=== PATIENT | male | born 1935 | race Caucasian/White ===

== ENCOUNTER 2016-08-11 18:11 | Emergency (ER) | payer MEDICARE, BC ==
--- NOTE | 2016-08-11 18:22 | EDM.PDOC ---
ED HPI LOWER BACK PAIN/INJURY - General Chief Complaint: Back Pain or Injury Stated Complaint: FALL/BACK PAIN Time Seen by Provider: 08/11/16 18:22 Source of Information: Reports: Patient History Limitations: Reports: No limitations - History of Present Illness INITIAL COMMENTS - FREE TEXT/NARRATIVE: HISTORY AND PHYSICAL: [81-year-old male brought in by his and daughter having back pain. Patient was opening the tailgate of his pickup he reached over to pick something on the edge of the pickup and the tailgate knocked him over. He did strike the back of his head on the cement driveway. He is complaining more of his midthoracic back pain] History of Present Illness: [Today patient fell] Review of Systems: As per history of present illness and below otherwise all systems reviewed and negative. Past medical history: As per history of present illness and as reviewed below otherwise noncontributory. Surgical history: As per history of present illness and as reviewed below otherwise noncontributory. Social history: No reported history of drug or alcohol abuse. Family history: As per history of present illness and as reviewed below otherwise noncontributory. Physical exam: Alert oriented gentleman neurologically looks intact he is not on any blood thinners. PERRLA, no obvious deformity to the back, or to the back of his head. HEENT: Atraumatic, normocehpalic, pupils reactive, negative for conjunctival pallor or scleral icterus, mucous membranes moist, throat clear, neck supple, nontender, trachea midline. Lungs: Clear to auscultation, breath sounds equal bilaterally, chest non tender. Heart: S1S2, regular, negative for clicks, rubs, or JVD. Abdomen: Soft, nondistended, nontender. Negative for masses or hepatossplenmegaly. Negative for costovertebral tenderness. Extremities: Atraumatic, negative for cords or calf pain. Neurovascular unremarkable. Neuro: Awake, alert, oriented. Cranial nerves II through XII unremarkable. Cerebellum unremarkable. Motor and sensory unremarkable throughout. Exam nonfocal. Diagnostics: [CT head/ thoracic spine x-rays] Therapeutics: [Toradol 60 mg IM] Impression: [Contusion] Plan: [Home Tylenol or ibuprofen for your discomfort] Definitive disposition and diagnosis as appropriate pending reevaluation and review of above. - Related Data Allergies/ADRs: Allergies Allergy/AdvReac Type Severity Reaction Status Date / Time Iodinated Contrast Media - Allergy Hives Verified 08/11/16 18:26 Oral and [Iodinated Contrast Media - IV Dye] Home Meds: Home Meds Aspirin [Halfprin] 81 mg PO BRK 03/16/15 [History] Levothyroxine Sodium [Levoxyl] 50 mcg PO ACBREAKFAST 03/16/15 [History] atorvaSTATin [Lipitor] 20 mg PO BEDTIME 08/11/16 [History] Past Medical History Other Cardiovascular History: reddness swelling around saphanous graft site L) leg. Other Musculoskeletal History: [place] bones playing [place] , no known treated Other Endocrine/Metabolic History: Hypothyroidism - Past Surgical History Other Cardiovascular Surgeries/Procedures: CA Bypass Other GI Surgeries/Procedures: Colon resection for cancer Other Male Surgeries/Procedures: Radical Prostatectomy Social & Family History - Tobacco Use Smoking Status *Q: Never Smoker Years of Tobacco use: 30 Packs/Tins Daily: 1 Second Hand Smoke Exposure: No - Recreational Drug Use Recreational Drug Use: No Drug Use in Last 12 Months: No ED ROS GENERAL - Review of Systems Review Of Systems: ROS reveals no pertinent complaints other than HPI. ED EXAM,LOWER BACK PAIN/INJURY - Physical Exam Exam: See Below (see dictation) Course - Vital Signs Last Recorded V/S: Last Vital Signs Temp 36.5 C 08/11/16 19:12 Pulse 60 08/11/16 19:12 Resp 17 08/11/16 19:12 BP 139/65 08/11/16 19:12 Pulse Ox 96 08/11/16 18:28 - Orders/Labs/Meds Orders: Active Orders 24 hr Category Date Time Status Head wo Cont [CT] Stat Exams 08/11/16 18:29 Taken Thoracic Spine 3V [CR] Stat Exams 08/11/16 18:31 Taken Meds: Medications Discontinued Medications Generic Name Dose Route Start Last Admin Trade Name Zeb PRN Reason Stop Dose Admin Ketorolac Tromethamine 60 mg 08/11/16 19:41 Toradol IM 08/11/16 19:42 ONETIME ONE Departure - Departure Time of Disposition: 20:01 Disposition: Home, Self-Care 01 Condition: good Clinical Impression: Contusion Qualifiers: Encounter type: initial encounter Contusion area: head Forms: ED Department Discharge Additional Instructions: The following information is given to patients seen in the emergency department who are being discharged to home. This information is to outline your options for follow-up care. We provide all patients seen in our emergency department with a follow-up referral. The need for follow-up, as well as the timing and circumstances, are variable depending upon the specifics of your emergency department visit. If you don't have a primary care physician on staff, we will provide you with a referral. We always advise you to contact your personal physician following an emergency department visit to inform them of the circumstance of the visit and for follow-up with them and/or the need for any referrals to a consulting specialist. The emergency department will also refer you to a specialist when appropriate. This referral assures that you have the opportunity for followup care with a specialist. All of these measure are taken in an effort to provide you with optimal care, which includes your followup. Under all circumstances we always encourage you to contact your private physician who remains a resource for coordinating your care. When calling for followup care, please make the office aware that this follow-up is from your recent emergency room visit. If for any reason you are refused follow-up, please contact the [facility] emergency department at and asked to speak to the emergency department charge nurse. Lower primary care provider Tylenol for discomfort - My Orders Last 24 Hours: My Active Orders 08/11/16 18:29 Head wo Cont [CT] Stat 08/11/16 18:31 Thoracic Spine 3V [CR] Stat - Assessment/Plan Last 24 Hours: My Active Orders 08/11/16 18:29 Head wo Cont [CT] Stat 08/11/16 18:31 Thoracic Spine 3V [CR] Stat
[2016-08-11] MEDS ORDERED: Ketorolac 60 MG/2 ML SDV IM ONE (19:41)
[2016-08-11 20:21] VITALS: BP 150/70
--- NOTE | 2016-08-14 12:59 | CT ---
EXAM DATE: 08/11/16 PATIENT'S AGE: 81 Patient: OCTAVIO KING Facility: [place], [place] Site . Site : 1935 Study: CT Head WO CONT [id number]/[id number] 7:20:15 PM Ordering Physician: Doctor Hernandez Final Report: INDICATION: Pain following fall TECHNIQUE: CT head without contrast. COMPARISON: None FINDINGS: CSF spaces: Within normal limits for age. Brain parenchyma: The wyatt-white differentiation is normal. No sign of mass, hemorrhage, or midline shift. Skull base and calvarium: Mucosal thickening involving the right frontal, ethmoid and maxillary and left frontal sinuses. Obstruction of the right ostiomeatal complex and frontal recess. The visualized orbits are grossly unremarkable. No skull fractures. IMPRESSION: No acute intracranial abnormalities. Right frontal, ethmoid and maxillary and left frontal sinus disease with obstruction of the right ostiomeatal complex and frontal recess. Dictated by Tyler Elliott MD @ 08/11/2016 7:38:21 PM Dictated by: Tyler Elliott MD @ 08/11/2016 19:38:31 (Electronic Signature) Report Signed by Proxy and Original Signed Document filed in the Medical Record. [email or web address]
--- NOTE | 2016-08-14 13:00 | CR ---
EXAM DATE: 08/11/16 PATIENT'S AGE: 81 Patient: OCTAVIO KING Facility: [place], [place] Site . Site : 1935 Study: XRay Spine Thoracic [id number]/17/2017 7:30:16 PM Ordering Physician: Doctor Hernandez Final Report: INDICATION: Fall TECHNIQUE: Thoracic spine 3 view. COMPARISON: None FINDINGS: Bones: Alignment is normal. No fractures or significant bone lesions. Joints: Kyphotic and degenerative changes thoracic spine. Soft tissues: Unremarkable. IMPRESSION: No evidence of acute thoracic spine trauma. Dictated by Tyler Elliott MD @ 08/11/2016 7:40:59 PM Dictated by: Tyler Elliott MD @ 08/11/2016 19:41:06 (Electronic Signature) Report Signed by Proxy and Original Signed Document filed in the Medical Record. MTDD
== END 2016-08-11 20:21 | disposition home or self-care (01) ==
LOC: MW.ED 18:11
DX: S00.93XA Contusion of unspecified part of head, initial encounter (principal); Z91.041 Radiographic dye allergy status; Z95.1 Presence of aortocoronary bypass graft; Z90.89 Acquired absence of other organs; W22.8XXA Striking against or struck by other objects, initial encounter
CPT/HCPCS: 70450; 72072; 96372; 99284; J1885; 99283

== ENCOUNTER → 2016-10-12 | Outpatient (CLI) | payer MEDICARE, BC | LOC: MW.CHUR 14:56 | PROVIDERS: ATTEND Urology | DX: C61 Malignant neoplasm of prostate (principal); R97.21 Rising PSA following treatment for malignant neoplasm of prostate; R32 Unspecified urinary incontinence | CPT/HCPCS: 36415; 84153; G0463 ==

== ENCOUNTER 2017-08-23 12:41 | Observation (INO) | payer MEDICARE, BC ==
[2017-08-23] MEDS ORDERED: Aspirin 81 MG Tab.Chew PO ONE (12:43)
--- NOTE | 2017-08-23 12:52 | EDM.PDOC ---
ED HPI GENERAL MEDICAL PROBLEM - General Stated Complaint: CHEST PAIN Time Seen by Provider: 08/23/17 12:42 Source of Information: Reports: Patient History Limitations: Reports: No Limitations - History of Present Illness INITIAL COMMENTS - FREE TEXT/NARRATIVE: HISTORY AND PHYSICAL: History of present illness: Patient is an 82-year-old male who presents to the emergency room with complaints of chest pain that radiates to his left shoulder and arm. He states he has had neck pain as well and feels as if he is unable to lift his chin up. The symptoms started Sunday and have not resolved. Today he told his daughter who is a nurse about his symptoms and she encouraged him to come to the emergency room for evaluation. He denies any shortness of breath, nausea, vomiting or diaphoresis. Denies any fever, chills, abdominal pain, diarrhea or constipation. Past medical history of bypass in 1995, elevated cholesterol, or with resection , hypothyroidism. Patient does have a primary care provider which she sees routinely as needed. Has not seen a production assembly operator in the years. No past smoking history. Review of systems: As per history of present illness and below otherwise all systems reviewed and negative. Past medical history: As per history of present illness and as reviewed below otherwise noncontributory. Surgical history: As per history of present illness and as reviewed below otherwise noncontributory. Social history: No reported history of drug or alcohol abuse. Family history: As per history of present illness and as reviewed below otherwise noncontributory. Physical exam: General: Well-developed and well-nourished 82-year-old male. Alert and oriented. Nontoxic appearing and in no acute distress. HEENT: Atraumatic, normocephalic, pupils equal and reactive bilaterally, negative for conjunctival pallor or scleral icterus, mucous membranes moist, throat clear, neck supple, nontender, trachea midline. No drooling or trismus noted. No meningeal signs Lungs: Clear to auscultation, breath sounds equal bilaterally, chest nontender. Heart: S1S2, regular rate and rhythm without overt murmur Abdomen: Soft, nondistended, nontender. Large abdominal hernia noted, normal patient variance. Negative for masses or hepatosplenomegaly. Negative for costovertebral tenderness. Pelvis: Stable nontender. Genitourinary: Deferred. Rectal: Deferred. Skin: Intact, warm, dry. No lesions or rashes noted. Extremities: Atraumatic, negative for cords or calf pain. Neurovascular unremarkable. Neuro: Awake, alert, oriented. Cranial nerves II through XII unremarkable. Cerebellum unremarkable. Motor and sensory unremarkable throughout. Exam nonfocal. Notes: Patient had 1 tab of nitro SL which dropped his BP. He was given a 500 ml bolus which brought it back up. Pain is moreso in his neck when he extends it upward. Will give him Toradol. Patient is aware that admission will be offered (due to symptoms/PMH), he is agreeable to staying overnight for observation. Chest x-ray shows no pneumonia or infiltrate. Lab work is within normal limits. I did contact Dr. Griffin who is agreeable to keeping this patient as observation with telemetry. Patient and family members are aware and agreeable for admission. Stable. Dr. Head (Resident) here to evaluate patient for admission. Diagnostics: CBC, CMP, troponin, EKG, chest x-ray Therapeutics: Aspirin, NS Impression: Chest pain rule out OK Neck pain Plan: Observation admission with telemetry Definitive disposition and diagnosis as appropriate pending reevaluation and review of above. Onset Date: 08/20/17 Duration: Day(s): Location: Reports: Neck, Chest, Upper Extremity, Left Associated Symptoms: Reports: Chest Pain. Denies: Confusion, Cough, cough w sputum, Diaphoresis, Fever/Chills, Headaches, Loss of Appetite, Malaise, Nausea/ Vomiting, Rash, Seizure, Shortness of Breath, Syncope, Weakness Treatments FUNCTIONAL CONSULTANT: Reports: Other (see below) (Aleve) Left Shoulder Pain Score (Numeric/FACES): 8 - Related Data Allergies Allergy/AdvReac Type Severity Reaction Status Date / Time Iodinated Contrast- Oral and Allergy Hives Verified 08/11/16 18:26 IV Dye [Iodinated Contrast Media - IV Dye] Home Meds: Home Meds Aspirin [Halfprin] 81 mg PO BRK 03/16/15 [History] Levothyroxine Sodium [Levoxyl] 50 mcg PO ACBREAKFAST 03/16/15 [History] atorvaSTATin [Lipitor] 20 mg PO BEDTIME 08/11/16 [History] Tolterodine [Detrol] 2 mg PO DAILY 08/23/17 [History] Past Medical History Cardiovascular History: Reports: Bypass Other Cardiovascular History: reddness swelling around saphanous graft site L) leg. Other Musculoskeletal History: [place] likely [place] some bones playing football , no known treated Endocrine/Metabolic History: Reports: Hypothyroidism Other Endocrine/Metabolic History: Hypothyroidism Hematologic History: Reports: Other (See Below) Other Hematologic History: blood clots - Past Surgical History Cardiovascular Surgical History: Reports: Coronary Artery Bypass Social & Family History - Tobacco Use Smoking Status *Q: Never Smoker Years of Tobacco use: 30 Packs/Tins Daily: 1 Second Hand Smoke Exposure: No - Recreational Drug Use Recreational Drug Use: No Drug Use in Last 12 Months: No ED ROS GENERAL - Review of Systems Review Of Systems: ROS reveals no pertinent complaints other than HPI. ED EXAM, GENERAL - Physical Exam Exam: See Below (See dictation) EKG INTERPRETATION EKG Date: 08/23/17 Time: 12:42 Rhythm: NSR Rate (Beats/Min): 69 Course - Vital Signs Last Recorded V/S: Last Vital Signs Temp 99.5 F 08/23/17 12:46 Pulse 63 08/23/17 14:09 Resp 16 08/23/17 14:09 BP 112/55 L 08/23/17 14:09 Pulse Ox 97 08/23/17 14:09 - Orders/Labs/Meds Orders: Active Orders 24 hr Category Date Time Status Admission Status [Patient Status] [ADT] Stat ADT 08/23/17 14:25 Active Cardiac Monitoring [RC] . DIRECTED Care 08/23/17 14:25 Active EKG Documentation Completion [RC] STAT Care 08/23/17 12:43 Active Morphine Med 08/23/17 13:31 Active 2 mg IVPUSH ONETIME PRN Nitroglycerin [Nitrostat] Med 08/23/17 12:58 Active 0.4 mg SL Q5M PRN Medication Orders Morphine Sulfate (Morphine) 2 mg IVPUSH ONETIME PRN PRN Reason: Pain (moderate 4-6) Last Admin: 08/23/17 14:04 Dose: 2 mg Nitroglycerin (Nitrostat) 0.4 mg SL Q5M PRN PRN Reason: Chest Pain Last Admin: 08/23/17 13:06 Dose: 0.4 mg Labs: Laboratory Tests 08/23/17 08/23/17 Range/Units 12:55 12:55 WBC 9.37 (4.0-11.0) K/uL RBC 4.42 L (4.50-5.90) M/uL Hgb 14.1 (13.0-17.0) g/dL Hct 40.7 (38.0-50.0) % MCV 92.1 (80.0-98.0) fL MCH 31.9 (27.0-32.0) pg MCHC 34.6 (31.0-37.0) g/dL RDW Std Deviation 42.4 (28.0-62.0) fl RDW Coeff of Dalia 13 (11.0-15.0) % Plt Count 200 (150-400) K/uL MPV 9.90 (7.40-12.00) fL Neut % (Auto) 75.0 (48.0-80.0) % Lymph % (Auto) 10.8 L (16.0-40.0) % [place] % (Auto) 13.7 (0.0-15.0) % Eos % (Auto) 0.4 (0.0-7.0) % Baso % (Auto) 0.1 (0.0-1.5) % Neut # (Auto) 7.0 H (1.4-5.7) K/uL Lymph # (Auto) 1.0 (0.6-2.4) K/uL [place] # (Auto) 1.3 H (0.0-0.8) K/uL Eos # (Auto) 0.0 (0.0-0.7) K/uL Baso # (Auto) 0.0 (0.0-0.1) K/uL Nucleated RBC % 0.0 /100WBC Nucleated RBCs # 0 K/uL Sodium 139 (136-148) mmol/L Potassium 3.9 (3.5-5.1) mmol/L Chloride 103 (98-107) mmol/L Carbon Dioxide 27.7 (21.0-32.0) mmol/L BUN 21 H (7.0-18.0) mg/dL Creatinine 1.2 (0.8-1.3) mg/dL Est Cr Clr Drug Dosing 45.13 mL/min Estimated GFR (MDRD) 57.8 ml/min Glucose 76 (74-106) mg/dL Calcium 9.1 (8.5-10.1) mg/dL Total Bilirubin 1.3 H (0.2-1.0) mg/dL AST 18 (15-37) IU/L ALT 17 (14-63) IU/L Alkaline Phosphatase 94 (46-116) U/L Troponin I < 0.050 (0.000-0.056) ng/mL Total Protein 7.2 (6.4-8.2) g/dL Albumin 3.5 (3.4-5.0) g/dL Globulin 3.7 H (2.0-3.5) g/dL Albumin/Globulin Ratio 1.0 L (1.3-2.8) Meds: Medications Generic Name Dose Route Start Last Admin Trade Name Freq PRN Reason Stop Dose Admin Morphine Sulfate 2 mg 08/23/17 13:31 08/23/17 14:04 Morphine IVPUSH 2 mg ONETIME PRN Administration Pain (moderate 4-6) Nitroglycerin 0.4 mg 08/23/17 12:58 08/23/17 13:06 Nitrostat SL 0.4 mg Q5M PRN Administration Chest Pain Discontinued Medications Generic Name Dose Route Start Last Admin Trade Name Freq PRN Reason Stop Dose Admin Aspirin 324 mg 08/23/17 12:43 08/23/17 12:50 Aspirin PO 08/23/17 12:44 324 mg ONETIME ONE Administration Sodium Chloride 1,000 mls @ 999 mls/hr 08/23/17 13:15 08/23/17 13:20 Normal Saline IV 08/23/17 14:15 999 mls/hr .BOLUS ONE Administration Departure - Departure Time of Disposition: 14:38 Disposition: Refer to Observation Clinical Impression: Chest pain, rule out acute myocardial infarction, Neck pain Referrals: PCP,None [Primary Care Provider] - - My Orders Last 24 Hours: My Active Orders 08/23/17 12:43 EKG Documentation Completion [RC] STAT 08/23/17 12:58 Nitroglycerin [Nitrostat] 0.4 mg SL Q5M PRN 08/23/17 13:31 Morphine 2 mg IVPUSH ONETIME PRN 08/23/17 14:25 Admission Status [Patient Status] [ADT] Stat Cardiac Monitoring [RC] . DIRECTED - Assessment/Plan Last 24 Hours: My Active Orders 08/23/17 12:43 EKG Documentation Completion [RC] STAT 08/23/17 12:58 Nitroglycerin [Nitrostat] 0.4 mg SL Q5M PRN 08/23/17 13:31 Morphine 2 mg IVPUSH ONETIME PRN 08/23/17 14:25 Admission Status [Patient Status] [ADT] Stat Cardiac Monitoring [RC] . DIRECTED
[2017-08-23] MEDS ORDERED: Nitroglycerin 0.4 MG Tab.SL SL PRN (12:58)
[2017-08-23] MEDS ORDERED: Sodium Chloride 0.9% 1,000 ML IV ONE (13:15)
[2017-08-23] MEDS ORDERED: Morphine 4 MG/ML Syringe IVPUSH PRN ×2 (13:31→15:29)
--- NOTE | 2017-08-23 13:54 | CR ---
EXAMINATION: Portable chest radiograph. HISTORY: Chest pain. FINDINGS: The trachea is midline. The cardiomediastinal silhouette is within normal limits. Median sternotomy w ires are noted. The cardiothymic silhouette is stable mild interstitial prominence. No focal consolid ation, pleural effusion, or pneumothorax. Angulation of the anterior sixth and seventh left ribs, possibly representing underlying fractures. IMPRESSION: No acute cardiopulmonary process.
[2017-08-23 14:16] LABS: CHLORIDE,CL 103 mmol/L (98-107); SODIUM,NA 139 mmol/L (136-148)
--- NOTE | 2017-08-23 15:28 | PCM.HP ---
H&P History of Present Illness - General Date of Service: 08/23/17 Admit Problem/Dx: Admission Diagnosis/Problem Admission Diagnosis/Problem Chest pain, rule out acute myocardial infarction Source of Information: Patient - History of Present Illness Initial Comments - Free Text/Narative: This is a 82-year-old male who is presenting with his secondary to what he complains of as neck pain that's radiating down his arm. He states that he has not had any chest pain. However due to his previous cardiovascular history he may be presenting with atypical chest pain that requires a acute coronary syndrome rule out. He does have severe kyphosis and this pain may be related secondary to his severe osteoarthritis. He does state that he told his daughter on Sunday that he was having some chest pain but that his symptoms seem to have resolved on Sunday. His does state that they did recently come [place] from [place] in [place] and perhaps that long trip caused some musculoskeletal pain. Patient denies any shortness of breath, nausea, vomiting, diaphoresis, or any other signs of ischemic/cardiovascular related issues. There is no signs of infections including fevers, chills, abdominal pain, diarrhea or constipation. Left Shoulder Pain Score (Numeric/FACES): 8 - Related Data Allergies/Adverse Reactions: Allergies Allergy/AdvReac Type Severity Reaction Status Date / Time Iodinated Contrast- Oral and Allergy Hives Verified 08/11/16 18:26 IV Dye [Iodinated Contrast Media - IV Dye] Home Medications: Home Meds Aspirin [Halfprin] 81 mg PO BRK 03/16/15 [History] Levothyroxine Sodium [Levoxyl] 50 mcg PO ACBREAKFAST 03/16/15 [History] atorvaSTATin [Lipitor] 20 mg PO DAILY 08/11/16 [History] L.acidoph,Paracasei, B.lactis [Probiotic] 1 each PO DAILY 08/23/17 [History] Tolterodine [Detrol] 2 mg PO DAILY 08/23/17 [History] Past Medical History Cardiovascular History: Reports: Bypass Other Cardiovascular History: reddness swelling around saphanous graft site L) leg. Musculoskeletal History: Reports: Arthritis Other Musculoskeletal History: [place] likely [place] bones playing football , no known treated Endocrine/Metabolic History: Reports: Hypothyroidism Other Endocrine/Metabolic History: Hypothyroidism Hematologic History: Reports: Other (See Below) Other Hematologic History: blood clots Oncologic (Cancer) History: Reports: Colon - Past Surgical History Cardiovascular Surgical History: Reports: Coronary Artery Bypass Social & Family History - Family History Family Medical History: Noncontributory - Tobacco Use Smoking Status *Q: Never Smoker Years of Tobacco use: 30 Packs/Tins Daily: 1 Second Hand Smoke Exposure: No - Caffeine Use Caffeine Use: Reports: Coffee - Recreational Drug Use Recreational Drug Use: No Drug Use in Last 12 Months: No H&P Review of Systems - Review of Systems: Review Of Systems: ROS reveals no pertinent complaints other than HPI. Exam - Exam Exam: See Below - Vital Signs Vital Signs: Last Vital Signs Temp 37.5 C 08/23/17 12:46 Pulse 58 L 08/23/17 15:13 Resp 16 08/23/17 15:13 BP 135/66 08/23/17 15:13 Pulse Ox 96 08/23/17 15:13 Weight: 75.5 kg - Exam Quality Assessment: Supplemental Oxygen General: Alert, Oriented, Cooperative Neck: Supple Lungs: Clear to Auscultation, Normal Respiratory Effort Cardiovascular: Regular Rate, Regular Rhythm GI/Abdominal Exam: Normal Bowel Sounds, Soft, Non-Tender Back Exam: Decreased Range of Motion, Other (Kyphosis in particular of the cervical spine) Extremities: Other (Pain on palpation of the left humerus area of the upper extremity.) Neurological: Cranial Nerves Intact Neuro Extensive - Mental Status: Alert, Oriented x3, Normal Mood/Affect, Normal Cognition - Patient Data Lab Results Last 24 hrs: Laboratory Results - last 24 hr 08/23/17 08/23/17 Range/Units 12:55 12:55 WBC 9.37 (4.0-11.0) K/uL RBC 4.42 L (4.50-5.90) M/uL Hgb 14.1 (13.0-17.0) g/dL Hct 40.7 (38.0-50.0) % MCV 92.1 (80.0-98.0) fL MCH 31.9 (27.0-32.0) pg MCHC 34.6 (31.0-37.0) g/dL RDW Std Deviation 42.4 (28.0-62.0) fl RDW Coeff of Dalia 13 (11.0-15.0) % Plt Count 200 (150-400) K/uL MPV 9.90 (7.40-12.00) fL Neut % (Auto) 75.0 (48.0-80.0) % Lymph % (Auto) 10.8 L (16.0-40.0) % [place] % (Auto) 13.7 (0.0-15.0) % Eos % (Auto) 0.4 (0.0-7.0) % Baso % (Auto) 0.1 (0.0-1.5) % Neut # (Auto) 7.0 H (1.4-5.7) K/uL Lymph # (Auto) 1.0 (0.6-2.4) K/uL [place] # (Auto) 1.3 H (0.0-0.8) K/uL Eos # (Auto) 0.0 (0.0-0.7) K/uL Baso # (Auto) 0.0 (0.0-0.1) K/uL Nucleated RBC % 0.0 /100WBC Nucleated RBCs # 0 K/uL Sodium 139 (136-148) mmol/L Potassium 3.9 (3.5-5.1) mmol/L Chloride 103 (98-107) mmol/L Carbon Dioxide 27.7 (21.0-32.0) mmol/L BUN 21 H (7.0-18.0) mg/dL Creatinine 1.2 (0.8-1.3) mg/dL Est Cr Clr Drug Dosing 45.13 mL/min Estimated GFR (MDRD) 57.8 ml/min Glucose 76 (74-106) mg/dL Calcium 9.1 (8.5-10.1) mg/dL Total Bilirubin 1.3 H (0.2-1.0) mg/dL AST 18 (15-37) IU/L ALT 17 (14-63) IU/L Alkaline Phosphatase 94 (46-116) U/L Troponin I < 0.050 (0.000-0.056) ng/mL Total Protein 7.2 (6.4-8.2) g/dL Albumin 3.5 (3.4-5.0) g/dL Globulin 3.7 H (2.0-3.5) g/dL Albumin/Globulin Ratio 1.0 L (1.3-2.8) Result Diagrams: 08/23/17 12:55 08/23/17 12:55 Problem List Initiated/Reviewed/Updated: Yes Orders Last 24hrs: Active Orders 24 hr Category Date Time Status Admission Status [Patient Status] [ADT] Stat ADT 08/23/17 14:25 Active Cardiac Monitoring [RC] Q8H Care 08/23/17 14:25 Active EKG Documentation Completion [RC] STAT Care 08/23/17 12:43 Active Morphine Med 08/23/17 13:31 Active 2 mg IVPUSH ONETIME PRN Nitroglycerin [Nitrostat] Med 08/23/17 12:58 Active 0.4 mg SL Q5M PRN Medication Orders Morphine Sulfate (Morphine) 2 mg IVPUSH ONETIME PRN PRN Reason: Pain (moderate 4-6) Last Admin: 08/23/17 14:04 Dose: 2 mg Nitroglycerin (Nitrostat) 0.4 mg SL Q5M PRN PRN Reason: Chest Pain Last Admin: 08/23/17 13:06 Dose: 0.4 mg Assessment/Plan Comment:: This is an 82-year-old male presenting with a acute three-day history of possible chest pain, neck pain radiating down to the left arm most likely etiology is osteoarthritis related pain secondary to severe kyphosis however acute coronary syndrome does need to be ruled out. -Troponins 3, CBC, CMP in the a.m. -Patient shall be put on telemetry -NSAID for pain relief of osteoarthritis type symptoms. -If troponins negative 3 patient's chest pain no longer present patient shall be discharged in the a.m. Patient is admitted under observation anticipated length of stay is less than 2 midnights
[2017-08-23] MEDS ORDERED: Sodium Chloride 0.9% 10 ML Syringe FLUSH PRN (15:29)
[2017-08-23] MEDS ORDERED: Ondansetron 4 MG/2 ML SDV IVPUSH PRN (15:29)
[2017-08-23] MEDS ORDERED: Sodium Chloride 0.9% 2.5 ML Syringe FLUSH PRN (15:29)
[2017-08-23] MEDS ORDERED: Enoxaparin 40 MG/0.4 ML Syringe SUBCUT SCH (15:30)
[2017-08-23] MEDS: Ibuprofen 400 MG Tab PO PRN ×2 (18:30→23:54)
[2017-08-23] MEDS ORDERED: atorvaSTATin 20 MG Tab PO SCH (21:00)
[2017-08-24] MEDS: Ibuprofen 400 MG Tab PO PRN (06:49)
[2017-08-24] MEDS ORDERED: Levothyroxine 50 MCG Tab PO SCH (07:30)
[2017-08-24] MEDS ORDERED: Tolterodine 2 MG Cap.ER PO SCH (09:00)
[2017-08-24] MEDS ORDERED: atorvaSTATin 20 MG Tab PO SCH (09:00)
[2017-08-24 09:06] VITALS: BP 121/80
== END 2017-08-24 10:45 | disposition home or self-care (01) ==
LOC: MW.ED 12:41 → MW.MS 14:25
PROVIDERS: ADMIT Family Medicine; ATTEND Family Medicine
DX: R07.9 Chest pain, unspecified (principal); M54.2 Cervicalgia; M40.10 Other secondary kyphosis, site unspecified; E78.00 Pure hypercholesterolemia, unspecified; M19.90 Unspecified osteoarthritis, unspecified site; E03.9 Hypothyroidism, unspecified; Z91.041 Radiographic dye allergy status; Z79.82 Long term (current) use of aspirin; Z79.899 Other long term (current) drug therapy
CPT/HCPCS: 36415; 71045; 80053; 83735; 84484; 85025; 93005; 96374; 99285; A9270; J1650; J2270; J7040; 96372; 96376; G0378

== ENCOUNTER 2017-11-04 05:00 | Observation (INO) | payer MEDICARE, BC ==
[2017-11-04] MEDS ORDERED: Sodium Chloride 0.9% 1,000 ML IV ONE (05:08)
[2017-11-04] MEDS ORDERED: Morphine 2 MG/ML Syringe IVPUSH ONE ×2 (05:46→07:16)
--- NOTE | 2017-11-04 06:03 | EDM.PDOC ---
<Eulalio Roper J - Last Filed: 11/04/17 06:01> ED HPI GENERAL MEDICAL PROBLEM - General Chief Complaint: Flank Pain Stated Complaint: PAIN ON RIGHT SIDE Time Seen by Provider: 11/04/17 06:00 - History of Present Illness INITIAL COMMENTS - FREE TEXT/NARRATIVE: HISTORY AND PHYSICAL: History of present illness: Patient is an 82-year-old male who presents with a concern of recent fall which injured his lower back presents today with low back pain/abdominal pain is recently seen by general surgery for a chronic hernia which was determined to be at this time nonoperable per daughter there's been no fever chills nausea vomiting. No numbness weakness incontinence or retention of bowel or bladder Review of systems: As per history of present illness and below otherwise all systems reviewed and negative. Past medical history: As per history of present illness and as reviewed below otherwise noncontributory. Surgical history: As per history of present illness and as reviewed below otherwise noncontributory. Social history: No reported history of drug or alcohol abuse. Family history: As per history of present illness and as reviewed below otherwise noncontributory. Physical exam: HEENT: Atraumatic, normocephalic, pupils reactive, negative for conjunctival pallor or scleral icterus, mucous membranes moist, throat clear, neck supple, nontender, trachea midline. Lungs: Clear to auscultation, breath sounds equal bilaterally, chest nontender. Heart: S1S2, regular, negative for clicks, rubs, or JVD. Abdomen: Soft, nondistended, nontender. Negative for masses or hepatosplenomegaly. Negative for costovertebral tenderness. Pelvis: Stable nontender. Genitourinary: Deferred. Rectal: Deferred. Extremities: Atraumatic, negative for cords or calf pain. Neurovascular unremarkable. Neuro: Awake, alert, oriented. Cranial nerves II through XII unremarkable. Cerebellum unremarkable. Motor and sensory unremarkable throughout. Exam nonfocal. Back: Patient has tenderness across his lower back no vertebral body or point tenderness Diagnostics: CBC CMP UA CT abdomen and pelvis with lumbar reconstruction Therapeutics: Saline lock morphine sulfate 2 mg IV Zofran 4 mg IV Impression: # 1 history of recent fall #2 abdominal/back pain Definitive disposition and diagnosis as appropriate pending reevaluation and review of above. R Flank Pain Score (Numeric/FACES): 10 - Related Data Allergies Allergy/AdvReac Type Severity Reaction Status Date / Time Iodinated Contrast- Oral and Allergy Hives Verified 11/04/17 05:23 IV Dye [Iodinated Contrast Media - IV Dye] Home Meds: Home Meds Aspirin [Halfprin] 81 mg PO BRK 03/16/15 [History] Levothyroxine Sodium [Levoxyl] 50 mcg PO ACBREAKFAST 03/16/15 [History] atorvaSTATin [Lipitor] 20 mg PO DAILY 08/11/16 [History] L.acidoph,Paracasei, B.lactis [Probiotic] 1 each PO DAILY 08/23/17 [History] Tolterodine [Detrol] 2 mg PO DAILY 08/23/17 [History] Past Medical History HEENT History: Reports: Hard of Hearing, Impaired Vision Cardiovascular History: Reports: Bypass Other Cardiovascular History: reddness swelling around saphanous graft site L) leg. Genitourinary History: Reports: Prostate Disorder Musculoskeletal History: Reports: Arthritis Other Musculoskeletal History: [place] bones playing [place] , no known treated Endocrine/Metabolic History: Reports: Hypothyroidism Other Endocrine/Metabolic History: Hypothyroidism Hematologic History: Reports: Other (See Below) Other Hematologic History: blood clots Oncologic (Cancer) History: Reports: Colon - Infectious Disease History Infectious Disease History: Reports: Chicken Pox - Past Surgical History HEENT Surgical History: Reports: Tonsillectomy Cardiovascular Surgical History: Reports: Coronary Artery Bypass GI Surgical History: Reports: Appendectomy, Hernia, Abdominal, Hernia Repair/ Other Other GI Surgeries/Procedures: Colon resection for cancer Male Surgical History: Reports: Prostatectomy Other Male Surgeries/Procedures: Radical Prostatectomy 1995 Social & Family History - Family History Family Medical History: Noncontributory - Tobacco Use Smoking Status *Q: Former Smoker Used Tobacco, but Quit: Yes Month/Year Tobacco Last Used: 1995 - Caffeine Use Caffeine Use: Reports: Coffee - Recreational Drug Use Recreational Drug Use: No ED ROS GENERAL - Review of Systems Review Of Systems: ROS reveals no pertinent complaints other than HPI. ED EXAM, GENERAL - Physical Exam Exam: See Below (dictation) Course - Vital Signs Last Recorded V/S: Last Vital Signs Temp 98.3 F 11/04/17 05:17 Pulse 63 11/04/17 07:35 Resp 20 11/04/17 07:35 BP 146/71 H 11/04/17 07:35 Pulse Ox 96 11/04/17 07:35 - Orders/Labs/Meds Orders: Active Orders 24 hr Category Date Time Status Abdomen Pelvis w wo Cont [CT] Stat Exams 11/04/17 05:08 Stop Req Abdomen Pelvis wo Cont [CT] Stat Exams 11/04/17 05:40 Taken Lumbar Spine Comp wo Cont [MR] Stat Exams 11/04/17 05:53 Stop Req Lumbar Spine wo Cont [CT] Stat Exams 11/04/17 06:01 Taken CULTURE URINE [RM] Stat Lab 11/04/17 07:54 Ordered UA W/MICROSCOPIC [URIN] Stat Lab 11/04/17 05:18 Ordered Labs: Laboratory Tests 11/04/17 11/04/17 11/04/17 Range/Units 05:18 05:30 05:30 WBC 8.92 (4.0-11.0) K/uL RBC 4.66 (4.50-5.90) M/uL Hgb 14.6 (13.0-17.0) g/dL Hct 42.5 (38.0-50.0) % MCV 91.2 (80.0-98.0) fL MCH 31.3 (27.0-32.0) pg MCHC 34.4 (31.0-37.0) g/dL RDW Std Deviation 43.3 (28.0-62.0) fl RDW Coeff of Dalia 13 (11.0-15.0) % Plt Count 199 (150-400) K/uL MPV 10.20 (7.40-12.00) fL Neut % (Auto) 71.7 (48.0-80.0) % Lymph % (Auto) 14.0 L (16.0-40.0) % Sac % (Auto) 11.0 (0.0-15.0) % Eos % (Auto) 3.1 (0.0-7.0) % Baso % (Auto) 0.2 (0.0-1.5) % Neut # (Auto) 6.4 H (1.4-5.7) K/uL Lymph # (Auto) 1.3 (0.6-2.4) K/uL Sac # (Auto) 1.0 H (0.0-0.8) K/uL Eos # (Auto) 0.3 (0.0-0.7) K/uL Baso # (Auto) 0.0 (0.0-0.1) K/uL Nucleated RBC % 0.0 /100WBC Nucleated RBCs # 0 K/uL Sodium 143 (136-148) mmol/L Potassium 4.3 (3.5-5.1) mmol/L Chloride 106 (98-107) mmol/L Carbon Dioxide 28.4 (21.0-32.0) mmol/L BUN 25 H (7.0-18.0) mg/dL Creatinine 1.9 H (0.8-1.3) mg/dL Est Cr Clr Drug Dosing 28.50 mL/min Estimated GFR (MDRD) 34.0 ml/min Glucose 111 H (74-106) mg/dL Calcium 9.4 (8.5-10.1) mg/dL Total Bilirubin 0.9 (0.2-1.0) mg/dL AST 18 (15-37) IU/L ALT 18 (14-63) IU/L Alkaline Phosphatase 105 (46-116) U/L Total Protein 7.6 (6.4-8.2) g/dL Albumin 3.9 (3.4-5.0) g/dL Globulin 3.7 H (2.0-3.5) g/dL Albumin/Globulin Ratio 1.1 L (1.3-2.8) Urine Color YELLOW Urine Appearance HAZY Urine pH 5.5 (5.0-8.0) Ur Specific [place] 1.025 (1.001-1.035) Urine Protein NEGATIVE (NEGATIVE) mg/dL Urine Glucose (UA) NEGATIVE (NEGATIVE) mg/dL Urine Ketones NEGATIVE (NEGATIVE) mg/dL Urine Occult Blood LARGE H (NEGATIVE) Urine Nitrite NEGATIVE (NEGATIVE) Urine Bilirubin NEGATIVE (NEGATIVE) Urine Urobilinogen 0.2 (<2.0) EU/dL Ur Leukocyte Esterase NEGATIVE (NEGATIVE) Urine RBC 20-30 (0-2/HPF) Urine WBC 1-5 (0-5/HPF) Ur Epithelial Cells RARE (NONE-FEW) Ur Renal Epithelial Cell RARE Urine Bacteria FEW (NEGATIVE) Meds: Medications Discontinued Medications Generic Name Dose Route Start Last Admin Trade Name Freq PRN Reason Stop Dose Admin Sodium Chloride 1,000 mls @ 999 mls/hr 11/04/17 05:08 11/04/17 05:38 Normal Saline IV 11/04/17 06:08 999 mls/hr .Bolus ONE Administration Methylprednisolone Sodium Succinate 125 mg 11/04/17 07:41 Solu-Medrol IVPUSH 11/04/17 07:42 ONETIME ONE Morphine Sulfate 2 mg 11/04/17 05:46 11/04/17 05:50 Morphine IVPUSH 11/04/17 05:47 2 mg ONETIME ONE Administration Morphine Sulfate 2 mg 11/04/17 07:16 11/04/17 07:28 Morphine IVPUSH 11/04/17 07:17 2 mg ONETIME ONE Administration Ondansetron HCl 8 mg 11/04/17 07:18 11/04/17 07:28 Zofran IVPUSH 11/04/17 07:19 8 mg ONETIME ONE Administration Tamsulosin HCl 0.8 mg 11/04/17 07:40 Flomax PO 11/04/17 07:41 NOW STA Departure - Departure Disposition: Refer to Observation Clinical Impression: Ureteral stone - Discharge Information Referrals: Ramu Miles MD [Primary Care Provider] - Forms: ED Department Discharge - My Orders Last 24 Hours: My Active Orders 11/04/17 07:54 CULTURE URINE [RM] Stat - Assessment/Plan Last 24 Hours: My Active Orders 11/04/17 07:54 CULTURE URINE [RM] Stat <Nguyễn Cerda - Last Filed: 11/04/17 07:56> ED HPI GENERAL MEDICAL PROBLEM - History of Present Illness INITIAL COMMENTS - FREE TEXT/NARRATIVE: Seen and examined patient admitted for pain control 4 mm stone right UVJ Dr. Buchanan ED ROS GENERAL - Review of Systems Review Of Systems: See Below ED EXAM, GENERAL - Physical Exam Exam: See Below Departure - Departure Time of Disposition: 07:55 Condition: Fair
[2017-11-04] MEDS ORDERED: Ondansetron 4 MG/2 ML SDV IVPUSH ONE (07:18)
[2017-11-04] MEDS ORDERED: Tamsulosin 0.4 MG Cap.ER PO STA ×2 (07:40→09:43)
[2017-11-04] MEDS ORDERED: methylPREDNISolone Sodium Succinate 125 MG/2 ML SDV IVPUSH ONE (07:41)
[2017-11-04] MEDS ORDERED: Sodium Chloride 0.9% 1,000 ML IV SCH (08:00)
[2017-11-04] MEDS ORDERED: Ondansetron 4 MG/2 ML SDV IVPUSH PRN (12:45)
[2017-11-04] MEDS ORDERED: Bisacodyl 10 MG Supp RECTAL ONE (12:52)
[2017-11-04] MEDS: Lactated Ringers 1,000 ML IV SCH (13:30)
--- NOTE | 2017-11-04 14:09 | HP ---
DATE OF : 1935 PRIMARY CARE PHYSICIAN: Ramu Miles M.D. HISTORY OF PRESENT ILLNESS: Horace Noble is an 82-year-old, he presented to the emergency room earlier today with sudden onset of right flank pain. Having had urinary stones in the past, he suspected that is what was going on. His UA was negative except for microscopic hematuria. His white blood count is normal. He had a CT scan of abdomen and pelvis without contrast that I reviewed and that shows a 4 mm stone right at the right UVJ. He has 1 mm stone in the left kidney and 2 mm stones in the right kidney. Fairly significant atherosclerotic vascular disease. PAST MEDICAL HISTORY: Significant for having had coronary artery bypass in the past. PAST SURGICAL HISTORY: He had colon resection. He now has a large incisional hernia that was repaired once, and I did a radical retropubic prostatectomy done on many years ago for CA of the prostate. PHYSICAL EXAMINATION: GENERAL: He is alert and oriented. HEENT: He has hoarseness in his voice that has been evaluated before. 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 LUNGS: Clear. HEART: Shows occasional premature contraction. ABDOMEN: Large incisional hernia. IMPRESSION: Right lower ureteral stone, 4 mm at the UVJ with mild ureteral obstruction. PLAN: I will keep him comfortable and see if he passes a stone and will go from there. ANNE-MARIE / CARMEN /[id number]
[2017-11-04] MEDS: Morphine 2 MG/ML Syringe IVPUSH PRN ×3 (14:39→22:30)
[2017-11-04] MEDS: Docusate Sodium 100 MG Cap PO SCH (20:12)
[2017-11-05] MEDS: Lactated Ringers 1,000 ML IV SCH (03:00)
[2017-11-05] MEDS ORDERED: Levothyroxine 50 MCG Tab PO SCH (07:30)
[2017-11-05] MEDS ORDERED: Aspirin 81 MG Tab.EC PO SCH (08:00)
[2017-11-05 08:46] VITALS: BP 92/56
[2017-11-05] MEDS: Docusate Sodium 100 MG Cap PO SCH (08:47)
[2017-11-05] MEDS ORDERED: atorvaSTATin 20 MG Tab PO SCH (09:00)
[2017-11-05] MEDS ORDERED: Acidophilus with Citrus Pectin Tab PO SCH (09:00)
--- NOTE | 2017-11-05 12:10 | DISCH ---
DATE OF DISCHARGE: 11/05/2017 PRIMARY CARE PHYSICIAN: Ramu Miles M.D. This 82-year-old was admitted to the hospital yesterday with pain due to a right lower ureteral stone, which was about 4 mm at the UVJ. His UA was negative. His white blood count is normal. He remained stable. He was kept overnight and by the next morning, he was relatively pain free and he is sent home to pass the stone on his own. He is to come back as needed. ANNE-MARIE MORALES /[id number]
--- NOTE | 2017-11-05 15:16 | CT ---
EXAM DATE: 11/04/17 PATIENT'S AGE: 82 Patient: OCTAVIO KING Facility: [place], [place] Site . Site : 1935 Study: CT Abdomen/Pelvis [id number]/[id number] 6:43:31 AM Ordering Physician: Doctor Hernandez Final Report: INDICATION: flank pain HISTORY: Flank pain. COMPARISON: None. TECHNIQUE: CT of the abdomen and pelvis. No intravenous contrast. Coronal/sagittal reconstruction images. FINDINGS: Lung bases: Dense coronary artery calcifications. No pleural or pericardial effusion. No adenopathy in the lower mediastinum. Calcified granuloma at the left lung base. No acute airspace disease. Linear atelectasis at the right lung base. No basilar pneumothorax. Abdomen/pelvis: No solid hepatic mass. Gallstones. No dilation of intrahepatic biliary radicals. No inflammatory changes about the pancreas. No pancreatic duct dilation or glandular atrophy. Spleen size is normal. There is mild right hydronephrosis and hydroureter. Numerous calculi present in the right intrarenal collecting system. There is a stone present at the right ureterovesical junction. This is seen on series 301, image 132. The stone measures 4 mm in dimension. There is a 2 mm stone in the left kidney on image 62 , series 301. There is no left-sided urolith. Multiple surgical clips in the pelvis. Presumably, the patient has undergone a prior prostatectomy with pelvic lymph node dissection. Extensive colonic diverticulosis. There is no evidence for diverticulitis. There is no small bowel or colonic obstruction. Prior ventral wall abdominal hernia repair, with loops of small bowel and colon anterior to the anterior abdominal wall. This may indicate the presence of adhesive disease. No abdominal aortic aneurysm. No adenopathy by size criteria in the pelvis, retroperitoneum, gastrohepatic ligament. The bone windows demonstrate degenerative changes at the right femoroacetabular joint. Multilevel degenerative disc disease. On sagittal reconstruction images, minimal anterolisthesis of L4 on L5. IMPRESSION: 1. 4 mm stone at the right UVJ, with mild right hydronephrosis and hydroureter. 2. Additional calculi in both intrarenal collecting systems. 3. Gallstones. No right upper quadrant inflammatory changes. No dilation of intrahepatic biliary radicals. Dictated by Ramu Jiménez MD @ 11/04/2017 7:20:56 AM Please note that all CT scans at this facility use dose modulation, iterative reconstruction, and/or weight-based dosing when appropriate to reduce radiation dose to as low as reasonably achievable. Dictated by: Ramu Jiménez MD @ 11/04/2017 07:21:18 (Electronic Signature) Report Signed by Proxy. MTDD
--- NOTE | 2017-11-05 15:17 | CT ---
EXAM DATE: 11/04/17 PATIENT'S AGE: 82 Patient: OCTAVIO KING Facility: [place], [place] Site . Site : 1935 Study: CT Spine Lumbar [id number]/10/2018 6:44:00 AM Ordering Physician: Jacquelin Tsai Final Report: INDICATION: flank pain HISTORY: Flank pain. COMPARISON: None. TECHNIQUE: CT of the lumbar spine. No intravenous contrast. Coronal/sagittal reconstruction images. FINDINGS: Multilevel degenerative disc disease. On the land acquisition manager tomogram, there is rotoscoliosis. There is no acute fracture identified. Vertebral body heights are maintained on sagittal reconstruction images. 5 mm of anterolisthesis of L5 on S1. 2 mm of anterolisthesis of L3 on L4. Alignment is otherwise maintained. There is spurring of the apophyseal joints, with neural foraminal narrowing to varying degrees. For example, there is mild left neural foraminal narrowing at L2-L3, image 130, series 305. There is no high-grade spinal canal or neural foraminal stenosis by CT. No paravertebral hematoma or stranding. Retroperitoneal structures demonstrate right hydronephrosis and hydroureter, with a stone present at the right UVJ. This is noted on the comparison CT of the abdomen and pelvis of the same date, and is seen on series 306, image 111 on the current exam. There is no evidence for a sacral insufficiency fracture. Surgical clips in the pelvis, presumably related to a prostatectomy/pelvic lymph node dissection. IMPRESSION: 1. Moderate, multilevel degenerative disc and apophyseal joint disease. 2. Anterolisthesis at the lumbosacral junction. 3. No acute bone abnormality. 4. No high-grade spinal canal or neural foraminal narrowing by CT. 5. 4 mm stone at the right UVJ, with mild right hydronephrosis and hydroureter. Additional calculi in both intrarenal collecting systems. Dictated by Ramu Jiménez MD @ 11/04/2017 7:26:47 AM Please note that all CT scans at this facility use dose modulation, iterative reconstruction, and/or weight-based dosing when appropriate to reduce radiation dose to as low as reasonably achievable. Dictated by: Ramu Jiménez MD @ 11/04/2017 07:27:05 (Electronic Signature) Report Signed by Proxy. CLARISAD
== END 2017-11-05 10:25 | disposition home or self-care (01) ==
LOC: MW.ED 05:00 → MW.MS 07:56 → MW.ED 09:14 → MW.MS 11-05 04:30
PROVIDERS: ADMIT Urology; ATTEND Urology
DX: N13.2 Hydronephrosis with renal and ureteral calculous obstruction (principal); K80.80 Other cholelithiasis without obstruction; E03.9 Hypothyroidism, unspecified; Z95.1 Presence of aortocoronary bypass graft; Z87.891 Personal history of nicotine dependence; Z79.82 Long term (current) use of aspirin; Z79.899 Other long term (current) drug therapy; Z90.49 Acquired absence of other specified parts of digestive tract; Z91.041 Radiographic dye allergy status
CPT/HCPCS: 72131; 74176; 80053; 81001; 85025; 87086; 93005; 96361; 96374; 96375; 96376; 99285; A9270; G0378; J2270; J2405; J2930; J7040; J7120; 99283

== ENCOUNTER 2018-01-11 12:01 | Inpatient (IN) | payer MEDICARE, BC ==
[2018-01-11] MEDS ORDERED: Ondansetron 4 MG/2 ML SDV IVPUSH PRN (12:46)
[2018-01-11] MEDS ORDERED: Lactated Ringers 1,000 ML IV SCH (13:00)
--- NOTE | 2018-01-11 14:33 | PCM.HP ---
H&P History of Present Illness - General Date of Service: 01/11/18 Admit Problem/Dx: Admission Diagnosis/Problem Admission Diagnosis/Problem Nausea and lower abdominal pain Source of Information: Patient, Family History Limitations: Reports: No Limitations - History of Present Illness Initial Comments - Free Text/Narative: Patient 82 y old presented to hospital with abdominal pain localized in the lower abdomen that started 2 weeks ago and was gradually getting worse , especially for the past 2 day , rated 6/10 intensity , pain is there all the time , patient is more somnolent , does not eat and lost about 10 lbs for the past 4 weeks. Patient had a ventral hernia repair with mesh about 7 y ( had 7 ventral hernias at that time) ago , few months after he had a partial colon resection for Colon cancer ( ). Patient has history of Prostate cancer in 1995 and he is s/p CABG in 1995. He feels like his abdomen is pushing up on his diaphragm and gets sob , especially last night.Patient is physically active and goes to [facility] to have PT. 10 days ago he had a fall and clavicular fracture( right) . His primary care doctor , Dr. Miles called to admit patient for the abdominal pain and diarrhea and to have a Ct scan of the abdomen to evaluate his ventral hernia complications . Dr. Miles discussed with patient surgeon , Dr. Peguero and he stated that if patient will need ventral hernia repair again cause his mesh moved , than he will need to be transferred to a higher level of care. Onset of Symptoms: Reports: Gradual Duration of Symptoms: Reports: Week(s): Quality: Reports: Pressure - Related Data Allergies/Adverse Reactions: Allergies Allergy/AdvReac Type Severity Reaction Status Date / Time Iodinated Contrast- Oral and Allergy Hives Verified 11/04/17 05:23 IV Dye [Iodinated Contrast Media - IV Dye] Home Medications: Home Meds Aspirin [Halfprin] 81 mg PO BRK 03/16/15 [History] Levothyroxine Sodium [Levoxyl] 50 mcg PO ACBREAKFAST 03/16/15 [History] atorvaSTATin [Lipitor] 20 mg PO DAILY 08/11/16 [History] L.acidoph,Paracasei, B.lactis [Probiotic] 1 each PO DAILY 08/23/17 [History] Tolterodine [Detrol] 2 mg PO DAILY 08/23/17 [History] traMADol HCl [Tramadol HCl] 50 mg PO TID PRN 01/11/18 [History] Past Medical History HEENT History: Reports: Hard of Hearing, Impaired Vision Cardiovascular History: Reports: Bypass Other Cardiovascular History: reddness swelling around saphanous graft site L) leg. Genitourinary History: Reports: Prostate Disorder Musculoskeletal History: Reports: Arthritis Other Musculoskeletal History: [place] likely broke some bones playing football , no known treated Endocrine/Metabolic History: Reports: Hypothyroidism Other Endocrine/Metabolic History: Hypothyroidism Hematologic History: Reports: Other (See Below) Other Hematologic History: blood clots Oncologic (Cancer) History: Reports: Colon - Infectious Disease History Infectious Disease History: Reports: Chicken Pox, Measles, Mumps - Past Surgical History HEENT Surgical History: Reports: Tonsillectomy Cardiovascular Surgical History: Reports: Coronary Artery Bypass GI Surgical History: Reports: Appendectomy, Hernia, Abdominal, Hernia Repair/ Other Other GI Surgeries/Procedures: Colon resection for cancer Male Surgical History: Reports: Prostatectomy Other Male Surgeries/Procedures: Radical Prostatectomy 1995 Social & Family History - Family History Family Medical History: Noncontributory - Tobacco Use Smoking Status *Q: Never Smoker - Caffeine Use Caffeine Use: Reports: Coffee - Recreational Drug Use Recreational Drug Use: No H&P Review of Systems - Review of Systems: Review Of Systems: See Below General: Reports: Weakness, Fatigue, Decreased Appetite, Weight Loss (10 lbs in 1 mo) Pulmonary: Reports: No Symptoms Cardiovascular: Reports: No Symptoms Gastrointestinal: Reports: Abdominal Pain, Anorexia, Constipation, Diarrhea, Nausea. Denies: Vomiting Genitourinary: Reports: No Symptoms Musculoskeletal: Reports: No Symptoms Skin: Reports: No Symptoms Psychiatric: Reports: No Symptoms Neurological: Reports: No Symptoms Hematologic/Lymphatic: Reports: No Symptoms Immunologic: Reports: No Symptoms Exam - Exam Exam: See Below - Vital Signs Vital Signs: Last Vital Signs Temp 98.8 F 01/11/18 12:44 Pulse 69 01/11/18 12:44 Resp 16 01/11/18 12:44 BP 148/74 H 01/11/18 12:44 Pulse Ox 93 L 01/11/18 12:44 Weight: 154 lb 12.8 oz - Exam General: Alert, Oriented HEENT: Conjunctiva Clear, EACs Clear Neck: Supple, Trachea Midline Lungs: Clear to Auscultation, Normal Respiratory Effort Cardiovascular: Regular Rate, Regular Rhythm, Normal S1, Normal S2 GI/Abdominal Exam: Tender, Abnormal Bowel Sounds (pitched Bs), Hernia, Other ( large protruding ventral hernia). No: Guarding, Rigid, Rebound Back Exam: Normal Inspection Extremities: Normal Inspection Skin: Warm, Dry Neurological: Cranial Nerves Intact Neuro Extensive - Mental Status: Alert, Oriented x3 - Patient Data Result Diagrams: 01/11/18 22:06 01/11/18 22:06 - Problem List (1) Abdominal pain SNOMED Code(s): 12495888 ICD Code: R10.9 - UNSPECIFIED ABDOMINAL PAIN Status: Acute Current Visit : Yes (2) Diarrhea SNOMED Code(s): 82916067 ICD Code: R19.7 - DIARRHEA, UNSPECIFIED Status: Acute Current Visit: Yes (3) Nausea alone SNOMED Code(s): 680500619 ICD Code: R11.0 - NAUSEA Status: Acute Current Visit: Yes (4) Ventral hernia SNOMED Code(s): 669030218 ICD Code: K43.9 - VENTRAL HERNIA WITHOUT OBSTRUCTION OR GANGRENE Status: Acute Current Visit: Yes Problem List Initiated/Reviewed/Updated: Yes Orders Last 24hrs: Active Orders 24 hr Category Date Time Status Patient Status [ADT] Routine ADT 01/11/18 12:44 Active Oxygen Therapy [RC] PRN Care 01/11/18 12:44 Active Vital Signs [RC] Q4H Care 01/11/18 12:44 Active Full Liquid Diet [DIET] Diet 01/11/18 Lunch Active Abdomen 2V AP Upright Decub [CR] Routine Exams 01/11/18 12:48 Ordered Lactated Ringers [Ringers, Lactated] 1,000 ml Med 01/11/18 13:00 Active IV ASDIRECTED Ondansetron [Zofran] Med 01/11/18 12:46 Active 4 mg IVPUSH Q4H PRN Code Status [Resuscitation Status] Routine Resus Stat 01/11/18 12:45 Ordered Medication Orders Lactated Ringer's (Ringers, Lactated) 1,000 mls @ 150 mls/hr IV ASDIRECTED FREDDY Ondansetron HCl (Zofran) 4 mg IVPUSH Q4H PRN PRN Reason: Nausea Assessment/Plan Comment:: a/p abdominal pain and nausea - will admit patient direct admit to medical floor and will give patient Iv fluids . Patient was initially recommended NPO but he wanted to eat and tolerated diet and he was given full liquid diet. will order abdomen X ray upright and decubitus Ct of the abdomen without po and without iv contrast , stat for nausea patient was given zofran 4 mg iv q 6 h dvt prophylaxis - heparin sq. for diarrhea will do stool culture and stool for c diff and stool for WBC and will start patient on Ciprofloxacin 400 mg iv q 12h and metronidazole 500 mg iv q 8 h Will consult surgery once we get the CT abdomen and pelvis and abdomen x ray report
[2018-01-11] MEDS: Ciprofloxacin in D5W 400 MG in Premix Bag 1 BAG IV SCH ×2 (16:16)
[2018-01-11] MEDS: metroNIDAZOLE/Normal Saline 500 MG in Premix Bag 1 BAG IV SCH (18:07)
[2018-01-11] MEDS ORDERED: Loperamide 2 MG Cap PO ONE (21:00)
--- NOTE | 2018-01-11 22:31 | PCM.CONS ---
H&P History of Present Illness - General Date of Service: 01/11/18 Admit Problem/Dx: Admission Diagnosis/Problem Admission Diagnosis/Problem Nausea and vomiting Source of Information: Patient, Family History Limitations: Reports: No Limitations - History of Present Illness Initial Comments - Free Text/Narative: Patient is an 82 year old male with a history of prostate cancer, colon cancer s /p colon resection, incisional/ventral hernia s/p repair with mesh and subsequent recurrence with large fascia defect, as well as CAD who presented to his PCP office today with abdominal pain, nausea and lack of appetite over the last two days. His denies fevers, chills, or vomiting. He started having watery diarrhea today and she was concerned he had C. Diff given he had this in the past. Labs in clinic were unremarkable but due to his abdominal distension, pain and failure to thrive the patient was admitted to the medicine team. An abdominal XRay was taken around 3 (results read at 342 pm) this afternoon that showed massively dilated colon concerning for cecal volvulus. A CT abdomen/ pelvis without IV contrast was performed and results were read at 16:28. This showed marked dilation (16-18 cm) of the cecum and dilation of the remaining colon, but no evidence of volvulus. The report was read as gaseous distension of the colon and not reported to the hospitalist. The patient had more diarrhea while on the floor. He was given immodium. He was hungry so he was given a clear liquid diet. His vitals have been stable. Stool cultures are so far negative for campylobacter and C. Diff. His stool had WBC. His abdominal pain is slightly improved. It is not made worse with movement. He has had no vomiting. - Related Data Allergies/Adverse Reactions: Allergies Allergy/AdvReac Type Severity Reaction Status Date / Time Iodinated Contrast- Oral and Allergy Hives Verified 11/04/17 05:23 IV Dye [Iodinated Contrast Media - IV Dye] Home Medications: Home Meds Aspirin [Halfprin] 81 mg PO BRK 03/16/15 [History] Levothyroxine Sodium [Levoxyl] 50 mcg PO ACBREAKFAST 03/16/15 [History] atorvaSTATin [Lipitor] 20 mg PO DAILY 08/11/16 [History] L.acidoph,Paracasei, B.lactis [Probiotic] 1 each PO DAILY 08/23/17 [History] Tolterodine [Detrol] 2 mg PO DAILY 08/23/17 [History] traMADol HCl [Tramadol HCl] 50 mg PO TID PRN 01/11/18 [History] Past Medical History HEENT History: Reports: Hard of Hearing, Impaired Vision Cardiovascular History: Reports: Bypass Other Cardiovascular History: reddness swelling around saphanous graft site L) leg. Genitourinary History: Reports: Prostate Disorder Musculoskeletal History: Reports: Arthritis Other Musculoskeletal History: [place] likely broke some bones playing football , no known treated Endocrine/Metabolic History: Reports: Hypothyroidism Other Endocrine/Metabolic History: Hypothyroidism Hematologic History: Reports: Other (See Below) Other Hematologic History: blood clots Oncologic (Cancer) History: Reports: Colon - Infectious Disease History Infectious Disease History: Reports: Chicken Pox, Measles, Mumps - Past Surgical History HEENT Surgical History: Reports: Tonsillectomy Cardiovascular Surgical History: Reports: Coronary Artery Bypass GI Surgical History: Reports: Appendectomy, Hernia, Abdominal, Hernia Repair/ Other Other GI Surgeries/Procedures: Colon resection for cancer Male Surgical History: Reports: Prostatectomy Other Male Surgeries/Procedures: Radical Prostatectomy 1995 Social & Family History - Family History Family Medical History: Noncontributory - Tobacco Use Smoking Status *Q: Never Smoker - Caffeine Use Caffeine Use: Reports: Coffee - Recreational Drug Use Recreational Drug Use: No H&P Review of Systems - Review of Systems: Review Of Systems: ROS reveals no pertinent complaints other than HPI. Exam - Exam Exam: See Below - Vital Signs Vital Signs: Last Vital Signs Temp 36.5 C 01/11/18 20:00 Pulse 56 L 01/11/18 20:00 Resp 16 01/11/18 20:00 BP 136/67 01/11/18 20:00 Pulse Ox 94 L 01/11/18 16:44 Weight: 70.216 kg - Exam General: Alert, Oriented, Cooperative Lungs: Normal Respiratory Effort Cardiovascular: Regular Rate GI/Abdominal Exam: Soft, Distended, Tender (mild-moderately tender with palpation), Other (Large ventral hernia sac containing visibly dilated bowel. Hernia sac is soft and there are no peritoneal signs there or in the remainder of the abdomen. ). No: Guarding, Rigid, Rebound Rectal (Males) Exam: Other (Stool grossly negative for blood ) - Patient Data Lab Results Last 24 hrs: Laboratory Results - last 24 hr 08/17/18 08/17/18 Range/Units 22:06 22:06 WBC 7.21 (4.0-11.0) K/uL RBC 4.35 L (4.50-5.90) M/uL Hgb 13.5 (13.0-17.0) g/dL Hct 40.0 (38.0-50.0) % MCV 92.0 (80.0-98.0) fL MCH 31.0 (27.0-32.0) pg MCHC 33.8 (31.0-37.0) g/dL RDW Std Deviation 43.8 (28.0-62.0) fl RDW Coeff of Dalia 13 (11.0-15.0) % Plt Count 249 (150-400) K/uL MPV 10.00 (7.40-12.00) fL Nucleated RBC % 0.0 /100WBC Nucleated RBCs # 0 K/uL Lactate 1.1 (0.20-2.00) mmol/L Result Diagrams: 01/11/18 22:06 Vick Results Last 24 hrs: Microbiology 01/11/18 17:10 Campylobacter Antigen Assay - Final Stool / Feces NEGATIVE CAMPYLOBACTER AG 01/11/18 17:10 Clostridium difficile Toxin A & B - Final Stool / Feces Negative for C.Diff Toxin/AG 01/11/18 17:10 Stool for WBCs - Final Stool / Feces NEGATIVE FOR WBC'S Consult PN Assessment/Plan Procedures: Procedures AGENT NOS ASSAY W/OPTIC (04/02/15) ASSAY OF FERRITIN (05/02/17) ASSAY OF MAGNESIUM (08/23/17) ASSAY OF PSA TOTAL (10/12/16) ASSAY OF TROPONIN QUANT (08/23/17) ASSAY THYROID STIM HORMONE (05/02/17) BLOOD CULTURE FOR BACTERIA (04/02/15) CHEST X-RAY 1 VIEW FRONTAL (04/16/15) CLOSTRIDIUM AG IA (07/08/15) COMPLETE CBC AUTOMATED (05/02/17) COMPLETE CBC W/AUTO DIFF WBC (11/04/17) COMPREHEN METABOLIC PANEL (11/04/17) CONTRST X-RAY UPPR GI TRACT (05/14/17) CT ABD & PELVIS W/O CONTRAST (11/04/17) CT HEAD/BRAIN W/O DYE (09/26/17) CT LUMBAR SPINE W/O DYE (11/04/17) CT SOFT TISSUE NECK W/O DYE (09/26/17) ELECTROCARDIOGRAM TRACING (11/04/17) EMERGENCY DEPT VISIT (11/04/17) EMERGENCY DEPT VISIT (08/11/16) EMERGENCY DEPT VISIT (04/16/15) EMERGENCY DEPT VISIT (04/08/15) EMERGENCY DEPT VISIT (04/02/15) EXTREMITY STUDY (04/08/15) HYDRATE IV INFUSION ADD-ON (11/04/17) LACTOFERRIN FECAL (QUAL) (07/08/15) LIPID PANEL (05/02/17) METABOLIC PANEL TOTAL CA (04/26/15) OCCULT BLD FECES 1-3 TESTS (04/02/15) OFFICE/OUTPATIENT VISIT EST (11/12/17) OFFICE/OUTPATIENT VISIT EST (05/02/17) OFFICE/OUTPATIENT VISIT EST (04/19/15) OFFICE/OUTPATIENT VISIT EST (03/03/15) OFFICE/OUTPATIENT VISIT EST (10/16/13) OFFICE/OUTPATIENT VISIT NEW (06/17/14) PHLEBOTOMY (09/18/14) PPSV23 VACC 2 YRS+ SUBQ/IM (05/10/15) ROUTINE VENIPUNCTURE (09/26/17) STOOL CULTR AEROBIC BACT EA (04/29/15) THER/PROPH/DIAG INJ IV PUSH (11/04/17) THER/PROPH/DIAG INJ SC/IM (08/11/16) TX/PRO/DX INJ NEW DRUG ADDON (11/04/17) TX/PRO/DX INJ SAME DRUG SALES DEVELOPMENT DIRECTOR (11/04/17) URINALYSIS AUTO W/SCOPE (11/04/17) URINE CULTURE/COLONY COUNT (11/04/17) VITAMIN B-12 (10/16/13) X-RAY EXAM CHEST 1 VIEW (08/23/17) X-RAY EXAM L-S SPINE 2/3 VWS (04/24/16) X-RAY EXAM NECK SPINE 2-3 VW (11/12/17) X-RAY EXAM OF ABDOMEN (04/02/15) X-RAY EXAM OF SHOULDER (11/12/17) X-RAY EXAM THORAC SPINE 3VWS (08/11/16) (1) Colon distention SNOMED Code(s): 187859855 Code(s): K63.89 - OTHER SPECIFIED DISEASES OF INTESTINE Current Visit: Yes Problem List Initiated/Reviewed/Updated: Yes My Orders Last 24 Hours: My Active Orders 01/11/18 21:36 CMP [COMPREHENSIVE METABOLIC PN,CMP] [CHEM] Stat 01/11/18 22:14 MAGNESIUM [CHEM] Stat 01/11/18 22:16 PHOSPHORUS [CHEM] Stat 01/11/18 22:19 Abdomen 1V Upright [CR] Routine 01/12/18 05:00 LACTIC ACID,WHOLE BLOOD [BG] Timed 01/12/18 05:11 CBC WITH AUTO DIFF [HEME] AM CMP [COMPREHENSIVE METABOLIC PN,CMP] [CHEM] AM MAGNESIUM [CHEM] AM PHOSPHORUS [CHEM] AM 01/12/18 07:00 Abdomen 1V Upright [CR] Routine 01/12/18 Breakfast NPO [Nothing Per Oral Diet] [DIET] Plan: The patient 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 He is having abdominal pain/discomfort, but has no peritoneal signs. His vitals are stable. I will recheck his CBC, get a CMP, and a lactate. If these are within normal limits he can be observed here overnight, but has to be strictly NPO with IVF, IV antibiotics and no further doses of imodium. Labs will then be repeated in the morning with a follow up abdominal XRay. Should his labs or clinic exam worsen he needs to be transferred to a larger facility with greater resources given his multiple medical co-morbidities.
--- NOTE | 2018-01-12 00:15 | PCM.SN ---
- Free Text/Narrative Note: Patient abdomen X ray and ct abdomen were ordered stat and were done at 3 pm and 4: 20 pm but the radiology reports were not in the [facility] or in [facility] at 5 pm .In [facility] there was no imaging at all ( read or unread ) of the patient. I checked it before and after but no reading was there . I called the Nurse Kirstin and discuss with nurse Giraldo that I am not able to get any reading of this imaging. At 8:30 , I have asked nurse Emerald if the report is available and she gave me the report of abdomen and pelvis Ct which showed cecal distention. I discussed with her again that I also need the report of the abdomen X ray and than I was told the abdomen x ray shows fecal volvulus. I called doctor Nhung and I have informed her about the clinical presentation of the patient and the findings of the studies and she was warehouse distribution manager at night and came to see the patient. She consulted on the patient and discussed with the radiologist the findings . Patient has a cecal distention of 18 cm and she recommended medical management at this time , she repeated the labs , NPO , no transfer. She discussed the findings with the family
[2018-01-12] MEDS: metroNIDAZOLE/Normal Saline 500 MG in Premix Bag 1 BAG IV SCH ×3 (00:42→15:53)
[2018-01-12] MEDS: Ciprofloxacin in D5W 400 MG in Premix Bag 1 BAG IV SCH ×4 (04:15→14:17)
--- NOTE | 2018-01-12 08:32 | PCM.CONSN ---
- General Info Date of Service: 01/12/18 Subjective Update: Patient didnt sleep well last night due to interruptions. His abdominal pain is still present but not worse. He feels like it is more located on the left side. He denies fevers chills or vomiting. Still having watery diarrhea. Has a new rash along his groin. - Review of Systems General: Reports: No Symptoms HEENT: Reports: No Symptoms Pulmonary: Reports: No Symptoms Cardiovascular: Reports: No Symptoms Gastrointestinal: Reports: Abdominal Pain, Diarrhea - Patient Data Vitals - Most Recent: Last Vital Signs Temp 36.4 C 01/12/18 04:00 Pulse 60 01/12/18 04:00 Resp 16 01/12/18 04:00 BP 146/77 H 01/12/18 04:00 Pulse Ox 94 L 01/12/18 04:00 Weight - Most Recent: 70.216 kg I&O - Last 24 Hours: Intake & Output 01/11/18 01/12/18 01/12/18 22:59 06:59 14:59 Intake Total 800 50 Balance 800 50 Lab Results Last 24 Hours: Laboratory Results - last 24 hr 01/11/18 01/11/18 01/11/18 Range/Units 22:06 22:06 22:06 WBC 7.21 (4.0-11.0) K/uL RBC 4.35 L (4.50-5.90) M/uL Hgb 13.5 (13.0-17.0) g/dL Hct 40.0 (38.0-50.0) % MCV 92.0 (80.0-98.0) fL MCH 31.0 (27.0-32.0) pg MCHC 33.8 (31.0-37.0) g/dL RDW Std Deviation 43.8 (28.0-62.0) fl RDW Coeff of Dalia 13 (11.0-15.0) % Plt Count 249 (150-400) K/uL MPV 10.00 (7.40-12.00) fL Neut % (Auto) (48.0-80.0) % Lymph % (Auto) (16.0-40.0) % [place] % (Auto) (0.0-15.0) % Eos % (Auto) (0.0-7.0) % Baso % (Auto) (0.0-1.5) % Neut # (Auto) (1.4-5.7) K/uL Lymph # (Auto) (0.6-2.4) K/uL [place] # (Auto) (0.0-0.8) K/uL Eos # (Auto) (0.0-0.7) K/uL Baso # (Auto) (0.0-0.1) K/uL Nucleated RBC % 0.0 /100WBC Nucleated RBCs # 0 K/uL Lactate 1.1 (0.20-2.00) mmol/L Sodium 140 (136-148) mmol/L Potassium 4.3 (3.5-5.1) mmol/L Chloride 104 (98-107) mmol/L Carbon Dioxide 33.0 H (21.0-32.0) mmol/L BUN 21 H (7.0-18.0) mg/dL Creatinine 1.3 (0.8-1.3) mg/dL Est Cr Clr Drug Dosing 41.65 mL/min Estimated GFR (MDRD) 52.7 ml/min Glucose 106 (74-106) mg/dL Calcium 9.0 (8.5-10.1) mg/dL Phosphorus (2.6-4.7) mg/dL Magnesium (1.8-2.4) mg/dL Total Bilirubin 0.9 (0.2-1.0) mg/dL AST 14 L (15-37) IU/L ALT 15 (14-63) IU/L Alkaline Phosphatase 101 (46-116) U/L Total Protein 7.0 (6.4-8.2) g/dL Albumin 3.3 L (3.4-5.0) g/dL Globulin 3.7 H (2.0-3.5) g/dL Albumin/Globulin Ratio 0.9 L (1.3-2.8) 01/11/18 01/12/18 01/12/18 Range/Units 22:06 04:45 04:45 WBC 6.95 (4.0-11.0) K/uL RBC 3.89 L (4.50-5.90) M/uL Hgb 12.5 L (13.0-17.0) g/dL Hct 35.7 L (38.0-50.0) % MCV 91.8 (80.0-98.0) fL MCH 32.1 H (27.0-32.0) pg MCHC 35.0 (31.0-37.0) g/dL RDW Std Deviation 43.9 (28.0-62.0) fl RDW Coeff of Dalia 13 (11.0-15.0) % Plt Count 208 (150-400) K/uL MPV 9.80 (7.40-12.00) fL Neut % (Auto) 65.7 (48.0-80.0) % Lymph % (Auto) 21.3 (16.0-40.0) % [place] % (Auto) 9.9 (0.0-15.0) % Eos % (Auto) 3.0 (0.0-7.0) % Baso % (Auto) 0.1 (0.0-1.5) % Neut # (Auto) 4.6 (1.4-5.7) K/uL Lymph # (Auto) 1.5 (0.6-2.4) K/uL [place] # (Auto) 0.7 (0.0-0.8) K/uL Eos # (Auto) 0.2 (0.0-0.7) K/uL Baso # (Auto) 0.0 (0.0-0.1) K/uL Nucleated RBC % 0.0 /100WBC Nucleated RBCs # 0 K/uL Lactate (0.20-2.00) mmol/L Sodium 141 (136-148) mmol/L Potassium 3.5 (3.5-5.1) mmol/L Chloride 104 (98-107) mmol/L Carbon Dioxide 30.9 (21.0-32.0) mmol/L BUN 21 H (7.0-18.0) mg/dL Creatinine 1.2 (0.8-1.3) mg/dL Est Cr Clr Drug Dosing 45.13 mL/min Estimated GFR (MDRD) 57.8 ml/min Glucose 102 (74-106) mg/dL Calcium 8.9 (8.5-10.1) mg/dL Phosphorus 2.8 2.9 (2.6-4.7) mg/dL Magnesium 1.8 1.8 (1.8-2.4) mg/dL Total Bilirubin 0.8 (0.2-1.0) mg/dL AST 13 L (15-37) IU/L ALT 14 (14-63) IU/L Alkaline Phosphatase 80 (46-116) U/L Total Protein 5.9 L (6.4-8.2) g/dL Albumin 2.8 L (3.4-5.0) g/dL Globulin 3.1 (2.0-3.5) g/dL Albumin/Globulin Ratio 0.9 L (1.3-2.8) 01/12/18 Range/Units 04:45 WBC (4.0-11.0) K/uL RBC (4.50-5.90) M/uL Hgb (13.0-17.0) g/dL Hct (38.0-50.0) % MCV (80.0-98.0) fL MCH (27.0-32.0) pg MCHC (31.0-37.0) g/dL RDW Std Deviation (28.0-62.0) fl RDW Coeff of Dalia (11.0-15.0) % Plt Count (150-400) K/uL MPV (7.40-12.00) fL Neut % (Auto) (48.0-80.0) % Lymph % (Auto) (16.0-40.0) % [place] % (Auto) (0.0-15.0) % Eos % (Auto) (0.0-7.0) % Baso % (Auto) (0.0-1.5) % Neut # (Auto) (1.4-5.7) K/uL Lymph # (Auto) (0.6-2.4) K/uL [place] # (Auto) (0.0-0.8) K/uL Eos # (Auto) (0.0-0.7) K/uL Baso # (Auto) (0.0-0.1) K/uL Nucleated RBC % /100WBC Nucleated RBCs # K/uL Lactate 0.7 (0.20-2.00) mmol/L Sodium (136-148) mmol/L Potassium (3.5-5.1) mmol/L Chloride (98-107) mmol/L Carbon Dioxide (21.0-32.0) mmol/L BUN (7.0-18.0) mg/dL Creatinine (0.8-1.3) mg/dL Est Cr Clr Drug Dosing mL/min Estimated GFR (MDRD) ml/min Glucose (74-106) mg/dL Calcium (8.5-10.1) mg/dL Phosphorus (2.6-4.7) mg/dL Magnesium (1.8-2.4) mg/dL Total Bilirubin (0.2-1.0) mg/dL AST (15-37) IU/L ALT (14-63) IU/L Alkaline Phosphatase (46-116) U/L Total Protein (6.4-8.2) g/dL Albumin (3.4-5.0) g/dL Globulin (2.0-3.5) g/dL Albumin/Globulin Ratio (1.3-2.8) Vick Results Last 24 Hours: Microbiology 01/11/18 17:10 Campylobacter Antigen Assay - Final Stool / Feces NEGATIVE CAMPYLOBACTER AG 01/11/18 17:10 Clostridium difficile Toxin A & B - Final Stool / Feces Negative for C.Diff Toxin/AG 01/11/18 17:10 Stool for WBCs - Final Stool / Feces NEGATIVE FOR WBC'S Med Orders - Current: Current Medications Lactated Ringer's (Ringers, Lactated) 1,000 mls @ 75 mls/hr IV ASDIRECTED [facility] Last Admin: 01/11/18 22:17 Dose: 75 mls/hr Metronidazole 500 mg/ Premix 100 mls @ 100 mls/hr IV Q8H [facility] Last Admin: 01/12/18 00:42 Dose: 100 mls/hr Ciprofloxacin/Dextrose 400 mg/ (Premix) 200 mls @ 200 mls/hr IV Q12H [facility] Last Admin: 01/12/18 04:15 Dose: 200 mls/hr Ondansetron HCl (Zofran) 4 mg IVPUSH Q4H PRN PRN Reason: Nausea Last Admin: 01/11/18 17:33 Dose: 4 mg Discontinued Medications Loperamide HCl (Imodium) 4 mg PO ONETIME ONE Stop: 01/11/18 21:01 Last Admin: 01/11/18 20:15 Dose: 4 mg - Exam General: Alert, Oriented HEENT: Pupils Equal Neck: Supple Lungs: Clear to Auscultation, Normal Respiratory Effort Cardiovascular: Regular Rate, Regular Rhythm GI/Abdominal Exam: Soft, Other (Patients abdomen feels less distended and is less tender to palpation this morning. Rash along left groin/skin fold) Consult PN Assessment/Plan Procedures: Procedures AGENT NOS ASSAY W/OPTIC (04/02/15) ASSAY OF FERRITIN (05/02/17) ASSAY OF MAGNESIUM (08/23/17) ASSAY OF PSA TOTAL (10/12/16) ASSAY OF TROPONIN QUANT (08/23/17) ASSAY THYROID STIM HORMONE (05/02/17) BLOOD CULTURE FOR BACTERIA (04/02/15) CHEST X-RAY 1 VIEW FRONTAL (04/16/15) CLOSTRIDIUM AG IA (07/08/15) COMPLETE CBC AUTOMATED (05/02/17) COMPLETE CBC W/AUTO DIFF WBC (11/04/17) COMPREHEN METABOLIC PANEL (11/04/17) CONTRST X-RAY UPPR GI TRACT (05/14/17) CT ABD & PELVIS W/O CONTRAST (11/04/17) CT HEAD/BRAIN W/O DYE (09/26/17) CT LUMBAR SPINE W/O DYE (11/04/17) CT SOFT TISSUE NECK W/O DYE (09/26/17) ELECTROCARDIOGRAM TRACING (11/04/17) EMERGENCY DEPT VISIT (11/04/17) EMERGENCY DEPT VISIT (08/11/16) EMERGENCY DEPT VISIT (04/16/15) EMERGENCY DEPT VISIT (04/08/15) EMERGENCY DEPT VISIT (04/02/15) EXTREMITY STUDY (04/08/15) HYDRATE IV INFUSION ADD-ON (11/04/17) LACTOFERRIN FECAL (QUAL) (07/08/15) LIPID PANEL (05/02/17) METABOLIC PANEL TOTAL CA (04/26/15) OCCULT BLD FECES 1-3 TESTS (04/02/15) OFFICE/OUTPATIENT VISIT EST (11/12/17) OFFICE/OUTPATIENT VISIT EST (05/02/17) OFFICE/OUTPATIENT VISIT EST (04/19/15) OFFICE/OUTPATIENT VISIT EST (03/03/15) OFFICE/OUTPATIENT VISIT EST (10/16/13) OFFICE/OUTPATIENT VISIT NEW (06/17/14) PHLEBOTOMY (09/18/14) PPSV23 VACC 2 YRS+ SUBQ/IM (05/10/15) ROUTINE VENIPUNCTURE (09/26/17) STOOL CULTR AEROBIC BACT EA (04/29/15) THER/PROPH/DIAG INJ IV PUSH (11/04/17) THER/PROPH/DIAG INJ SC/IM (08/11/16) TX/PRO/DX INJ NEW DRUG ADDON (11/04/17) TX/PRO/DX INJ SAME DRUG SURGERY MANAGER (11/04/17) URINALYSIS AUTO W/SCOPE (11/04/17) URINE CULTURE/COLONY COUNT (11/04/17) VITAMIN B-12 (10/16/13) X-RAY EXAM CHEST 1 VIEW (08/23/17) X-RAY EXAM L-S SPINE 2/3 VWS (04/24/16) X-RAY EXAM NECK SPINE 2-3 VW (11/12/17) X-RAY EXAM OF ABDOMEN (04/02/15) X-RAY EXAM OF SHOULDER (11/12/17) X-RAY EXAM THORAC SPINE 3VWS (08/11/16) (1) Colon distention SNOMED Code(s): 195663134 Code(s): K63.89 - OTHER SPECIFIED DISEASES OF INTESTINE Current Visit: Yes Problem List Initiated/Reviewed/Updated: Yes My Orders Last 24 Hours: My Active Orders 01/12/18 07:00 Abdomen 1V Upright [CR] Routine 01/12/18 Breakfast NPO [Nothing Per Oral Diet] [DIET] Plan: Patients labs are stable today. His lactate is normal. His KUB appears greatly improved from yesterday. His colon is still distended but less so and his physical exam has improved. Would keep NPO today and recheck CBC, BMP, Mag, Phos and abdominal XR in the morning.
[2018-01-12] MEDS ORDERED: HYDROmorphone 1 MG/ML Syringe IVPUSH PRN (09:02)
[2018-01-12] MEDS ORDERED: traMADol 50 MG Tab PO PRN (09:29)
[2018-01-12] MEDS: Aspirin 81 MG Tab.EC PO SCH (09:42)
[2018-01-12] MEDS: Levothyroxine 50 MCG Tab PO SCH (09:42)
[2018-01-12] MEDS: atorvaSTATin 20 MG Tab PO SCH (09:42)
[2018-01-12] MEDS: Acidophilus with Citrus Pectin Tab PO SCH (09:53)
--- NOTE | 2018-01-12 10:46 | PCM.PN ---
- Patient Data Vitals - Most Recent: Last Vital Signs Temp 98.0 F 01/12/18 08:00 Pulse 63 01/12/18 08:00 Resp 17 01/12/18 08:00 BP 151/67 H 01/12/18 08:00 Pulse Ox 94 L 01/12/18 08:00 Weight - Most Recent: 154 lb 12.8 oz I&O - Last 24 Hours: Intake & Output 01/11/18 01/12/18 01/12/18 22:59 06:59 14:59 Intake Total 800 50 Balance 800 50 Lab Results Last 24 Hours: Laboratory Results - last 24 hr 01/11/18 01/11/18 01/11/18 Range/Units 22:06 22:06 22:06 WBC 7.21 (4.0-11.0) K/uL RBC 4.35 L (4.50-5.90) M/uL Hgb 13.5 (13.0-17.0) g/dL Hct 40.0 (38.0-50.0) % MCV 92.0 (80.0-98.0) fL MCH 31.0 (27.0-32.0) pg MCHC 33.8 (31.0-37.0) g/dL RDW Std Deviation 43.8 (28.0-62.0) fl RDW Coeff of Dalia 13 (11.0-15.0) % Plt Count 249 (150-400) K/uL MPV 10.00 (7.40-12.00) fL Neut % (Auto) (48.0-80.0) % Lymph % (Auto) (16.0-40.0) % [place] % (Auto) (0.0-15.0) % Eos % (Auto) (0.0-7.0) % Baso % (Auto) (0.0-1.5) % Neut # (Auto) (1.4-5.7) K/uL Lymph # (Auto) (0.6-2.4) K/uL [place] # (Auto) (0.0-0.8) K/uL Eos # (Auto) (0.0-0.7) K/uL Baso # (Auto) (0.0-0.1) K/uL Nucleated RBC % 0.0 /100WBC Nucleated RBCs # 0 K/uL Lactate 1.1 (0.20-2.00) mmol/L Sodium 140 (136-148) mmol/L Potassium 4.3 (3.5-5.1) mmol/L Chloride 104 (98-107) mmol/L Carbon Dioxide 33.0 H (21.0-32.0) mmol/L BUN 21 H (7.0-18.0) mg/dL Creatinine 1.3 (0.8-1.3) mg/dL Est Cr Clr Drug Dosing 41.65 mL/min Estimated GFR (MDRD) 52.7 ml/min Glucose 106 (74-106) mg/dL Calcium 9.0 (8.5-10.1) mg/dL Phosphorus (2.6-4.7) mg/dL Magnesium (1.8-2.4) mg/dL Total Bilirubin 0.9 (0.2-1.0) mg/dL AST 14 L (15-37) IU/L ALT 15 (14-63) IU/L Alkaline Phosphatase 101 (46-116) U/L Total Protein 7.0 (6.4-8.2) g/dL Albumin 3.3 L (3.4-5.0) g/dL Globulin 3.7 H (2.0-3.5) g/dL Albumin/Globulin Ratio 0.9 L (1.3-2.8) 01/11/18 01/12/18 01/12/18 Range/Units 22:06 04:45 04:45 WBC 6.95 (4.0-11.0) K/uL RBC 3.89 L (4.50-5.90) M/uL Hgb 12.5 L (13.0-17.0) g/dL Hct 35.7 L (38.0-50.0) % MCV 91.8 (80.0-98.0) fL MCH 32.1 H (27.0-32.0) pg MCHC 35.0 (31.0-37.0) g/dL RDW Std Deviation 43.9 (28.0-62.0) fl RDW Coeff of Dalia 13 (11.0-15.0) % Plt Count 208 (150-400) K/uL MPV 9.80 (7.40-12.00) fL Neut % (Auto) 65.7 (48.0-80.0) % Lymph % (Auto) 21.3 (16.0-40.0) % [place] % (Auto) 9.9 (0.0-15.0) % Eos % (Auto) 3.0 (0.0-7.0) % Baso % (Auto) 0.1 (0.0-1.5) % Neut # (Auto) 4.6 (1.4-5.7) K/uL Lymph # (Auto) 1.5 (0.6-2.4) K/uL [place] # (Auto) 0.7 (0.0-0.8) K/uL Eos # (Auto) 0.2 (0.0-0.7) K/uL Baso # (Auto) 0.0 (0.0-0.1) K/uL Nucleated RBC % 0.0 /100WBC Nucleated RBCs # 0 K/uL Lactate (0.20-2.00) mmol/L Sodium 141 (136-148) mmol/L Potassium 3.5 (3.5-5.1) mmol/L Chloride 104 (98-107) mmol/L Carbon Dioxide 30.9 (21.0-32.0) mmol/L BUN 21 H (7.0-18.0) mg/dL Creatinine 1.2 (0.8-1.3) mg/dL Est Cr Clr Drug Dosing 45.13 mL/min Estimated GFR (MDRD) 57.8 ml/min Glucose 102 (74-106) mg/dL Calcium 8.9 (8.5-10.1) mg/dL Phosphorus 2.8 2.9 (2.6-4.7) mg/dL Magnesium 1.8 1.8 (1.8-2.4) mg/dL Total Bilirubin 0.8 (0.2-1.0) mg/dL AST 13 L (15-37) IU/L ALT 14 (14-63) IU/L Alkaline Phosphatase 80 (46-116) U/L Total Protein 5.9 L (6.4-8.2) g/dL Albumin 2.8 L (3.4-5.0) g/dL Globulin 3.1 (2.0-3.5) g/dL Albumin/Globulin Ratio 0.9 L (1.3-2.8) 01/12/18 Range/Units 04:45 WBC (4.0-11.0) K/uL RBC (4.50-5.90) M/uL Hgb (13.0-17.0) g/dL Hct (38.0-50.0) % MCV (80.0-98.0) fL MCH (27.0-32.0) pg MCHC (31.0-37.0) g/dL RDW Std Deviation (28.0-62.0) fl RDW Coeff of Dalia (11.0-15.0) % Plt Count (150-400) K/uL MPV (7.40-12.00) fL Neut % (Auto) (48.0-80.0) % Lymph % (Auto) (16.0-40.0) % [place] % (Auto) (0.0-15.0) % Eos % (Auto) (0.0-7.0) % Baso % (Auto) (0.0-1.5) % Neut # (Auto) (1.4-5.7) K/uL Lymph # (Auto) (0.6-2.4) K/uL [place] # (Auto) (0.0-0.8) K/uL Eos # (Auto) (0.0-0.7) K/uL Baso # (Auto) (0.0-0.1) K/uL Nucleated RBC % /100WBC Nucleated RBCs # K/uL Lactate 0.7 (0.20-2.00) mmol/L Sodium (136-148) mmol/L Potassium (3.5-5.1) mmol/L Chloride (98-107) mmol/L Carbon Dioxide (21.0-32.0) mmol/L BUN (7.0-18.0) mg/dL Creatinine (0.8-1.3) mg/dL Est Cr Clr Drug Dosing mL/min Estimated GFR (MDRD) ml/min Glucose (74-106) mg/dL Calcium (8.5-10.1) mg/dL Phosphorus (2.6-4.7) mg/dL Magnesium (1.8-2.4) mg/dL Total Bilirubin (0.2-1.0) mg/dL AST (15-37) IU/L ALT (14-63) IU/L Alkaline Phosphatase (46-116) U/L Total Protein (6.4-8.2) g/dL Albumin (3.4-5.0) g/dL Globulin (2.0-3.5) g/dL Albumin/Globulin Ratio (1.3-2.8) Vick Results Last 24 Hours: Microbiology 01/11/18 17:10 Campylobacter Antigen Assay - Final Stool / Feces NEGATIVE CAMPYLOBACTER AG - Final NEGATIVE FOR SHIGA TOXIN 1 - Final NEGATIVE FOR SHIGA TOXIN 2 01/11/18 17:10 Clostridium difficile Toxin A & B - Final Stool / Feces Negative for C.Diff Toxin/AG 01/11/18 17:10 Stool for WBCs - Final Stool / Feces NEGATIVE FOR WBC'S Med Orders - Current: Current Medications Acidophilus/Pectin (Acidophilus/Pectin, [place]) 1 tab PO DAILY [facility] Last Admin: 01/12/18 09:53 Dose: 1 tab Aspirin (Halfprin) 81 mg PO BRK [facility] Last Admin: 01/12/18 09:42 Dose: 81 mg Atorvastatin Calcium (Lipitor) 20 mg PO DAILY [facility] Last Admin: 01/12/18 09:42 Dose: 20 mg Hydromorphone HCl (Dilaudid) 0.2 mg IVPUSH Q1H PRN PRN Reason: Pain Metronidazole 500 mg/ Premix 100 mls @ 100 mls/hr IV Q8H [facility] Last Admin: 01/12/18 08:53 Dose: 100 mls/hr Ciprofloxacin/Dextrose 400 mg/ (Premix) 200 mls @ 200 mls/hr IV Q12H [facility] Last Admin: 01/12/18 04:15 Dose: 200 mls/hr Dextrose/Sodium Chloride (Dextrose 5%-Normal Saline) 1,000 mls @ 125 mls/hr IV ASDIRECTED [facility] Levothyroxine Sodium (Synthroid) 50 mcg PO ACBREAKFAST [facility] Last Admin: 01/12/18 09:42 Dose: 50 mcg Ondansetron HCl (Zofran) 4 mg IVPUSH Q4H PRN PRN Reason: Nausea Last Admin: 01/11/18 17:33 Dose: 4 mg Tolterodine Tartrate (Detrol) 2 mg PO DAILY [facility] Last Admin: 01/12/18 09:53 Dose: 2 mg Tramadol HCl (Ultram) 50 mg PO TID PRN PRN Reason: Pain Last Admin: 01/12/18 09:42 Dose: 50 mg Discontinued Medications Lactated Ringer's (Ringers, Lactated) 1,000 mls @ 75 mls/hr IV ASDIRECTED [facility] Last Admin: 01/11/18 22:17 Dose: 75 mls/hr Loperamide HCl (Imodium) 4 mg PO ONETIME ONE Stop: 01/11/18 21:01 Last Admin: 01/11/18 20:15 Dose: 4 mg - Problem List & Annotations (1) Abdominal pain SNOMED Code(s): 74626370 Code(s): R10.9 - UNSPECIFIED ABDOMINAL PAIN Status: Acute Current Visit: Yes (2) Diarrhea SNOMED Code(s): 48153111 Code(s): R19.7 - DIARRHEA, UNSPECIFIED Status: Acute Current Visit: Yes (3) Nausea alone SNOMED Code(s): 170431736 Code(s): R11.0 - NAUSEA Status: Acute Current Visit: Yes (4) Ventral hernia SNOMED Code(s): 532945952 Code(s): K43.9 - VENTRAL HERNIA WITHOUT OBSTRUCTION OR GANGRENE Status: Acute Current Visit: Yes - My Orders Last 24 Hours: My Active Orders 01/11/18 12:44 Patient Status [ADT] Routine Oxygen Therapy [RC] PRN Vital Signs [RC] Q4H 01/11/18 12:45 Code Status [Resuscitation Status] Routine 01/11/18 12:46 Ondansetron [Zofran] 4 mg IVPUSH Q4H PRN 01/11/18 12:48 Abdomen 2V AP Upright Decub [CR] Routine 01/11/18 15:10 Abdomen Pelvis wo Cont [CT] Stat 01/11/18 15:15 Ciprofloxacin in D5W [Cipro in D5W 400 MG/200 ML] 400 mg Premix Bag 1 bag IV Q12H 01/11/18 15:17 Consult to Physical Therapy [PT Evaluation and Treatment] [CONS] Routine 01/11/18 16:30 metroNIDAZOLE/Normal Saline [Flagyl 500 MG in NS 100 ML] 500 mg Premix Bag 1 bag IV Q8H 01/11/18 17:10 CULTURE STOOL + CAMPY+SHIGATOX [RM] Routine 01/12/18 09:00 Aspirin [Halfprin] 81 mg PO BRK atorvaSTATin [Lipitor] 20 mg PO DAILY 01/12/18 09:29 traMADol [Ultram] 50 mg PO TID PRN 01/12/18 09:30 Acidophilus/Pectin, [place] 1 tab PO DAILY Levothyroxine [Synthroid] 50 mcg PO ACBREAKFAST Tolterodine [Detrol] 2 mg PO DAILY 01/12/18 10:45 Dextrose 5%-0.9% NaCl [Dextrose 5%-Normal Saline] 1,000 ml IV ASDIRECTED - Plan Plan:: a/p abdominal pain and nausea - will admit patient direct admit to medical floor and will give patient Iv fluids . Patient was initially recommended NPO but he wanted to eat and tolerated diet and he was given full liquid diet. will order abdomen X ray upright and decubitus Ct of the abdomen without po and without iv contrast , stat for nausea patient was given zofran 4 mg iv q 6 h dvt prophylaxis - heparin sq. for diarrhea will do stool culture and stool for c diff and stool for WBC and will start patient on Ciprofloxacin 400 mg iv q 12h and metronidazole 500 mg iv q 8 h Will consult surgery once we get the CT abdomen and pelvis and abdomen x ray report
[2018-01-12] MEDS: Dextrose 5%-0.9% NaCl 1,000 ML IV SCH ×2 (11:06→20:39)
[2018-01-12] MEDS ORDERED: Acetaminophen 325 MG/10.15 ML ML PO ONE (13:02)
[2018-01-12] MEDS: Betamethasone Dipropionate/Clotrimazole 0.05-1% Crm 15 GM Tube TOP SCH ×2 (14:26→20:40)
--- NOTE | 2018-01-12 16:44 | PCM.PN ---
- General Info Date of Service: 01/12/18 Subjective Update: Seen by surgery in the morning ,improved distention on Barium studies , recommended to continue treatment with antibiotics and NPO , continue IV fluid . Pain is 7-8 /10 as per patient when I rounded . - Review of Systems General: Reports: No Symptoms Pulmonary: Reports: No Symptoms Cardiovascular: Reports: No Symptoms Gastrointestinal: Reports: Abdominal Pain (7-8) Genitourinary: Reports: No Symptoms Musculoskeletal: Reports: No Symptoms Skin: Reports: No Symptoms Neurological: Reports: No Symptoms Psychiatric: Reports: No Symptoms - Patient Data Vitals - Most Recent: Last Vital Signs Temp 99.1 F 01/12/18 12:00 Pulse 58 L 01/12/18 12:00 Resp 16 01/12/18 12:00 BP 157/73 H 01/12/18 12:00 Pulse Ox 95 01/12/18 12:00 Weight - Most Recent: 154 lb 12.8 oz I&O - Last 24 Hours: Intake & Output 01/12/18 01/12/18 01/12/18 06:59 14:59 22:59 Intake Total 50 Balance 50 Lab Results Last 24 Hours: Laboratory Results - last 24 hr 01/11/18 01/11/18 01/11/18 Range/Units 22:06 22:06 22:06 WBC 7.21 (4.0-11.0) K/uL RBC 4.35 L (4.50-5.90) M/uL Hgb 13.5 (13.0-17.0) g/dL Hct 40.0 (38.0-50.0) % MCV 92.0 (80.0-98.0) fL MCH 31.0 (27.0-32.0) pg MCHC 33.8 (31.0-37.0) g/dL RDW Std Deviation 43.8 (28.0-62.0) fl RDW Coeff of Dalia 13 (11.0-15.0) % Plt Count 249 (150-400) K/uL MPV 10.00 (7.40-12.00) fL Neut % (Auto) (48.0-80.0) % Lymph % (Auto) (16.0-40.0) % [place] % (Auto) (0.0-15.0) % Eos % (Auto) (0.0-7.0) % Baso % (Auto) (0.0-1.5) % Neut # (Auto) (1.4-5.7) K/uL Lymph # (Auto) (0.6-2.4) K/uL [place] # (Auto) (0.0-0.8) K/uL Eos # (Auto) (0.0-0.7) K/uL Baso # (Auto) (0.0-0.1) K/uL Nucleated RBC % 0.0 /100WBC Nucleated RBCs # 0 K/uL Lactate 1.1 (0.20-2.00) mmol/L Sodium 140 (136-148) mmol/L Potassium 4.3 (3.5-5.1) mmol/L Chloride 104 (98-107) mmol/L Carbon Dioxide 33.0 H (21.0-32.0) mmol/L BUN 21 H (7.0-18.0) mg/dL Creatinine 1.3 (0.8-1.3) mg/dL Est Cr Clr Drug Dosing 41.65 mL/min Estimated GFR (MDRD) 52.7 ml/min Glucose 106 (74-106) mg/dL Calcium 9.0 (8.5-10.1) mg/dL Phosphorus (2.6-4.7) mg/dL Magnesium (1.8-2.4) mg/dL Total Bilirubin 0.9 (0.2-1.0) mg/dL AST 14 L (15-37) IU/L ALT 15 (14-63) IU/L Alkaline Phosphatase 101 (46-116) U/L Total Protein 7.0 (6.4-8.2) g/dL Albumin 3.3 L (3.4-5.0) g/dL Globulin 3.7 H (2.0-3.5) g/dL Albumin/Globulin Ratio 0.9 L (1.3-2.8) 01/11/18 01/12/18 01/12/18 Range/Units 22:06 04:45 04:45 WBC 6.95 (4.0-11.0) K/uL RBC 3.89 L (4.50-5.90) M/uL Hgb 12.5 L (13.0-17.0) g/dL Hct 35.7 L (38.0-50.0) % MCV 91.8 (80.0-98.0) fL MCH 32.1 H (27.0-32.0) pg MCHC 35.0 (31.0-37.0) g/dL RDW Std Deviation 43.9 (28.0-62.0) fl RDW Coeff of Dalia 13 (11.0-15.0) % Plt Count 208 (150-400) K/uL MPV 9.80 (7.40-12.00) fL Neut % (Auto) 65.7 (48.0-80.0) % Lymph % (Auto) 21.3 (16.0-40.0) % [place] % (Auto) 9.9 (0.0-15.0) % Eos % (Auto) 3.0 (0.0-7.0) % Baso % (Auto) 0.1 (0.0-1.5) % Neut # (Auto) 4.6 (1.4-5.7) K/uL Lymph # (Auto) 1.5 (0.6-2.4) K/uL [place] # (Auto) 0.7 (0.0-0.8) K/uL Eos # (Auto) 0.2 (0.0-0.7) K/uL Baso # (Auto) 0.0 (0.0-0.1) K/uL Nucleated RBC % 0.0 /100WBC Nucleated RBCs # 0 K/uL Lactate (0.20-2.00) mmol/L Sodium 141 (136-148) mmol/L Potassium 3.5 (3.5-5.1) mmol/L Chloride 104 (98-107) mmol/L Carbon Dioxide 30.9 (21.0-32.0) mmol/L BUN 21 H (7.0-18.0) mg/dL Creatinine 1.2 (0.8-1.3) mg/dL Est Cr Clr Drug Dosing 45.13 mL/min Estimated GFR (MDRD) 57.8 ml/min Glucose 102 (74-106) mg/dL Calcium 8.9 (8.5-10.1) mg/dL Phosphorus 2.8 2.9 (2.6-4.7) mg/dL Magnesium 1.8 1.8 (1.8-2.4) mg/dL Total Bilirubin 0.8 (0.2-1.0) mg/dL AST 13 L (15-37) IU/L ALT 14 (14-63) IU/L Alkaline Phosphatase 80 (46-116) U/L Total Protein 5.9 L (6.4-8.2) g/dL Albumin 2.8 L (3.4-5.0) g/dL Globulin 3.1 (2.0-3.5) g/dL Albumin/Globulin Ratio 0.9 L (1.3-2.8) 01/12/18 Range/Units 04:45 WBC (4.0-11.0) K/uL RBC (4.50-5.90) M/uL Hgb (13.0-17.0) g/dL Hct (38.0-50.0) % MCV (80.0-98.0) fL MCH (27.0-32.0) pg MCHC (31.0-37.0) g/dL RDW Std Deviation (28.0-62.0) fl RDW Coeff of Dalia (11.0-15.0) % Plt Count (150-400) K/uL MPV (7.40-12.00) fL Neut % (Auto) (48.0-80.0) % Lymph % (Auto) (16.0-40.0) % [place] % (Auto) (0.0-15.0) % Eos % (Auto) (0.0-7.0) % Baso % (Auto) (0.0-1.5) % Neut # (Auto) (1.4-5.7) K/uL Lymph # (Auto) (0.6-2.4) K/uL [place] # (Auto) (0.0-0.8) K/uL Eos # (Auto) (0.0-0.7) K/uL Baso # (Auto) (0.0-0.1) K/uL Nucleated RBC % /100WBC Nucleated RBCs # K/uL Lactate 0.7 (0.20-2.00) mmol/L Sodium (136-148) mmol/L Potassium (3.5-5.1) mmol/L Chloride (98-107) mmol/L Carbon Dioxide (21.0-32.0) mmol/L BUN (7.0-18.0) mg/dL Creatinine (0.8-1.3) mg/dL Est Cr Clr Drug Dosing mL/min Estimated GFR (MDRD) ml/min Glucose (74-106) mg/dL Calcium (8.5-10.1) mg/dL Phosphorus (2.6-4.7) mg/dL Magnesium (1.8-2.4) mg/dL Total Bilirubin (0.2-1.0) mg/dL AST (15-37) IU/L ALT (14-63) IU/L Alkaline Phosphatase (46-116) U/L Total Protein (6.4-8.2) g/dL Albumin (3.4-5.0) g/dL Globulin (2.0-3.5) g/dL Albumin/Globulin Ratio (1.3-2.8) Vick Results Last 24 Hours: Microbiology 01/11/18 17:10 Campylobacter Antigen Assay - Final Stool / Feces NEGATIVE CAMPYLOBACTER AG - Final NEGATIVE FOR SHIGA TOXIN 1 - Final NEGATIVE FOR SHIGA TOXIN 2 01/11/18 17:10 Clostridium difficile Toxin A & B - Final Stool / Feces Negative for C.Diff Toxin/AG 01/11/18 17:10 Stool for WBCs - Final Stool / Feces NEGATIVE FOR WBC'S Med Orders - Current: Current Medications Acidophilus/Pectin (Acidophilus/Pectin, [place]) 1 tab PO DAILY [facility] Last Admin: 01/12/18 09:53 Dose: 1 tab Aspirin (Halfprin) 81 mg PO BRK [facility] Last Admin: 01/12/18 09:42 Dose: 81 mg Atorvastatin Calcium (Lipitor) 20 mg PO DAILY [facility] Last Admin: 01/12/18 09:42 Dose: 20 mg Betamethasone/Clotrimazole (Lotrisone) 1 gm TOP BID [facility] Last Admin: 01/12/18 14:26 Dose: 1 g Hydromorphone HCl (Dilaudid) 0.2 mg IVPUSH Q1H PRN PRN Reason: Pain Metronidazole 500 mg/ Premix 100 mls @ 100 mls/hr IV Q8H [facility] Last Admin: 01/12/18 15:53 Dose: 100 mls/hr Ciprofloxacin/Dextrose 400 mg/ (Premix) 200 mls @ 200 mls/hr IV Q12H [facility] Last Admin: 01/12/18 14:17 Dose: 200 mls/hr Dextrose/Sodium Chloride (Dextrose 5%-Normal Saline) 1,000 mls @ 125 mls/hr IV ASDIRECTED [facility] Last Admin: 01/12/18 11:06 Dose: 125 mls/hr Levothyroxine Sodium (Synthroid) 50 mcg PO ACBREAKFAST [facility] Last Admin: 01/12/18 09:42 Dose: 50 mcg Ondansetron HCl (Zofran) 4 mg IVPUSH Q4H PRN PRN Reason: Nausea Last Admin: 01/11/18 17:33 Dose: 4 mg Tolterodine Tartrate (Detrol) 2 mg PO DAILY [facility] Last Admin: 01/12/18 09:53 Dose: 2 mg Tramadol HCl (Ultram) 50 mg PO TID PRN PRN Reason: Pain Last Admin: 01/12/18 09:42 Dose: 50 mg Discontinued Medications Acetaminophen (Tylenol) 800 mg PO NOW ONE Stop: 01/12/18 13:03 Last Admin: 01/12/18 13:48 Dose: 800 mg Lactated Ringer's (Ringers, Lactated) 1,000 mls @ 75 mls/hr IV ASDIRECTED [facility] Last Admin: 01/11/18 22:17 Dose: 75 mls/hr Loperamide HCl (Imodium) 4 mg PO ONETIME ONE Stop: 01/11/18 21:01 Last Admin: 01/11/18 20:15 Dose: 4 mg - Exam General: Alert, Oriented HEENT: Pupils Equal, Pupils Reactive Neck: Supple, Trachea Midline, No JVD Lungs: Clear to Auscultation, Normal Respiratory Effort Cardiovascular: Regular Rate, Regular Rhythm, No Murmurs GI/Abdominal Exam: Tender, Abnormal Bowel Sounds (pitched ), Hernia Extremities: Normal Inspection Skin: Warm Neurological: No New Focal Deficit Psy/Mental Status: Alert - Problem List & Annotations (1) Abdominal pain SNOMED Code(s): 26456573 Code(s): R10.9 - UNSPECIFIED ABDOMINAL PAIN Status: Acute Current Visit: Yes (2) Diarrhea SNOMED Code(s): 80810431 Code(s): R19.7 - DIARRHEA, UNSPECIFIED Status: Acute Current Visit: Yes (3) Nausea alone SNOMED Code(s): 509731904 Code(s): R11.0 - NAUSEA Status: Acute Current Visit: Yes (4) Ventral hernia SNOMED Code(s): 852378520 Code(s): K43.9 - VENTRAL HERNIA WITHOUT OBSTRUCTION OR GANGRENE Status: Acute Current Visit: Yes - Problem List Review Problem List Initiated/Reviewed/Updated: Yes - My Orders Last 24 Hours: My Active Orders 01/11/18 16:30 metroNIDAZOLE/Normal Saline [Flagyl 500 MG in NS 100 ML] 500 mg Premix Bag 1 bag IV Q8H 01/11/18 17:10 CULTURE STOOL + CAMPY+SHIGATOX [RM] Routine 01/12/18 09:00 Aspirin [Halfprin] 81 mg PO BRK atorvaSTATin [Lipitor] 20 mg PO DAILY 01/12/18 09:29 traMADol [Ultram] 50 mg PO TID PRN 01/12/18 09:30 Acidophilus/Pectin, [place] 1 tab PO DAILY Levothyroxine [Synthroid] 50 mcg PO ACBREAKFAST Tolterodine [Detrol] 2 mg PO DAILY 01/12/18 10:45 Dextrose 5%-0.9% NaCl [Dextrose 5%-Normal Saline] 1,000 ml IV ASDIRECTED 01/12/18 13:00 Betamethasone/Clotrimazole [Lotrisone] 1 gm TOP BID - Plan Plan:: a/p cecal distention improving on Barium studies done in am , reports increased pain , I have informed surgeon and she recommended patient to have Tylenol or tramadol po - Continue NPO , f/up Surgery recommendation for nausea patient was given zofran 4 mg iv q 6 h dvt prophylaxis - heparin sq. for diarrhea will f/up stool culture and stool for c diff negative and stool for WBC positive and will start patient on Ciprofloxacin 400 mg iv q 12h and metronidazole 500 mg iv q 8 h
[2018-01-12] MEDS ORDERED: Acetaminophen 325 MG/10.15 ML ML PO PRN (19:10)
[2018-01-12] MEDS: traMADol 50 MG Tab PO PRN (22:06)
[2018-01-13] MEDS: metroNIDAZOLE/Normal Saline 500 MG in Premix Bag 1 BAG IV SCH ×3 (00:18→16:53)
[2018-01-13] MEDS: Ciprofloxacin in D5W 400 MG in Premix Bag 1 BAG IV SCH ×4 (03:54→15:21)
[2018-01-13] MEDS: Dextrose 5%-0.9% NaCl 1,000 ML IV SCH ×2 (06:40→19:45)
[2018-01-13] MEDS: Levothyroxine 50 MCG Tab PO SCH (06:43)
[2018-01-13] MEDS: atorvaSTATin 20 MG Tab PO SCH (08:45)
[2018-01-13] MEDS: Acidophilus with Citrus Pectin Tab PO SCH (08:45)
[2018-01-13] MEDS: Aspirin 81 MG Tab.EC PO SCH (08:45)
[2018-01-13] MEDS ORDERED: Magnesium Sulfate/Water 2 GM in Premix Bag 1 BAG IV ONE (08:47)
[2018-01-13] MEDS: Betamethasone Dipropionate/Clotrimazole 0.05-1% Crm 15 GM Tube TOP SCH ×2 (08:52→21:45)
--- NOTE | 2018-01-13 08:57 | PCM.CONSN ---
- General Info Date of Service: 01/13/18 Subjective Update: Patient is still sore. Has not taken anything for discomfort. No fevers, chills , nausea or vomiting. Still having diarrhea. - Review of Systems General: Reports: No Symptoms HEENT: Reports: No Symptoms Pulmonary: Reports: No Symptoms Cardiovascular: Reports: No Symptoms Gastrointestinal: Reports: Abdominal Pain Musculoskeletal: Reports: No Symptoms - Patient Data Vitals - Most Recent: Last Vital Signs Temp 36.5 C 01/13/18 04:00 Pulse 58 L 01/13/18 04:00 Resp 17 01/13/18 04:00 BP 124/62 01/13/18 04:00 Pulse Ox 95 01/13/18 04:00 Weight - Most Recent: 70.216 kg I&O - Last 24 Hours: Intake & Output 01/12/18 01/13/18 01/13/18 22:59 06:59 14:59 Intake Total 2300 1300 Balance 2300 1300 Lab Results Last 24 Hours: Laboratory Results - last 24 hr 01/13/18 01/13/18 Range/Units 05:53 05:53 WBC 6.26 (4.0-11.0) K/uL RBC 4.25 L (4.50-5.90) M/uL Hgb 13.2 (13.0-17.0) g/dL Hct 38.6 (38.0-50.0) % MCV 90.8 (80.0-98.0) fL MCH 31.1 (27.0-32.0) pg MCHC 34.2 (31.0-37.0) g/dL RDW Std Deviation 42.8 (28.0-62.0) fl RDW Coeff of Dalia 13 (11.0-15.0) % Plt Count 220 (150-400) K/uL MPV 10.30 (7.40-12.00) fL Nucleated RBC % 0.0 /100WBC Nucleated RBCs # 0 K/uL Sodium 139 (136-148) mmol/L Potassium 3.2 L (3.5-5.1) mmol/L Chloride 107 (98-107) mmol/L Carbon Dioxide 29.9 (21.0-32.0) mmol/L BUN 15 (7.0-18.0) mg/dL Creatinine 1.2 (0.8-1.3) mg/dL Est Cr Clr Drug Dosing 45.13 mL/min Estimated GFR (MDRD) 57.8 ml/min Glucose 106 (74-106) mg/dL Calcium 8.5 (8.5-10.1) mg/dL Phosphorus 2.6 (2.6-4.7) mg/dL Magnesium 1.6 L (1.8-2.4) mg/dL Vick Results Last 24 Hours: Microbiology 01/11/18 17:10 Stool Culture - Final Stool / Feces NO SALMONELLA, SHIGELLA,OR E.COLI O157 ISOLATED Campylobacter Antigen Assay - Final NEGATIVE CAMPYLOBACTER AG - Final NEGATIVE FOR SHIGA TOXIN 1 - Final NEGATIVE FOR SHIGA TOXIN 2 Med Orders - Current: Current Medications Acetaminophen (Tylenol) 400 mg PO Q4H PRN PRN Reason: Pain Acidophilus/Pectin (Acidophilus/Pectin, [place]) 1 tab PO DAILY [facility] Last Admin: 01/13/18 08:45 Dose: 1 tab Aspirin (Halfprin) 81 mg PO BRK [facility] Last Admin: 01/13/18 08:45 Dose: 81 mg Atorvastatin Calcium (Lipitor) 20 mg PO DAILY [facility] Last Admin: 01/13/18 08:45 Dose: 20 mg Betamethasone/Clotrimazole (Lotrisone) 1 gm TOP BID [facility] Last Admin: 01/12/18 20:40 Dose: 1 g Hydromorphone HCl (Dilaudid) 0.2 mg IVPUSH Q1H PRN PRN Reason: Pain Metronidazole 500 mg/ Premix 100 mls @ 100 mls/hr IV Q8H [facility] Last Admin: 01/13/18 08:44 Dose: 100 mls/hr Ciprofloxacin/Dextrose 400 mg/ (Premix) 200 mls @ 200 mls/hr IV Q12H [facility] Last Infusion: 01/13/18 04:55 Dose: Infused Dextrose/Sodium Chloride (Dextrose 5%-Normal Saline) 1,000 mls @ 125 mls/hr IV ASDIRECTED [facility] Last Admin: 01/13/18 06:40 Dose: 125 mls/hr Magnesium Sulfate 2 gm/ Premix 50 mls @ 50 mls/hr IV ONETIME ONE Stop: 01/13/18 09:46 Levothyroxine Sodium (Synthroid) 50 mcg PO ACBREAKFAST [facility] Last Admin: 01/13/18 06:43 Dose: 50 mcg Ondansetron HCl (Zofran) 4 mg IVPUSH Q4H PRN PRN Reason: Nausea Last Admin: 01/11/18 17:33 Dose: 4 mg Tolterodine Tartrate (Detrol) 2 mg PO DAILY [facility] Last Admin: 01/13/18 08:45 Dose: 2 mg Tramadol HCl (Ultram) 50 mg PO Q6H PRN PRN Reason: Pain Last Admin: 01/12/18 22:06 Dose: 50 mg Discontinued Medications Acetaminophen (Tylenol) 800 mg PO NOW ONE Stop: 01/12/18 13:03 Last Admin: 01/12/18 13:48 Dose: 800 mg Lactated Ringer's (Ringers, Lactated) 1,000 mls @ 75 mls/hr IV ASDIRECTED [facility] Last Admin: 01/11/18 22:17 Dose: 75 mls/hr Loperamide HCl (Imodium) 4 mg PO ONETIME ONE Stop: 01/11/18 21:01 Last Admin: 01/11/18 20:15 Dose: 4 mg Tramadol HCl (Ultram) 50 mg PO TID PRN PRN Reason: Pain Last Admin: 01/12/18 09:42 Dose: 50 mg - Exam General: Alert, Oriented Lungs: Normal Respiratory Effort Cardiovascular: Regular Rate GI/Abdominal Exam: Soft, Non-Tender, Distended (improved from yesterday ) Consult PN Assessment/Plan Procedures: Procedures AGENT NOS ASSAY W/OPTIC (04/02/15) ASSAY OF FERRITIN (05/02/17) ASSAY OF MAGNESIUM (08/23/17) ASSAY OF PSA TOTAL (10/12/16) ASSAY OF TROPONIN QUANT (08/23/17) ASSAY THYROID STIM HORMONE (05/02/17) BLOOD CULTURE FOR BACTERIA (04/02/15) CHEST X-RAY 1 VIEW FRONTAL (04/16/15) CLOSTRIDIUM AG IA (07/08/15) COMPLETE CBC AUTOMATED (05/02/17) COMPLETE CBC W/AUTO DIFF WBC (11/04/17) COMPREHEN METABOLIC PANEL (11/04/17) CONTRST X-RAY UPPR GI TRACT (05/14/17) CT ABD & PELVIS W/O CONTRAST (11/04/17) CT HEAD/BRAIN W/O DYE (09/26/17) CT LUMBAR SPINE W/O DYE (11/04/17) CT SOFT TISSUE NECK W/O DYE (09/26/17) ELECTROCARDIOGRAM TRACING (11/04/17) EMERGENCY DEPT VISIT (11/04/17) EMERGENCY DEPT VISIT (08/11/16) EMERGENCY DEPT VISIT (04/16/15) EMERGENCY DEPT VISIT (04/08/15) EMERGENCY DEPT VISIT (04/02/15) EXTREMITY STUDY (04/08/15) HYDRATE IV INFUSION ADD-ON (11/04/17) LACTOFERRIN FECAL (QUAL) (07/08/15) LIPID PANEL (05/02/17) METABOLIC PANEL TOTAL CA (04/26/15) OCCULT BLD FECES 1-3 TESTS (04/02/15) OFFICE/OUTPATIENT VISIT EST (11/12/17) OFFICE/OUTPATIENT VISIT EST (05/02/17) OFFICE/OUTPATIENT VISIT EST (04/19/15) OFFICE/OUTPATIENT VISIT EST (03/03/15) OFFICE/OUTPATIENT VISIT EST (10/16/13) OFFICE/OUTPATIENT VISIT NEW (06/17/14) PHLEBOTOMY (09/18/14) PPSV23 VACC 2 YRS+ SUBQ/IM (05/10/15) ROUTINE VENIPUNCTURE (09/26/17) STOOL CULTR AEROBIC BACT EA (04/29/15) THER/PROPH/DIAG INJ IV PUSH (11/04/17) THER/PROPH/DIAG INJ SC/IM (08/11/16) TX/PRO/DX INJ NEW DRUG ADDON (11/04/17) TX/PRO/DX INJ SAME DRUG CAR BLOCKER (11/04/17) URINALYSIS AUTO W/SCOPE (11/04/17) URINE CULTURE/COLONY COUNT (11/04/17) VITAMIN B-12 (10/16/13) X-RAY EXAM CHEST 1 VIEW (08/23/17) X-RAY EXAM L-S SPINE 2/3 VWS (04/24/16) X-RAY EXAM NECK SPINE 2-3 VW (11/12/17) X-RAY EXAM OF ABDOMEN (04/02/15) X-RAY EXAM OF SHOULDER (11/12/17) X-RAY EXAM THORAC SPINE 3VWS (08/11/16) (1) Colon distention SNOMED Code(s): 824612916 Code(s): K63.89 - OTHER SPECIFIED DISEASES OF INTESTINE Current Visit: Yes Problem List Initiated/Reviewed/Updated: Yes My Orders Last 24 Hours: My Active Orders 01/12/18 09:02 HYDROmorphone [Dilaudid] 0.2 mg IVPUSH Q1H PRN 01/13/18 07:00 Abdomen 1V Upright [CR] Routine 01/13/18 08:47 Magnesium Sulfate/Water [Magnesium Sulfate 2 GM in Water 50 ML] 2 gm Premix Bag 1 bag IV ONETIME 01/14/18 05:11 BASIC METABOLIC PANEL,BMP [CHEM] AM CBC W/O DIFF,HEMOGRAM [HEME] AM MAGNESIUM [CHEM] AM PHOSPHORUS [CHEM] AM Plan: Patient's labs are stable. Magnesium replaced this morning. Abdominal xray appears improved from yesterday on review. Clinical exam is improved. Tramadol is working very well for pain control. Would attempt clear liquid diet today. If he develops worsening abdominal pain, nausea or vomiting, would make NPO again.
[2018-01-13] MEDS ORDERED: Potassium Chloride 20 MEQ Tab.ER PO ONE (09:24)
[2018-01-13] MEDS: traMADol 50 MG Tab PO PRN ×2 (11:35→19:45)
--- NOTE | 2018-01-13 21:50 | PCM.PN ---
- General Info Date of Service: 01/13/18 Subjective Update: diarrhea stooped last night , had some loose BM again in the afternoon. Improving distension on X ray Pain Score: 4 - Review of Systems General: Reports: No Symptoms HEENT: Reports: No Symptoms Pulmonary: Reports: No Symptoms Cardiovascular: Reports: No Symptoms Gastrointestinal: Reports: Abdominal Pain Genitourinary: Reports: No Symptoms Musculoskeletal: Reports: No Symptoms Skin: Reports: No Symptoms Neurological: Reports: No Symptoms Psychiatric: Reports: No Symptoms - Patient Data Vitals - Most Recent: Last Vital Signs Temp 97.8 F 01/13/18 20:00 Pulse 50 L 01/13/18 20:00 Resp 16 01/13/18 20:00 BP 143/72 H 01/13/18 20:00 Pulse Ox 97 01/13/18 20:00 Weight - Most Recent: 154 lb 12.8 oz I&O - Last 24 Hours: Intake & Output 01/13/18 01/13/18 01/13/18 06:59 14:59 22:59 Intake Total 1300 1980 Balance 1300 1979 Lab Results Last 24 Hours: Laboratory Results - last 24 hr 01/13/18 01/13/18 Range/Units 05:53 05:53 WBC 6.26 (4.0-11.0) K/uL RBC 4.25 L (4.50-5.90) M/uL Hgb 13.2 (13.0-17.0) g/dL Hct 38.6 (38.0-50.0) % MCV 90.8 (80.0-98.0) fL MCH 31.1 (27.0-32.0) pg MCHC 34.2 (31.0-37.0) g/dL RDW Std Deviation 42.8 (28.0-62.0) fl RDW Coeff of Dalia 13 (11.0-15.0) % Plt Count 220 (150-400) K/uL MPV 10.30 (7.40-12.00) fL Nucleated RBC % 0.0 /100WBC Nucleated RBCs # 0 K/uL Sodium 139 (136-148) mmol/L Potassium 3.2 L (3.5-5.1) mmol/L Chloride 107 (98-107) mmol/L Carbon Dioxide 29.9 (21.0-32.0) mmol/L BUN 15 (7.0-18.0) mg/dL Creatinine 1.2 (0.8-1.3) mg/dL Est Cr Clr Drug Dosing 45.13 mL/min Estimated GFR (MDRD) 57.8 ml/min Glucose 106 (74-106) mg/dL Calcium 8.5 (8.5-10.1) mg/dL Phosphorus 2.6 (2.6-4.7) mg/dL Magnesium 1.6 L (1.8-2.4) mg/dL Vick Results Last 24 Hours: Microbiology 01/11/18 17:10 Stool Culture - Final Stool / Feces NO SALMONELLA, SHIGELLA,OR E.COLI O157 ISOLATED Campylobacter Antigen Assay - Final NEGATIVE CAMPYLOBACTER AG - Final NEGATIVE FOR SHIGA TOXIN 1 - Final NEGATIVE FOR SHIGA TOXIN 2 Med Orders - Current: Current Medications Acetaminophen (Tylenol) 400 mg PO Q4H PRN PRN Reason: Pain Acidophilus/Pectin (Acidophilus/Pectin, [place]) 1 tab PO DAILY [facility] Last Admin: 01/13/18 08:45 Dose: 1 tab Aspirin (Halfprin) 81 mg PO BRK [facility] Last Admin: 01/13/18 08:45 Dose: 81 mg Atorvastatin Calcium (Lipitor) 20 mg PO DAILY [facility] Last Admin: 01/13/18 08:45 Dose: 20 mg Betamethasone/Clotrimazole (Lotrisone) 1 gm TOP BID [facility] Last Admin: 01/13/18 21:45 Dose: 1 g Hydromorphone HCl (Dilaudid) 0.2 mg IVPUSH Q1H PRN PRN Reason: Pain Metronidazole 500 mg/ Premix 100 mls @ 100 mls/hr IV Q8H [facility] Last Admin: 01/13/18 16:53 Dose: 100 mls/hr Ciprofloxacin/Dextrose 400 mg/ (Premix) 200 mls @ 200 mls/hr IV Q12H [facility] Last Admin: 01/13/18 15:21 Dose: 200 mls/hr Dextrose/Sodium Chloride (Dextrose 5%-Normal Saline) 1,000 mls @ 125 mls/hr IV ASDIRECTED [facility] Last Admin: 01/13/18 19:45 Dose: 125 mls/hr Levothyroxine Sodium (Synthroid) 50 mcg PO ACBREAKFAST [facility] Last Admin: 01/13/18 06:43 Dose: 50 mcg Ondansetron HCl (Zofran) 4 mg IVPUSH Q4H PRN PRN Reason: Nausea Last Admin: 01/11/18 17:33 Dose: 4 mg Tolterodine Tartrate (Detrol) 2 mg PO DAILY [facility] Last Admin: 01/13/18 08:45 Dose: 2 mg Tramadol HCl (Ultram) 50 mg PO Q6H PRN PRN Reason: Pain Last Admin: 01/13/18 19:45 Dose: 50 mg Discontinued Medications Acetaminophen (Tylenol) 800 mg PO NOW ONE Stop: 01/12/18 13:03 Last Admin: 01/12/18 13:48 Dose: 800 mg Lactated Ringer's (Ringers, Lactated) 1,000 mls @ 75 mls/hr IV ASDIRECTED [facility] Last Admin: 01/11/18 22:17 Dose: 75 mls/hr Magnesium Sulfate 2 gm/ Premix 50 mls @ 50 mls/hr IV ONETIME ONE Stop: 01/13/18 09:46 Last Admin: 01/13/18 09:08 Dose: 50 mls/hr Loperamide HCl (Imodium) 4 mg PO ONETIME ONE Stop: 01/11/18 21:01 Last Admin: 01/11/18 20:15 Dose: 4 mg Potassium Chloride (Klor-Con M20) 40 meq PO ONETIME ONE Stop: 01/13/18 09:25 Last Admin: 01/13/18 09:58 Dose: 40 meq Tramadol HCl (Ultram) 50 mg PO TID PRN PRN Reason: Pain Last Admin: 01/12/18 09:42 Dose: 50 mg - Exam General: Alert HEENT: Pupils Equal Neck: Supple, Trachea Midline Lungs: Clear to Auscultation Cardiovascular: Regular Rate, Regular Rhythm, No Murmurs GI/Abdominal Exam: Normal Bowel Sounds, Soft, No Organomegaly, Tender, Hernia Back Exam: Normal Inspection Extremities: Normal Inspection - Problem List & Annotations (1) Abdominal pain SNOMED Code(s): 65967688 Code(s): R10.9 - UNSPECIFIED ABDOMINAL PAIN Status: Acute Current Visit: Yes (2) Diarrhea SNOMED Code(s): 74769328 Code(s): R19.7 - DIARRHEA, UNSPECIFIED Status: Acute Current Visit: Yes (3) Nausea alone SNOMED Code(s): 862461970 Code(s): R11.0 - NAUSEA Status: Acute Current Visit: Yes (4) Ventral hernia SNOMED Code(s): 027626394 Code(s): K43.9 - VENTRAL HERNIA WITHOUT OBSTRUCTION OR GANGRENE Status: Acute Current Visit: Yes - Problem List Review Problem List Initiated/Reviewed/Updated: Yes - My Orders Last 24 Hours: My Active Orders 01/13/18 Lunch Clear Liquid Diet [DIET] - Plan Plan:: a/p cecal distention improving on Barium studies done in am , improved pain with pain medications ,- started on clear liquid diet today , tolerated diet well. , f/up Surgery recommendation for nausea patient was given zofran 4 mg iv q 6 h dvt prophylaxis - heparin sq. for diarrhea will f/up stool culture and stool for c diff negative and stool for WBC positive and will start patient on Ciprofloxacin 400 mg iv q 12h and metronidazole 500 mg iv q 8 h
[2018-01-14] MEDS: metroNIDAZOLE/Normal Saline 500 MG in Premix Bag 1 BAG IV SCH (00:19)
[2018-01-14] MEDS: Ciprofloxacin in D5W 400 MG in Premix Bag 1 BAG IV SCH ×2 (02:29)
[2018-01-14] MEDS: Dextrose 5%-0.9% NaCl 1,000 ML IV SCH (05:46)
[2018-01-14] MEDS: traMADol 50 MG Tab PO PRN (05:51)
[2018-01-14] MEDS: Levothyroxine 50 MCG Tab PO SCH (06:47)
[2018-01-14] MEDS ORDERED: Magnesium Sulfate/Water 2 GM in Premix Bag 1 BAG IV ONE (08:58)
[2018-01-14] MEDS ORDERED: Potassium Chloride 20 MEQ Tab.ER PO SCH (09:00)
[2018-01-14] MEDS ORDERED: Ciprofloxacin 500 MG Tab PO SCH (09:00)
--- NOTE | 2018-01-14 09:01 | CR ---
EXAM DATE: 01/11/18 PATIENT'S AGE: 82 Patient: OCTAVIO KING Facility: [place], [place] Site . Site : [id number] Study: XRay Abdomen [id number]/17/2018 3:42:12 PM Ordering Physician: Jacinta Read Final Report: INDICATION: Obstruction COMPARISON: Abdominal CT 11/04/2017. FINDINGS: Abnormal dilated colonic bowel loops are seen throughout the abdomen and pelvis and the cecum is markedly enlarged/dilated spanning 18 cm. This is concerning for cecal volvulus. There is no obvious free intraperitoneal air. Metallic surgical clips are noted in the pelvis and there are changes of a median sternotomy. IMPRESSION: Abnormal dilated colonic bowel loops with findings suggesting cecal volvulus. Dictated by Sumi Pinedo MD @ Jan 11 2018 3:46PM (Electronic Signature) Report Signed by Proxy. OLEG
[2018-01-14] MEDS: Aspirin 81 MG Tab.EC PO SCH (09:02)
[2018-01-14] MEDS: atorvaSTATin 20 MG Tab PO SCH (09:02)
--- NOTE | 2018-01-14 09:02 | CT ---
EXAM DATE: 01/11/18 PATIENT'S AGE: 82 Patient: OCTAVIO KING Facility: [place], [place] Site . Site : 1935 Study: CT Abdomen/Pelvis w/o cont. [id number]/17/2018 3:48:37 PM Ordering Physician: Jacinta Read Final Report: INDICATION: Abdominal pain. COMPARISON: CT abdomen and pelvis dated 11/04/2017. TECHNIQUE: A CT volumetric acquisition was performed of the abdomen and pelvis without IV contrast. FINDINGS: CT images demonstrate a calcified granuloma at the left lung base. 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 There is no evidence of pleural or pericardial fluid. The unenhanced liver and spleen appear normal. There is no evidence of inflammation or mass within the pancreas. The gallbladder is small and contains calcified stones. There is no evidence of bile duct dilatation. The adrenal glands appear normal. There are nonobstructing calculi within the upper pole right kidney and mid pole left kidney. Atherosclerotic changes are evident within the aorta but there is no evidence of aneurysm or vascular dissection. The small bowel loops appear normal. There is gaseous distention within the colon but no evidence of acute inflammation about the colonic wall. The patient is status post prior ventral herniorrhaphy within the anterior pelvis. The prostate gland and pelvic lymph nodes have been resected. There are no suspicious soft tissue masses. The urinary bladder appears normal. IMPRESSION: 1. Gaseous distention of the colon particularly within the cecal region but no evidence of an obstructing mass lesion. 2. Cholelithiasis and nephrolithiasis. Please note that all CT scans at this facility use dose modulation, iterative reconstruction, and/or weight-based dosing when appropriate to reduce radiation dose to as low as reasonably achievable. Dictated by Eulalio Nick MD @ Jan 11 2018 4:19PM (Electronic Signature) Report Signed by Proxy. [facility]
[2018-01-14] MEDS: metroNIDAZOLE 250 MG Tab PO SCH ×2 (09:11→16:33)
--- NOTE | 2018-01-14 09:11 | PCM.CONSN ---
- General Info Date of Service: 01/14/18 Functional Status: Reports: Pain Controlled, Tolerating Diet, Ambulating, Urinating - Review of Systems General: Reports: No Symptoms Pulmonary: Reports: No Symptoms Cardiovascular: Reports: No Symptoms Gastrointestinal: Reports: No Symptoms Musculoskeletal: Reports: Shoulder Pain - Patient Data Vitals - Most Recent: Last Vital Signs Temp 37.1 C 01/14/18 07:51 Pulse 57 L 01/14/18 07:51 Resp 15 01/14/18 07:51 BP 139/66 01/14/18 07:51 Pulse Ox 96 01/14/18 07:51 Weight - Most Recent: 70.216 kg I&O - Last 24 Hours: Intake & Output 01/13/18 01/14/18 01/14/18 22:59 06:59 14:59 Intake Total 1979 1999 Balance 1979 1999 Lab Results Last 24 Hours: Laboratory Results - last 24 hr 01/14/18 01/14/18 Range/Units 05:44 05:44 WBC 5.87 (4.0-11.0) K/uL RBC 3.80 L (4.50-5.90) M/uL Hgb 11.8 L (13.0-17.0) g/dL Hct 34.5 L (38.0-50.0) % MCV 90.8 (80.0-98.0) fL MCH 31.1 (27.0-32.0) pg MCHC 34.2 (31.0-37.0) g/dL RDW Std Deviation 42.9 (28.0-62.0) fl RDW Coeff of Dalia 13 (11.0-15.0) % Plt Count 192 (150-400) K/uL MPV 10.00 (7.40-12.00) fL Nucleated RBC % 0.0 /100WBC Nucleated RBCs # 0 K/uL Sodium 140 (136-148) mmol/L Potassium 2.9 L (3.5-5.1) mmol/L Chloride 109 H (98-107) mmol/L Carbon Dioxide 30.2 (21.0-32.0) mmol/L BUN 9 (7.0-18.0) mg/dL Creatinine 1.2 (0.8-1.3) mg/dL Est Cr Clr Drug Dosing 45.13 mL/min Estimated GFR (MDRD) 57.8 ml/min Glucose 133 H (74-106) mg/dL Calcium 7.7 L (8.5-10.1) mg/dL Phosphorus 2.8 (2.6-4.7) mg/dL Magnesium 1.7 L (1.8-2.4) mg/dL Vick Results Last 24 Hours: Microbiology 01/11/18 17:10 Stool Culture - Final Stool / Feces NO SALMONELLA, SHIGELLA,OR E.COLI O157 ISOLATED Campylobacter Antigen Assay - Final NEGATIVE CAMPYLOBACTER AG - Final NEGATIVE FOR SHIGA TOXIN 1 - Final NEGATIVE FOR SHIGA TOXIN 2 Med Orders - Current: Current Medications Acetaminophen (Tylenol) 400 mg PO Q4H PRN PRN Reason: Pain Acidophilus/Pectin (Acidophilus/Pectin, [place]) 1 tab PO DAILY [facility] Last Admin: 01/13/18 08:45 Dose: 1 tab Aspirin (Halfprin) 81 mg PO BRK [facility] Last Admin: 01/14/18 09:02 Dose: 81 mg Atorvastatin Calcium (Lipitor) 20 mg PO DAILY [facility] Last Admin: 01/14/18 09:02 Dose: 20 mg Betamethasone/Clotrimazole (Lotrisone) 1 gm TOP BID [facility] Last Admin: 01/13/18 21:45 Dose: 1 g Ciprofloxacin (Ciprofloxacin Hcl) 500 mg PO BID [facility] Hydromorphone HCl (Dilaudid) 0.2 mg IVPUSH Q1H PRN PRN Reason: Pain Magnesium Sulfate 2 gm/ Premix 50 mls @ 50 mls/hr IV ONETIME ONE Stop: 01/14/18 09:57 Levothyroxine Sodium (Synthroid) 50 mcg PO ACBREAKFAST [facility] Last Admin: 01/14/18 06:47 Dose: 50 mcg Metronidazole (Metronidazole) 250 mg PO Q6H [facility] Ondansetron HCl (Zofran) 4 mg IVPUSH Q4H PRN PRN Reason: Nausea Last Admin: 01/11/18 17:33 Dose: 4 mg Potassium Chloride (Klor-Con M20) 40 meq PO BID [facility] Stop: 01/15/18 21:01 Tolterodine Tartrate (Detrol) 2 mg PO DAILY [facility] Last Admin: 01/14/18 09:03 Dose: 2 mg Tramadol HCl (Ultram) 50 mg PO Q6H PRN PRN Reason: Pain Last Admin: 01/14/18 05:51 Dose: 50 mg Discontinued Medications Acetaminophen (Tylenol) 800 mg PO NOW ONE Stop: 01/12/18 13:03 Last Admin: 01/12/18 13:48 Dose: 800 mg Lactated Ringer's (Ringers, Lactated) 1,000 mls @ 75 mls/hr IV ASDIRECTED [facility] Last Admin: 01/11/18 22:17 Dose: 75 mls/hr Metronidazole 500 mg/ Premix 100 mls @ 100 mls/hr IV Q8H [facility] Last Infusion: 01/14/18 01:20 Dose: Infused Ciprofloxacin/Dextrose 400 mg/ (Premix) 200 mls @ 200 mls/hr IV Q12H [facility] Last Infusion: 01/14/18 03:30 Dose: Infused Dextrose/Sodium Chloride (Dextrose 5%-Normal Saline) 1,000 mls @ 125 mls/hr IV ASDIRECTED [facility] Last Admin: 01/14/18 05:46 Dose: 125 mls/hr Magnesium Sulfate 2 gm/ Premix 50 mls @ 50 mls/hr IV ONETIME ONE Stop: 01/13/18 09:46 Last Admin: 01/13/18 09:08 Dose: 50 mls/hr Loperamide HCl (Imodium) 4 mg PO ONETIME ONE Stop: 01/11/18 21:01 Last Admin: 01/11/18 20:15 Dose: 4 mg Potassium Chloride (Klor-Con M20) 40 meq PO ONETIME ONE Stop: 01/13/18 09:25 Last Admin: 01/13/18 09:58 Dose: 40 meq Tramadol HCl (Ultram) 50 mg PO TID PRN PRN Reason: Pain Last Admin: 01/12/18 09:42 Dose: 50 mg - Exam General: Alert, Oriented, Cooperative Lungs: Normal Respiratory Effort Cardiovascular: Regular Rate GI/Abdominal Exam: Soft, Non-Tender, Distended (stable to slightly improved ) Consult PN Assessment/Plan Procedures: Procedures AGENT NOS ASSAY W/OPTIC (04/02/15) ASSAY OF FERRITIN (05/02/17) ASSAY OF MAGNESIUM (08/23/17) ASSAY OF PSA TOTAL (10/12/16) ASSAY OF TROPONIN QUANT (08/23/17) ASSAY THYROID STIM HORMONE (05/02/17) BLOOD CULTURE FOR BACTERIA (04/02/15) CHEST X-RAY 1 VIEW FRONTAL (04/16/15) CLOSTRIDIUM AG IA (07/08/15) COMPLETE CBC AUTOMATED (05/02/17) COMPLETE CBC W/AUTO DIFF WBC (11/04/17) COMPREHEN METABOLIC PANEL (11/04/17) CONTRST X-RAY UPPR GI TRACT (05/14/17) CT ABD & PELVIS W/O CONTRAST (11/04/17) CT HEAD/BRAIN W/O DYE (09/26/17) CT LUMBAR SPINE W/O DYE (11/04/17) CT SOFT TISSUE NECK W/O DYE (09/26/17) ELECTROCARDIOGRAM TRACING (11/04/17) EMERGENCY DEPT VISIT (11/04/17) EMERGENCY DEPT VISIT (08/11/16) EMERGENCY DEPT VISIT (04/16/15) EMERGENCY DEPT VISIT (04/08/15) EMERGENCY DEPT VISIT (04/02/15) EXTREMITY STUDY (04/08/15) HYDRATE IV INFUSION ADD-ON (11/04/17) LACTOFERRIN FECAL (QUAL) (07/08/15) LIPID PANEL (05/02/17) METABOLIC PANEL TOTAL CA (04/26/15) OCCULT BLD FECES 1-3 TESTS (04/02/15) OFFICE/OUTPATIENT VISIT EST (11/12/17) OFFICE/OUTPATIENT VISIT EST (05/02/17) OFFICE/OUTPATIENT VISIT EST (04/19/15) OFFICE/OUTPATIENT VISIT EST (03/03/15) OFFICE/OUTPATIENT VISIT EST (10/16/13) OFFICE/OUTPATIENT VISIT NEW (06/17/14) PHLEBOTOMY (09/18/14) PPSV23 VACC 2 YRS+ SUBQ/IM (05/10/15) ROUTINE VENIPUNCTURE (09/26/17) STOOL CULTR AEROBIC BACT EA (04/29/15) THER/PROPH/DIAG INJ IV PUSH (11/04/17) THER/PROPH/DIAG INJ SC/IM (08/11/16) TX/PRO/DX INJ NEW DRUG ADDON (11/04/17) TX/PRO/DX INJ SAME DRUG RAISED PRINTER (11/04/17) URINALYSIS AUTO W/SCOPE (11/04/17) URINE CULTURE/COLONY COUNT (11/04/17) VITAMIN B-12 (10/16/13) X-RAY EXAM CHEST 1 VIEW (08/23/17) X-RAY EXAM L-S SPINE 2/3 VWS (04/24/16) X-RAY EXAM NECK SPINE 2-3 VW (11/12/17) X-RAY EXAM OF ABDOMEN (04/02/15) X-RAY EXAM OF SHOULDER (11/12/17) X-RAY EXAM THORAC SPINE 3VWS (08/11/16) (1) Colon distention SNOMED Code(s): 760397187 Code(s): K63.89 - OTHER SPECIFIED DISEASES OF INTESTINE Current Visit: Yes Problem List Initiated/Reviewed/Updated: Yes My Orders Last 24 Hours: My Active Orders 01/14/18 09:00 Ciprofloxacin [Ciprofloxacin HCl] 500 mg PO BID metroNIDAZOLE 250 mg PO Q6H 01/14/18 Lunch Regular Diet [DIET] Plan: -Patient is feeling well today. He tolerated a clear liquid diet without increased abdominal distension, nausea or vomiting. Continues to have diarrhea. Advance diet to regular. Switched to oral antibiotics. Will see how patient does. If he is not worsening and able to keep down po, may be able to discharge to home this evening.
[2018-01-14] MEDS: Acidophilus with Citrus Pectin Tab PO SCH (09:29)
[2018-01-14] MEDS: Betamethasone Dipropionate/Clotrimazole 0.05-1% Crm 15 GM Tube TOP SCH (09:31)
--- NOTE | 2018-01-14 10:58 | CR ---
EXAM DATE: 01/11/18 PATIENT'S AGE: 82 Patient: OCTAVIO KING Facility: [place], [place] Site . Site : 1935 Study: XRay Abdomen [id number]/18/2018 8:18:10 AM Ordering Physician: Jacinta Read Final Report: INDICATION: cecal distension HISTORY: Cecal distention. COMPARISON: CT of the abdomen and pelvis 01/11/2018. Technique: Abdomen, single view. FINDINGS: The colon remains dilated. The transverse colon measures up to 6.6 cm in dimension, and the cecum measures up to 9.5 cm in dimension. Colonic distention appears similar today when compared with the new vehicle sales consultant tomogram from 01/11/2018. Median sternotomy changes. No soft tissue mass by plain film. No extraluminal gas identified. IMPRESSION: Colonic distention, similar to 01/11/2018. Dictated by Ramu Jiménez MD @ 01/12/2018 8:36:08 AM Dictated by: Ramu Jiménez MD @ 01/12/2018 08:36:17 (Electronic Signature) Report Signed by Proxy. [facility] SYSTEM[facility]
[2018-01-14] MEDS ORDERED: Bismuth Subsalicylate 262 MG/15 ML Susp 236 ML Bottle PO PRN (11:18)
--- NOTE | 2018-01-14 14:02 | CR ---
EXAM DATE: 01/11/18 PATIENT'S AGE: 82 Patient: OCTAVIO KING Facility: [place], [place] Site . Site : 1935 Study: XRay Abdomen [id number]/19/2018 8:35:20 AM Ordering Physician: Jacinta Read Final Report: CLINICAL INDICATION: Colonic distention. COMPARISON: 01/12/2018. FINDINGS: There is persistent gaseous distention of both the colon and small bowel with a few air-fluid levels. There has been no significant change. There is a atherosclerotic calcification within the abdominal aorta. There is a lumbar scoliosis convex right. There are sternotomy wires. IMPRESSION: Persistent gaseous distention of both large and small bowel loops without significant change. Dictated by Isaias Tellez MD @ Jan 13 2018 8:58AM (Electronic Signature) Report Signed by Proxy. [facility]
[2018-01-14] MEDS ORDERED: Potassium Chloride 20 MEQ Tab.ER PO ONE (14:08)
[2018-01-14 15:44] VITALS: BP 131/66
--- NOTE | 2018-01-14 16:39 | PCM.DCSUM1 ---
Discharge Summary - Hospital Course Diagnosis: Stroke: No - Discharge Data Discharge Disposition: Home, Self-Care 01 Condition: Good - Discharge Diagnosis/Problem(s) (1) Abdominal pain SNOMED Code(s): 06296604 ICD Code: R10.9 - UNSPECIFIED ABDOMINAL PAIN Status: Acute Current Visit : Yes (2) Diarrhea SNOMED Code(s): 22742762 ICD Code: R19.7 - DIARRHEA, UNSPECIFIED Status: Acute Current Visit: Yes (3) Nausea alone SNOMED Code(s): 165046464 ICD Code: R11.0 - NAUSEA Status: Acute Current Visit: Yes (4) Ventral hernia SNOMED Code(s): 815060505 ICD Code: K43.9 - VENTRAL HERNIA WITHOUT OBSTRUCTION OR GANGRENE Status: Acute Current Visit: Yes (5) Colon distention SNOMED Code(s): 308774516 ICD Code: K63.89 - OTHER SPECIFIED DISEASES OF INTESTINE Status: Acute Current Visit: Yes - Patient Summary/Data Consults: Consultations 01/11/18 15:17 Consult to Physical Therapy [PT Evaluation and Treatment] [CONS] Routine - Patient Instructions Diet: Usual Diet as Tolerated Diet, Other: avoid diary products until diarrhea resolves Activity: As Tolerated Showering/Bathing: May Shower - Discharge Plan Prescriptions/Med Rec: Betamethasone/Clotrimazole [Lotrisone] 1 gm TOP BID #1 tube Levofloxacin 750 mg PO DAILY #12 tablet metroNIDAZOLE 500 mg PO TID #36 tablet Potassium Chloride 40 meq PO DAILY #3 cup Home Medications: Home Meds Aspirin [Halfprin] 81 mg PO BRK 03/16/15 [History] Levothyroxine Sodium [Levoxyl] 50 mcg PO ACBREAKFAST 03/16/15 [History] atorvaSTATin [Lipitor] 20 mg PO DAILY 08/11/16 [History] L.acidoph,Paracasei, B.lactis [Probiotic] 1 each PO DAILY 08/23/17 [History] Tolterodine [Detrol] 2 mg PO DAILY 08/23/17 [History] traMADol HCl [Tramadol HCl] 50 mg PO TID PRN 01/11/18 [History] Betamethasone/Clotrimazole [Lotrisone] 1 gm TOP BID #1 tube 01/14/18 [Rx] Levofloxacin 750 mg PO DAILY #12 tablet 01/14/18 [Rx] Potassium Chloride 40 meq PO DAILY #3 cup 01/14/18 [Rx] metroNIDAZOLE 500 mg PO TID #36 tablet 01/14/18 [Rx] Patient Handouts: Potassium Salts tablets, extended-release tablets or capsules , Betamethasone; Clotrimazole Lotion, Levofloxacin tablets, Metronidazole tablets or capsules Referrals: Ramu Miles MD [Primary Care Provider] - 01/25/18 2:30 pm - Patient Data Vitals - Most Recent: Last Vital Signs Temp 97.5 F 01/14/18 15:43 Pulse 59 L 01/14/18 15:43 Resp 16 01/14/18 15:43 BP 131/66 01/14/18 15:43 Pulse Ox 97 01/14/18 15:43 Weight - Most Recent: 154 lb 12.8 oz I&O - Last 24 hours: Intake & Output 01/14/18 01/14/18 01/14/18 06:59 14:59 22:59 Intake Total 1999 Balance 1999 Lab Results - Last 24 hrs: Laboratory Results - last 24 hr 01/14/18 01/14/18 Range/Units 05:44 05:44 WBC 5.87 (4.0-11.0) K/uL RBC 3.80 L (4.50-5.90) M/uL Hgb 11.8 L (13.0-17.0) g/dL Hct 34.5 L (38.0-50.0) % MCV 90.8 (80.0-98.0) fL MCH 31.1 (27.0-32.0) pg MCHC 34.2 (31.0-37.0) g/dL RDW Std Deviation 42.9 (28.0-62.0) fl RDW Coeff of Dalia 13 (11.0-15.0) % Plt Count 192 (150-400) K/uL MPV 10.00 (7.40-12.00) fL Nucleated RBC % 0.0 /100WBC Nucleated RBCs # 0 K/uL Sodium 140 (136-148) mmol/L Potassium 2.9 L (3.5-5.1) mmol/L Chloride 109 H (98-107) mmol/L Carbon Dioxide 30.2 (21.0-32.0) mmol/L BUN 9 (7.0-18.0) mg/dL Creatinine 1.2 (0.8-1.3) mg/dL Est Cr Clr Drug Dosing 45.13 mL/min Estimated GFR (MDRD) 57.8 ml/min Glucose 133 H (74-106) mg/dL Calcium 7.7 L (8.5-10.1) mg/dL Phosphorus 2.8 (2.6-4.7) mg/dL Magnesium 1.7 L (1.8-2.4) mg/dL Med Orders - Current: Current Medications Acetaminophen (Tylenol) 400 mg PO Q4H PRN PRN Reason: Pain Acidophilus/Pectin (Acidophilus/Pectin, [place]) 1 tab PO DAILY [facility] Last Admin: 01/14/18 09:29 Dose: 1 tab Aspirin (Halfprin) 81 mg PO BRK [facility] Last Admin: 01/14/18 09:02 Dose: 81 mg Atorvastatin Calcium (Lipitor) 20 mg PO DAILY [facility] Last Admin: 01/14/18 09:02 Dose: 20 mg Betamethasone/Clotrimazole (Lotrisone) 1 gm TOP BID [facility] Last Admin: 01/14/18 09:31 Dose: 1 gm Bismuth Subsalicylate (Pepto Bismol) 30 ml PO Q6H PRN PRN Reason: Diarrhea Ciprofloxacin (Ciprofloxacin Hcl) 500 mg PO BID [facility] Last Admin: 01/14/18 09:12 Dose: 500 mg Hydromorphone HCl (Dilaudid) 0.2 mg IVPUSH Q1H PRN PRN Reason: Pain Levothyroxine Sodium (Synthroid) 50 mcg PO ACBREAKFAST [facility] Last Admin: 01/14/18 06:47 Dose: 50 mcg Metronidazole (Metronidazole) 250 mg PO Q6H [facility] Last Admin: 01/14/18 16:33 Dose: 250 mg Ondansetron HCl (Zofran) 4 mg IVPUSH Q4H PRN PRN Reason: Nausea Last Admin: 01/11/18 17:33 Dose: 4 mg Potassium Chloride (Klor-Con M20) 40 meq PO BID [facility] Stop: 01/15/18 21:01 Last Admin: 01/14/18 09:11 Dose: 40 meq Tolterodine Tartrate (Detrol) 2 mg PO DAILY [facility] Last Admin: 01/14/18 09:03 Dose: 2 mg Tramadol HCl (Ultram) 50 mg PO Q6H PRN PRN Reason: Pain Last Admin: 01/14/18 05:51 Dose: 50 mg Discontinued Medications Acetaminophen (Tylenol) 800 mg PO NOW ONE Stop: 01/12/18 13:03 Last Admin: 01/12/18 13:48 Dose: 800 mg Lactated Ringer's (Ringers, Lactated) 1,000 mls @ 75 mls/hr IV ASDIRECTED [facility] Last Admin: 01/11/18 22:17 Dose: 75 mls/hr Metronidazole 500 mg/ Premix 100 mls @ 100 mls/hr IV Q8H [facility] Last Infusion: 01/14/18 01:20 Dose: Infused Ciprofloxacin/Dextrose 400 mg/ (Premix) 200 mls @ 200 mls/hr IV Q12H [facility] Last Infusion: 01/14/18 03:30 Dose: Infused Dextrose/Sodium Chloride (Dextrose 5%-Normal Saline) 1,000 mls @ 125 mls/hr IV ASDIRECTED [facility] Last Admin: 01/14/18 05:46 Dose: 125 mls/hr Magnesium Sulfate 2 gm/ Premix 50 mls @ 50 mls/hr IV ONETIME ONE Stop: 01/13/18 09:46 Last Admin: 01/13/18 09:08 Dose: 50 mls/hr Magnesium Sulfate 2 gm/ Premix 50 mls @ 50 mls/hr IV ONETIME ONE Stop: 01/14/18 09:57 Last Admin: 01/14/18 09:20 Dose: 50 mls/hr Loperamide HCl (Imodium) 4 mg PO ONETIME ONE Stop: 01/11/18 21:01 Last Admin: 01/11/18 20:15 Dose: 4 mg Potassium Chloride (Klor-Con M20) 40 meq PO ONETIME ONE Stop: 01/13/18 09:25 Last Admin: 01/13/18 09:58 Dose: 40 meq Potassium Chloride (Klor-Con M20) 40 meq PO ONETIME ONE Stop: 01/14/18 14:09 Last Admin: 01/14/18 14:30 Dose: 40 meq Tramadol HCl (Ultram) 50 mg PO TID PRN PRN Reason: Pain Last Admin: 01/12/18 09:42 Dose: 50 mg
== END 2018-01-14 17:58 | disposition home or self-care (01) | DRG 392 ==
LOC: MW.MS 12:01
PROVIDERS: ADMIT Internal Medicine; ATTEND Internal Medicine
DX: R10.30 Lower abdominal pain, unspecified (principal); R19.7 Diarrhea, unspecified; R11.0 Nausea; K43.9 Ventral hernia without obstruction or gangrene; K63.89 Other specified diseases of intestine; I25.10 Atherosclerotic heart disease of native coronary artery without angina pectoris; E03.9 Hypothyroidism, unspecified; Z95.1 Presence of aortocoronary bypass graft; Z85.038 Personal history of other malignant neoplasm of large intestine; Z91.041 Radiographic dye allergy status; Z79.899 Other long term (current) drug therapy; Z79.82 Long term (current) use of aspirin; Z85.46 Personal history of malignant neoplasm of prostate
CPT/HCPCS: 36415; 74018; 74018-26; 74021; 74021-26; 74176; 74176-26; 80048; 80053; 83605; 83630; 83735; 84100; 85025; 85027; 87046; 87324; 87899; 97110-GP; 97161-GP; 97530-GP; A9270-GY; J0744; J2405; J3475; J3490; J7042; J7120

== ENCOUNTER 2018-01-15 14:07 | Observation (INO) | payer MEDICARE, BC ==
[2018-01-15] MEDS ORDERED: Sodium Chloride 0.9% 10 ML Syringe FLUSH PRN (14:44)
[2018-01-15] MEDS ORDERED: Sodium Chloride 0.9% 2.5 ML Syringe FLUSH PRN (14:44)
[2018-01-15] MEDS ORDERED: Sodium Chloride 0.9% 1,000 ML IV SCH (14:45)
[2018-01-15] MEDS ORDERED: Ondansetron 4 MG/2 ML SDV IVPUSH ONE (14:46)
--- NOTE | 2018-01-15 14:54 | EDM.PDOC ---
ED HPI GENERAL MEDICAL PROBLEM - General Chief Complaint: General Stated Complaint: dehydration Time Seen by Provider: 01/15/18 14:33 - History of Present Illness INITIAL COMMENTS - FREE TEXT/NARRATIVE: HISTORY AND PHYSICAL: History of present illness: The patient is an 82-year-old male who was just discharged from our hospital yesterday after a stay for intractable diarrhea. Dr. Hooker who assisted in his care with the hospitalist has informed me in detail of this patient's course and hospital stay which included labs x-rays and a CT scan showing a dilated cecum up to 16 cm. The patient was placed on nothing by mouth status, IV fluids and the cecal dilatation resolved spontaneously. The patient was feeling better and had reduction in his diarrhea and was placed on clear liquids on Sunday and was given a soft diet yesterday and did well. The patient was discharged and after going home says that he did not have much of an appetite and did not drink much fluids and had some nausea. He went to sleep and when he awoke this morning he had soiled his Depends with watery brown stool and then proceeded to get up and clean up and went back to sleep for 2 more hours and then awoke and sat on the toilet for an hour due to persistent passing of watery brown stool. The stool was not black or bloody. The patient has not had any stool since this morning at 11 AM. He has a dry mouth and says he is not hungry. He says that he does have some thirst but everything that he takes in is a force. He complains of some mid and right lower quadrant pain. Patient is not dizzy lightheaded and has no focal weakness and did not pass out or blackout with the events of this morning. The patient has a history of multiple ventral hernia repairs the last one with mesh and has had a recurrence of that ventral hernia which he says is uncomfortable. He has also had a cardiac history and currently has a fractured right clavicle which is not going to be addressed by orthopedics and is going to be allowed to heal spontaneously. He complains of pain at his right clavicle. The patient takes tramadol for pain and discomfort and did not take a dose prior to coming here. The patient has not had very much to eat or drink in the last 24 hours. On discharge she was given Cipro and Flagyl antibiotics and his cultures of his stool were reviewed by me all of which were negative including fecal leukocytes C Diff and culture. The patient denies chest pain and shortness of breath to me but does says that he has discomfort when he takes a deep breath and is clavicle area. He has no extremity complaints no neck or back pain no recent fevers chills cough or runny nose. He has not had any vomiting despite the nausea of this morning and currently. Dr. Hooker has briefly seen this patient and has recommended repeat labs CT scan. Review of systems: As per history of present illness and below otherwise all systems reviewed and negative. Past medical history: As per history of present illness and as reviewed below otherwise noncontributory. Surgical history: As per history of present illness and as reviewed below otherwise noncontributory. Social history: No reported history of drug or alcohol abuse. Family history: As per history of present illness and as reviewed below otherwise noncontributory. Physical exam: General: Well-developed well-nourished elderly man who is nontoxic and speaks softly. His tongue is very dry on my evaluation. He moves all extremities and ambulated into the ED. HEENT: Atraumatic, normocephalic, pupils reactive, negative for conjunctival pallor or scleral icterus, mucous membranes dry, throat clear, neck supple, nontender, trachea midline. Lungs: Clear to auscultation diminished breath sounds at the bases and a poor effort , breath sounds equal bilaterally, chest nontender. Heart: S1S2, regular rate and rhythm no overt murmurs appreciated but heart sounds are very distant. Abdomen: Soft, nondistended, and hypoactive bowel sounds. There is diffuse tympany on percussion especially at the mid abdomen. There is a large visible ventral wall hernial defect appreciated at the right rectus margin area and there is diffuse tenderness in this region as well as the lian-umbilical region and right lower quadrants. There is no rebound or guarding. Negative for masses or hepatosplenomegaly. Pelvis: Stable nontender. Genitourinary: Deferred. Rectal: Deferred. Extremities: Atraumatic, negative for cords or calf pain. Neurovascular unremarkable. no pedal edema no leg asymmetry and full range of motion Neuro: Awake, alert, oriented. Cranial nerves II through XII unremarkable. Cerebellum unremarkable. Motor and sensory unremarkable throughout. Exam nonfocal. Diagnostics: EKG CBC CMP lactic acid magnesium UA chest x-ray CT scan of the abdomen and pelvis Stool for fecal leukocytes, culture, C. difficile Therapeutics: Gentle IV fluids Zofran After multiple tries the patient was able to produce a small stool sample and the new larger one here in the ED. Prior to this he had only had his last stool at 11 AM. His labs only reveal a magnesium of 1.6 and the remainder of his labs are within normal limits. I have discussed the findings with the daughter and also with Dr. Hooker, at 1650, and she will come in to see the patient and discussed with the family the best care plan going forward. 1702: Dr. Hooker has discussed the case via telephone with the patient's daughter and will be admitting the patient here as an observation. She is aware that we did send urine and stool samples and she will follow those results. The patient and family are comfortable with observation here and if the patient does not improve significantly in the next 24 hours he will be transferred for further evaluation and care to [facility]. Impression: reCurrent episodic diarrhea/failure to thrive Definitive disposition and diagnosis as appropriate pending reevaluation and review of above. RLQ Pain Pain Score (Numeric/FACES): 2 - Related Data Allergies Allergy/AdvReac Type Severity Reaction Status Date / Time Iodinated Contrast- Oral and Allergy Hives Verified 01/15/18 14:21 IV Dye [Iodinated Contrast Media - IV Dye] Home Meds: Home Meds Aspirin [Halfprin] 81 mg PO BRK 03/16/15 [History] Levothyroxine Sodium [Levoxyl] 50 mcg PO ACBREAKFAST 03/16/15 [History] atorvaSTATin [Lipitor] 20 mg PO DAILY 08/11/16 [History] L.acidoph,Paracasei, B.lactis [Probiotic] 1 each PO DAILY 08/23/17 [History] Tolterodine [Detrol] 2 mg PO DAILY 08/23/17 [History] traMADol HCl [Tramadol HCl] 50 mg PO TID PRN 01/11/18 [History] Betamethasone/Clotrimazole [Lotrisone] 1 gm TOP BID #1 tube 01/14/18 [Rx] Levofloxacin 750 mg PO DAILY #12 tablet 01/14/18 [Rx] Potassium Chloride 40 meq PO DAILY #3 cup 01/14/18 [Rx] metroNIDAZOLE 500 mg PO TID #36 tablet 01/14/18 [Rx] Past Medical History HEENT History: Reports: Hard of Hearing, Impaired Vision Cardiovascular History: Reports: Bypass Other Cardiovascular History: reddness swelling around saphanous graft site L) leg. Genitourinary History: Reports: Prostate Disorder Musculoskeletal History: Reports: Arthritis Other Musculoskeletal History: [place] likely broke some bones playing football , no known treated Endocrine/Metabolic History: Reports: Hypothyroidism Other Endocrine/Metabolic History: Hypothyroidism Hematologic History: Reports: Other (See Below) Other Hematologic History: blood clots Oncologic (Cancer) History: Reports: Colon - Infectious Disease History Infectious Disease History: Reports: Chicken Pox, Measles, Mumps - Past Surgical History HEENT Surgical History: Reports: Tonsillectomy Cardiovascular Surgical History: Reports: Coronary Artery Bypass GI Surgical History: Reports: Appendectomy, Hernia, Abdominal, Hernia Repair/ Other Other GI Surgeries/Procedures: Colon resection for cancer Male Surgical History: Reports: Prostatectomy Other Male Surgeries/Procedures: Radical Prostatectomy 1995 Social & Family History - Family History Family Medical History: Noncontributory - Caffeine Use Caffeine Use: Reports: Coffee ED ROS GENERAL - Review of Systems Review Of Systems: ROS reveals no pertinent complaints other than HPI. ED EXAM, GENERAL - Physical Exam Exam: See Below (See dictation) Course - Vital Signs Last Recorded V/S: Last Vital Signs Temp 37.1 C 01/15/18 14:21 Pulse 61 01/15/18 14:21 Resp 16 01/15/18 14:21 BP 124/61 01/15/18 14:21 Pulse Ox 97 01/15/18 14:43 - Orders/Labs/Meds Orders: Active Orders 24 hr Category Date Time Status Patient Status [ADT] Stat ADT 01/15/18 17:02 Ordered Cardiac Monitoring [RC] . DIRECTED Care 01/15/18 14:43 Active EKG Documentation Completion [RC] STAT Care 01/15/18 14:43 Active Oxygen Therapy, ED [RC] ASDIRECTED Care 01/15/18 14:43 Active Pulse Oximetry [RC] ASDIRECTED Care 01/15/18 14:43 Active Abdomen Pelvis wo Cont [CT] Stat Exams 01/15/18 14:55 Taken Chest 1V Frontal [CR] Stat Exams 01/15/18 14:43 Taken CDIFF TOX A+B [OP] Stat Lab 01/15/18 16:40 Received CULTURE STOOL + CAMPY+SHIGATOX [RM] Stat Lab 01/15/18 16:40 Ordered UA W/MICROSCOPIC [URIN] Stat Lab 01/15/18 14:43 Ordered WBC, STOOL [OP] Stat Lab 01/15/18 16:40 Received Sodium Chloride 0.9% [Normal Saline] 1,000 ml Med 01/15/18 14:45 Active IV ASDIRECTED Sodium Chloride 0.9% [Saline Flush] Med 01/15/18 14:44 Active 10 ml FLUSH ASDIRECTED PRN Sodium Chloride 0.9% [Saline Flush] Med 01/15/18 14:44 Active 2.5 ml FLUSH ASDIRECTED PRN Saline Lock Insert [OM.PC] Stat Oth 01/15/18 14:43 Ordered Medication Orders Sodium Chloride (Normal Saline) 1,000 mls @ 125 mls/hr IV ASDIRECTED FREDDY Last Admin: 01/15/18 15:08 Dose: 125 mls/hr Sodium Chloride (Saline Flush) 10 ml FLUSH ASDIRECTED PRN PRN Reason: Keep Vein Open Sodium Chloride (Saline Flush) 2.5 ml FLUSH ASDIRECTED PRN PRN Reason: Keep Vein Open Labs: Laboratory Tests 01/15/18 01/15/18 01/15/18 Range/Units 15:27 15:27 15:27 WBC 8.16 (4.0-11.0) K/uL RBC 4.35 L (4.50-5.90) M/uL Hgb 13.7 (13.0-17.0) g/dL Hct 39.0 (38.0-50.0) % MCV 89.7 (80.0-98.0) fL MCH 31.5 (27.0-32.0) pg MCHC 35.1 (31.0-37.0) g/dL RDW Std Deviation 43.1 (28.0-62.0) fl RDW Coeff of Dalia 13 (11.0-15.0) % Plt Count 227 (150-400) K/uL MPV 10.10 (7.40-12.00) fL Neut % (Auto) 78.6 (48.0-80.0) % Lymph % (Auto) 10.9 L (16.0-40.0) % [place] % (Auto) 8.8 (0.0-15.0) % Eos % (Auto) 1.6 (0.0-7.0) % Baso % (Auto) 0.1 (0.0-1.5) % Neut # (Auto) 6.4 H (1.4-5.7) K/uL Lymph # (Auto) 0.9 (0.6-2.4) K/uL [place] # (Auto) 0.7 (0.0-0.8) K/uL Eos # (Auto) 0.1 (0.0-0.7) K/uL Baso # (Auto) 0.0 (0.0-0.1) K/uL Nucleated RBC % 0.0 /100WBC Nucleated RBCs # 0 K/uL Lactate 1.1 (0.20-2.00) mmol/L Sodium 141 (136-148) mmol/L Potassium 3.5 (3.5-5.1) mmol/L Chloride 106 (98-107) mmol/L Carbon Dioxide 25.5 (21.0-32.0) mmol/L BUN 9 (7.0-18.0) mg/dL Creatinine 1.2 (0.8-1.3) mg/dL Est Cr Clr Drug Dosing TNP Estimated GFR (MDRD) 57.8 ml/min Glucose 85 (74-106) mg/dL Calcium 8.8 (8.5-10.1) mg/dL Magnesium 1.6 L (1.8-2.4) mg/dL Total Bilirubin 1.1 H (0.2-1.0) mg/dL AST 31 (15-37) IU/L ALT 18 (14-63) IU/L Alkaline Phosphatase 94 (46-116) U/L Total Protein 6.6 (6.4-8.2) g/dL Albumin 3.3 L (3.4-5.0) g/dL Globulin 3.3 (2.0-3.5) g/dL Albumin/Globulin Ratio 1.0 L (1.3-2.8) Meds: Medications Generic Name Dose Route Start Last Admin Trade Name Freq PRN Reason Stop Dose Admin Sodium Chloride 1,000 mls @ 125 mls/hr 01/15/18 14:45 01/15/18 15:08 Normal Saline IV 125 mls/hr ASDIRECTED FREDDY Administration Sodium Chloride 10 ml 01/15/18 14:44 Saline Flush FLUSH ASDIRECTED PRN Keep Vein Open Sodium Chloride 2.5 ml 01/15/18 14:44 Saline Flush FLUSH ASDIRECTED PRN Keep Vein Open Discontinued Medications Generic Name Dose Route Start Last Admin Trade Name Freq PRN Reason Stop Dose Admin Ondansetron HCl 4 mg 01/15/18 14:46 01/15/18 15:08 Zofran IVPUSH 01/15/18 14:47 4 mg ONETIME ONE Administration Departure - Departure Time of Disposition: 17:04 Disposition: Refer to Observation Condition: Good Clinical Impression: Diarrhea Qualifiers: Diarrhea type: unspecified type Qualified Code(s): R19.7 - Diarrhea, unspecified - Discharge Information Referrals: PCP,None [Primary Care Provider] - Forms: ED Department Discharge - My Orders Last 24 Hours: My Active Orders 01/15/18 14:43 Cardiac Monitoring [RC] . DIRECTED EKG Documentation Completion [RC] STAT Oxygen Therapy, ED [RC] ASDIRECTED Pulse Oximetry [RC] ASDIRECTED Chest 1V Frontal [CR] Stat UA W/MICROSCOPIC [URIN] Stat Saline Lock Insert [OM.PC] Stat 01/15/18 14:44 Sodium Chloride 0.9% [Saline Flush] 10 ml FLUSH ASDIRECTED PRN Sodium Chloride 0.9% [Saline Flush] 2.5 ml FLUSH ASDIRECTED PRN 01/15/18 14:45 Sodium Chloride 0.9% [Normal Saline] 1,000 ml IV ASDIRECTED 01/15/18 14:55 Abdomen Pelvis wo Cont [CT] Stat 01/15/18 16:40 CDIFF TOX A+B [OP] Stat CULTURE STOOL + CAMPY+SHIGATOX [RM] Stat WBC, STOOL [OP] Stat 01/15/18 17:02 Patient Status [ADT] Stat - Assessment/Plan Last 24 Hours: My Active Orders 01/15/18 14:43 Cardiac Monitoring [RC] . DIRECTED EKG Documentation Completion [RC] STAT Oxygen Therapy, ED [RC] ASDIRECTED Pulse Oximetry [RC] ASDIRECTED Chest 1V Frontal [CR] Stat UA W/MICROSCOPIC [URIN] Stat Saline Lock Insert [OM.PC] Stat 01/15/18 14:44 Sodium Chloride 0.9% [Saline Flush] 10 ml FLUSH ASDIRECTED PRN Sodium Chloride 0.9% [Saline Flush] 2.5 ml FLUSH ASDIRECTED PRN 01/15/18 14:45 Sodium Chloride 0.9% [Normal Saline] 1,000 ml IV ASDIRECTED 01/15/18 14:55 Abdomen Pelvis wo Cont [CT] Stat 01/15/18 16:40 CDIFF TOX A+B [OP] Stat CULTURE STOOL + CAMPY+SHIGATOX [RM] Stat WBC, STOOL [OP] Stat 01/15/18 17:02 Patient Status [ADT] Stat
[2018-01-15 16:04] LABS: CHLORIDE,CL 106 mmol/L (98-107); SODIUM,NA 141 mmol/L (136-148)
[2018-01-15] MEDS ORDERED: Acetaminophen 325 MG Tab PO PRN (17:10)
[2018-01-15] MEDS ORDERED: Loperamide 2 MG Cap PO PRN (17:13)
[2018-01-15] MEDS ORDERED: traMADol 50 MG Tab PO PRN (17:14)
[2018-01-15] MEDS ORDERED: Magnesium Sulfate/Water 2 GM in Premix Bag 1 BAG IV ONE (17:16)
--- NOTE | 2018-01-15 17:23 | PCM.HP ---
H&P History of Present Illness - General Date of Service: 01/15/18 Admit Problem/Dx: Admission Diagnosis/Problem Admission Diagnosis/Problem Diarrhea Source of Information: Patient History Limitations: Reports: No Limitations - History of Present Illness Initial Comments - Free Text/Narative: Patient was admitted with abdominal pain, distension and diarrhea over the weekend. He was found to have grossly distended bowel. He was treated with bowel rest and antibiotics with improvement in his symptoms. He ate a regular diet yesterday and felt well. He was discharged home. All last evening and half of the day today the patient was having watery diarrhea. He c/o generalized discomfort in the LUQ. No fevers, chills. He presented to the ED. His mucous membranes were dry. His vitals were stable. CBC and CMP were normal other than hypomagnesemia. A repeat CT of the abdomens howed improvement in his bowel distension otherwise unchanged. He c/o lack of appetite and hasnt eaten since yesterday. RLQ Pain Pain Score (Numeric/FACES): 2 - Related Data Allergies/Adverse Reactions: Allergies Allergy/AdvReac Type Severity Reaction Status Date / Time Iodinated Contrast- Oral and Allergy Hives Verified 01/15/18 14:21 IV Dye [Iodinated Contrast Media - IV Dye] Home Medications: Home Meds Aspirin [Halfprin] 81 mg PO BRK 03/16/15 [History] Levothyroxine Sodium [Levoxyl] 50 mcg PO ACBREAKFAST 03/16/15 [History] atorvaSTATin [Lipitor] 20 mg PO DAILY 08/11/16 [History] L.acidoph,Paracasei, B.lactis [Probiotic] 1 each PO DAILY 08/23/17 [History] Tolterodine [Detrol] 2 mg PO DAILY 08/23/17 [History] traMADol HCl [Tramadol HCl] 50 mg PO TID PRN 01/11/18 [History] Betamethasone/Clotrimazole [Lotrisone] 1 gm TOP BID #1 tube 01/14/18 [Rx] Levofloxacin 750 mg PO DAILY #12 tablet 01/14/18 [Rx] Potassium Chloride 40 meq PO DAILY #3 cup 01/14/18 [Rx] metroNIDAZOLE 500 mg PO TID #36 tablet 01/14/18 [Rx] Past Medical History HEENT History: Reports: Hard of Hearing, Impaired Vision Cardiovascular History: Reports: Bypass Other Cardiovascular History: reddness swelling around saphanous graft site L) leg. Genitourinary History: Reports: Prostate Disorder Musculoskeletal History: Reports: Arthritis Other Musculoskeletal History: In [place] likely broke some bones playing football , no known treated Endocrine/Metabolic History: Reports: Hypothyroidism Other Endocrine/Metabolic History: Hypothyroidism Hematologic History: Reports: Other (See Below) Other Hematologic History: blood clots Oncologic (Cancer) History: Reports: Colon - Infectious Disease History Infectious Disease History: Reports: Chicken Pox, Measles, Mumps - Past Surgical History HEENT Surgical History: Reports: Tonsillectomy Cardiovascular Surgical History: Reports: Coronary Artery Bypass GI Surgical History: Reports: Appendectomy, Hernia, Abdominal, Hernia Repair/ Other Other GI Surgeries/Procedures: Colon resection for cancer Male Surgical History: Reports: Prostatectomy Other Male Surgeries/Procedures: Radical Prostatectomy 1995 Social & Family History - Family History Family Medical History: Noncontributory - Tobacco Use Smoking Status *Q: Former Smoker Used Tobacco, but Quit: Yes Month/Year Tobacco Last Used: 1995 - Caffeine Use Caffeine Use: Reports: Coffee - Recreational Drug Use Recreational Drug Use: No H&P Review of Systems - Review of Systems: Review Of Systems: ROS reveals no pertinent complaints other than HPI. Exam - Exam Exam: See Below - Vital Signs Vital Signs: Last Vital Signs Temp 37.1 C 01/15/18 14:21 Pulse 61 01/15/18 14:21 Resp 16 01/15/18 14:21 BP 124/61 01/15/18 14:21 Pulse Ox 97 01/15/18 14:43 - Exam General: Alert, Oriented, Cooperative HEENT: Conjunctiva Clear, Mucosa Moist & [place], Other (dry mucous membranes ) Neck: Trachea Midline Lungs: Normal Respiratory Effort Cardiovascular: Regular Rate GI/Abdominal Exam: Soft, Non-Tender, No Mass, Distended (mild) Rectal (Males) Exam: Other (redness along buttocks ) Back Exam: Normal Inspection Extremities: Normal Inspection - Patient Data Lab Results Last 24 hrs: Laboratory Results - last 24 hr 01/15/18 01/15/18 01/15/18 Range/Units 15:27 15:27 15:27 WBC 8.16 (4.0-11.0) K/uL RBC 4.35 L (4.50-5.90) M/uL Hgb 13.7 (13.0-17.0) g/dL Hct 39.0 (38.0-50.0) % MCV 89.7 (80.0-98.0) fL MCH 31.5 (27.0-32.0) pg MCHC 35.1 (31.0-37.0) g/dL RDW Std Deviation 43.1 (28.0-62.0) fl RDW Coeff of Dalia 13 (11.0-15.0) % Plt Count 227 (150-400) K/uL MPV 10.10 (7.40-12.00) fL Neut % (Auto) 78.6 (48.0-80.0) % Lymph % (Auto) 10.9 L (16.0-40.0) % [place] % (Auto) 8.8 (0.0-15.0) % Eos % (Auto) 1.6 (0.0-7.0) % Baso % (Auto) 0.1 (0.0-1.5) % Neut # (Auto) 6.4 H (1.4-5.7) K/uL Lymph # (Auto) 0.9 (0.6-2.4) K/uL [place] # (Auto) 0.7 (0.0-0.8) K/uL Eos # (Auto) 0.1 (0.0-0.7) K/uL Baso # (Auto) 0.0 (0.0-0.1) K/uL Nucleated RBC % 0.0 /100WBC Nucleated RBCs # 0 K/uL Lactate 1.1 (0.20-2.00) mmol/L Sodium 141 (136-148) mmol/L Potassium 3.5 (3.5-5.1) mmol/L Chloride 106 (98-107) mmol/L Carbon Dioxide 25.5 (21.0-32.0) mmol/L BUN 9 (7.0-18.0) mg/dL Creatinine 1.2 (0.8-1.3) mg/dL Est Cr Clr Drug Dosing TNP Estimated GFR (MDRD) 57.8 ml/min Glucose 85 (74-106) mg/dL Calcium 8.8 (8.5-10.1) mg/dL Magnesium 1.6 L (1.8-2.4) mg/dL Total Bilirubin 1.1 H (0.2-1.0) mg/dL AST 31 (15-37) IU/L ALT 18 (14-63) IU/L Alkaline Phosphatase 94 (46-116) U/L Total Protein 6.6 (6.4-8.2) g/dL Albumin 3.3 L (3.4-5.0) g/dL Globulin 3.3 (2.0-3.5) g/dL Albumin/Globulin Ratio 1.0 L (1.3-2.8) Result Diagrams: 01/15/18 15:27 01/15/18 15:27 - Problem List (1) Dehydration SNOMED Code(s): 62210137 ICD Code: E86.0 - DEHYDRATION Status: Acute Current Visit: Yes (2) Diarrhea SNOMED Code(s): 53776490 ICD Code: R19.7 - DIARRHEA, UNSPECIFIED Status: Acute Current Visit: Yes Problem List Initiated/Reviewed/Updated: Yes Orders Last 24hrs: Active Orders 24 hr Category Date Time Status Patient Status [ADT] Routine ADT 01/15/18 17:09 Ordered Cardiac Monitoring [RC] . DIRECTED Care 01/15/18 14:43 Active Communication Order [RC] DAILY Care 01/15/18 17:13 Ordered EKG Documentation Completion [RC] STAT Care 01/15/18 14:43 Active Intake and Output [RC] QSHIFT Care 01/15/18 17:10 Ordered Oxygen Therapy [RC] PRN Care 01/15/18 17:09 Ordered Oxygen Therapy [RC] PRN Care 01/15/18 17:10 Ordered Oxygen Therapy, ED [RC] ASDIRECTED Care 01/15/18 14:43 Active Pulse Oximetry [RC] ASDIRECTED Care 01/15/18 14:43 Active Up ad Nayla [RC] ASDIRECTED Care 01/15/18 17:09 Ordered Vital Signs [RC] PER UNIT ROUTINE Care 01/15/18 17:09 Ordered Vital Signs [RC] PER UNIT ROUTINE Care 01/15/18 17:10 Ordered Wound Care [RC] DAILY Care 01/15/18 17:09 Ordered Regular Diet [DIET] Diet 01/15/18 Dinner Ordered Abdomen Pelvis wo Cont [CT] Stat Exams 01/15/18 14:55 Taken Chest 1V Frontal [CR] Stat Exams 01/15/18 14:43 Taken BASIC METABOLIC PANEL,BMP [CHEM] AM Lab 01/16/18 05:11 Ordered CBC W/O DIFF,HEMOGRAM [HEME] AM Lab 01/16/18 05:11 Ordered CDIFF TOX A+B [OP] Stat Lab 01/15/18 16:40 Received CULTURE STOOL + CAMPY+SHIGATOX [RM] Stat Lab 01/15/18 16:40 Ordered MAGNESIUM [CHEM] AM Lab 01/16/18 05:11 Ordered PHOSPHORUS [CHEM] AM Lab 01/16/18 05:11 Ordered UA W/MICROSCOPIC [URIN] Stat Lab 01/15/18 14:43 Ordered WBC, STOOL [OP] Stat Lab 01/15/18 16:40 Received Acetaminophen [Tylenol] Med 01/15/18 17:10 Ordered 650 mg PO Q6H PRN Calcium Polycarbophil [Fibercon] Med 01/15/18 18:00 Ordered 1,250 mg PO QID Lactated Ringers @ 125 MLS/HR(1000ml) Med 01/15/18 17:15 Ordered Lactated Ringers [Ringers, Lactated] 1,000 ml IV ASDIRECTED Levothyroxine [Synthroid] Med 01/16/18 07:30 Ordered 50 mcg PO ACBREAKFAST Loperamide [Imodium] Med 01/15/18 17:13 Ordered 2 mg PO Q4H PRN Magnesium Sulfate/Water [Magnesium Sulfate 2 GM in Med 01/15/18 17:16 Ordered Water 50 ML] 2 gm Premix Bag 1 bag IV ONETIME Sodium Chloride 0.9% [Normal Saline] 1,000 ml Med 01/15/18 14:45 Active IV ASDIRECTED Sodium Chloride 0.9% [Saline Flush] Med 01/15/18 14:44 Active 10 ml FLUSH ASDIRECTED PRN Sodium Chloride 0.9% [Saline Flush] Med 01/15/18 14:44 Active 2.5 ml FLUSH ASDIRECTED PRN traMADol [Ultram] Med 01/15/18 17:14 Ordered 50 mg PO Q8H PRN Saline Lock Insert [OM.PC] Stat Oth 01/15/18 14:43 Ordered Resuscitation Status Routine Resus Stat 01/15/18 17:09 Ordered Medication Orders Acetaminophen (Tylenol) 650 mg PO Q6H PRN PRN Reason: Pain (mild 1-3) Calcium Polycarbophil (Fibercon) 1,250 mg PO QID FREDDY Sodium Chloride (Normal Saline) 1,000 mls @ 125 mls/hr IV ASDIRECTED FREDDY Last Admin: 01/15/18 15:08 Dose: 125 mls/hr Lactated Ringer's (Ringers, Lactated) 1,000 mls @ 125 mls/hr IV ASDIRECTED FREDDY Magnesium Sulfate 2 gm/ Premix 50 mls @ 50 mls/hr IV ONETIME ONE Stop: 01/15/18 18:15 Levothyroxine Sodium (Synthroid) 50 mcg PO ACBREAKFAST FREDDY Loperamide HCl (Imodium) 2 mg PO Q4H PRN PRN Reason: Diarrhea Sodium Chloride (Saline Flush) 10 ml FLUSH ASDIRECTED PRN PRN Reason: Keep Vein Open Sodium Chloride (Saline Flush) 2.5 ml FLUSH ASDIRECTED PRN PRN Reason: Keep Vein Open Tramadol HCl (Ultram) 50 mg PO Q8H PRN PRN Reason: Pain Assessment/Plan Comment:: The patient is failing outpatient management. He is dehydrated and continues to have diarrhea. Will admit overnight for IVF and imodium. Monitor closely for increasing abdominal pain and distension. Ok to have a regular diet. If he can have dinner tonight and breakfast tomorrow and his diarrhea is controlled on immodium can discharge home tomorrow. If he continues to have diarrhea, may consider possible transfer for further GI workup.
[2018-01-15] MEDS: metroNIDAZOLE 250 MG Tab PO SCH (18:15)
[2018-01-15] MEDS: Levofloxacin 500 MG Tab PO SCH (18:15)
[2018-01-15] MEDS: Calcium Polycarbophil 625 MG Tab PO SCH ×2 (18:15→23:50)
[2018-01-16] MEDS: metroNIDAZOLE 250 MG Tab PO SCH ×5 (00:21→22:58)
[2018-01-16] MEDS: Calcium Polycarbophil 625 MG Tab PO SCH ×4 (07:00→22:58)
[2018-01-16] MEDS: Lactated Ringers 1,000 ML IV SCH (08:03)
[2018-01-16] MEDS: Loperamide 2 MG Cap PO SCH ×5 (08:45→22:58)
[2018-01-16] MEDS: Levothyroxine 50 MCG Tab PO SCH (08:53)
[2018-01-16] MEDS ORDERED: Potassium Chloride 10% 20 MEQ/15 ML Soln 30 ML UD Cup PO ONE (09:07)
[2018-01-16] MEDS: Iron Polysaccharides Complex 150 MG Cap PO SCH (10:10)
[2018-01-16] MEDS: Multivitamin Tab PO SCH (10:10)
--- NOTE | 2018-01-16 10:35 | CR ---
EXAM DATE: 01/15/18 PATIENT'S AGE: 82 Patient: OCTAVIO KING Facility: [place], [place] Site . Site : [id number] Study: XRay Chest [id number] 3:19:31 PM Ordering Physician: Alaina Reyes Final Report: INDICATION: Chest pain. Shortness breath. COMPARISON: AP erect chest dated 08/23/2017 TECHNIQUE: Portable chest performed at 3:04 p.m. FINDINGS: There is chronic elevation left hemidiaphragm. There is no evidence pneumothorax. Patient is status post prior midline sternotomy. Heart and pulmonary vessels are normal size. No new infiltrates or masses are identified. IMPRESSION: No acute cardiopulmonary disease process identified. Dictated by Eulalio Nick MD @ Jan 15 2018 3:49PM (Electronic Signature) Report Signed by Proxy. OLEG
--- NOTE | 2018-01-16 10:42 | CT ---
EXAM DATE: 01/15/18 PATIENT'S AGE: 82 Patient: OCTAVIO KING Facility: [facility], [place] Site . Site : 1935 Study: CT Abdomen/Pelvis WO CONT [id number]/21/2018 3:54:34 PM Ordering Physician: Alaina Reyes Final Report: INDICATION: History of dilated cecum and diarrhea, history of ventral wall hernia with repair TECHNIQUE: CT Abdomen and pelvis without i.v. contrast. Coronal and sagittal reformats were obtained. CONTRAST: None COMPARISON: 01/11/2018 FINDINGS: Moderate degradation of image quality is present due to the patient`s inability to maintain a breath hold. Lower chest: Small bilateral pleural effusions are present with segmental consolidation of the left lower lobe basilar segments without interval change. There is a 7 mm calcified granuloma present in the posterior left lower lobe. Severe atherosclerotic calcifications are noted in the coronary arteries. Elevation of the left hemidiaphragm is noted without interval change. Liver: Unremarkable. Spleen: Unremarkable. Pancreas: Unremarkable. Gallbladder: Several calcified gallstones are noted. Kidney: There is a 4 mm stone present in the upper pole of the right kidney and mild calcific debris seen in the right mid and lower poles. A 2 mm stone is present in the lower pole of the left kidney. Adrenal: Unremarkable. Bowel: Moderate fluid and gaseous distention of the colon noted and slightly decreased compared to prior examination. Fluid filled small bowel loops are mildly distended measuring 2.8 cm. The appendix cannot be identified. Vascular: Moderate diffuse atherosclerotic calcifications of the aorta and its tributaries are present. Lymph: Unremarkable. Peritoneum: Unremarkable. No pneumoperitoneum is seen. A small amount of pelvic ascites is noted. Pelvis: Unremarkable. Soft tissue: Eventration of the midline abdominal wall is present with diastases of the rectus abdominus muscles and prior PTFE mesh repair of the anterior abdominal wall. Bone: Moderate dextroscoliosis is noted with associated facet arthritis and degenerative disc disease. IMPRESSIONS: 1. Moderate fluid and gaseous distention of the colon noted and slightly decreased compared to prior examination. Fluid filled small bowel loops are mildly distended measuring 2.8 cm. Findings may be due to adynamic ileus. 2. A small amount of pelvic ascites is noted. 3. Small bilateral pleural effusions are present with segmental consolidation of the left lower lobe basilar segments without interval change. Dictated by Danis Vital MD @ 01/15/2018 4:13:50 PM Please note that all CT scans at this facility use dose modulation, iterative reconstruction, and/or weight-based dosing when appropriate to reduce radiation dose to as low as reasonably achievable. Dictated by: Danis Vital MD @ 01/15/2018 16:13:55 (Electronic Signature) Report Signed by Proxy. MTDD
--- NOTE | 2018-01-16 12:56 | PCM.PN ---
- General Info Date of Service: 01/16/18 Subjective Update: Patient had 4 loose bowel movements overnight. Complains of some lower abdominal pain to family however when I visited with him today he was not having any discomfort. Abdomen does not feel more distended. Appetite is improved today. Tolerated breakfast. Had 2 loose bowel movements since then. - Review of Systems General: Reports: No Symptoms Pulmonary: Reports: No Symptoms Cardiovascular: Reports: No Symptoms Gastrointestinal: Reports: Diarrhea. Denies: Decreased Appetite, Nausea, Vomiting - Patient Data Vitals - Most Recent: Last Vital Signs Temp 36.3 C 01/16/18 11:19 Pulse 63 01/16/18 11:19 Resp 20 01/16/18 11:19 BP 145/63 H 01/16/18 11:19 Pulse Ox 95 01/16/18 11:19 Weight - Most Recent: 69.853 kg I&O - Last 24 Hours: Intake & Output 01/15/18 01/16/18 01/16/18 22:59 06:59 14:59 Intake Total 120 Output Total 700 Balance -580 Lab Results Last 24 Hours: Laboratory Results - last 24 hr 01/15/18 01/15/18 01/15/18 Range/Units 15:27 15:27 15:27 WBC 8.16 (4.0-11.0) K/uL RBC 4.35 L (4.50-5.90) M/uL Hgb 13.7 (13.0-17.0) g/dL Hct 39.0 (38.0-50.0) % MCV 89.7 (80.0-98.0) fL MCH 31.5 (27.0-32.0) pg MCHC 35.1 (31.0-37.0) g/dL RDW Std Deviation 43.1 (28.0-62.0) fl RDW Coeff of Dalia 13 (11.0-15.0) % Plt Count 227 (150-400) K/uL MPV 10.10 (7.40-12.00) fL Neut % (Auto) 78.6 (48.0-80.0) % Lymph % (Auto) 10.9 L (16.0-40.0) % [place] % (Auto) 8.8 (0.0-15.0) % Eos % (Auto) 1.6 (0.0-7.0) % Baso % (Auto) 0.1 (0.0-1.5) % Neut # (Auto) 6.4 H (1.4-5.7) K/uL Lymph # (Auto) 0.9 (0.6-2.4) K/uL [place] # (Auto) 0.7 (0.0-0.8) K/uL Eos # (Auto) 0.1 (0.0-0.7) K/uL Baso # (Auto) 0.0 (0.0-0.1) K/uL Nucleated RBC % 0.0 /100WBC Nucleated RBCs # 0 K/uL Lactate 1.1 (0.20-2.00) mmol/L Sodium 141 (136-148) mmol/L Potassium 3.5 (3.5-5.1) mmol/L Chloride 106 (98-107) mmol/L Carbon Dioxide 25.5 (21.0-32.0) mmol/L BUN 9 (7.0-18.0) mg/dL Creatinine 1.2 (0.8-1.3) mg/dL Est Cr Clr Drug Dosing TNP Estimated GFR (MDRD) 57.8 ml/min Glucose 85 (74-106) mg/dL Calcium 8.8 (8.5-10.1) mg/dL Phosphorus (2.6-4.7) mg/dL Magnesium 1.6 L (1.8-2.4) mg/dL Total Bilirubin 1.1 H (0.2-1.0) mg/dL AST 31 (15-37) IU/L ALT 18 (14-63) IU/L Alkaline Phosphatase 94 (46-116) U/L Total Protein 6.6 (6.4-8.2) g/dL Albumin 3.3 L (3.4-5.0) g/dL Globulin 3.3 (2.0-3.5) g/dL Albumin/Globulin Ratio 1.0 L (1.3-2.8) Urine Color Urine Appearance Urine pH (5.0-8.0) Ur Specific [place] (1.001-1.035) Urine Protein (NEGATIVE) mg/dL Urine Glucose (UA) (NEGATIVE) mg/dL Urine Ketones (NEGATIVE) mg/dL Urine Occult Blood (NEGATIVE) Urine Nitrite (NEGATIVE) Urine Bilirubin (NEGATIVE) Urine Urobilinogen (<2.0) EU/dL Ur Leukocyte Esterase (NEGATIVE) Urine RBC (0-2/HPF) Urine WBC (0-5/HPF) Ur Epithelial Cells (NONE-FEW) Urine Bacteria (NEGATIVE) Urinalysis Comment 01/15/18 01/16/18 01/16/18 Range/Units 18:27 05:10 05:10 WBC 6.56 (4.0-11.0) K/uL RBC 4.01 L (4.50-5.90) M/uL Hgb 12.5 L (13.0-17.0) g/dL Hct 35.9 L (38.0-50.0) % MCV 89.5 (80.0-98.0) fL MCH 31.2 (27.0-32.0) pg MCHC 34.8 (31.0-37.0) g/dL RDW Std Deviation 43.4 (28.0-62.0) fl RDW Coeff of Dalia 13 (11.0-15.0) % Plt Count 209 (150-400) K/uL MPV 10.20 (7.40-12.00) fL Neut % (Auto) (48.0-80.0) % Lymph % (Auto) (16.0-40.0) % [place] % (Auto) (0.0-15.0) % Eos % (Auto) (0.0-7.0) % Baso % (Auto) (0.0-1.5) % Neut # (Auto) (1.4-5.7) K/uL Lymph # (Auto) (0.6-2.4) K/uL [place] # (Auto) (0.0-0.8) K/uL Eos # (Auto) (0.0-0.7) K/uL Baso # (Auto) (0.0-0.1) K/uL Nucleated RBC % 0.0 /100WBC Nucleated RBCs # 0 K/uL Lactate (0.20-2.00) mmol/L Sodium 141 (136-148) mmol/L Potassium 3.0 L (3.5-5.1) mmol/L Chloride 107 (98-107) mmol/L Carbon Dioxide 26.3 (21.0-32.0) mmol/L BUN 10 (7.0-18.0) mg/dL Creatinine 1.2 (0.8-1.3) mg/dL Est Cr Clr Drug Dosing 45.13 Estimated GFR (MDRD) 57.8 ml/min Glucose 85 (74-106) mg/dL Calcium 8.2 L (8.5-10.1) mg/dL Phosphorus 2.7 (2.6-4.7) mg/dL Magnesium 1.9 (1.8-2.4) mg/dL Total Bilirubin (0.2-1.0) mg/dL AST (15-37) IU/L ALT (14-63) IU/L Alkaline Phosphatase (46-116) U/L Total Protein (6.4-8.2) g/dL Albumin (3.4-5.0) g/dL Globulin (2.0-3.5) g/dL Albumin/Globulin Ratio (1.3-2.8) Urine Color YELLOW Urine Appearance CLEAR Urine pH 6.0 (5.0-8.0) Ur Specific [place] >= 1.030 (1.001-1.035) Urine Protein NEGATIVE (NEGATIVE) mg/dL Urine Glucose (UA) NEGATIVE (NEGATIVE) mg/dL Urine Ketones 40 H (NEGATIVE) mg/dL Urine Occult Blood NEGATIVE (NEGATIVE) Urine Nitrite NEGATIVE (NEGATIVE) Urine Bilirubin NEGATIVE (NEGATIVE) Urine Urobilinogen 0.2 (<2.0) EU/dL Ur Leukocyte Esterase NEGATIVE (NEGATIVE) Urine RBC 0-1 (0-2/HPF) Urine WBC 0-1 (0-5/HPF) Ur Epithelial Cells RARE (NONE-FEW) Urine Bacteria RARE (NEGATIVE) Urinalysis Comment Vick Results Last 24 Hours: Microbiology 01/15/18 16:40 Campylobacter Antigen Assay - Final Stool / Feces NEGATIVE CAMPYLOBACTER AG - Final NEGATIVE FOR SHIGA TOXIN 1 - Final NEGATIVE FOR SHIGA TOXIN 2 01/15/18 16:40 Clostridium difficile Toxin A & B - Final Stool / Feces Negative for C.Diff Toxin/AG Stool for WBCs - Final NEGATIVE FOR WBC'S Med Orders - Current: Current Medications Acetaminophen (Tylenol) 650 mg PO Q6H PRN PRN Reason: Pain (mild 1-3) Calcium Polycarbophil (Fibercon) 1,250 mg PO QID [facility] Last Admin: 01/16/18 12:02 Dose: 1,250 mg Lactated Ringer's (Ringers, Lactated) 1,000 mls @ 50 mls/hr IV ASDIRECTED [facility] Last Admin: 01/16/18 08:03 Dose: 50 mls/hr Levofloxacin (Levaquin) 750 mg PO Q24H [facility] Last Admin: 01/15/18 18:15 Dose: 750 mg Levothyroxine Sodium (Synthroid) 50 mcg PO ACBREAKFAST [facility] Last Admin: 01/16/18 08:53 Dose: 50 mcg Loperamide HCl (Imodium) 4 mg PO Q4H [facility] Last Admin: 01/16/18 12:03 Dose: 4 mg Metronidazole (Metronidazole) 250 mg PO Q6H [facility] Last Admin: 01/16/18 10:44 Dose: Not Given Multivitamins/Minerals/Vitamin C (Tab-A-Laz) 1 tab PO DAILY [facility] Last Admin: 01/16/18 10:10 Dose: 1 tab Polysaccharide Iron Complex (Ferrex 150) 150 mg PO DAILY [facility] Last Admin: 01/16/18 10:10 Dose: 150 mg Sodium Chloride (Saline Flush) 10 ml FLUSH ASDIRECTED PRN PRN Reason: Keep Vein Open Sodium Chloride (Saline Flush) 2.5 ml FLUSH ASDIRECTED PRN PRN Reason: Keep Vein Open Tramadol HCl (Ultram) 50 mg PO Q8H PRN PRN Reason: Pain Discontinued Medications Sodium Chloride (Normal Saline) 1,000 mls @ 125 mls/hr IV ASDIRECTED [facility] Last Admin: 01/15/18 15:08 Dose: 125 mls/hr Magnesium Sulfate 2 gm/ Premix 50 mls @ 50 mls/hr IV ONETIME ONE Stop: 01/15/18 18:15 Last Admin: 01/15/18 18:12 Dose: 50 mls/hr Loperamide HCl (Imodium) 2 mg PO Q4H PRN PRN Reason: Diarrhea Last Admin: 01/15/18 21:11 Dose: 2 mg Ondansetron HCl (Zofran) 4 mg IVPUSH ONETIME ONE Stop: 01/15/18 14:47 Last Admin: 01/15/18 15:08 Dose: 4 mg Potassium Chloride (Potassium Chloride) 40 meq PO ONETIME ONE Stop: 01/16/18 09:08 Last Admin: 01/16/18 10:10 Dose: 40 meq - Exam General: Alert, Oriented HEENT: Pupils Equal Lungs: Normal Respiratory Effort Cardiovascular: Regular Rate GI/Abdominal Exam: Soft, Non-Tender, No Distention, No Mass - Problem List & Annotations (1) Dehydration SNOMED Code(s): 28872798 Code(s): E86.0 - DEHYDRATION Status: Acute Current Visit: Yes (2) Diarrhea SNOMED Code(s): 07414230 Code(s): R19.7 - DIARRHEA, UNSPECIFIED Status: Acute Current Visit: Yes - Problem List Review Problem List Initiated/Reviewed/Updated: No - My Orders Last 24 Hours: My Active Orders 01/15/18 17:09 Patient Status [ADT] Routine Up ad Nayla [RC] ASDIRECTED Resuscitation Status Routine 01/15/18 17:10 Intake and Output [RC] Q12H Oxygen Therapy [RC] PRN Acetaminophen [Tylenol] 650 mg PO Q6H PRN 01/15/18 17:13 Communication Order [RC] DAILY 01/15/18 17:14 traMADol [Ultram] 50 mg PO Q8H PRN 01/15/18 17:15 Lactated Ringers [Ringers, Lactated] 1,000 ml IV ASDIRECTED 01/15/18 17:30 levoFLOXacin [Levaquin] 750 mg PO Q24H metroNIDAZOLE 250 mg PO Q6H 01/15/18 18:00 Calcium Polycarbophil [Fibercon] 1,250 mg PO QID 01/15/18 Dinner Regular Diet [DIET] 01/16/18 07:30 Levothyroxine [Synthroid] 50 mcg PO ACBREAKFAST 01/16/18 07:45 Loperamide [Imodium] 4 mg PO Q4H 01/16/18 09:15 Iron Polysaccharides Complex [Ferrex 150] 150 mg PO DAILY Multivitamins [Tab-A-Laz] 1 tab PO DAILY - Plan Plan:: I will schedule Imodium 4 mg every 4 hours to see if this improves the diarrhea. Given his poor nutritional status will start him on a multivitamin as well as some iron. Decrease IV fluids to 50 mils per hour. Replaced potassium. If I can control his diarrhea so that he can take in adequate by mouth to keep himself hydrated will discharge with GI follow-up. However if his diarrhea persists will discuss further workup and management elsewhere.
[2018-01-16] MEDS: Levofloxacin 500 MG Tab PO SCH (16:59)
[2018-01-17] MEDS: Lactated Ringers 1,000 ML IV SCH (00:10)
[2018-01-17] MEDS: Loperamide 2 MG Cap PO SCH ×2 (03:50→07:46)
[2018-01-17] MEDS: metroNIDAZOLE 250 MG Tab PO SCH (05:36)
[2018-01-17] MEDS: Calcium Polycarbophil 625 MG Tab PO SCH (05:36)
[2018-01-17] MEDS: Levothyroxine 50 MCG Tab PO SCH (07:45)
[2018-01-17 07:53] VITALS: BP 150/72
[2018-01-17] MEDS: Iron Polysaccharides Complex 150 MG Cap PO SCH (08:23)
[2018-01-17] MEDS: Multivitamin Tab PO SCH (08:23)
--- NOTE | 2018-01-17 09:06 | PCM.DCSUM1 ---
Discharge Summary - Hospital Course Free Text/Narrative:: Patient is an 82 year old male who had been admitted over the weekend with diarrhea and abdominal distension. he was diagnosed with colonic ileus. This resolved and he was discharged home Sunday. The patient had diarrhea the first night back home that lasted overnight and into the next afternoon. He represented to the ED with dehydration. Repeat labs and cultures were normal. His CT abdomen pelvis showed improvement in his colonic distension. He was admitted for resuscitation and control of his diarrhea. He was given one dose of prn Imodium overnight. He subsequently had 4 liquid stools. The next day he was started on scheduled imodium with improvement in his diarrhea. His abdomen stayed flat, soft, and nontender. He was given a multivitamin and iron supplements. His appetite improved and that evening he had one solid BM. His vital signs and clinical exam stayed normal. He was discharged home. - Discharge Data Discharge Date: 01/17/18 Discharge Disposition: Home, Self-Care 01 Condition: Fair - Discharge Diagnosis/Problem(s) (1) Dehydration SNOMED Code(s): 23522031 ICD Code: E86.0 - DEHYDRATION Status: Acute (2) Diarrhea SNOMED Code(s): 28074290 ICD Code: R19.7 - DIARRHEA, UNSPECIFIED Status: Acute - Patient Instructions Diet: Regular Diet as Tolerated Activity: Rest and Relax Today Driving: Do Not Drive Showering/Bathing: May Shower Notify Provider of: Fever, Increased Pain, Nausea and/or Vomiting Other/Special Instructions: Stop taking imodium if having nausea and vomiting or increasing abdominal pain and abdominal distension - Discharge Plan *PRESCRIPTION DRUG MONITORING PROGRAM REVIEWED*: Not Applicable *COPY OF PRESCRIPTION DRUG MONITORING REPORT IN PATIENT ADDI: Not Applicable Prescriptions/Med Rec: Calcium Polycarbophil [Fibercon] 1,250 mg PO QID #120 tablet Iron Polysaccharides Complex [Ferrex 150] 150 mg PO DAILY #30 cap Loperamide [Imodium] 4 mg PO Q4H #42 cap Multivitamins [Tab-A-Laz] 1 tab PO DAILY #30 tablet Home Medications: Home Meds Aspirin [Halfprin] 81 mg PO BRK 03/16/15 [History] Levothyroxine Sodium [Levoxyl] 50 mcg PO ACBREAKFAST 03/16/15 [History] atorvaSTATin [Lipitor] 20 mg PO DAILY 08/11/16 [History] Tolterodine [Detrol] 2 mg PO DAILY 08/23/17 [History] traMADol HCl [Tramadol HCl] 50 mg PO TID PRN 01/11/18 [History] Betamethasone/Clotrimazole [Lotrisone] 1 gm TOP BID #1 tube 01/14/18 [Rx] Potassium Chloride 40 meq PO DAILY #3 cup 01/14/18 [Rx] Calcium Polycarbophil [Fibercon] 1,250 mg PO QID #120 tablet 01/17/18 [Rx] Iron Polysaccharides Complex [Ferrex 150] 150 mg PO DAILY #30 cap 01/17/18 [Rx] Loperamide [Imodium] 4 mg PO Q4H #42 cap 01/17/18 [Rx] Multivitamins [Tab-A-Laz] 1 tab PO DAILY #30 tablet 01/17/18 [Rx] Patient Handouts: Loperamide tablets or capsules, Polysaccharide-Iron Complex tablets or capsules, Multivitamin with Minerals and Iron formulations (oral solid dosage forms), Polycarbophil Oral Tablet, Diarrhea, Adult, [id number] Referrals: Ramu Miles MD [Physician] - 01/25/18 2:30 pm - General Info Functional Status: Reports: Pain Controlled, Tolerating Diet, Ambulating, Urinating - Review of Systems General: Reports: No Symptoms Pulmonary: Reports: No Symptoms Cardiovascular: Reports: No Symptoms Gastrointestinal: Reports: No Symptoms - Patient Data Vitals - Most Recent: Last Vital Signs Temp 37.2 C 01/17/18 07:41 Pulse 65 01/17/18 07:41 Resp 14 01/17/18 07:41 BP 150/72 H 01/17/18 07:52 Pulse Ox 94 L 01/17/18 07:41 Weight - Most Recent: 69.853 kg I&O - Last 24 hours: Intake & Output 01/16/18 01/17/18 01/17/18 22:59 06:59 14:59 Intake Total 1200 240 Output Total 500 300 Balance 700 -60 JACE Results - Last 24 hrs: Microbiology 01/15/18 16:40 Campylobacter Antigen Assay - Final Stool / Feces NEGATIVE CAMPYLOBACTER AG - Final NEGATIVE FOR SHIGA TOXIN 1 - Final NEGATIVE FOR SHIGA TOXIN 2 Med Orders - Current: Current Medications Acetaminophen (Tylenol) 650 mg PO Q6H PRN PRN Reason: Pain (mild 1-3) Calcium Polycarbophil (Fibercon) 1,250 mg PO QID [facility] Last Admin: 01/17/18 05:36 Dose: 1,250 mg Lactated Ringer's (Ringers, Lactated) 1,000 mls @ 50 mls/hr IV ASDIRECTED [facility] Last Admin: 01/17/18 00:10 Dose: 50 mls/hr Levofloxacin (Levaquin) 750 mg PO Q24H [facility] Last Admin: 01/16/18 16:59 Dose: 750 mg Levothyroxine Sodium (Synthroid) 50 mcg PO ACBREAKFAST [facility] Last Admin: 01/17/18 07:45 Dose: 50 mcg Loperamide HCl (Imodium) 4 mg PO Q4H [facility] Last Admin: 01/17/18 07:46 Dose: 4 mg Metronidazole (Metronidazole) 250 mg PO Q6H [facility] Last Admin: 01/17/18 05:36 Dose: 250 mg Multivitamins/Minerals/Vitamin C (Tab-A-Laz) 1 tab PO DAILY [facility] Last Admin: 01/17/18 08:23 Dose: 1 tab Polysaccharide Iron Complex (Ferrex 150) 150 mg PO DAILY [facility] Last Admin: 01/17/18 08:23 Dose: 150 mg Sodium Chloride (Saline Flush) 10 ml FLUSH ASDIRECTED PRN PRN Reason: Keep Vein Open Sodium Chloride (Saline Flush) 2.5 ml FLUSH ASDIRECTED PRN PRN Reason: Keep Vein Open Tramadol HCl (Ultram) 50 mg PO Q8H PRN PRN Reason: Pain Discontinued Medications Sodium Chloride (Normal Saline) 1,000 mls @ 125 mls/hr IV ASDIRECTED [facility] Last Admin: 01/15/18 15:08 Dose: 125 mls/hr Magnesium Sulfate 2 gm/ Premix 50 mls @ 50 mls/hr IV ONETIME ONE Stop: 01/15/18 18:15 Last Admin: 01/15/18 18:12 Dose: 50 mls/hr Loperamide HCl (Imodium) 2 mg PO Q4H PRN PRN Reason: Diarrhea Last Admin: 01/15/18 21:11 Dose: 2 mg Ondansetron HCl (Zofran) 4 mg IVPUSH ONETIME ONE Stop: 01/15/18 14:47 Last Admin: 08/21/18 15:08 Dose: 4 mg Potassium Chloride (Potassium Chloride) 40 meq PO ONETIME ONE Stop: 01/16/18 09:08 Last Admin: 01/16/18 10:10 Dose: 40 meq - Exam General: Reports: Alert, Oriented, Cooperative HEENT: Reports: Pupils Equal Lungs: Reports: Normal Respiratory Effort Cardiovascular: Reports: Regular Rate GI/Abdominal Exam: Soft, Non-Tender, No Distention, No Mass
== END 2018-01-17 09:50 | disposition home or self-care (01) ==
LOC: MW.ED 14:07 → MW.MS 15:32
PROVIDERS: ADMIT Surgery; ATTEND Surgery
DX: R19.7 Diarrhea, unspecified (principal); E86.0 Dehydration; R10.31 Right lower quadrant pain; E03.9 Hypothyroidism, unspecified; Z87.891 Personal history of nicotine dependence; Z79.899 Other long term (current) drug therapy; Z91.041 Radiographic dye allergy status
CPT/HCPCS: 36415; 71045; 71045-26; 74176; 74176-26; 80048; 80053; 81001; 83605; 83630; 83735; 84100; 85025; 85027; 87046; 87324; 87899; 93005; 96374; 99284; 99285-25; A9270-GY; J2405; J3475; J7040; J7120

== ENCOUNTER 2018-01-20 12:34 | Emergency (ER) | payer MEDICARE, BC ==
[2018-01-20 12:59] VITALS: BP 122/60
[2018-01-20] MEDS ORDERED: traMADol 50 MG Tab PO ONE (13:23)
--- NOTE | 2018-01-20 13:28 | EDM.PDOC ---
ED HPI GENERAL MEDICAL PROBLEM - General Chief Complaint: Upper Extremity Injury/Pain Stated Complaint: HANDS SWOLLEN Time Seen by Provider: 01/20/18 12:43 - History of Present Illness INITIAL COMMENTS - FREE TEXT/NARRATIVE: HISTORY AND PHYSICAL: History of present illness: The patient is 82-year-old male who is well known to me as he had to ER visits and hospitalizations here on January 11 through January 14 and then again January 15 January 17 for abdominal distention diarrhea and failure to thrive. Patient since discharge has been doing very well per family and states that he has been eating and having better bowel movements has no abdominal pain or distention no fevers no chills no chest pain or shortness of breath. During the last hospitalization the patient had an IV in his left antecubital fossa, because the right arm was off limits due to a clavicle fracture, and there was some discomfort there during his hospitalization at discharge but there was no gross swelling and the pain worsened. They noticed some swelling on the inner aspect of the upper left arm and swelling in the distal hand today with the increased pain as well as some redness to the dorsal aspect of the hand and there were concerned about infection. There are no neurosensory changes in the extremity. The upper shoulder and upper biceps area has no evidence of any swelling. The patient does have a history of dependent edema and is supposed to wear CAROL hose and daughter noticed that he had swelling of his legs today and place them on. They are not concerned about the lower extremity edema as this is old and improves with elevation and CAROL hose. The patient states that he is having pain in the left hand which is severe and he has tramadol at home for pain which he did not take. She only states minimal discomfort at the antecubital fossa and upper arm. Review of systems: As per history of present illness and below otherwise all systems reviewed and negative. Past medical history: As per history of present illness and as reviewed below otherwise noncontributory. Surgical history: As per history of present illness and as reviewed below otherwise noncontributory. Social history: No reported history of drug or alcohol abuse. Family history: As per history of present illness and as reviewed below otherwise noncontributory. Physical exam: General: Well-developed well-nourished man who is nontoxic and vital signs are noted by me HEENT: Atraumatic, normocephalic, negative for conjunctival pallor or scleral icterus, mucous membranes moist, throat clear, neck supple, nontender, trachea midline. Lungs: Clear to auscultation, breath sounds equal bilaterally, chest nontender. Heart: S1S2, regular rate and rhythm no overt murmurs are appreciated Abdomen: Soft, nondistended, nontender. Negative for masses or hepatosplenomegaly. Hyperactive bowel sounds Pelvis: Stable nontender. Genitourinary: Deferred. Rectal: Deferred. Extremities: Atraumatic, negative for cords or calf pain. Neurovascular unremarkable. There is full range of motion without defects or deficits with the exception of the right upper extremity at the shoulder where there is a clavicle fracture and no range of motion was performed. At the left upper extremity the patient has full range of motion at the shoulder and the elbow but there is soft tissue swelling at the inner aspect of the distal humeral soft tissue area that is soft and only minimally tender minimally warm with no erythema and there is diffuse erythema warmth and tenderness along with swelling of the dorsal aspect of the left hand. All joints have arthritic changes and there is tenderness with palpation of the entire hand. Neurovascular is intact. There is CAROL hose in place bilaterally and there is tender pedal edema bilaterally +2 Neuro: Awake, alert, oriented. Cranial nerves II through XII unremarkable. Cerebellum unremarkable. Motor and sensory unremarkable throughout. Exam nonfocal. Diagnostics: CBC CMP INR left upper extremity ultrasound left hand x-ray uric acid Therapeutics: Tramadol sling Testing results were discussed with the patient and family at bedside. I also discussed the case with Dr. Hooker was been managing this patient very closely. As this is a superficial thrombophlebitis despite the redness we are not treat this symptomatically with ice and elevation and I will advise the patient to take his tramadol more regularly for pain and discomfort. Dr. Hooker and I both agreed that antibiotics are not indicated I will offer a sling for the patient to use when he is up and about I will also encourage the patient and family to keep his CAROL hose on for his lower extremity edema. Dr. Hooker asked me to inform the family and patient that if this worsens or continues that they should call her office. The family and patient are also aware of the severe arthritis of the hand and the need to start moving the hand and arm around to facilitate edema resolution. Impression: Superficial thrombophlebitis of left upper extremity secondary to IV site stable Definitive disposition and diagnosis as appropriate pending reevaluation and review of above. Left hand Pain Score (Numeric/FACES): 10 - Related Data Allergies Allergy/AdvReac Type Severity Reaction Status Date / Time Iodinated Contrast- Oral and Allergy Hives Verified 01/20/18 13:05 IV Dye [Iodinated Contrast Media - IV Dye] Home Meds: Home Meds Aspirin [Halfprin] 81 mg PO BRK 03/16/15 [History] Levothyroxine Sodium [Levoxyl] 50 mcg PO ACBREAKFAST 03/16/15 [History] atorvaSTATin [Lipitor] 20 mg PO DAILY 08/11/16 [History] Tolterodine [Detrol] 2 mg PO DAILY 08/23/17 [History] traMADol HCl [Tramadol HCl] 50 mg PO TID PRN 01/11/18 [History] Betamethasone/Clotrimazole [Lotrisone] 1 gm TOP BID #1 tube 01/14/18 [Rx] Potassium Chloride 40 meq PO DAILY #3 cup 01/14/18 [Rx] Calcium Polycarbophil [Fibercon] 1,250 mg PO QID #120 tablet 01/17/18 [Rx] Iron Polysaccharides Complex [Ferrex 150] 150 mg PO DAILY #30 cap 01/17/18 [Rx] Loperamide [Imodium] 4 mg PO Q4H #42 cap 01/17/18 [Rx] Multivitamins [Tab-A-Laz] 1 tab PO DAILY #30 tablet 01/17/18 [Rx] Past Medical History HEENT History: Reports: Hard of Hearing, Impaired Vision, Other (See Below) Other HEENT History: hearing aids Cardiovascular History: Reports: Bypass Other Cardiovascular History: reddness swelling around saphanous graft site L) leg. Genitourinary History: Reports: Prostate Disorder Musculoskeletal History: Reports: Arthritis, Fracture Other Musculoskeletal History: Fracture to right distal clavicle. [place] likely broke some bones playing [place], no known treated Endocrine/Metabolic History: Reports: Hypothyroidism Other Endocrine/Metabolic History: Hypothyroidism Hematologic History: Reports: Other (See Below) Other Hematologic History: blood clots Oncologic (Cancer) History: Reports: Colon - Infectious Disease History Infectious Disease History: Reports: Chicken Pox, Measles, Mumps - Past Surgical History HEENT Surgical History: Reports: Tonsillectomy Cardiovascular Surgical History: Reports: Coronary Artery Bypass GI Surgical History: Reports: Appendectomy, Hernia, Abdominal, Hernia Repair/ Other Other GI Surgeries/Procedures: Colon resection for cancer Male Surgical History: Reports: Prostatectomy Other Male Surgeries/Procedures: Radical Prostatectomy 1995 Social & Family History - Family History Family Medical History: Noncontributory - Tobacco Use Smoking Status *Q: Former Smoker Used Tobacco, but Quit: Yes Month/Year Tobacco Last Used: 1995 - Caffeine Use Caffeine Use: Reports: Coffee - Recreational Drug Use Recreational Drug Use: No Review of Systems - Review of Systems Review Of Systems: ROS reveals no pertinent complaints other than HPI. ED EXAM, GENERAL - Physical Exam Exam: See Below (see dictation) Course - Vital Signs Last Recorded V/S: Last Vital Signs Temp 37.1 C 01/20/18 12:52 Pulse 85 01/20/18 12:52 Resp 19 01/20/18 12:52 BP 122/60 01/20/18 12:52 Pulse Ox 97 01/20/18 12:52 - Orders/Labs/Meds Orders: Active Orders 24 hr Category Date Time Status Hand 2V Lt [CR] Stat Exams 01/20/18 13:28 Taken Venous Doppler Upr Ext Lt [US] Stat Exams 01/20/18 13:21 Taken Labs: Laboratory Tests 01/20/18 01/20/18 01/20/18 Range/Units 13:35 13:35 13:35 WBC 9.22 (4.0-11.0) K/uL RBC 4.35 L (4.50-5.90) M/uL Hgb 13.5 (13.0-17.0) g/dL Hct 39.5 (38.0-50.0) % MCV 90.8 (80.0-98.0) fL MCH 31.0 (27.0-32.0) pg MCHC 34.2 (31.0-37.0) g/dL RDW Std Deviation 46.0 (28.0-62.0) fl RDW Coeff of Dalia 14 (11.0-15.0) % Plt Count 232 (150-400) K/uL MPV 10.00 (7.40-12.00) fL Neut % (Auto) 78.1 (48.0-80.0) % Lymph % (Auto) 10.3 L (16.0-40.0) % [place] % (Auto) 10.4 (0.0-15.0) % Eos % (Auto) 1.0 (0.0-7.0) % Baso % (Auto) 0.2 (0.0-1.5) % Neut # (Auto) 7.2 H (1.4-5.7) K/uL Lymph # (Auto) 1.0 (0.6-2.4) K/uL [place] # (Auto) 1.0 H (0.0-0.8) K/uL Eos # (Auto) 0.1 (0.0-0.7) K/uL Baso # (Auto) 0.0 (0.0-0.1) K/uL Nucleated RBC % 0.0 /100WBC Nucleated RBCs # 0 K/uL INR 1.16 Sodium 138 (136-148) mmol/L Potassium 4.4 (3.5-5.1) mmol/L Chloride 103 (98-107) mmol/L Carbon Dioxide 32.7 H (21.0-32.0) mmol/L BUN 9 (7.0-18.0) mg/dL Creatinine 1.1 (0.8-1.3) mg/dL Est Cr Clr Drug Dosing 52.54 mL/min Estimated GFR (MDRD) > 60.0 ml/min Glucose 106 (74-106) mg/dL Uric Acid (2.6-7.2) mg/dL Calcium 8.8 (8.5-10.1) mg/dL Total Bilirubin 1.1 H (0.2-1.0) mg/dL AST 18 (15-37) IU/L ALT 18 (14-63) IU/L Alkaline Phosphatase 89 (46-116) U/L Total Protein 6.6 (6.4-8.2) g/dL Albumin 3.1 L (3.4-5.0) g/dL Globulin 3.5 (2.0-3.5) g/dL Albumin/Globulin Ratio 0.9 L (1.3-2.8) 01/20/18 Range/Units 13:35 WBC (4.0-11.0) K/uL RBC (4.50-5.90) M/uL Hgb (13.0-17.0) g/dL Hct (38.0-50.0) % MCV (80.0-98.0) fL MCH (27.0-32.0) pg MCHC (31.0-37.0) g/dL RDW Std Deviation (28.0-62.0) fl RDW Coeff of Dalia (11.0-15.0) % Plt Count (150-400) K/uL MPV (7.40-12.00) fL Neut % (Auto) (48.0-80.0) % Lymph % (Auto) (16.0-40.0) % [place] % (Auto) (0.0-15.0) % Eos % (Auto) (0.0-7.0) % Baso % (Auto) (0.0-1.5) % Neut # (Auto) (1.4-5.7) K/uL Lymph # (Auto) (0.6-2.4) K/uL [place] # (Auto) (0.0-0.8) K/uL Eos # (Auto) (0.0-0.7) K/uL Baso # (Auto) (0.0-0.1) K/uL Nucleated RBC % /100WBC Nucleated RBCs # K/uL INR Sodium (136-148) mmol/L Potassium (3.5-5.1) mmol/L Chloride (98-107) mmol/L Carbon Dioxide (21.0-32.0) mmol/L BUN (7.0-18.0) mg/dL Creatinine (0.8-1.3) mg/dL Est Cr Clr Drug Dosing mL/min Estimated GFR (MDRD) ml/min Glucose (74-106) mg/dL Uric Acid 5.6 (2.6-7.2) mg/dL Calcium (8.5-10.1) mg/dL Total Bilirubin (0.2-1.0) mg/dL AST (15-37) IU/L ALT (14-63) IU/L Alkaline Phosphatase (46-116) U/L Total Protein (6.4-8.2) g/dL Albumin (3.4-5.0) g/dL Globulin (2.0-3.5) g/dL Albumin/Globulin Ratio (1.3-2.8) Meds: Medications Discontinued Medications Generic Name Dose Route Start Last Admin Trade Name Zeb PRN Reason Stop Dose Admin Tramadol HCl 50 mg 01/20/18 13:23 01/20/18 13:27 Ultram PO 01/20/18 13:24 50 mg ONETIME ONE Administration Departure - Departure Time of Disposition: 15:31 Disposition: Home, Self-Care 01 Condition: Good Clinical Impression: Superficial thrombophlebitis of arm Qualifiers: Laterality: left Qualified Code(s): I80.8 - Phlebitis and thrombophlebitis of other sites - Discharge Information Referrals: Ramu Miles MD [Primary Care Provider] - Forms: ED Department Discharge Additional Instructions: The following information is given to patients seen in the emergency department who are being discharged to home. This information is to outline your options for follow-up care. We provide all patients seen in our emergency department with a follow-up referral. The need for follow-up, as well as the timing and circumstances, are variable depending upon the specifics of your emergency department visit. If you don't have a primary care physician on staff, we will provide you with a referral. We always advise you to contact your personal physician following an emergency department visit to inform them of the circumstance of the visit and for follow-up with them and/or the need for any referrals to a consulting specialist. The emergency department will also refer you to a specialist when appropriate. This referral assures that you have the opportunity for followup care with a specialist. All of these measure are taken in an effort to provide you with optimal care, which includes your followup. Under all circumstances we always encourage you to contact your private physician who remains a resource for coordinating your care. When calling for followup care, please make the office aware that this follow-up is from your recent emergency room visit. If for any reason you are refused follow-up, please contact the [facility] emergency department at and ask to speak to the emergency department charge nurse. [facility] Specialty Care-General Surgery Professional Building [address] [place] [id number] [facility] Primary care- Internal Medicine and Family [place] [id number] [place], [place] [id number] Elevate the hand as much as possible and try to move the arm and the hand to facilitate edema resolution. Use sling to keep the arm elevated when you're up and about and also elevate the legs and try to get into bed for sleep times as much as possible. Please continue all medications as before and please take the tramadol more regularly, every 8 hours, for pain management over the next 1-[address] Hooker in her office if you feel that the symptoms are not improving and she will reevaluate and also follow-up with your primary care physician in the clinic. Her as needed and as discussed - My Orders Last 24 Hours: My Active Orders 01/20/18 13:21 Venous Doppler Upr Ext Lt [US] Stat 01/20/18 13:28 Hand 2V Lt [CR] Stat - Assessment/Plan Last 24 Hours: My Active Orders 01/20/18 13:21 Venous Doppler Upr Ext Lt [US] Stat 01/20/18 13:28 Hand 2V Lt [CR] Stat
[2018-01-20 14:08] LABS: CHLORIDE,CL 103 mmol/L (98-107); SODIUM,NA 138 mmol/L (136-148)
--- NOTE | 2018-01-21 14:48 | CR ---
EXAM DATE: 01/20/18 PATIENT'S AGE: 82 Patient: OCTAVIO KING Facility: [place], [place] Site . Site : 1935 Study: XRay Extremity Left hand [id number]/26/2018 1:47:17 PM Ordering Physician: Alaina Reyes Final Report: HISTORY: Hand pain. FINDINGS: Two views of the left hand are provided. Severe arthritic changes are noted of the 1st, 2nd and 3rd MCP joints as well as the IP joint of the thumb and articulation between the trapezium and 1st metacarpal. Moderate degenerative changes are noted throughout the other IP joints. No findings for fracture or dislocation. Dictated by Jarred Soler MD @ Jan 20 2018 2:08PM (Electronic Signature) Report Signed by Proxy. OLEG
--- NOTE | 2018-01-21 14:51 | US ---
EXAM DATE: 01/20/18 PATIENT'S AGE: 82 Patient: OCTAVIO KING Facility: [place], [place] Site . Site : 1935 Study: US Extremity Left [id number]/26/2018 3:12:46 PM Ordering Physician: Alaina Reyes Final Report: INDICATION: Swelling left hand; had intravenous in the antecubital vein recently; rule out deep vein thrombosis. COMPARISON: None. TECHNIQUE: Duplex ultrasound evaluation venous system left upper extremity; color Doppler duplex assessment. FINDINGS: There is evidence of occlusive thrombus involving the left basilic and cephalic veins indicating superficial thrombophlebitis. No evidence of deep venous thrombosis. Left brachial vein is compressible with augmentation of flow post compression . The left subclavian vein is unremarkable. IMPRESSION: 1. Superficial thrombophlebitis involving the left cephalic and basilic veins. 2. No evidence of deep venous thrombosis left upper extremity deep venous system. Dictated by Ciara Montero MD @ Jan 20 2018 3:18PM (Electronic Signature) Report Signed by Proxy. OLEG
== END 2018-01-20 15:52 | disposition home or self-care (01) ==
LOC: MW.ED 12:34
DX: I80.8 Phlebitis and thrombophlebitis of other sites (principal); Z91.041 Radiographic dye allergy status; Z79.899 Other long term (current) drug therapy; Z87.891 Personal history of nicotine dependence
CPT/HCPCS: 36415; 73120; 80053; 84550; 85025; 85610; 93971; 99284; A9270

== ENCOUNTER 2019-03-02 18:05 | Inpatient (IN) | payer MEDICARE, BC ==
[2019-03-02] MEDS ORDERED: Sodium Chloride 0.9% 2.5 ML Syringe FLUSH PRN (18:07)
[2019-03-02] MEDS ORDERED: Sodium Chloride 0.9% 10 ML Syringe FLUSH PRN (18:07)
[2019-03-02] MEDS ORDERED: Sodium Chloride 0.9% 1,000 ML IV ONE (18:14)
--- NOTE | 2019-03-02 18:27 | EDM.PDOC ---
ED HPI GENERAL MEDICAL PROBLEM - General Chief Complaint: Respiratory Problem Stated Complaint: SOB Time Seen by Provider: 03/02/19 18:07 Source of Information: Reports: Patient History Limitations: Reports: No Limitations - History of Present Illness INITIAL COMMENTS - FREE TEXT/NARRATIVE: History of present illness: []Patient was brought in by his daughter for decreasing appetite in the last 2 weeks with increasing upper abdominal pain and shortness of breath. He's had a wet cough, denies any bloody stools, vomiting, diarrhea or chest pain. Patient has difficulty describing his Upper abdominal pain states it is across his upper abdomen. 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 Review of systems: As per history of present illness and below otherwise all systems reviewed and negative. Past medical history: As per history of present illness and as reviewed below otherwise noncontributory. Surgical history: As per history of present illness and as reviewed below otherwise noncontributory. Social history: No reported history of drug or alcohol abuse. Family history: As per history of present illness and as reviewed below otherwise noncontributory. Physical exam: General: Well developed, well nourished in NAD HEENT: Atraumatic, normocephalic, pupils reactive, negative for conjunctival pallor or scleral icterus, mucous membranes dry, throat clear, neck supple, nontender, trachea midline. Lungs: Clear to auscultation, breath sounds equal bilaterally, chest nontender. Heart: S1S2, regular, negative for clicks, rubs, or JVD. Bilateral lower leg edema 2+ Abdomen: NABS, Soft, nondistended, mild upper abdominal tenderness no rebound or guarding. Negative for masses or hepatosplenomegaly. Negative for costovertebral tenderness. Pelvis: Stable nontender. Genitourinary: Deferred. Rectal: Deferred. Extremities: Atraumatic, negative for cords or calf pain. Brisk cap refill, Neurovascular unremarkable. Neuro: Awake, alert. Cranial nerves II through XII unremarkable. Cerebellum unremarkable. Motor and sensory unremarkable throughout. Exam nonfocal. Skin:poor turgor, warm and dry Diagnostics: CBC, chemistry, UA, urine culture x-ray Therapeutics: IV hydration and supplemental oxygen, ED Course: Stable. Discussed admission with Dr. Hancock who agrees to admit for observation for hydration Impression: Dehydration Prescriptions: Plan: Admit for observation for IV hydration Definitive disposition and diagnosis as appropriate pending reevaluation and review of above. Bilateral Ribs Pain Score (Numeric/FACES): 10 - Related Data Allergies Allergy/AdvReac Type Severity Reaction Status Date / Time Iodinated Contrast Media Allergy Hives Verified 03/03/19 01:04 [Iodinated Contrast Media - IV Dye] Home Meds: Home Meds Aspirin [Halfprin] 81 mg PO BRK 03/16/15 [History] Levothyroxine Sodium [Levoxyl] 50 mcg PO ACBREAKFAST 03/16/15 [History] atorvaSTATin [Lipitor] 20 mg PO DAILY 08/11/16 [History] Tolterodine [Detrol] 2 mg PO DAILY 08/23/17 [History] Past Medical History HEENT History: Reports: Hard of Hearing, Impaired Vision, Other (See Below) Other HEENT History: hearing aids Cardiovascular History: Reports: Bypass, High Cholesterol Other Cardiovascular History: reddness swelling around saphanous graft site L) leg. Genitourinary History: Reports: Prostate Disorder Musculoskeletal History: Reports: Arthritis, Fracture Other Musculoskeletal History: Fracture to right distal clavicle. In [place] likely broke some bones playing football, no known treated Endocrine/Metabolic History: Reports: Hypothyroidism Other Endocrine/Metabolic History: Hypothyroidism Hematologic History: Reports: Other (See Below) Other Hematologic History: blood clots Oncologic (Cancer) History: Reports: Colon - Infectious Disease History Infectious Disease History: Reports: Chicken Pox, Measles, Mumps - Past Surgical History HEENT Surgical History: Reports: Tonsillectomy Cardiovascular Surgical History: Reports: Coronary Artery Bypass GI Surgical History: Reports: Appendectomy, Colonoscopy, EGD, Hernia, Abdominal , Hernia Repair/Other Other GI Surgeries/Procedures: Colon resection for cancer Male Surgical History: Reports: Prostate Biopsy, Prostatectomy Other Male Surgeries/Procedures: Radical Prostatectomy 1995 Social & Family History - Family History Family Medical History: Noncontributory - Tobacco Use Smoking Status *Q: Never Smoker - Caffeine Use Caffeine Use: Reports: Coffee - Recreational Drug Use Recreational Drug Use: No ED ROS GENERAL - Review of Systems Review Of Systems: See Below ED EXAM, GENERAL - Physical Exam Exam: See Below Course - Vital Signs Last Recorded V/S: Last Vital Signs Temp 98.1 F 03/02/19 23:54 Pulse 57 L 03/02/19 23:54 Resp 20 03/02/19 23:54 BP 135/62 03/02/19 23:54 Pulse Ox 94 L 03/02/19 23:54 - Orders/Labs/Meds Orders: Active Orders 24 hr Category Date Time Status Cardiac Monitoring [RC] . DIRECTED Care 03/02/19 18:07 Active EKG Documentation Completion [RC] STAT Care 03/02/19 18:07 Active CULTURE URINE [RM] Routine Lab 03/02/19 22:29 Received Sodium Chloride 0.9% [Saline Flush] Med 03/02/19 18:07 Active 10 ml FLUSH ASDIRECTED PRN Sodium Chloride 0.9% [Saline Flush] Med 03/02/19 18:07 Active 2.5 ml FLUSH ASDIRECTED PRN Saline Lock Insert [OM.PC] Stat Oth 03/02/19 18:07 Ordered Medication Orders Acetaminophen (Tylenol) 650 mg PO Q6H PRN PRN Reason: Pain Last Admin: 03/02/19 22:44 Dose: 650 mg Atorvastatin Calcium (Lipitor) 20 mg PO DAILY [facility] Sodium Chloride (Normal Saline) 1,000 mls @ 75 mls/hr IV ASDIRECTED FREDDY Last Admin: 03/02/19 21:05 Dose: 75 mls/hr Levothyroxine Sodium (Synthroid) 50 mcg PO ACBREAKFAST FREDDY Last Admin: 03/03/19 06:57 Dose: 50 mcg Non-Formulary Medication (Tolterodine) 2 mg PO DAILY [facility] Oxycodone HCl (Oxycodone) 5 mg PO Q4H PRN PRN Reason: Pain (severe 7-10) Last Admin: 03/03/19 05:40 Dose: 5 mg Admin: 03/03/19 01:39 Dose: 5 mg Admin: 03/02/19 21:00 Dose: 5 mg Sodium Chloride (Saline Flush) 10 ml FLUSH ASDIRECTED PRN PRN Reason: Keep Vein Open Sodium Chloride (Saline Flush) 2.5 ml FLUSH ASDIRECTED PRN PRN Reason: Keep Vein Open Labs: Laboratory Tests 03/02/19 03/02/19 03/02/19 Range/Units 18:30 18:30 18:30 WBC 6.65 (4.0-11.0) K/uL RBC 4.49 L (4.50-5.90) M/uL Hgb 13.9 (13.0-17.0) g/dL Hct 41.5 (38.0-50.0) % MCV 92.4 (80.0-98.0) fL MCH 31.0 (27.0-32.0) pg MCHC 33.5 (31.0-37.0) g/dL RDW Std Deviation 43.9 (28.0-62.0) fl RDW Coeff of Dalia 13 (11.0-15.0) % Plt Count 284 (150-400) K/uL MPV 9.60 (7.40-12.00) fL Neut % (Auto) 73.1 (48.0-80.0) % Lymph % (Auto) 14.3 L (16.0-40.0) % [place] % (Auto) 9.8 (0.0-15.0) % Eos % (Auto) 2.3 (0.0-7.0) % Baso % (Auto) 0.5 (0.0-1.5) % Neut # (Auto) 4.9 (1.4-5.7) K/uL Lymph # (Auto) 1.0 (0.6-2.4) K/uL [place] # (Auto) 0.7 (0.0-0.8) K/uL Eos # (Auto) 0.2 (0.0-0.7) K/uL Baso # (Auto) 0.0 (0.0-0.1) K/uL Nucleated RBC % 0.0 /100WBC Nucleated RBCs # 0 K/uL Sodium 139 (136-148) mmol/L Potassium 4.3 (3.5-5.1) mmol/L Chloride 102 (98-107) mmol/L Carbon Dioxide 31.3 (21.0-32.0) mmol/L BUN 20 H (7.0-18.0) mg/dL Creatinine 1.3 (0.8-1.3) mg/dL Est Cr Clr Drug Dosing 37.99 mL/min Estimated GFR (MDRD) 52.6 ml/min Glucose 96 (74-106) mg/dL Calcium 8.9 (8.5-10.1) mg/dL Total Bilirubin 1.0 (0.2-1.0) mg/dL AST 16 (15-37) IU/L ALT 17 (14-63) IU/L Alkaline Phosphatase 165 H (46-116) U/L Total Protein 7.2 (6.4-8.2) g/dL Albumin 3.1 L (3.4-5.0) g/dL Globulin 4.1 H (2.6-4.0) g/dL Albumin/Globulin Ratio 0.8 L (0.9-1.6) Lipase 263 (73-393) U/L Meds: Medications Generic Name Dose Route Start Last Admin Trade Name Freq PRN Reason Stop Dose Admin Acetaminophen 650 mg 03/02/19 20:48 03/02/19 22:44 Tylenol PO 650 mg Q6H PRN Administration Pain Atorvastatin Calcium 20 mg 03/03/19 09:00 Lipitor PO DAILY [facility] Sodium Chloride 1,000 mls @ 75 mls/hr 03/02/19 21:00 03/02/19 21:05 Normal Saline IV 75 mls/hr ASDIRECTED FREDDY Administration Levothyroxine Sodium 50 mcg 03/03/19 07:30 03/03/19 06:57 Synthroid PO 50 mcg ACBREAKFAST FREDDY Administration Non-Formulary Medication 2 mg 03/03/19 09:00 Tolterodine PO DAILY [facility] Oxycodone HCl 5 mg 03/02/19 20:47 03/03/19 05:40 Oxycodone PO 5 mg Q4H PRN Administration Pain (severe 7-10) Sodium Chloride 10 ml 03/02/19 18:07 Saline Flush FLUSH ASDIRECTED PRN Keep Vein Open Sodium Chloride 2.5 ml 03/02/19 18:07 Saline Flush FLUSH ASDIRECTED PRN Keep Vein Open Discontinued Medications Generic Name Dose Route Start Last Admin Trade Name Freq PRN Reason Stop Dose Admin Diphenhydramine HCl 25 mg 03/02/19 18:52 03/02/19 18:58 Benadryl IVPUSH 03/02/19 18:53 25 mg ONETIME ONE Administration Sodium Chloride 1,000 mls @ 999 mls/hr 03/02/19 18:14 03/02/19 18:26 Normal Saline IV 03/02/19 19:14 999 mls/hr .Bolus ONE Administration Morphine Sulfate 2 mg 03/02/19 18:35 03/02/19 18:39 Morphine IVPUSH 03/02/19 18:36 2 mg ONETIME ONE Administration Ondansetron HCl 4 mg 03/02/19 18:35 03/02/19 18:39 Zofran IVPUSH 03/02/19 18:36 4 mg ONETIME ONE Administration Departure - Departure Time of Disposition: 20:00 Disposition: Refer to Observation Condition: Good Clinical Impression: Dehydration Abdominal pain Qualifiers: Abdominal location: upper abdomen, unspecified Qualified Code(s): R10.10 - Upper abdominal pain, unspecified - Discharge Information - My Orders Last 24 Hours: My Active Orders 03/02/19 22:29 CULTURE URINE [RM] Routine - Assessment/Plan Last 24 Hours: My Active Orders 03/02/19 22:29 CULTURE URINE [RM] Routine
[2019-03-02] MEDS ORDERED: Morphine 2 MG/ML Syringe IVPUSH ONE (18:35)
[2019-03-02] MEDS ORDERED: Ondansetron 4 MG/2 ML SDV IVPUSH ONE (18:35)
[2019-03-02] MEDS ORDERED: diphenhydrAMINE 50 MG/ML SDV IVPUSH ONE (18:52)
--- NOTE | 2019-03-02 19:03 | CR ---
INDICATION: Shortness of breath TECHNIQUE: Chest 1 views COMPARISON: 01/15/2018 FINDINGS: Cardiovascular and mediastinum: Heart size and vasculature are normal in caliber and appearance. Lungs and pleural spaces: Lungs are clear. No sign of infiltrate or mass. No sign of pleural effusion. No pneumothorax. Bones and soft tissues: No significant findings. IMPRESSION: No acute findings and no significant changes from the prior exam. Dictated by Arnoldo Glass MD @ Mar 02 2019 7:01PM Signed by Dr. Arnoldo Glass @ Mar 02 2019 7:02PM
[2019-03-02 19:10] LABS: CARBON DIOXIDE,CO2 31.3 mmol/L (21.0-32.0); POTASSIUM,K 4.3 mmol/L (3.5-5.1)
[2019-03-02] MEDS: oxyCODONE 5 MG Tab PO PRN (21:00)
[2019-03-02] MEDS ORDERED: Sodium Chloride 0.9% 1,000 ML IV SCH (21:00)
[2019-03-02] MEDS: Acetaminophen 325 MG Tab PO PRN (22:44)
[2019-03-03] MEDS: oxyCODONE 5 MG Tab PO PRN ×2 (01:39→05:40)
--- NOTE | 2019-03-03 06:45 | PCM.HP.2 ---
H&P History of Present Illness - General Date of Service: 03/03/19 Admit Problem/Dx: Admission Diagnosis/Problem Admission Diagnosis/Problem Abdominal pain Source of Information: Patient, Family History Limitations: Reports: Physical Impairment (Hard of hearing) - History of Present Illness Initial Comments - Free Text/Narative: The patient is an 83-year-old gentleman who had presented to the emergency department primarily with a complaint of decreased appetite and increasing upper abdominal pain and shortness of breath. Patient has a history of coronary artery disease with bypass surgery as well as multiple abdominal surgeries. Both patient and the patient's are in examination room with him and they' re concerned that the pain is located in his abdomen on the right side. The patient says that he has had constipation for the past 2 weeks as well. He also has a history of prostate surgery for cancer as well as metastases to the colon. The patient has denied any fever or chills. He's had no radiation of the pain. It's described as sharp and cramping. He's had no specific aggravating or relieving factors. Onset of Symptoms: Reports: Gradual Duration of Symptoms: Reports: Week(s): Location: Reports: Abdomen Quality: Reports: Ache, Throbbing Severity: Moderate Improves with: Reports: None Worsens with: Reports: None Bilateral Ribs Pain Score (Numeric/FACES): 10 - Related Data Allergies/Adverse Reactions: Allergies Allergy/AdvReac Type Severity Reaction Status Date / Time Iodinated Contrast Media Allergy Hives Verified 03/03/19 01:04 [Iodinated Contrast Media - IV Dye] Home Medications: Home Meds Aspirin [Halfprin] 81 mg PO BRK 03/16/15 [History] Levothyroxine Sodium [Levoxyl] 50 mcg PO ACBREAKFAST 03/16/15 [History] atorvaSTATin [Lipitor] 20 mg PO DAILY 08/11/16 [History] Tolterodine [Detrol] 2 mg PO DAILY 08/23/17 [History] Past Medical History HEENT History: Reports: Hard of Hearing, Impaired Vision, Other (See Below) Other HEENT History: hearing aids Cardiovascular History: Reports: Bypass, High Cholesterol Other Cardiovascular History: reddness swelling around saphanous graft site L) leg. Respiratory History: Reports: None Gastrointestinal History: Reports: Bowel Obstruction, Chronic Constipation, Other (See Below) (Surgery for colon metastases) Genitourinary History: Reports: Prostate Disorder, Other (See Below) (Prostate cancer) Musculoskeletal History: Reports: Arthritis, Fracture Other Musculoskeletal History: Fracture to right distal clavicle. In [place] likely broke some bones playing football, no known treated Neurological History: Reports: None Psychiatric History: Reports: None Endocrine/Metabolic History: Reports: Hypothyroidism Other Endocrine/Metabolic History: Hypothyroidism Hematologic History: Reports: Other (See Below) Other Hematologic History: blood clots Immunologic History: Reports: None Oncologic (Cancer) History: Reports: Colon Dermatologic History: Reports: None - Infectious Disease History Infectious Disease History: Reports: Chicken Pox, Measles, Mumps - Past Surgical History HEENT Surgical History: Reports: Tonsillectomy Cardiovascular Surgical History: Reports: Coronary Artery Bypass GI Surgical History: Reports: Appendectomy, Colonoscopy, EGD, Hernia, Abdominal , Hernia Repair/Other Other GI Surgeries/Procedures: Colon resection for cancer Male Surgical History: Reports: Prostate Biopsy, Prostatectomy Other Male Surgeries/Procedures: Radical Prostatectomy 1995 Social & Family History - Family History Family Medical History: Noncontributory - Tobacco Use Smoking Status *Q: Former Smoker Years of Tobacco use: 20 Used Tobacco, but Quit: Yes Month/Year Tobacco Last Used: 1998 - Caffeine Use Caffeine Use: Reports: Coffee - Recreational Drug Use Recreational Drug Use: No - Living Situation & Occupation Living situation: Reports: , with Spouse Occupation: Retired H&P Review of Systems - Review of Systems: Review Of Systems: See Below General: Reports: Malaise, Weakness, Decreased Appetite HEENT: Reports: Hearing Changes Pulmonary: Reports: Shortness of Breath Cardiovascular: Reports: No Symptoms Gastrointestinal: Reports: Abdominal Pain, Constipation. Denies: Flatus Genitourinary: Reports: No Symptoms Musculoskeletal: Reports: Back Pain Skin: Reports: No Symptoms Psychiatric: Reports: No Symptoms Neurological: Reports: No Symptoms Hematologic/Lymphatic: Reports: No Symptoms Immunologic: Reports: No Symptoms Exam - Exam Exam: See Below - Vital Signs Vital Signs: Last Vital Signs Temp 36.7 C 03/02/19 23:54 Pulse 57 L 03/02/19 23:54 Resp 20 03/02/19 23:54 BP 135/62 03/02/19 23:54 Pulse Ox 94 L 03/02/19 23:54 Weight: 62.777 kg - Exam Quality Assessment: Supplemental Oxygen General: Alert, Oriented, Cooperative, Mild Distress HEENT: Conjunctiva Clear, EACs Clear, EOMI, Pupils Equal, PERRLA. No: Hearing Intact (Needs hearing aids), Mucosa Moist & [place] (Dry) Neck: Supple, Trachea Midline Lungs: Clear to Auscultation, Normal Respiratory Effort Cardiovascular: Regular Rate, Regular Rhythm GI/Abdominal Exam: Soft, No Distention, Tender (Generalized), Other (Midline hernia, cutaneous scarring). No: Normal Bowel Sounds (Hypoactive), Guarding, Rigid Back Exam: Normal Inspection (Age appropriate), Full Range of Motion (Age appropriate) Extremities: Normal Inspection, No Pedal Edema Skin: Warm, Dry, Intact Neurological: No: Cranial Nerves Intact (Decreased hearing) Neuro Extensive - Mental Status: Alert, Oriented x3 Psychiatric: Alert, Normal Affect, Normal Mood - Patient Data Lab Results Last 24 hrs: Laboratory Results - last 24 hr 03/02/19 03/02/19 03/02/19 Range/Units 18:30 18:30 18:30 WBC 6.65 (4.0-11.0) K/uL RBC 4.49 L (4.50-5.90) M/uL Hgb 13.9 (13.0-17.0) g/dL Hct 41.5 (38.0-50.0) % MCV 92.4 (80.0-98.0) fL MCH 31.0 (27.0-32.0) pg MCHC 33.5 (31.0-37.0) g/dL RDW Std Deviation 43.9 (28.0-62.0) fl RDW Coeff of Dalia 13 (11.0-15.0) % Plt Count 284 (150-400) K/uL MPV 9.60 (7.40-12.00) fL Neut % (Auto) 73.1 (48.0-80.0) % Lymph % (Auto) 14.3 L (16.0-40.0) % Lucas % (Auto) 9.8 (0.0-15.0) % Eos % (Auto) 2.3 (0.0-7.0) % Baso % (Auto) 0.5 (0.0-1.5) % Neut # (Auto) 4.9 (1.4-5.7) K/uL Lymph # (Auto) 1.0 (0.6-2.4) K/uL Lucas # (Auto) 0.7 (0.0-0.8) K/uL Eos # (Auto) 0.2 (0.0-0.7) K/uL Baso # (Auto) 0.0 (0.0-0.1) K/uL Nucleated RBC % 0.0 /100WBC Nucleated RBCs # 0 K/uL Sodium 139 (136-148) mmol/L Potassium 4.3 (3.5-5.1) mmol/L Chloride 102 (98-107) mmol/L Carbon Dioxide 31.3 (21.0-32.0) mmol/L BUN 20 H (7.0-18.0) mg/dL Creatinine 1.3 (0.8-1.3) mg/dL Est Cr Clr Drug Dosing 37.99 mL/min Estimated GFR (MDRD) 52.6 ml/min Glucose 96 (74-106) mg/dL Calcium 8.9 (8.5-10.1) mg/dL Total Bilirubin 1.0 (0.2-1.0) mg/dL AST 16 (15-37) IU/L ALT 17 (14-63) IU/L Alkaline Phosphatase 165 H (46-116) U/L Total Protein 7.2 (6.4-8.2) g/dL Albumin 3.1 L (3.4-5.0) g/dL Globulin 4.1 H (2.6-4.0) g/dL Albumin/Globulin Ratio 0.8 L (0.9-1.6) Lipase 263 (73-393) U/L Urine Color Urine Appearance Urine pH (5.0-8.0) Ur Specific [place] (1.001-1.035) Urine Protein (NEGATIVE) mg/dL Urine Glucose (UA) (NEGATIVE) mg/dL Urine Ketones (NEGATIVE) mg/dL Urine Occult Blood (NEGATIVE) Urine Nitrite (NEGATIVE) Urine Bilirubin (NEGATIVE) Urine Urobilinogen (<2.0) EU/dL Ur Leukocyte Esterase (NEGATIVE) Urine RBC (0-2/HPF) Urine WBC (0-5/HPF) Ur Epithelial Cells (NONE-FEW) Urine Bacteria (NEGATIVE) 03/02/19 03/03/19 Range/Units 22:29 05:28 WBC 5.90 (4.0-11.0) K/uL RBC 4.22 L (4.50-5.90) M/uL Hgb 13.0 (13.0-17.0) g/dL Hct 40.0 (38.0-50.0) % MCV 94.8 (80.0-98.0) fL MCH 30.8 (27.0-32.0) pg MCHC 32.5 (31.0-37.0) g/dL RDW Std Deviation 45.5 (28.0-62.0) fl RDW Coeff of Dalia 13 (11.0-15.0) % Plt Count 254 (150-400) K/uL MPV 10.20 (7.40-12.00) fL Neut % (Auto) 66.0 (48.0-80.0) % Lymph % (Auto) 16.8 (16.0-40.0) % Lucas % (Auto) 11.9 (0.0-15.0) % Eos % (Auto) 4.6 (0.0-7.0) % Baso % (Auto) 0.7 (0.0-1.5) % Neut # (Auto) 3.9 (1.4-5.7) K/uL Lymph # (Auto) 1.0 (0.6-2.4) K/uL Lucas # (Auto) 0.7 (0.0-0.8) K/uL Eos # (Auto) 0.3 (0.0-0.7) K/uL Baso # (Auto) 0.0 (0.0-0.1) K/uL Nucleated RBC % 0.0 /100WBC Nucleated RBCs # 0 K/uL Sodium (136-148) mmol/L Potassium (3.5-5.1) mmol/L Chloride (98-107) mmol/L Carbon Dioxide (21.0-32.0) mmol/L BUN (7.0-18.0) mg/dL Creatinine (0.8-1.3) mg/dL Est Cr Clr Drug Dosing mL/min Estimated GFR (MDRD) ml/min Glucose (74-106) mg/dL Calcium (8.5-10.1) mg/dL Total Bilirubin (0.2-1.0) mg/dL AST (15-37) IU/L ALT (14-63) IU/L Alkaline Phosphatase (46-116) U/L Total Protein (6.4-8.2) g/dL Albumin (3.4-5.0) g/dL Globulin (2.6-4.0) g/dL Albumin/Globulin Ratio (0.9-1.6) Lipase (73-393) U/L Urine Color YELLOW Urine Appearance CLEAR Urine pH 5.5 (5.0-8.0) Ur Specific [place] 1.025 (1.001-1.035) Urine Protein NEGATIVE (NEGATIVE) mg/dL Urine Glucose (UA) NEGATIVE (NEGATIVE) mg/dL Urine Ketones NEGATIVE (NEGATIVE) mg/dL Urine Occult Blood TRACE-INTACT H (NEGATIVE) Urine Nitrite NEGATIVE (NEGATIVE) Urine Bilirubin NEGATIVE (NEGATIVE) Urine Urobilinogen 0.2 (<2.0) EU/dL Ur Leukocyte Esterase NEGATIVE (NEGATIVE) Urine RBC 1-3 (0-2/HPF) Urine WBC 0-2 (0-5/HPF) Ur Epithelial Cells RARE (NONE-FEW) Urine Bacteria RARE (NEGATIVE) Result Diagrams: 03/03/19 05:28 03/03/19 05:28 - Problem List (1) Small bowel obstruction SNOMED Code(s): 032691813 ICD Code: K56.609 - UNSP INTESTNL OBST, UNSP TO PARTIAL VERSUS COMPLETE OBST Status: Acute Priority: High Current Visit: Yes (2) Abdominal pain SNOMED Code(s): 86902510 ICD Code: R10.9 - UNSPECIFIED ABDOMINAL PAIN Status: Acute Priority: High Current Visit: Yes Qualifiers: Abdominal location: upper abdomen, unspecified Qualified Code(s): R10.10 - Upper abdominal pain, unspecified (3) Dehydration SNOMED Code(s): 47389004 ICD Code: E86.0 - DEHYDRATION Status: Acute Priority: High Current Visit: Yes (4) Colon distention SNOMED Code(s): 282089492 ICD Code: K63.89 - OTHER SPECIFIED DISEASES OF INTESTINE Status: Acute Priority: High Current Visit: Yes Problem List Initiated/Reviewed/Updated: Yes Orders Last 24hrs: Active Orders 24 hr Category Date Time Status Patient Status [ADT] Stat ADT 03/02/19 18:37 Active Cardiac Monitoring [RC] . DIRECTED Care 03/02/19 18:07 Active EKG Documentation Completion [RC] STAT Care 03/02/19 18:07 Active Regular Diet [DIET] Diet 03/03/19 Breakfast Active Abdomen 2V AP Flat Upright [CR] Stat Exams 03/03/19 05:50 Taken COMPREHENSIVE METABOLIC PN,CMP [CHEM] AM Lab 03/03/19 05:28 Received CULTURE URINE [RM] Routine Lab 03/02/19 22:29 Received MAGNESIUM [CHEM] AM Lab 03/03/19 05:28 Received Acetaminophen [Tylenol] Med 03/02/19 20:48 Active 650 mg PO Q6H PRN Sodium Chloride 0.9% [Normal Saline] 1,000 ml Med 03/02/19 21:00 Active IV ASDIRECTED Sodium Chloride 0.9% [Saline Flush] Med 03/02/19 18:07 Active 10 ml FLUSH ASDIRECTED PRN Sodium Chloride 0.9% [Saline Flush] Med 03/02/19 18:07 Active 2.5 ml FLUSH ASDIRECTED PRN oxyCODONE Med 03/02/19 20:47 Active 5 mg PO Q4H PRN Saline Lock Insert [OM.PC] Stat Oth 03/02/19 18:07 Ordered Medication Orders Acetaminophen (Tylenol) 650 mg PO Q6H PRN PRN Reason: Pain Last Admin: 03/02/19 22:44 Dose: 650 mg Sodium Chloride (Normal Saline) 1,000 mls @ 75 mls/hr IV ASDIRECTED FREDDY Last Admin: 03/02/19 21:05 Dose: 75 mls/hr Oxycodone HCl (Oxycodone) 5 mg PO Q4H PRN PRN Reason: Pain (severe 7-10) Last Admin: 03/03/19 05:40 Dose: 5 mg Admin: 03/03/19 01:39 Dose: 5 mg Admin: 03/02/19 21:00 Dose: 5 mg Sodium Chloride (Saline Flush) 10 ml FLUSH ASDIRECTED PRN PRN Reason: Keep Vein Open Sodium Chloride (Saline Flush) 2.5 ml FLUSH ASDIRECTED PRN PRN Reason: Keep Vein Open Assessment/Plan Comment:: The patient is an 83-year-old gentleman who has been admitted primarily out of concern for weakness, fatigue and poor appetite. Abdominal x-ray obtained shows bowel obstruction along with fecal retention. The patient's predominant concern is abdominal pain at this time. He does have a history of multiple surgeries and therefore surgery has been consulted. The patient will have an NG tube inserted in order to compress bowel and will be placed to low intermittent suction. The patient will be kept nothing by mouth. I've ordered IV fluids at 125 mL per hour. His pain will be controlled with the use of IV narcotics. The patient will have DVT prophylaxis with the use of Lovenox at 30 mg subcutaneous daily. Repeat laboratory studies have been ordered. I am concerned that the patient does have a history of colon resection from prostate cancer which metastasized to his colon. There is some evidence of large bowel distention as well. Will follow with surgery. The patient will be treated conservatively for now. - Mortality Measure Prognosis:: Good
[2019-03-03 06:46] LABS: CARBON DIOXIDE,CO2 30.2 mmol/L (21.0-32.0); POTASSIUM,K 4.7 mmol/L (3.5-5.1)
[2019-03-03] MEDS: Levothyroxine 50 MCG Tab PO SCH (06:57)
[2019-03-03] MEDS: Ondansetron 4 MG/2 ML SDV IVPUSH SCH ×5 (08:59→23:16)
[2019-03-03] MEDS: Heparin Sodium 5,000 Units/ML Vial SUBCUT SCH ×3 (08:59→23:15)
[2019-03-03] MEDS: atorvaSTATin 20 MG Tab PO SCH (09:00)
[2019-03-03] MEDS: Sodium Chloride 0.9% 1,000 ML IV SCH ×2 (09:12→18:08)
--- NOTE | 2019-03-03 11:09 | CR ---
INDICATION: Nasogastric tube placement; tube check. COMPARISON: Chest radiograph March 02, 2019; radiographic examination of the abdomen March 03, 2019. TECHNIQUE: KUB including the lower chest. FINDINGS: Tip of the nasogastric tube identified overlying the right diaphragm in the region of the right lower lung; it is possible this could either be in a large hiatus hernia or possibly in the right lower lobe bronchus. I am not able to appreciate any obvious hiatus hernia on the previous abdominal or chest films. Findings were communicated to the charge nurse at 11:05 p.m. They will remove the tube and replace it. IMPRESSION: Tip of the nasogastric tube appears to be in the right lung. Dictated by Ciara Montero MD @ Mar 03 2019 11:00AM Signed by Dr. Ciara Montero @ Mar 03 2019 11:07AM
--- NOTE | 2019-03-03 11:11 | CR ---
INDICATION: Abdominal pain. COMPARISON: Radiographic examination of the abdomen January 11, 2018 and January 13, 2018. Technique: Three-view study abdomen including upright. Findings: distended small and large bowel; ileus versus obstruction. No pneumoperitoneum. No abnormal intra-abdominal calcifications. Copious amounts of retained stool identified in the colon. Surgical clips in the pelvis. IMPRESSION: 1. Distended colon and small bowel; ileus versus bowel obstruction. 2. Copious amounts of retained stool in the colon. 3. No pneumoperitoneum. Dictated by Ciara Montero MD @ Mar 03 2019 11:07AM Signed by Dr. Ciara Montero @ Mar 03 2019 11:09AM
[2019-03-03] MEDS: Morphine 2 MG/ML Syringe IVPUSH PRN ×4 (12:03→23:17)
--- NOTE | 2019-03-03 17:25 | CT ---
INDICATION: SBO. TECHNIQUE: Volumetric helical scanning of the abdomen and pelvis was performed with oral contrast material only. Coronal and sagittal reconstructions were obtained. COMPARISON: Today`s abdominal x-rays. FINDINGS: Oral contrast material is demonstrated most of the way through the small bowel. Neither the terminal ileum North the colon is opacified. Small-bowel distention with some air-contrast levels are is demonstrated with distention most significant proximally. A transition site is not identified. There is a large amount of stool throughout the colon, consistent with constipation. No bowel wall thickening is evident. No free fluid or free air is apparent. The liver is normal in size, shape and attenuation. Stones are noted in the gallbladder. No bile duct dilation is evident. The spleen is within normal limits. The adrenal glands are unremarkable. The pancreas is within normal limits. A nonobstructing 5 x 3 x 3 mm stone is present at the left ureteropelvic junction. Stones are noted in both renal collecting systems, largest on the right measuring up to 7 mm and the largest on the left 3 mm. The kidneys are otherwise unremarkable. No lymphadenopathy is evident. The uterus has been removed. Neither ovaries identified with certainty. Postop changes of ventral hernia repair are demonstrated. Tiny pleural effusions are present bilaterally. Atelectasis and suspected pneumonia is present in the right lower lobe base. Infiltrate in the posterior aspect of the right upper lobe is also demonstrated. Minor atelectasis in the left lower lobe base is noted. The heart is normal in size. Postop changes of coronary bypass are noted. CONCLUSION: 1. Distended small bowel with air-contrast levels but without transition site. Constipation is noted. Small bowel findings suspected secondary to constipation. 2. Presumed right lower lobe base pneumonia and atelectasis and small infiltrate in the posterior right upper lobe. 3. Tiny pleural effusions bilaterally. 4. Nonobstructing 5 x 3 x 3 mm left UPJ stone. Stones in both renal collecting systems. 5. Cholelithiasis. 6. Post hysterectomy, coronary bypass and ventral hernia repair. Please note that all CT scans at this facility use dose modulation, iterative reconstruction, and/or weight-based dosing when appropriate to reduce radiation dose to as low as reasonably achievable. Dictated by Yoni Ortez MD @ Mar 03 2019 5:08PM Signed by Dr. Yoni Ortez @ Mar 03 2019 5:23PM
--- NOTE | 2019-03-03 18:11 | PCM.CONS ---
H&P History of Present Illness - General Date of Service: 03/03/19 Admit Problem/Dx: Admission Diagnosis/Problem Admission Diagnosis/Problem Abdominal pain Source of Information: Patient, Family History Limitations: Reports: No Limitations - History of Present Illness Initial Comments - Free Text/Narative: Patient is an 83-year-old male with a complicated past surgical history who presents with 1 week of no bowel movements. His states that he hasn't been eating well over the past week and he recently developed some abdominal pain. He has a history of multiple hernia repairs with large piece of mesh in the midline. I took care of the patient last year when he suffered from diarrhea and a questionable small bowel obstruction. He resolved with conservative management. He has been doing well until lately. They deny any infectious contacts. Abdominal x-ray showed questionable dilated loops of bowel and possible small bowel obstruction. The nurses attempted to place an NG today with no success. He states that the pain is moving from the right side of his abdomen over to the left. All of his labs are currently normal. Bilateral Ribs Pain Score (Numeric/FACES): 3 - Related Data Allergies/Adverse Reactions: Allergies Allergy/AdvReac Type Severity Reaction Status Date / Time Iodinated Contrast Media Allergy Hives Verified 03/03/19 01:04 [Iodinated Contrast Media - IV Dye] Home Medications: Home Meds Aspirin [Halfprin] 81 mg PO BRK 03/16/15 [History] Levothyroxine Sodium [Levoxyl] 50 mcg PO ACBREAKFAST 03/16/15 [History] atorvaSTATin [Lipitor] 20 mg PO DAILY 08/11/16 [History] Tolterodine [Detrol] 2 mg PO DAILY 08/23/17 [History] Past Medical History HEENT History: Reports: Hard of Hearing, Impaired Vision, Other (See Below) Other HEENT History: hearing aids Cardiovascular History: Reports: Bypass, High Cholesterol Other Cardiovascular History: reddness swelling around saphanous graft site L) leg. Respiratory History: Reports: None Gastrointestinal History: Reports: Bowel Obstruction, Chronic Constipation, Other (See Below) (Surgery for colon metastases) Genitourinary History: Reports: Prostate Disorder, Other (See Below) (Prostate cancer) Musculoskeletal History: Reports: Arthritis, Fracture Other Musculoskeletal History: Fracture to right distal clavicle. [place] broke some bones playing [place], no known treated Neurological History: Reports: None Psychiatric History: Reports: None Endocrine/Metabolic History: Reports: Hypothyroidism Other Endocrine/Metabolic History: Hypothyroidism Hematologic History: Reports: Other (See Below) Other Hematologic History: blood clots Immunologic History: Reports: None Oncologic (Cancer) History: Reports: Colon Dermatologic History: Reports: None - Infectious Disease History Infectious Disease History: Reports: Chicken Pox, Measles, Mumps - Past Surgical History HEENT Surgical History: Reports: Tonsillectomy Cardiovascular Surgical History: Reports: Coronary Artery Bypass GI Surgical History: Reports: Appendectomy, Colonoscopy, EGD, Hernia, Abdominal , Hernia Repair/Other Other GI Surgeries/Procedures: Colon resection for cancer Male Surgical History: Reports: Prostate Biopsy, Prostatectomy Other Male Surgeries/Procedures: Radical Prostatectomy 1995 Social & Family History - Family History Family Medical History: Noncontributory - Tobacco Use Smoking Status *Q: Former Smoker Years of Tobacco use: 20 Used Tobacco, but Quit: Yes Month/Year Tobacco Last Used: 1998 - Caffeine Use Caffeine Use: Reports: Coffee - Recreational Drug Use Recreational Drug Use: No - Living Situation & Occupation Living situation: Reports: , with Spouse Occupation: Retired H&P Review of Systems - Review of Systems: Review Of Systems: ROS reveals no pertinent complaints other than HPI. Exam - Exam Exam: See Below - Vital Signs Vital Signs: Last Vital Signs Temp 36.6 C 03/03/19 16:00 Pulse 72 03/03/19 16:00 Resp 20 03/03/19 16:00 BP 145/62 H 03/03/19 16:00 Pulse Ox 97 03/03/19 16:00 Weight: 62.777 kg - Exam General: Alert, Oriented HEENT: Conjunctiva Clear, Mucosa Moist & [place], Posterior Pharynx Clear Lungs: Normal Respiratory Effort Cardiovascular: Regular Rate GI/Abdominal Exam: Soft, Distended (mild), Tender (mild upper abdominal tenderness). No: Guarding, Rigid, Rebound - Patient Data Lab Results Last 24 hrs: Laboratory Results - last 24 hr 03/02/19 03/02/19 03/02/19 Range/Units 18:30 18:30 18:30 WBC 6.65 (4.0-11.0) K/uL RBC 4.49 L (4.50-5.90) M/uL Hgb 13.9 (13.0-17.0) g/dL Hct 41.5 (38.0-50.0) % MCV 92.4 (80.0-98.0) fL MCH 31.0 (27.0-32.0) pg MCHC 33.5 (31.0-37.0) g/dL RDW Std Deviation 43.9 (28.0-62.0) fl RDW Coeff of Dalia 13 (11.0-15.0) % Plt Count 284 (150-400) K/uL MPV 9.60 (7.40-12.00) fL Neut % (Auto) 73.1 (48.0-80.0) % Lymph % (Auto) 14.3 L (16.0-40.0) % Graham % (Auto) 9.8 (0.0-15.0) % Eos % (Auto) 2.3 (0.0-7.0) % Baso % (Auto) 0.5 (0.0-1.5) % Neut # (Auto) 4.9 (1.4-5.7) K/uL Lymph # (Auto) 1.0 (0.6-2.4) K/uL Graham # (Auto) 0.7 (0.0-0.8) K/uL Eos # (Auto) 0.2 (0.0-0.7) K/uL Baso # (Auto) 0.0 (0.0-0.1) K/uL Nucleated RBC % 0.0 /100WBC Nucleated RBCs # 0 K/uL Lactate (0.20-2.00) mmol/L Sodium 139 (136-148) mmol/L Potassium 4.3 (3.5-5.1) mmol/L Chloride 102 (98-107) mmol/L Carbon Dioxide 31.3 (21.0-32.0) mmol/L BUN 20 H (7.0-18.0) mg/dL Creatinine 1.3 (0.8-1.3) mg/dL Est Cr Clr Drug Dosing 37.99 mL/min Estimated GFR (MDRD) 52.6 ml/min Glucose 96 (74-106) mg/dL Calcium 8.9 (8.5-10.1) mg/dL Magnesium (1.8-2.4) mg/dL Total Bilirubin 1.0 (0.2-1.0) mg/dL AST 16 (15-37) IU/L ALT 17 (14-63) IU/L Alkaline Phosphatase 165 H (46-116) U/L Total Protein 7.2 (6.4-8.2) g/dL Albumin 3.1 L (3.4-5.0) g/dL Globulin 4.1 H (2.6-4.0) g/dL Albumin/Globulin Ratio 0.8 L (0.9-1.6) Lipase 263 (73-393) U/L Urine Color Urine Appearance Urine pH (5.0-8.0) Ur Specific Solo (1.001-1.035) Urine Protein (NEGATIVE) mg/dL Urine Glucose (UA) (NEGATIVE) mg/dL Urine Ketones (NEGATIVE) mg/dL Urine Occult Blood (NEGATIVE) Urine Nitrite (NEGATIVE) Urine Bilirubin (NEGATIVE) Urine Urobilinogen (<2.0) EU/dL Ur Leukocyte Esterase (NEGATIVE) Urine RBC (0-2/HPF) Urine WBC (0-5/HPF) Ur Epithelial Cells (NONE-FEW) Urine Bacteria (NEGATIVE) 03/02/19 03/03/19 03/03/19 Range/Units 22:29 05:28 05:28 WBC 5.90 (4.0-11.0) K/uL RBC 4.22 L (4.50-5.90) M/uL Hgb 13.0 (13.0-17.0) g/dL Hct 40.0 (38.0-50.0) % MCV 94.8 (80.0-98.0) fL MCH 30.8 (27.0-32.0) pg MCHC 32.5 (31.0-37.0) g/dL RDW Std Deviation 45.5 (28.0-62.0) fl RDW Coeff of Dalia 13 (11.0-15.0) % Plt Count 254 (150-400) K/uL MPV 10.20 (7.40-12.00) fL Neut % (Auto) 66.0 (48.0-80.0) % Lymph % (Auto) 16.8 (16.0-40.0) % Graham % (Auto) 11.9 (0.0-15.0) % Eos % (Auto) 4.6 (0.0-7.0) % Baso % (Auto) 0.7 (0.0-1.5) % Neut # (Auto) 3.9 (1.4-5.7) K/uL Lymph # (Auto) 1.0 (0.6-2.4) K/uL Graham # (Auto) 0.7 (0.0-0.8) K/uL Eos # (Auto) 0.3 (0.0-0.7) K/uL Baso # (Auto) 0.0 (0.0-0.1) K/uL Nucleated RBC % 0.0 /100WBC Nucleated RBCs # 0 K/uL Lactate (0.20-2.00) mmol/L Sodium 140 (136-148) mmol/L Potassium 4.7 (3.5-5.1) mmol/L Chloride 105 (98-107) mmol/L Carbon Dioxide 30.2 (21.0-32.0) mmol/L BUN 18 (7.0-18.0) mg/dL Creatinine 1.3 (0.8-1.3) mg/dL Est Cr Clr Drug Dosing 37.56 mL/min Estimated GFR (MDRD) 52.6 ml/min Glucose 72 L (74-106) mg/dL Calcium 8.5 (8.5-10.1) mg/dL Magnesium 1.8 (1.8-2.4) mg/dL Total Bilirubin 0.7 (0.2-1.0) mg/dL AST 16 (15-37) IU/L ALT 16 (14-63) IU/L Alkaline Phosphatase 146 H (46-116) U/L Total Protein 6.2 L (6.4-8.2) g/dL Albumin 2.6 L (3.4-5.0) g/dL Globulin 3.6 (2.6-4.0) g/dL Albumin/Globulin Ratio 0.7 L (0.9-1.6) Lipase (73-393) U/L Urine Color YELLOW Urine Appearance CLEAR Urine pH 5.5 (5.0-8.0) Ur Specific Solo 1.025 (1.001-1.035) Urine Protein NEGATIVE (NEGATIVE) mg/dL Urine Glucose (UA) NEGATIVE (NEGATIVE) mg/dL Urine Ketones NEGATIVE (NEGATIVE) mg/dL Urine Occult Blood TRACE-INTACT H (NEGATIVE) Urine Nitrite NEGATIVE (NEGATIVE) Urine Bilirubin NEGATIVE (NEGATIVE) Urine Urobilinogen 0.2 (<2.0) EU/dL Ur Leukocyte Esterase NEGATIVE (NEGATIVE) Urine RBC 1-3 (0-2/HPF) Urine WBC 0-2 (0-5/HPF) Ur Epithelial Cells RARE (NONE-FEW) Urine Bacteria RARE (NEGATIVE) 03/03/19 Range/Units 12:27 WBC (4.0-11.0) K/uL RBC (4.50-5.90) M/uL Hgb (13.0-17.0) g/dL Hct (38.0-50.0) % MCV (80.0-98.0) fL MCH (27.0-32.0) pg MCHC (31.0-37.0) g/dL RDW Std Deviation (28.0-62.0) fl RDW Coeff of Dalia (11.0-15.0) % Plt Count (150-400) K/uL MPV (7.40-12.00) fL Neut % (Auto) (48.0-80.0) % Lymph % (Auto) (16.0-40.0) % Graham % (Auto) (0.0-15.0) % Eos % (Auto) (0.0-7.0) % Baso % (Auto) (0.0-1.5) % Neut # (Auto) (1.4-5.7) K/uL Lymph # (Auto) (0.6-2.4) K/uL Graham # (Auto) (0.0-0.8) K/uL Eos # (Auto) (0.0-0.7) K/uL Baso # (Auto) (0.0-0.1) K/uL Nucleated RBC % /100WBC Nucleated RBCs # K/uL Lactate 0.8 (0.20-2.00) mmol/L Sodium (136-148) mmol/L Potassium (3.5-5.1) mmol/L Chloride (98-107) mmol/L Carbon Dioxide (21.0-32.0) mmol/L BUN (7.0-18.0) mg/dL Creatinine (0.8-1.3) mg/dL Est Cr Clr Drug Dosing mL/min Estimated GFR (MDRD) ml/min Glucose (74-106) mg/dL Calcium (8.5-10.1) mg/dL Magnesium (1.8-2.4) mg/dL Total Bilirubin (0.2-1.0) mg/dL AST (15-37) IU/L ALT (14-63) IU/L Alkaline Phosphatase (46-116) U/L Total Protein (6.4-8.2) g/dL Albumin (3.4-5.0) g/dL Globulin (2.6-4.0) g/dL Albumin/Globulin Ratio (0.9-1.6) Lipase (73-393) U/L Urine Color Urine Appearance Urine pH (5.0-8.0) Ur Specific Solo (1.001-1.035) Urine Protein (NEGATIVE) mg/dL Urine Glucose (UA) (NEGATIVE) mg/dL Urine Ketones (NEGATIVE) mg/dL Urine Occult Blood (NEGATIVE) Urine Nitrite (NEGATIVE) Urine Bilirubin (NEGATIVE) Urine Urobilinogen (<2.0) EU/dL Ur Leukocyte Esterase (NEGATIVE) Urine RBC (0-2/HPF) Urine WBC (0-5/HPF) Ur Epithelial Cells (NONE-FEW) Urine Bacteria (NEGATIVE) Result Diagrams: 03/03/19 05:28 03/03/19 05:28 Consult PN Assessment/Plan Procedures: Procedures AGENT NOS ASSAY W/OPTIC (01/15/18) ASSAY OF BLOOD/URIC ACID (01/20/18) ASSAY OF FERRITIN (05/02/17) ASSAY OF LACTIC ACID (01/15/18) ASSAY OF MAGNESIUM (01/15/18) ASSAY OF PHOSPHORUS (01/15/18) ASSAY OF PSA TOTAL (10/12/16) ASSAY OF TROPONIN QUANT (08/23/17) ASSAY THYROID STIM HORMONE (05/02/17) BLOOD CULTURE FOR BACTERIA (04/02/15) BONE IMAGING WHOLE BODY (12/31/17) CHEST X-RAY 1 VIEW FRONTAL (04/16/15) CLOSTRIDIUM AG IA (01/15/18) COMPLETE CBC AUTOMATED (01/15/18) COMPLETE CBC W/AUTO DIFF WBC (01/20/18) COMPREHEN METABOLIC PANEL (01/20/18) CONTRST X-RAY UPPR GI TRACT (05/14/17) CT ABD & PELVIS W/O CONTRAST (01/15/18) CT HEAD/BRAIN W/O DYE (09/26/17) CT LUMBAR SPINE W/O DYE (11/04/17) CT SOFT TISSUE NECK W/DYE (10/01/18) CT SOFT TISSUE NECK W/O DYE (09/26/17) CT THORAX W/DYE (10/01/18) ELECTROCARDIOGRAM TRACING (01/15/18) EMERGENCY DEPT VISIT (01/20/18) EMERGENCY DEPT VISIT (11/04/17) EMERGENCY DEPT VISIT (08/11/16) EMERGENCY DEPT VISIT (04/16/15) EMERGENCY DEPT VISIT (04/08/15) EMERGENCY DEPT VISIT (04/02/15) EXTREMITY STUDY (01/23/18) HYDRATE IV INFUSION ADD-ON (11/04/17) LACTOFERRIN FECAL (QUAL) (01/15/18) LIPID PANEL (05/02/17) METABOLIC PANEL TOTAL CA (01/15/18) OCCULT BLD FECES 1-3 TESTS (04/02/15) OFFICE/OUTPATIENT VISIT EST (02/19/18) OFFICE/OUTPATIENT VISIT EST (05/02/17) OFFICE/OUTPATIENT VISIT EST (04/19/15) OFFICE/OUTPATIENT VISIT EST (03/03/15) OFFICE/OUTPATIENT VISIT EST (10/16/13) OFFICE/OUTPATIENT VISIT NEW (06/17/14) PHLEBOTOMY (09/18/14) PPSV23 VACC 2 YRS+ SUBQ/IM (05/10/15) PROTHROMBIN TIME (01/20/18) PT EVAL LOW COMPLEX 20 MIN (01/11/18) ROUTINE VENIPUNCTURE (01/20/18) STOOL CULTR AEROBIC BACT EA (01/15/18) THER/PROPH/DIAG INJ IV PUSH (11/04/17) THER/PROPH/DIAG INJ SC/IM (08/11/16) THERAPEUTIC ACTIVITIES (01/11/18) THERAPEUTIC EXERCISES (01/11/18) TX/PRO/DX INJ NEW DRUG ADDON (11/04/17) TX/PRO/DX INJ SAME DRUG FLEXOGRAPHIC PRESS SET UP OPERATOR (11/04/17) URINALYSIS AUTO W/SCOPE (01/15/18) URINE CULTURE/COLONY COUNT (11/04/17) VITAMIN B-12 (10/16/13) X-RAY EXAM ABDOMEN 1 VIEW (01/11/18) X-RAY EXAM ABDOMEN 3+ VIEWS (01/11/18) X-RAY EXAM CHEST 1 VIEW (01/15/18) X-RAY EXAM L-S SPINE 2/3 VWS (04/24/16) X-RAY EXAM NECK SPINE 2-3 VW (11/12/17) X-RAY EXAM OF ABDOMEN (04/02/15) X-RAY EXAM OF COLLAR BONE (02/19/18) X-RAY EXAM OF HAND (01/20/18) X-RAY EXAM OF SHOULDER (12/31/17) X-RAY EXAM THORAC SPINE 3VWS (08/11/16) (1) Constipation SNOMED Code(s): 50254010 Code(s): K59.00 - CONSTIPATION, UNSPECIFIED Current Visit: Yes (2) Abdominal pain SNOMED Code(s): 31652881 Code(s): R10.9 - UNSPECIFIED ABDOMINAL PAIN Priority: High Current Visit : Yes Qualifiers: Abdominal location: upper abdomen, unspecified Qualified Code(s): R10.10 - Upper abdominal pain, unspecified Problem List Initiated/Reviewed/Updated: Yes Plan: A CT scan of the abdomen was performed that showed contrast going to the level of the terminal ileum. He appears to have a large amount of stool throughout his colon. There was no evidence of a transition point and no signs of a small bowel obstruction. He does have a questionable right lower lobe pneumonia as well as bilateral kidney stones. There is no surgical indication at this time. I would schedule MiraLAX and enemas to try to promote a bowel movement. If this is not working, other medications can be used to try and promote a bowel movement. The remainder of cares will be per his primary team. If there are any questions or concerns please call otherwise will sign off at this time.
[2019-03-03] MEDS: Polyethylene Glycol 3350 Powder 17 GM Packet PO SCH (20:17)
[2019-03-04] MEDS: Sodium Chloride 0.9% 1,000 ML IV SCH ×3 (01:56→18:54)
[2019-03-04] MEDS: Ondansetron 4 MG/2 ML SDV IVPUSH SCH ×6 (03:49→23:34)
[2019-03-04] MEDS: Morphine 2 MG/ML Syringe IVPUSH PRN (03:51)
[2019-03-04 06:33] LABS: CARBON DIOXIDE,CO2 25.1 mmol/L (21.0-32.0)
[2019-03-04] MEDS: Levothyroxine 50 MCG Tab PO SCH (07:37)
--- NOTE | 2019-03-04 08:02 | PCM.PN ---
- General Info Date of Service: 03/04/19 Admission Dx/Problem (Free Text): Admission Diagnosis/Problem Admission Diagnosis/Problem Abdominal pain Subjective Update: The patient is an 83-year-old gentleman who had been admitted yesterday secondary to a complaint of decreased appetite and increasing upper abdominal pain with shortness of breath. The patient's family had reported that he had had difficulty with constipation. The patient also has a history of multiple abdominal surgeries. CT scan obtained yesterday was consistent with constipation. An MRI was ordered and the patient did not have a bowel movement. He is still complaining of pain in the right upper quadrant and he has denied any bowel movement. 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 Functional Status: Reports: Pain Controlled - Review of Systems General: Reports: Weakness, Fatigue HEENT: Reports: No Symptoms Pulmonary: Reports: No Symptoms Cardiovascular: Reports: No Symptoms Gastrointestinal: Reports: Abdominal Pain, Constipation Genitourinary: Reports: No Symptoms Musculoskeletal: Reports: No Symptoms Skin: Reports: No Symptoms Neurological: Reports: No Symptoms Psychiatric: Reports: No Symptoms - Patient Data Vitals - Most Recent: Last Vital Signs Temp 37.3 C 03/04/19 07:53 Pulse 91 03/04/19 07:53 Resp 19 03/04/19 07:53 BP 117/56 L 03/04/19 07:53 Pulse Ox 89 L 03/04/19 07:53 Weight - Most Recent: 62.777 kg I&O - Last 24 Hours: Intake & Output 03/03/19 03/04/19 03/04/19 22:59 06:59 14:59 Intake Total 1963 100 Output Total 275 400 Balance 1688 -300 Lab Results Last 24 Hours: Laboratory Results - last 24 hr 03/03/19 03/04/19 03/04/19 Range/Units 12:27 05:55 05:55 WBC 10.72 (4.0-11.0) K/uL RBC 4.27 L (4.50-5.90) M/uL Hgb 13.3 (13.0-17.0) g/dL Hct 40.5 (38.0-50.0) % MCV 94.8 (80.0-98.0) fL MCH 31.1 (27.0-32.0) pg MCHC 32.8 (31.0-37.0) g/dL RDW Std Deviation 45.4 (28.0-62.0) fl RDW Coeff of Dalia 13 (11.0-15.0) % Plt Count 242 (150-400) K/uL MPV 9.90 (7.40-12.00) fL Neut % (Auto) 84.8 H (48.0-80.0) % Lymph % (Auto) 7.0 L (16.0-40.0) % [place] % (Auto) 7.8 (0.0-15.0) % Eos % (Auto) 0.2 (0.0-7.0) % Baso % (Auto) 0.2 (0.0-1.5) % Neut # (Auto) 9.1 H (1.4-5.7) K/uL Lymph # (Auto) 0.8 (0.6-2.4) K/uL [place] # (Auto) 0.8 (0.0-0.8) K/uL Eos # (Auto) 0.0 (0.0-0.7) K/uL Baso # (Auto) 0.0 (0.0-0.1) K/uL Nucleated RBC % 0.0 /100WBC Nucleated RBCs # 0 K/uL Lactate 0.8 (0.20-2.00) mmol/L Sodium 137 (136-148) mmol/L Potassium 5.0 (3.5-5.1) mmol/L Chloride 102 (98-107) mmol/L Carbon Dioxide 25.1 (21.0-32.0) mmol/L BUN 20 H (7.0-18.0) mg/dL Creatinine 1.2 (0.8-1.3) mg/dL Est Cr Clr Drug Dosing 40.69 mL/min Estimated GFR (MDRD) 57.7 ml/min Glucose 51 L (74-106) mg/dL Calcium 8.0 L (8.5-10.1) mg/dL Total Bilirubin 0.9 (0.2-1.0) mg/dL AST 19 (15-37) IU/L ALT 13 L (14-63) IU/L Alkaline Phosphatase 153 H (46-116) U/L Total Protein 6.1 L (6.4-8.2) g/dL Albumin 2.5 L (3.4-5.0) g/dL Globulin 3.6 (2.6-4.0) g/dL Albumin/Globulin Ratio 0.7 L (0.9-1.6) Med Orders - Current: Current Medications Acetaminophen (Tylenol) 650 mg PO Q6H PRN PRN Reason: Pain Last Admin: 03/02/19 22:44 Dose: 650 mg Atorvastatin Calcium (Lipitor) 20 mg PO DAILY [facility] Last Admin: 03/03/19 09:00 Dose: 20 mg Heparin Sodium (Porcine) (Heparin Sodium) 5,000 units SUBCUT Q8H [facility] Last Admin: 03/03/19 23:15 Dose: 5,000 units Sodium Chloride (Normal Saline) 1,000 mls @ 125 mls/hr IV ASDIRECTED [facility] Last Admin: 03/04/19 01:56 Dose: 125 mls/hr Levothyroxine Sodium (Synthroid) 50 mcg PO ACBREAKFAST [facility] Last Admin: 03/04/19 07:37 Dose: 50 mcg Ondansetron HCl (Zofran) 4 mg IVPUSH Q4H [facility] Last Admin: 03/04/19 03:49 Dose: 4 mg Oxycodone HCl (Oxycodone) 5 mg PO Q4H PRN PRN Reason: Pain (severe 7-10) Last Admin: 03/03/19 05:40 Dose: 5 mg Polyethylene Glycol (Miralax) 17 gm PO BID [facility] Last Admin: 03/03/19 20:17 Dose: 17 gm Sodium Chloride (Saline Flush) 10 ml FLUSH ASDIRECTED PRN PRN Reason: Keep Vein Open Sodium Chloride (Saline Flush) 2.5 ml FLUSH ASDIRECTED PRN PRN Reason: Keep Vein Open Tolterodine Tartrate (Detrol) 2 mg PO DAILY [facility] Last Admin: 03/03/19 09:00 Dose: 2 mg Discontinued Medications Diphenhydramine HCl (Benadryl) 25 mg IVPUSH ONETIME ONE Stop: 03/02/19 18:53 Last Admin: 03/02/19 18:58 Dose: 25 mg Sodium Chloride (Normal Saline) 1,000 mls @ 999 mls/hr IV .Bolus ONE Stop: 03/02/19 19:14 Last Admin: 03/02/19 18:26 Dose: 999 mls/hr Sodium Chloride (Normal Saline) 1,000 mls @ 125 mls/hr IV ASDIRECTED [facility] Last Admin: 03/02/19 21:05 Dose: 75 mls/hr Morphine Sulfate (Morphine) 2 mg IVPUSH ONETIME ONE Stop: 03/02/19 18:36 Last Admin: 03/02/19 18:39 Dose: 2 mg Morphine Sulfate (Morphine) 2 mg IVPUSH Q2H PRN PRN Reason: Pain (severe 7-10) Stop: 03/04/19 08:00 Last Admin: 03/04/19 03:51 Dose: 2 mg Ondansetron HCl (Zofran) 4 mg IVPUSH ONETIME ONE Stop: 03/02/19 18:36 Last Admin: 03/02/19 18:39 Dose: 4 mg - Exam Quality Assessment: Supplemental Oxygen General: Alert, Oriented, Cooperative, No Acute Distress HEENT: Pupils Equal, Pupils Reactive, EOMI. No: Mucous Membr. Moist/[place] (Dry) Neck: Supple, Trachea Midline Lungs: Normal Respiratory Effort, Crackles Cardiovascular: Regular Rate, Regular Rhythm GI/Abdominal Exam: Normal Bowel Sounds, Soft, Distended Back Exam: Normal Inspection (Age appropriate) Extremities: Normal Inspection (Age appropriate), No Pedal Edema Skin: Warm, Dry, Intact Neurological: No New Focal Deficit Psy/Mental Status: Alert, Normal Affect, Normal Mood - Problem List & Annotations (1) Small bowel obstruction SNOMED Code(s): 126802941 Code(s): K56.609 - UNSP INTESTNL OBST, UNSP TO PARTIAL VERSUS COMPLETE OBST Status: Acute Priority: High Current Visit: Yes (2) Abdominal pain SNOMED Code(s): 00688528 Code(s): R10.9 - UNSPECIFIED ABDOMINAL PAIN Status: Acute Priority: High Current Visit: Yes Qualifiers: Abdominal location: upper abdomen, unspecified Qualified Code(s): R10.10 - Upper abdominal pain, unspecified (3) Dehydration SNOMED Code(s): 03005431 Code(s): E86.0 - DEHYDRATION Status: Acute Priority: High Current Visit : Yes (4) Colon distention SNOMED Code(s): 161847745 Code(s): K63.89 - OTHER SPECIFIED DISEASES OF INTESTINE Status: Acute Priority: High Current Visit: Yes - Problem List Review Problem List Initiated/Reviewed/Updated: Yes - My Orders Last 24 Hours: My Active Orders 03/03/19 07:30 Levothyroxine [Synthroid] 50 mcg PO ACBREAKFAST 03/03/19 07:43 Admission Status [Patient Status] [ADT] Routine 03/03/19 07:59 Cardiac Monitoring [RC] Q8H Oxygen Therapy [RC] PRN Up With Assistance [RC] ASDIRECTED VTE/DVT Education [RC] PER UNIT ROUTINE Vital Signs [RC] Q4H OT Evaluation and Treatment [CONS] Routine PT Evaluation and Treatment [CONS] Routine Nasogastric Orogastric Tube Insertion [OM.PC] Routine Resuscitation Status Routine 03/03/19 08:00 Heparin Sodium 5,000 units SUBCUT Q8H Ondansetron [Zofran] 4 mg IVPUSH Q4H 03/03/19 08:25 Consult to Physician [CONS] Routine 03/03/19 08:26 Notify Provider Consults [RC] ASDIRECTED 03/03/19 09:00 Tolterodine [Detrol] 2 mg PO DAILY atorvaSTATin [Lipitor] 20 mg PO DAILY 03/03/19 09:15 Sodium Chloride 0.9% [Normal Saline] 1,000 ml IV ASDIRECTED 03/03/19 09:35 Telemetry Monitoring [Cardiac Monitoring] [RC] . DIRECTED 03/03/19 19:53 Communication Order [RC] STAT 03/03/19 21:00 Polyethylene Glycol 3350 [MiraLAX] 17 gm PO BID 03/03/19 Dinner Clear Liquid Diet [DIET] - Plan Plan:: The patient is an 83-year-old gentleman who was admitted primarily out of concern for weakness fatigue and poor appetite. The patient did have a CT scan as well as a consultation from surgeon, Dr. Hooker, who had felt that the patient's problems were secondary to constipation. NG tube had been unsuccessful for placement. The patient also had 1 fleets enema last night without results. This is been reordered. Patient also had his diet advanced to clear liquids. We'll continue with pain control with the use of IV narcotics for now. He also has DVT prophylaxis with the use of Lovenox. Repeat laboratory studies been ordered. Patient is encouraged to ambulate. Once patient has cleared his constipation and has been tolerating diet he'll be considered appropriate for discharge from acute hospitalization. Continue to treat conservatively.
[2019-03-04] MEDS: atorvaSTATin 20 MG Tab PO SCH (08:24)
[2019-03-04] MEDS: Heparin Sodium 5,000 Units/ML Vial SUBCUT SCH ×3 (08:31→23:34)
[2019-03-04] MEDS: Polyethylene Glycol 3350 Powder 17 GM Packet PO SCH ×2 (08:38→20:15)
[2019-03-04] MEDS: oxyCODONE 5 MG Tab PO PRN (20:15)
[2019-03-05] MEDS: Sodium Chloride 0.9% 1,000 ML IV SCH (02:47)
[2019-03-05] MEDS: Acetaminophen 325 MG Tab PO PRN ×2 (02:48→20:00)
[2019-03-05] MEDS: Ondansetron 4 MG/2 ML SDV IVPUSH SCH ×6 (03:49→23:38)
[2019-03-05 06:30] LABS: BLOOD UREA NITROGEN,BUN 15 mg/dL (7.0-18.0); CARBON DIOXIDE,CO2 24.8 mmol/L (21.0-32.0); CHLORIDE,CL 104 mmol/L (98-107); GLUCOSE RANDOM 86 mg/dL (74-106); POTASSIUM,K 4.4 mmol/L (3.5-5.1); SODIUM,NA 137 mmol/L (136-148)
[2019-03-05] MEDS: Levothyroxine 50 MCG Tab PO SCH (07:04)
[2019-03-05] MEDS: Heparin Sodium 5,000 Units/ML Vial SUBCUT SCH ×3 (08:47→23:38)
[2019-03-05] MEDS: atorvaSTATin 20 MG Tab PO SCH (08:51)
[2019-03-05] MEDS: Polyethylene Glycol 3350 Powder 17 GM Packet PO SCH ×2 (08:51→20:03)
--- NOTE | 2019-03-05 10:37 | PCM.PN ---
- General Info Date of Service: 03/05/19 Admission Dx/Problem (Free Text): Admission Diagnosis/Problem Admission Diagnosis/Problem Abdominal pain Subjective Update: Sitting up in chair today, reports some back pain. Abdominal pain is improved, passing stools, none this morning. No chest pain. reports shortness of breath and cough. No fevers. Overall still not feeling well. Functional Status: Reports: Tolerating Diet, Ambulating, Urinating - Review of Systems General: Reports: Weakness, Malaise HEENT: Reports: No Symptoms. Denies: Headaches, Rhinitis, Visual Changes Pulmonary: Reports: Shortness of Breath, Cough. Denies: Sputum, Wheezing Cardiovascular: Reports: Dyspnea on Exertion. Denies: Chest Pain, Edema Gastrointestinal: Reports: No Symptoms, Flatus. Denies: Abdominal Pain, Constipation Genitourinary: Reports: No Symptoms. Denies: Dysuria, Frequency, Burning Musculoskeletal: Reports: Back Pain Skin: Reports: No Symptoms Neurological: Reports: No Symptoms Psychiatric: Reports: No Symptoms - Patient Data Vitals - Most Recent: Last Vital Signs Temp 98.2 F 03/05/19 07:00 Pulse 73 03/05/19 07:00 Resp 18 03/05/19 07:00 BP 110/60 03/05/19 07:00 Pulse Ox 93 L 03/05/19 07:00 Weight - Most Recent: 62.777 kg I&O - Last 24 Hours: Intake & Output 03/04/19 03/05/19 03/05/19 22:59 06:59 14:59 Intake Total 1700 1718 Output Total 170 300 Balance 1530 1418 Lab Results Last 24 Hours: Laboratory Results - last 24 hr 03/05/19 03/05/19 Range/Units 05:55 05:55 WBC 10.08 (4.0-11.0) K/uL RBC 4.02 L (4.50-5.90) M/uL Hgb 12.3 L (13.0-17.0) g/dL Hct 37.6 L (38.0-50.0) % MCV 93.5 (80.0-98.0) fL MCH 30.6 (27.0-32.0) pg MCHC 32.7 (31.0-37.0) g/dL RDW Std Deviation 45.3 (28.0-62.0) fl RDW Coeff of Dalia 13 (11.0-15.0) % Plt Count 212 (150-400) K/uL MPV 9.80 (7.40-12.00) fL Neut % (Auto) 87.1 H (48.0-80.0) % Lymph % (Auto) 7.1 L (16.0-40.0) % [place] % (Auto) 5.7 (0.0-15.0) % Eos % (Auto) 0.0 (0.0-7.0) % Baso % (Auto) 0.1 (0.0-1.5) % Neut # (Auto) 8.8 H (1.4-5.7) K/uL Lymph # (Auto) 0.7 (0.6-2.4) K/uL [place] # (Auto) 0.6 (0.0-0.8) K/uL Eos # (Auto) 0.0 (0.0-0.7) K/uL Baso # (Auto) 0.0 (0.0-0.1) K/uL Nucleated RBC % 0.0 /100WBC Nucleated RBCs # 0 K/uL Sodium 137 (136-148) mmol/L Potassium 4.4 (3.5-5.1) mmol/L Chloride 104 (98-107) mmol/L Carbon Dioxide 24.8 (21.0-32.0) mmol/L BUN 15 (7.0-18.0) mg/dL Creatinine 1.1 (0.8-1.3) mg/dL Est Cr Clr Drug Dosing 44.39 mL/min Estimated GFR (MDRD) > 60.0 ml/min Glucose 86 (74-106) mg/dL Calcium 8.1 L (8.5-10.1) mg/dL Total Bilirubin 0.8 (0.2-1.0) mg/dL AST 22 (15-37) IU/L ALT 12 L (14-63) IU/L Alkaline Phosphatase 135 H (46-116) U/L Total Protein 5.7 L (6.4-8.2) g/dL Albumin 2.1 L (3.4-5.0) g/dL Globulin 3.6 (2.6-4.0) g/dL Albumin/Globulin Ratio 0.6 L (0.9-1.6) Med Orders - Current: Current Medications Acetaminophen (Tylenol) 650 mg PO Q6H PRN PRN Reason: Pain Last Admin: 03/05/19 02:48 Dose: 650 mg Atorvastatin Calcium (Lipitor) 20 mg PO DAILY [facility] Last Admin: 03/05/19 08:51 Dose: 20 mg Heparin Sodium (Porcine) (Heparin Sodium) 5,000 units SUBCUT Q8H [facility] Last Admin: 03/05/19 08:47 Dose: 5,000 units Levothyroxine Sodium (Synthroid) 50 mcg PO ACBREAKFAST [facility] Last Admin: 03/05/19 07:04 Dose: 50 mcg Ondansetron HCl (Zofran) 4 mg IVPUSH Q4H [facility] Last Admin: 03/05/19 08:50 Dose: 4 mg Oxycodone HCl (Oxycodone) 5 mg PO Q4H PRN PRN Reason: Pain (severe 7-10) Last Admin: 03/04/19 20:15 Dose: 5 mg Polyethylene Glycol (Miralax) 17 gm PO BID [facility] Last Admin: 03/05/19 08:51 Dose: 17 gm Sodium Chloride (Saline Flush) 10 ml FLUSH ASDIRECTED PRN PRN Reason: Keep Vein Open Sodium Chloride (Saline Flush) 2.5 ml FLUSH ASDIRECTED PRN PRN Reason: Keep Vein Open Tolterodine Tartrate (Detrol) 2 mg PO DAILY [facility] Last Admin: 03/05/19 08:51 Dose: 2 mg Discontinued Medications Diphenhydramine HCl (Benadryl) 25 mg IVPUSH ONETIME ONE Stop: 03/02/19 18:53 Last Admin: 03/02/19 18:58 Dose: 25 mg Sodium Chloride (Normal Saline) 1,000 mls @ 999 mls/hr IV .Bolus ONE Stop: 03/02/19 19:14 Last Admin: 03/02/19 18:26 Dose: 999 mls/hr Sodium Chloride (Normal Saline) 1,000 mls @ 125 mls/hr IV ASDIRECTED [facility] Last Admin: 03/02/19 21:05 Dose: 75 mls/hr Sodium Chloride (Normal Saline) 1,000 mls @ 125 mls/hr IV ASDIRECTED [facility] Last Admin: 03/05/19 02:47 Dose: 125 mls/hr Morphine Sulfate (Morphine) 2 mg IVPUSH ONETIME ONE Stop: 03/02/19 18:36 Last Admin: 03/02/19 18:39 Dose: 2 mg Morphine Sulfate (Morphine) 2 mg IVPUSH Q2H PRN PRN Reason: Pain (severe 7-10) Stop: 03/04/19 08:00 Last Admin: 03/04/19 03:51 Dose: 2 mg Ondansetron HCl (Zofran) 4 mg IVPUSH ONETIME ONE Stop: 03/02/19 18:36 Last Admin: 03/02/19 18:39 Dose: 4 mg - Exam General: Alert, Oriented, Cooperative, No Acute Distress Lungs: Decreased Breath Sounds, Crackles. No: Normal Respiratory Effort ( dyspnea with speech noted), Wheezing Cardiovascular: Regular Rate, Regular Rhythm GI/Abdominal Exam: Normal Bowel Sounds, Soft, Non-Tender Extremities: Normal Inspection, Normal Range of Motion, Non-Tender, Pedal Edema (+1 pitting edema BLE) Wound/Incisions: Healing Well Neurological: No New Focal Deficit Psy/Mental Status: Alert, Normal Affect, Normal Mood - Problem List & Annotations (1) Abdominal pain SNOMED Code(s): 25122757 Code(s): R10.9 - UNSPECIFIED ABDOMINAL PAIN Status: Acute Priority: High Current Visit: Yes Qualifiers: Abdominal location: upper abdomen, unspecified Qualified Code(s): R10.10 - Upper abdominal pain, unspecified (2) Constipation SNOMED Code(s): 49445747 Code(s): K59.00 - CONSTIPATION, UNSPECIFIED Status: Acute Current Visit: Yes (3) Hypoxia SNOMED Code(s): 199648282 Code(s): R09.02 - HYPOXEMIA Status: Acute Current Visit: Yes (4) CAD (coronary artery disease) SNOMED Code(s): 06788898 Code(s): I25.10 - ATHSCL HEART DISEASE OF [place] CORONARY ARTERY W/O ANG PCTRS Status: Chronic Current Visit: Yes (5) PVD (peripheral vascular disease) SNOMED Code(s): 390563598 Code(s): I73.9 - PERIPHERAL VASCULAR DISEASE, UNSPECIFIED Status: Chronic Current Visit: Yes (6) Hyperlipidemia SNOMED Code(s): 22423183 Code(s): E78.5 - HYPERLIPIDEMIA, UNSPECIFIED Status: Chronic Current Visit: Yes (7) Hypothyroidism SNOMED Code(s): 24864944 Code(s): E03.9 - HYPOTHYROIDISM, UNSPECIFIED Status: Chronic Current Visit: Yes (8) Hx of deep venous thrombosis SNOMED Code(s): 759764413 Code(s): Z86.718 - PERSONAL HISTORY OF OTHER VENOUS THROMBOSIS AND EMBOLISM Status: Chronic Current Visit: Yes - Problem List Review Problem List Initiated/Reviewed/Updated: Yes - My Orders Last 24 Hours: My Active Orders 03/05/19 08:28 Abdomen 2V AP Flat Upright [CR] Urgent Chest 2V [CR] Urgent - Plan Plan:: This 83 year old male admitted with abdominal pain found to have constipation. 1. Abdominal pain: Constipation noted, started Miralax and Enemas. Having some loose stools now. Repeat xray this morning reveals bowel gas in small bowel, no obstruction. Eating and drinking well. Will stop IVFs. 2. Hypoxia: Requiring oxygen and noted to be slightly dyspneic as well. Mild pitting edema to lower legs. chest xray reveals possible infiltrate. Has been needing oxygen since admission, likely infiltrate was not prominent on admission due to dehydration. Now that he is hydrated infiltrate is noted. Stop IVFs. Start Levaquin 750 mg IV Q48hrs. Monitor. 3. Generalized weakness/back pain: Continue PT, encourage ambulation. Tylenol for pain. 4. CAD/PAD: Stable, no chest pain. Continue Statin. 5. Hypothyroidism: Stable, continue Levothyroxine. VTE prophylaxis: Heparin. Dispo: 2-3 days
--- NOTE | 2019-03-05 10:55 | CR ---
Abdomen: Supine and upright views of the abdomen were obtained. Prominent amount of gas within nondilated small bowel is noted with multiple air -fluid levels. Previous sternotomy is noted. Multiple surgical clips are seen within the pelvis. Scoliosis and degenerative change is noted within the spine. Joint space narrowing is seen within the superior hips. Vascular calcification is noted. No free air is seen. Impression: 1. Gas-filled loops of small bowel with air-fluid levels with no significant bowel dilatation. Findings suggest the possibility of gastroenteritis. 2. Other findings believed to be incidental as noted above. Diagnostic code #2 MTDD
--- NOTE | 2019-03-05 10:55 | CR ---
Chest: Two views of the chest were obtained. Comparison: No previous chest x-ray is available. Heart is slightly enlarged. Mild increased density within the right upper lung is seen as well as within both lower lungs. Blunting of the right lateral costophrenic angle is seen. Bony structures are osteopenic. Previous sternotomy is noted. Impression: 1. Mild areas of increased density within right upper and right lower lung. Difficult to exclude pneumonia if patient has infectious symptoms. 2. Increased density within the left base having the appearance of scarring or atelectasis. 3. Pleural thickening within the right lateral costophrenic angle. 4. Slight cardiomegaly. Diagnostic code #3 MTDD
[2019-03-05] MEDS: Levofloxacin/Dextrose 5%-Water 750 MG in Premix Bag 1 BAG IV SCH (11:24)
[2019-03-06] MEDS: oxyCODONE 5 MG Tab PO PRN (02:16)
[2019-03-06] MEDS: Ondansetron 4 MG/2 ML SDV IVPUSH SCH ×5 (03:49→20:57)
[2019-03-06 05:52] LABS: BLOOD UREA NITROGEN,BUN 12 mg/dL (7.0-18.0); CARBON DIOXIDE,CO2 27.2 mmol/L (21.0-32.0); CHLORIDE,CL 103 mmol/L (98-107); GLUCOSE RANDOM 88 mg/dL (74-106); POTASSIUM,K 4.4 mmol/L (3.5-5.1); SODIUM,NA 137 mmol/L (136-148)
[2019-03-06] MEDS: Levothyroxine 50 MCG Tab PO SCH (07:09)
[2019-03-06] MEDS ORDERED: Magnesium Sulfate/Water 4 GM in Premix Bag 1 BAG IV ONE (07:58)
--- NOTE | 2019-03-06 07:59 | PCM.PN ---
- General Info Date of Service: 03/06/19 Admission Dx/Problem (Free Text): Admission Diagnosis/Problem Admission Diagnosis/Problem Abdominal pain Subjective Update: Pain is improved. Doing well. No chest pain , dyspnea improving. Eager to go home when he can. No concerns today. Functional Status: Reports: Pain Controlled, Tolerating Diet, Ambulating, Urinating - Review of Systems General: Reports: No Symptoms. Denies: Weakness, Malaise Pulmonary: Reports: Shortness of Breath, Cough. Denies: Sputum, Wheezing Cardiovascular: Reports: No Symptoms. Denies: Chest Pain Gastrointestinal: Reports: Diarrhea. Denies: Abdominal Pain, Nausea, Vomiting Skin: Reports: No Symptoms Neurological: Reports: No Symptoms Psychiatric: Reports: No Symptoms - Patient Data Vitals - Most Recent: Last Vital Signs Temp 97.9 F 03/06/19 07:45 Pulse 76 03/06/19 07:45 Resp 20 03/06/19 07:45 BP 137/69 03/06/19 07:45 Pulse Ox 94 L 03/06/19 07:45 Weight - Most Recent: 62.777 kg I&O - Last 24 Hours: Intake & Output 03/05/19 03/06/19 03/06/19 22:59 06:59 14:59 Intake Total 1406 240 Balance 1406 240 Lab Results Last 24 Hours: Laboratory Results - last 24 hr 03/06/19 03/06/19 Range/Units 05:30 05:30 WBC 5.49 (4.0-11.0) K/uL RBC 4.15 L (4.50-5.90) M/uL Hgb 12.8 L (13.0-17.0) g/dL Hct 38.5 (38.0-50.0) % MCV 92.8 (80.0-98.0) fL MCH 30.8 (27.0-32.0) pg MCHC 33.2 (31.0-37.0) g/dL RDW Std Deviation 44.3 (28.0-62.0) fl RDW Coeff of Dalia 13 (11.0-15.0) % Plt Count 222 (150-400) K/uL MPV 9.60 (7.40-12.00) fL Neut % (Auto) 74.8 (48.0-80.0) % Lymph % (Auto) 16.6 (16.0-40.0) % [place] % (Auto) 7.7 (0.0-15.0) % Eos % (Auto) 0.7 (0.0-7.0) % Baso % (Auto) 0.2 (0.0-1.5) % Neut # (Auto) 4.1 (1.4-5.7) K/uL Lymph # (Auto) 0.9 (0.6-2.4) K/uL [place] # (Auto) 0.4 (0.0-0.8) K/uL Eos # (Auto) 0.0 (0.0-0.7) K/uL Baso # (Auto) 0.0 (0.0-0.1) K/uL Nucleated RBC % 0.0 /100WBC Nucleated RBCs # 0 K/uL Sodium 137 (136-148) mmol/L Potassium 4.4 (3.5-5.1) mmol/L Chloride 103 (98-107) mmol/L Carbon Dioxide 27.2 (21.0-32.0) mmol/L BUN 12 (7.0-18.0) mg/dL Creatinine 1.0 (0.8-1.3) mg/dL Est Cr Clr Drug Dosing 48.83 mL/min Estimated GFR (MDRD) > 60.0 ml/min Glucose 88 (74-106) mg/dL Calcium 8.4 L (8.5-10.1) mg/dL Magnesium 1.5 L (1.8-2.4) mg/dL Vick Results Last 24 Hours: Microbiology 03/02/19 22:29 Urine Culture - Final Urine, Pedibag MIXED EAMON >100,000 CFU/ML Med Orders - Current: Current Medications Acetaminophen (Tylenol) 650 mg PO Q6H PRN PRN Reason: Pain Last Admin: 03/05/19 20:00 Dose: 650 mg Atorvastatin Calcium (Lipitor) 20 mg PO DAILY [facility] [place] Last Admin: 03/05/19 08:51 Dose: 20 mg Heparin Sodium (Porcine) (Heparin Sodium) 5,000 units SUBCUT Q8H [facility] Last Admin: 03/05/19 23:38 Dose: 5,000 units Levofloxacin/Dextrose 750 mg/ (Premix) 150 mls @ 100 mls/hr IV Q48H [facility] [place] Last Admin: 03/05/19 11:24 Dose: 100 mls/hr Magnesium Sulfate 4 gm/ Premix 100 mls @ 50 mls/hr IV ONETIME ONE Stop: 03/06/19 09:57 Levothyroxine Sodium (Synthroid) 50 mcg PO ACBREAKFAST [facility] Last Admin: 03/06/19 07:09 Dose: 50 mcg Ondansetron HCl (Zofran) 4 mg IVPUSH Q4H [facility] Last Admin: 03/06/19 03:49 Dose: 4 mg Oxycodone HCl (Oxycodone) 5 mg PO Q4H PRN PRN Reason: Pain (severe 7-10) Last Admin: 03/06/19 02:16 Dose: 5 mg Polyethylene Glycol (Miralax) 17 gm PO BID [facility] [place] Last Admin: 03/05/19 20:03 Dose: 17 gm Sodium Chloride (Saline Flush) 10 ml FLUSH ASDIRECTED PRN PRN Reason: Keep Vein Open Sodium Chloride (Saline Flush) 2.5 ml FLUSH ASDIRECTED PRN PRN Reason: Keep Vein Open Tolterodine Tartrate (Detrol) 2 mg PO DAILY [facility] [place] Last Admin: 03/05/19 08:51 Dose: 2 mg Discontinued Medications Diphenhydramine HCl (Benadryl) 25 mg IVPUSH ONETIME ONE Stop: 03/02/19 18:53 Last Admin: 03/02/19 18:58 Dose: 25 mg Sodium Chloride (Normal Saline) 1,000 mls @ 999 mls/hr IV .Bolus ONE Stop: 03/02/19 19:14 Last Admin: 03/02/19 18:26 Dose: 999 mls/hr Sodium Chloride (Normal Saline) 1,000 mls @ 125 mls/hr IV ASDIRECTED [facility] [place] Last Admin: 03/02/19 21:05 Dose: 75 mls/hr Sodium Chloride (Normal Saline) 1,000 mls @ 125 mls/hr IV ASDIRECTED [facility] [place] Last Admin: 03/05/19 02:47 Dose: 125 mls/hr Morphine Sulfate (Morphine) 2 mg IVPUSH ONETIME ONE Stop: 03/02/19 18:36 Last Admin: 03/02/19 18:39 Dose: 2 mg Morphine Sulfate (Morphine) 2 mg IVPUSH Q2H PRN PRN Reason: Pain (severe 7-10) Stop: 03/04/19 08:00 Last Admin: 03/04/19 03:51 Dose: 2 mg Ondansetron HCl (Zofran) 4 mg IVPUSH ONETIME ONE Stop: 03/02/19 18:36 Last Admin: 03/02/19 18:39 Dose: 4 mg - Exam General: Alert, Oriented, Cooperative, No Acute Distress Lungs: Normal Respiratory Effort, Crackles (mild and improving to R) Cardiovascular: Regular Rate, Regular Rhythm GI/Abdominal Exam: Normal Bowel Sounds, Soft, Non-Tender Extremities: Normal Inspection, Normal Range of Motion, Non-Tender, Pedal Edema (+1 to scant edema to BLE) Neurological: No New Focal Deficit Psy/Mental Status: Alert, Normal Affect, Normal Mood - Problem List & Annotations (1) Abdominal pain SNOMED Code(s): 08394972 Code(s): R10.9 - UNSPECIFIED ABDOMINAL PAIN Status: Acute Priority: High Current Visit: Yes Qualifiers: Abdominal location: upper abdomen, unspecified Qualified Code(s): R10.10 - Upper abdominal pain, unspecified (2) Constipation SNOMED Code(s): 61091061 Code(s): K59.00 - CONSTIPATION, UNSPECIFIED Status: Acute Current Visit: Yes (3) Hypoxia SNOMED Code(s): 796068530 Code(s): R09.02 - HYPOXEMIA Status: Acute Current Visit: Yes (4) CAD (coronary artery disease) SNOMED Code(s): 92284787 Code(s): I25.10 - ATHSCL HEART DISEASE OF [place] CORONARY ARTERY W/O ANG PCTRS Status: Chronic Current Visit: Yes (5) PVD (peripheral vascular disease) SNOMED Code(s): 109496148 Code(s): I73.9 - PERIPHERAL VASCULAR DISEASE, UNSPECIFIED Status: Chronic Current Visit: Yes (6) Hyperlipidemia SNOMED Code(s): 39743408 Code(s): E78.5 - HYPERLIPIDEMIA, UNSPECIFIED Status: Chronic Current Visit: Yes (7) Hypothyroidism SNOMED Code(s): 81254503 Code(s): E03.9 - HYPOTHYROIDISM, UNSPECIFIED Status: Chronic Current Visit: Yes (8) Hx of deep venous thrombosis SNOMED Code(s): 911931889 Code(s): Z86.718 - PERSONAL HISTORY OF OTHER VENOUS THROMBOSIS AND EMBOLISM Status: Chronic Current Visit: Yes - Problem List Review Problem List Initiated/Reviewed/Updated: Yes - My Orders Last 24 Hours: My Active Orders 03/05/19 11:15 Levofloxacin/Dextrose 5%-Water [Levaquin in D5W 750 MG/150 ML] 750 mg Premix Bag 1 bag IV Q48H 03/05/19 14:22 Senior Investment Analyst Discontinue [Cardiac Monitoring Discontinue] [RC] Click to Edit 03/06/19 07:58 Magnesium Sulfate/Water [Magnesium Sulfate in Water Premix] 4 gm Premix Bag 1 bag IV ONETIME 03/07/19 05:11 BASIC METABOLIC PANEL,BMP [CHEM] AM CBC WITH AUTO DIFF [HEME] AM MG [MAGNESIUM] [CHEM] AM - Plan Plan:: This 83 year old male admitted with abdominal pain found to have constipation. 1. Abdominal pain: No further pain. Having some loose stools now. Miralax to PRN , continue COlace BID. Eating and drinking well. 2. CAP: Oxygen requirements decreasing. Continue Levaquin 750 Q48hr. Noted trouble with swallowing today, reports he has had some since vocal cord manipulation [address] consult unavailable now, outpatient followup. 3. Generalized weakness/back pain: Continue PT, encourage ambulation. Tylenol for pain. 4. CAD/PAD: Stable, no chest pain. Continue Statin. 5. Hypothyroidism: Stable, continue Levothyroxine. VTE prophylaxis: Heparin. Dispo: likely DC in am
[2019-03-06] MEDS ORDERED: Polyethylene Glycol 3350 Powder 17 GM Packet PO PRN (08:00)
[2019-03-06] MEDS: Heparin Sodium 5,000 Units/ML Vial SUBCUT SCH ×2 (08:05→15:08)
[2019-03-06] MEDS: atorvaSTATin 20 MG Tab PO SCH (08:07)
[2019-03-06] MEDS: Docusate Sodium 100 MG Cap PO SCH ×2 (08:46→20:57)
[2019-03-06] MEDS: Acetaminophen 325 MG Tab PO PRN (15:07)
[2019-03-07] MEDS: Ondansetron 4 MG/2 ML SDV IVPUSH SCH ×6 (00:13→16:30)
[2019-03-07] MEDS: Heparin Sodium 5,000 Units/ML Vial SUBCUT SCH ×4 (00:13→23:30)
[2019-03-07 06:18] LABS: BLOOD UREA NITROGEN,BUN 8 mg/dL (7.0-18.0); CARBON DIOXIDE,CO2 30.3 mmol/L (21.0-32.0); CHLORIDE,CL 104 mmol/L (98-107); GLUCOSE RANDOM 89 mg/dL (74-106); POTASSIUM,K 3.9 mmol/L (3.5-5.1); SODIUM,NA 139 mmol/L (136-148)
[2019-03-07] MEDS: Levothyroxine 50 MCG Tab PO SCH (06:53)
[2019-03-07] MEDS: Docusate Sodium 100 MG Cap PO SCH ×2 (08:07→20:01)
[2019-03-07] MEDS: atorvaSTATin 20 MG Tab PO SCH (08:07)
--- NOTE | 2019-03-07 11:15 | PCM.PN ---
- General Info Date of Service: 03/07/19 Admission Dx/Problem (Free Text): Admission Diagnosis/Problem Admission Diagnosis/Problem Abdominal pain Subjective Update: Seen and examined , sitting in chair,. No chest pain , dyspnea improving. Eager to go home . No acute overnight events Functional Status: Reports: Pain Controlled - Review of Systems General: Reports: Weakness, Malaise. Denies: Fever, Fatigue HEENT: Denies: No Symptoms, Dysphasia Pulmonary: Reports: Shortness of Breath, Cough. Denies: Pleuritic Chest Pain, Sputum, Hemoptysis Cardiovascular: Denies: Chest Pain, Palpitations Gastrointestinal: Denies: Abdominal Pain, Constipation, Decreased Appetite, Nausea, Vomiting Genitourinary: Denies: Dysuria Musculoskeletal: Reports: Neck Pain. Denies: Shoulder Pain, Arm Pain Neurological: Denies: Confusion, Dizziness, Headache Psychiatric: Denies: Confusion, Depression, Suicidal Ideation, Homicidal Ideation - Patient Data Vitals - Most Recent: Last Vital Signs Temp 36.7 C 03/07/19 08:01 Pulse 68 03/07/19 08:01 Resp 20 03/07/19 08:01 BP 155/69 H 03/07/19 08:01 Pulse Ox 91 L 03/07/19 08:01 Weight - Most Recent: 138 lb 6.4 oz I&O - Last 24 Hours: Intake & Output 03/06/19 03/07/19 03/07/19 22:59 06:59 14:59 Intake Total 740 650 Output Total 150 Balance 740 500 Lab Results Last 24 Hours: Laboratory Results - last 24 hr 03/07/19 03/07/19 Range/Units 05:50 05:50 WBC 3.65 L (4.0-11.0) K/uL RBC 3.99 L (4.50-5.90) M/uL Hgb 12.3 L (13.0-17.0) g/dL Hct 36.7 L (38.0-50.0) % MCV 92.0 (80.0-98.0) fL MCH 30.8 (27.0-32.0) pg MCHC 33.5 (31.0-37.0) g/dL RDW Std Deviation 44.2 (28.0-62.0) fl RDW Coeff of Dalia 13 (11.0-15.0) % Plt Count 213 (150-400) K/uL MPV 9.70 (7.40-12.00) fL Neut % (Auto) 70.4 (48.0-80.0) % Lymph % (Auto) 17.0 (16.0-40.0) % [place] % (Auto) 10.1 (0.0-15.0) % Eos % (Auto) 2.5 (0.0-7.0) % Baso % (Auto) 0.0 (0.0-1.5) % Neut # (Auto) 2.6 (1.4-5.7) K/uL Lymph # (Auto) 0.6 (0.6-2.4) K/uL [place] # (Auto) 0.4 (0.0-0.8) K/uL Eos # (Auto) 0.1 (0.0-0.7) K/uL Baso # (Auto) 0.0 (0.0-0.1) K/uL Nucleated RBC % 0.0 /100WBC Nucleated RBCs # 0 K/uL Sodium 139 (136-148) mmol/L Potassium 3.9 (3.5-5.1) mmol/L Chloride 104 (98-107) mmol/L Carbon Dioxide 30.3 (21.0-32.0) mmol/L BUN 8 (7.0-18.0) mg/dL Creatinine 1.0 (0.8-1.3) mg/dL Est Cr Clr Drug Dosing 48.83 mL/min Estimated GFR (MDRD) > 60.0 ml/min Glucose 89 (74-106) mg/dL Calcium 8.1 L (8.5-10.1) mg/dL Magnesium 1.8 (1.8-2.4) mg/dL Med Orders - Current: Current Medications Acetaminophen (Tylenol) 650 mg PO Q6H PRN PRN Reason: Pain Last Admin: 03/06/19 15:07 Dose: 650 mg Atorvastatin Calcium (Lipitor) 20 mg PO DAILY [facility] Last Admin: 03/07/19 08:07 Dose: 20 mg Docusate Sodium (Colace) 100 mg PO BID [facility] Last Admin: 03/07/19 08:07 Dose: 100 mg Heparin Sodium (Porcine) (Heparin Sodium) 5,000 units SUBCUT Q8H [facility] Last Admin: 03/07/19 08:07 Dose: 5,000 units Levofloxacin/Dextrose 750 mg/ (Premix) 150 mls @ 100 mls/hr IV Q48H [facility] Last Admin: 03/05/19 11:24 Dose: 100 mls/hr Levothyroxine Sodium (Synthroid) 50 mcg PO ACBREAKFAST [facility] Last Admin: 03/07/19 06:53 Dose: 50 mcg Ondansetron HCl (Zofran) 4 mg IVPUSH Q4H [facility] Last Admin: 03/07/19 08:07 Dose: 4 mg Oxycodone HCl (Oxycodone) 5 mg PO Q4H PRN PRN Reason: Pain (severe 7-10) Last Admin: 03/06/19 02:16 Dose: 5 mg Polyethylene Glycol (Miralax) 17 gm PO DAILY PRN PRN Reason: Constipation Sodium Chloride (Saline Flush) 10 ml FLUSH ASDIRECTED PRN PRN Reason: Keep Vein Open Sodium Chloride (Saline Flush) 2.5 ml FLUSH ASDIRECTED PRN PRN Reason: Keep Vein Open Tolterodine Tartrate (Detrol) 2 mg PO DAILY [facility] Last Admin: 03/07/19 08:07 Dose: 2 mg Discontinued Medications Diphenhydramine HCl (Benadryl) 25 mg IVPUSH ONETIME ONE Stop: 03/02/19 18:53 Last Admin: 03/02/19 18:58 Dose: 25 mg Sodium Chloride (Normal Saline) 1,000 mls @ 999 mls/hr IV .Bolus ONE Stop: 03/02/19 19:14 Last Admin: 03/02/19 18:26 Dose: 999 mls/hr Sodium Chloride (Normal Saline) 1,000 mls @ 125 mls/hr IV ASDIRECTED [facility] Last Admin: 03/02/19 21:05 Dose: 75 mls/hr Sodium Chloride (Normal Saline) 1,000 mls @ 125 mls/hr IV ASDIRECTED [facility] Last Admin: 03/05/19 02:47 Dose: 125 mls/hr Magnesium Sulfate 4 gm/ Premix 100 mls @ 33.333 mls/hr IV ONETIME ONE Stop: 03/06/19 10:57 Last Admin: 03/06/19 08:51 Dose: 33.333 mls/hr Morphine Sulfate (Morphine) 2 mg IVPUSH ONETIME ONE Stop: 03/02/19 18:36 Last Admin: 03/02/19 18:39 Dose: 2 mg Morphine Sulfate (Morphine) 2 mg IVPUSH Q2H PRN PRN Reason: Pain (severe 7-10) Stop: 03/04/19 08:00 Last Admin: 03/04/19 03:51 Dose: 2 mg Ondansetron HCl (Zofran) 4 mg IVPUSH ONETIME ONE Stop: 03/02/19 18:36 Last Admin: 03/02/19 18:39 Dose: 4 mg Polyethylene Glycol (Miralax) 17 gm PO BID [facility] Last Admin: 03/05/19 20:03 Dose: 17 gm - Exam General: Alert, Oriented, Cooperative, No Acute Distress, Severe Distress HEENT: Pupils Equal Neck: Supple, Trachea Midline Lungs: Normal Respiratory Effort, Decreased Breath Sounds Cardiovascular: Regular Rate, Regular Rhythm GI/Abdominal Exam: Normal Bowel Sounds, Soft, Non-Tender Extremities: Normal Inspection, Normal Range of Motion Peripheral Pulses: 3+: Dorsalis Pedis (L), Dorsalis Pedis (R) Skin: Warm, Dry Psy/Mental Status: Alert, Normal Affect, Normal Mood - Problem List & Annotations (1) Acute pneumonia SNOMED Code(s): 921339985, 682905631 Code(s): J18.9 - PNEUMONIA, UNSPECIFIED ORGANISM Status: Acute (2) Constipation SNOMED Code(s): 95888638 Code(s): K59.00 - CONSTIPATION, UNSPECIFIED Status: Acute (3) CAD (coronary artery disease) SNOMED Code(s): 61743566 Code(s): I25.10 - ATHSCL HEART DISEASE OF [place] CORONARY ARTERY W/O ANG PCTRS Status: Chronic (4) Hx of deep venous thrombosis SNOMED Code(s): 227405469 Code(s): Z86.718 - PERSONAL HISTORY OF OTHER VENOUS THROMBOSIS AND EMBOLISM Status: Chronic - Problem List Review Problem List Initiated/Reviewed/Updated: Yes - My Orders Last 24 Hours: My Active Orders 03/07/19 10:08 Incentive Breathing [RT Incentive Spirometry] [RC] Q2HWA - Plan Plan:: This 83 year old male admitted with abdominal pain found to have constipation. Abdominal pain resolved, cont bowel regimen cont CAP treatment with Levaquin Q48hr, might increase to daily if kidney function improves, intermittently hypoxic and has cough so will keep for another day Noted trouble with swallowing today, reports he has had some since vocal cord manipulation [address] consult unavailable now, outpatient followup. will check for ambulatory pulse oxy before dc cont PT cont statin for CAD cont Levothyroxine cont DVT ppx possible d/c in am
[2019-03-07] MEDS: Levofloxacin/Dextrose 5%-Water 750 MG in Premix Bag 1 BAG IV SCH (12:39)
[2019-03-08] MEDS: Acetaminophen 325 MG Tab PO PRN (06:18)
[2019-03-08] MEDS: Levothyroxine 50 MCG Tab PO SCH ×2 (06:19→06:34)
[2019-03-08 06:50] LABS: BLOOD UREA NITROGEN,BUN 9 mg/dL (7.0-18.0); CARBON DIOXIDE,CO2 35.7 mmol/L (21.0-32.0); CHLORIDE,CL 102 mmol/L (98-107); GLUCOSE RANDOM 97 mg/dL (74-106); POTASSIUM,K 4.8 mmol/L (3.5-5.1); SODIUM,NA 142 mmol/L (136-148)
[2019-03-08 07:28] VITALS: BP 134/69; PULSE 65
[2019-03-08] MEDS: atorvaSTATin 20 MG Tab PO SCH (08:40)
[2019-03-08] MEDS: Docusate Sodium 100 MG Cap PO SCH (08:40)
[2019-03-08] MEDS: Heparin Sodium 5,000 Units/ML Vial SUBCUT SCH (08:42)
--- NOTE | 2019-03-08 09:39 | PCM.DCSUM1 ---
Discharge Summary - Hospital Course HPI Initial Comments: The patient is an 83-year-old gentleman who had presented to the emergency department primarily with a complaint of decreased appetite and increasing upper abdominal pain and shortness of breath. Patient has a history of coronary artery disease with bypass surgery , multiple abdominal surgeries. - Discharge Data Discharge Date: 03/08/19 Discharge Disposition: Home, W Home Health Agency 06 Condition: Fair - Referral to Home Health Date of Face to Face Encounter: 03/10/19 Reason for Homebound Status: deconditioned and weak due to recent illness. Primary Care Physician: Ramu Miles MD Skilled Need: deconditioned due to recent illness and hospitalization, home PT to gain strength - Discharge Diagnosis/Problem(s) (1) Acute pneumonia SNOMED Code(s): 715344169, 708022063 ICD Code: J18.9 - PNEUMONIA, UNSPECIFIED ORGANISM Status: Acute (2) Constipation SNOMED Code(s): 38947756 ICD Code: K59.00 - CONSTIPATION, UNSPECIFIED Status: Acute (3) CAD (coronary artery disease) SNOMED Code(s): 34632112 ICD Code: I25.10 - ATHSCL HEART DISEASE OF [place] CORONARY ARTERY W/O ANG PCTRS Status: Chronic (4) Hx of deep venous thrombosis SNOMED Code(s): 978134500 ICD Code: Z86.718 - PERSONAL HISTORY OF OTHER VENOUS THROMBOSIS AND EMBOLISM Status: Chronic - Patient Summary/Data Consults: Consultations 03/03/19 07:59 OT Evaluation and Treatment [CONS] Routine PT Evaluation and Treatment [CONS] Routine 03/03/19 08:25 Consult to Physician [CONS] Routine 03/06/19 09:11 Consult to Speech Language Pathology [LINING VAMPER Evaluation and Treatment] [CONS] Routine - Patient Instructions Diet: Heart Healthy Diet Activity: As Tolerated, Rest and Relax Today Driving: Do Not Drive Showering/Bathing: May Shower Notify Provider of: Fever, Nausea and/or Vomiting - Discharge Plan *PRESCRIPTION DRUG MONITORING PROGRAM REVIEWED*: Not Applicable *COPY OF PRESCRIPTION DRUG MONITORING REPORT IN PATIENT ADDI: Not Applicable Prescriptions/Med Rec: Acetaminophen [Tylenol] 650 mg PO DAILY PRN #30 tablet PRN Reason: Pain Docusate Sodium [Colace] 100 mg PO BID #60 cap levoFLOXacin [Levaquin] 500 mg PO Q24H #5 tablet Polyethylene Glycol 3350 [Gavilax] 17 gm PO DAILY #30 powd.pack Home Medications: Home Meds Aspirin [Halfprin] 81 mg PO BRK 03/16/15 [History] Levothyroxine Sodium [Levoxyl] 50 mcg PO ACBREAKFAST 03/16/15 [History] atorvaSTATin [Lipitor] 20 mg PO DAILY 08/11/16 [History] Tolterodine [Detrol] 2 mg PO DAILY 08/23/17 [History] Acetaminophen [Tylenol] 650 mg PO DAILY PRN #30 tablet 03/08/19 [Rx] Docusate Sodium [Colace] 100 mg PO BID #60 cap 03/08/19 [Rx] Polyethylene Glycol 3350 [Gavilax] 17 gm PO DAILY #30 powd.pack 03/08/19 [Rx] levoFLOXacin [Levaquin] 500 mg PO Q24H #5 tablet 03/08/19 [Rx] Patient Handouts: Small Bowel Obstruction, [id number], Abdominal Pain, Adult , [id number], Acetaminophen tablets or caplets, Levofloxacin tablets, Docusate capsules, Polyethylene Glycol powder Referrals: Ramsey Mendes,Molly [Ordering Only Provider] - Ramu Miles MD [Primary Care Provider] - 03/21/19 10:00 am - Discharge Summary/Plan Comment DC Time >30 min.: No Discharge Summary/Plan Comment: The patient is an 83-year-old gentleman who had presented to the emergency department primarily with a complaint of decreased appetite and increasing upper abdominal pain and shortness of breath. Patient has a history of coronary artery disease with bypass surgery as well as multiple abdominal surgeries. Initially there was a concern of SBO, which was eventually ruled out by imaging. Patient was started on bowel regimen for constipation, and his constipation was relieved. Patient was also found to have PNA (CAP) for which he was treated with IV antibiotics (Levofloxacin) and eventually deescalated to PO antibiotics. PT was on board and recommended home PT so home health was arranged. Patient was also assessed for home oxygen and eventfully was medically stable for d/c on PO antibiotics and Home health services. Patient also needs speech therapy f/u on Outpatient basis secondary to his vocal cord dysfunction as no in house speech therapist was available.. Patients has been updated and is in agreement with the plan. - Patient Data Vitals - Most Recent: Last Vital Signs Temp 36.6 C 03/08/19 07:27 Pulse 65 03/08/19 07:27 Resp 18 03/08/19 07:27 BP 134/69 03/08/19 07:27 Pulse Ox 94 L 03/08/19 07:27 Weight - Most Recent: 138 lb 6.4 oz I&O - Last 24 hours: Intake & Output 03/07/19 03/08/19 03/08/19 22:59 06:59 14:59 Intake Total 760 400 Balance 760 400 Lab Results - Last 24 hrs: Laboratory Results - last 24 hr 03/08/19 03/08/19 Range/Units 06:23 06:23 WBC 3.76 L (4.0-11.0) K/uL RBC 4.23 L (4.50-5.90) M/uL Hgb 13.0 (13.0-17.0) g/dL Hct 38.9 (38.0-50.0) % MCV 92.0 (80.0-98.0) fL MCH 30.7 (27.0-32.0) pg MCHC 33.4 (31.0-37.0) g/dL RDW Std Deviation 44.4 (28.0-62.0) fl RDW Coeff of Dalia 13 (11.0-15.0) % Plt Count 222 (150-400) K/uL MPV 9.60 (7.40-12.00) fL Neut % (Auto) 57.1 (48.0-80.0) % Lymph % (Auto) 27.7 (16.0-40.0) % [place] % (Auto) 13.8 (0.0-15.0) % Eos % (Auto) 1.1 (0.0-7.0) % Baso % (Auto) 0.3 (0.0-1.5) % Neut # (Auto) 2.2 (1.4-5.7) K/uL Lymph # (Auto) 1.0 (0.6-2.4) K/uL [place] # (Auto) 0.5 (0.0-0.8) K/uL Eos # (Auto) 0.0 (0.0-0.7) K/uL Baso # (Auto) 0.0 (0.0-0.1) K/uL Nucleated RBC % 0.0 /100WBC Nucleated RBCs # 0 K/uL Sodium 142 (136-148) mmol/L Potassium 4.8 (3.5-5.1) mmol/L Chloride 102 (98-107) mmol/L Carbon Dioxide 35.7 H (21.0-32.0) mmol/L BUN 9 (7.0-18.0) mg/dL Creatinine 1.1 (0.8-1.3) mg/dL Est Cr Clr Drug Dosing 44.39 mL/min Estimated GFR (MDRD) > 60.0 ml/min Glucose 97 (74-106) mg/dL Calcium 8.6 (8.5-10.1) mg/dL Phosphorus 2.2 L (2.6-4.7) mg/dL Magnesium 1.7 L (1.8-2.4) mg/dL Med Orders - Current: Current Medications Acetaminophen (Tylenol) 650 mg PO Q6H PRN PRN Reason: Pain Last Admin: 03/08/19 06:18 Dose: 650 mg Atorvastatin Calcium (Lipitor) 20 mg PO DAILY [facility] Last Admin: 03/08/19 08:40 Dose: 20 mg Docusate Sodium (Colace) 100 mg PO BID [facility] Last Admin: 03/08/19 08:40 Dose: 100 mg Heparin Sodium (Porcine) (Heparin Sodium) 5,000 units SUBCUT Q8H [facility] Last Admin: 03/08/19 08:42 Dose: 5,000 units Levofloxacin/Dextrose 750 mg/ (Premix) 150 mls @ 100 mls/hr IV Q48H [facility] Last Admin: 03/07/19 12:39 Dose: 100 mls/hr Levothyroxine Sodium (Synthroid) 50 mcg PO ACBREAKFAST [facility] Last Admin: 03/08/19 06:34 Dose: Not Given Oxycodone HCl (Oxycodone) 5 mg PO Q4H PRN PRN Reason: Pain (severe 7-10) Last Admin: 03/06/19 02:16 Dose: 5 mg Polyethylene Glycol (Miralax) 17 gm PO DAILY PRN PRN Reason: Constipation Sodium Chloride (Saline Flush) 10 ml FLUSH ASDIRECTED PRN PRN Reason: Keep Vein Open Sodium Chloride (Saline Flush) 2.5 ml FLUSH ASDIRECTED PRN PRN Reason: Keep Vein Open Tolterodine Tartrate (Detrol) 2 mg PO DAILY [facility] Last Admin: 03/08/19 08:40 Dose: 2 mg Discontinued Medications Diphenhydramine HCl (Benadryl) 25 mg IVPUSH ONETIME ONE Stop: 03/02/19 18:53 Last Admin: 03/02/19 18:58 Dose: 25 mg Sodium Chloride (Normal Saline) 1,000 mls @ 999 mls/hr IV .Bolus ONE Stop: 03/02/19 19:14 Last Admin: 03/02/19 18:26 Dose: 999 mls/hr Sodium Chloride (Normal Saline) 1,000 mls @ 125 mls/hr IV ASDIRECTED [facility] Last Admin: 03/02/19 21:05 Dose: 75 mls/hr Sodium Chloride (Normal Saline) 1,000 mls @ 125 mls/hr IV ASDIRECTED [facility] Last Admin: 03/05/19 02:47 Dose: 125 mls/hr Magnesium Sulfate 4 gm/ Premix 100 mls @ 33.333 mls/hr IV ONETIME ONE Stop: 03/06/19 10:57 Last Admin: 03/06/19 08:51 Dose: 33.333 mls/hr Morphine Sulfate (Morphine) 2 mg IVPUSH ONETIME ONE Stop: 03/02/19 18:36 Last Admin: 03/02/19 18:39 Dose: 2 mg Morphine Sulfate (Morphine) 2 mg IVPUSH Q2H PRN PRN Reason: Pain (severe 7-10) Stop: 03/04/19 08:00 Last Admin: 03/04/19 03:51 Dose: 2 mg Ondansetron HCl (Zofran) 4 mg IVPUSH ONETIME ONE Stop: 03/02/19 18:36 Last Admin: 03/02/19 18:39 Dose: 4 mg Ondansetron HCl (Zofran) 4 mg IVPUSH Q4H PENDING SALE TO [facility] Last Admin: 03/07/19 16:30 Dose: Not Given Polyethylene Glycol (Miralax) 17 gm PO BID PENDING SALE TO [facility] Last Admin: 03/05/19 20:03 Dose: 17 gm
[2019-03-08] MEDS ORDERED: Levofloxacin 500 MG Tab PO SCH (10:15)
[2019-03-08] MEDS ORDERED: Phosphorus #1 250 MG Tab PO ONE (10:20)
[2019-03-08] MEDS ORDERED: Magnesium Oxide 400 MG Tab PO ONE (10:20)
== END 2019-03-08 11:35 | disposition home health service (06) | DRG 391 ==
LOC: MW.ED 18:05 → MW.MS 18:37 → OBSVTOIN 03-03 07:43 → MW.MS 03-03 08:55
PROVIDERS: ADMIT Internal Medicine; ATTEND Internal Medicine
DX: K56.609 Unspecified intestinal obstruction, unspecified as to partial versus complete obstruction (principal); R10.10 Upper abdominal pain, unspecified; K59.00 Constipation, unspecified; R53.1 Weakness; R06.02 Shortness of breath; J18.9 Pneumonia, unspecified organism; I25.10 Atherosclerotic heart disease of native coronary artery without angina pectoris; H54.7 Unspecified visual loss; K59.09 Other constipation; E78.00 Pure hypercholesterolemia, unspecified; M19.90 Unspecified osteoarthritis, unspecified site; K63.89 Other specified diseases of intestine; E03.9 Hypothyroidism, unspecified; Z85.038 Personal history of other malignant neoplasm of large intestine; R09.02 Hypoxemia; E86.0 Dehydration; Z95.1 Presence of aortocoronary bypass graft; Z91.041 Radiographic dye allergy status; Z86.718 Personal history of other venous thrombosis and embolism; Z79.82 Long term (current) use of aspirin; Z79.899 Other long term (current) drug therapy; Z90.89 Acquired absence of other organs; Z90.49 Acquired absence of other specified parts of digestive tract; Z87.891 Personal history of nicotine dependence; Z90.79 Acquired absence of other genital organ(s); Z98.890 Other specified postprocedural states; Z85.46 Personal history of malignant neoplasm of prostate
CPT/HCPCS: 36415 ×2; 71045; 74019; 80053 ×2; 81001; 83690; 83735; 85025 ×2; 87086; 93005; 96361; 96374; 96375; 99285; A9270 ×5; J1200; J2270; J2405; J7040 ×2; 71046; 71046-26; 74018; 74018-26; 74176; 74176-26; 80048; 83605; 84100; 97161-GP; 97530-GP; 99283; G0378; J1644; J1956; J3475

== ENCOUNTER 2019-03-15 14:29 | Inpatient (IN) | payer MEDICARE, BC ==
--- NOTE | 2019-03-15 14:36 | EDM.PDOC ---
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 Past medical history: As per history of present illness and as reviewed below otherwise noncontributory. Surgical history: As per history of present illness and as reviewed below otherwise noncontributory. Social history: No reported history of drug or alcohol abuse. Family history: As per history of present illness and as reviewed below otherwise noncontributory. Physical exam: HEENT: Atraumatic, normocephalic, pupils reactive, negative for conjunctival pallor or scleral icterus, mucous membranes moist, throat clear, neck supple, nontender, trachea midline. Lungs: Clear to auscultation, breath sounds equal bilaterally, chest nontender. Heart: S1S2, regular, negative for clicks, rubs, or JVD. Abdomen: Soft, nondistended, nontender. Negative for masses or hepatosplenomegaly. Negative for costovertebral tenderness. Pelvis: Stable nontender. Genitourinary: Deferred. Rectal: Deferred. Extremities: Atraumatic, negative for cords or calf pain. Neurovascular unremarkable. Neuro: Awake, alert, oriented. Cranial nerves II through XII unremarkable. Cerebellum unremarkable. Motor and sensory unremarkable throughout. Exam nonfocal. Diagnostics: [EBC CMP UA lipase troponin EKG Chest [address] abdomen pelvis no contrast ] Therapeutics: [ normal saline Morphine Vancomycin Zosyn ] Impression: [ pneumonia no pain Chronic history of baseline ] Definitive disposition and diagnosis as appropriate pending reevaluation and review of above. Right Abdomen Pain Score (Numeric/FACES): 6 - Related Data Allergies Allergy/AdvReac Type Severity Reaction Status Date / Time Iodinated Contrast Media Allergy Hives Verified 03/15/19 14:35 [Iodinated Contrast Media - IV Dye] Home Meds: Home Meds Aspirin [Halfprin] 81 mg PO BRK 03/16/15 [History] Levothyroxine Sodium [Levoxyl] 50 mcg PO ACBREAKFAST 03/16/15 [History] atorvaSTATin [Lipitor] 20 mg PO DAILY 08/11/16 [History] Tolterodine [Detrol] 2 mg PO DAILY 08/23/17 [History] Acetaminophen [Tylenol] 650 mg PO DAILY PRN #30 tablet 03/08/19 [Rx] Docusate Sodium [Colace] 100 mg PO BID #60 cap 03/08/19 [Rx] Polyethylene Glycol 3350 [Gavilax] 17 gm PO DAILY #30 powd.pack 03/08/19 [Rx] levoFLOXacin [Levaquin] 500 mg PO Q24H #5 tablet 03/08/19 [Rx] Past Medical History HEENT History: Reports: Hard of Hearing, Impaired Vision, Other (See Below) Other HEENT History: hearing aids Cardiovascular History: Reports: Bypass, High Cholesterol Other Cardiovascular History: reddness swelling around saphanous graft site L) leg. Respiratory History: Reports: None Gastrointestinal History: Reports: Bowel Obstruction, Chronic Constipation, Other (See Below) (Surgery for colon metastases) Genitourinary History: Reports: Prostate Disorder, Other (See Below) (Prostate cancer) Musculoskeletal History: Reports: Arthritis, Fracture Other Musculoskeletal History: Fracture to right distal clavicle. In [place] likely broke some bones playing football, no known treated Neurological History: Reports: None Psychiatric History: Reports: None Endocrine/Metabolic History: Reports: Hypothyroidism Other Endocrine/Metabolic History: Hypothyroidism Hematologic History: Reports: Other (See Below) Other Hematologic History: blood clots Immunologic History: Reports: None Oncologic (Cancer) History: Reports: Colon Dermatologic History: Reports: None - Infectious Disease History Infectious Disease History: Reports: Chicken Pox, Measles, Mumps - Past Surgical History HEENT Surgical History: Reports: Tonsillectomy Cardiovascular Surgical History: Reports: Coronary Artery Bypass GI Surgical History: Reports: Appendectomy, Colonoscopy, EGD, Hernia, Abdominal , Hernia Repair/Other Other GI Surgeries/Procedures: Colon resection for cancer Male Surgical History: Reports: Prostate Biopsy, Prostatectomy Other Male Surgeries/Procedures: Radical Prostatectomy 1995 Social & Family History - Family History Family Medical History: Noncontributory - Caffeine Use Caffeine Use: Reports: Coffee - Living Situation & Occupation Living situation: Reports: , with Spouse Occupation: Retired ED ROS GENERAL - Review of Systems Review Of Systems: See Below ED EXAM, GENERAL - Physical Exam Exam: See Below Course - Vital Signs Last Recorded V/S: Last Vital Signs Temp 97.7 F 03/15/19 14:36 Pulse 80 03/15/19 17:20 Resp 22 H 03/15/19 17:20 BP 133/63 03/15/19 17:20 Pulse Ox 95 03/15/19 17:20 - Orders/Labs/Meds Orders: Active Orders 24 hr Category Date Time Status EKG Documentation Completion [RC] STAT Care 03/15/19 14:35 Active CULTURE BLOOD [BC] Stat Lab 03/15/19 14:50 Received CULTURE BLOOD [BC] Stat Lab 03/15/19 15:00 Received CULTURE SPUTUM + SMEAR [RM] Stat Lab 03/15/19 16:10 Received UA RFX JACE AND CULT IF INDIC [URIN] Stat Lab 03/15/19 17:08 Received Sodium Chloride 0.9% [Normal Saline] 1,000 ml Med 03/15/19 14:45 Active IV ASDIRECTED Blood Culture x2 Reflex Set [OM.PC] Stat Oth 03/15/19 14:48 Ordered Medication Orders Sodium Chloride (Normal Saline) 1,000 mls @ 125 mls/hr IV ASDIRECTED FREDDY Last Admin: 03/15/19 15:51 Dose: 125 mls/hr Labs: Laboratory Tests 03/15/19 03/15/19 Range/Units 14:50 14:50 WBC 9.83 (4.0-11.0) K/uL RBC 4.41 L (4.50-5.90) M/uL Hgb 13.8 (13.0-17.0) g/dL Hct 41.0 (38.0-50.0) % MCV 93.0 (80.0-98.0) fL MCH 31.3 (27.0-32.0) pg MCHC 33.7 (31.0-37.0) g/dL RDW Std Deviation 46.1 (28.0-62.0) fl RDW Coeff of Dalia 14 (11.0-15.0) % Plt Count 317 (150-400) K/uL MPV 9.70 (7.40-12.00) fL Neut % (Auto) 84.2 H (48.0-80.0) % Lymph % (Auto) 7.2 L (16.0-40.0) % [place] % (Auto) 8.0 (0.0-15.0) % Eos % (Auto) 0.5 (0.0-7.0) % Baso % (Auto) 0.1 (0.0-1.5) % Neut # (Auto) 8.3 H (1.4-5.7) K/uL Lymph # (Auto) 0.7 (0.6-2.4) K/uL [place] # (Auto) 0.8 (0.0-0.8) K/uL Eos # (Auto) 0.1 (0.0-0.7) K/uL Baso # (Auto) 0.0 (0.0-0.1) K/uL Nucleated RBC % 0.0 /100WBC Nucleated RBCs # 0 K/uL Sodium 137 (136-148) mmol/L Potassium 4.2 (3.5-5.1) mmol/L Chloride 100 (98-107) mmol/L Carbon Dioxide 32.2 H (21.0-32.0) mmol/L BUN 19 H (7.0-18.0) mg/dL Creatinine 1.3 (0.8-1.3) mg/dL Est Cr Clr Drug Dosing 37.99 mL/min Estimated GFR (MDRD) 52.6 ml/min Glucose 103 (74-106) mg/dL Calcium 9.0 (8.5-10.1) mg/dL Total Bilirubin 1.2 H (0.2-1.0) mg/dL AST 19 (15-37) IU/L ALT 19 (14-63) IU/L Alkaline Phosphatase 161 H (46-116) U/L Troponin I < 0.050 (0.000-0.056) ng/mL Total Protein 7.4 (6.4-8.2) g/dL Albumin 2.7 L (3.4-5.0) g/dL Globulin 4.7 H (2.6-4.0) g/dL Albumin/Globulin Ratio 0.6 L (0.9-1.6) Lipase 162 (73-393) U/L Meds: Medications Generic Name Dose Route Start Last Admin Trade Name Freq PRN Reason Stop Dose Admin Sodium Chloride 1,000 mls @ 125 mls/hr 03/15/19 14:45 03/15/19 15:51 Normal Saline IV 125 mls/hr ASDIRECTED FREDDY Administration Discontinued Medications Generic Name Dose Route Start Last Admin Trade Name Zeb PRN Reason Stop Dose Admin Piperacillin Sod/Tazobactam 50 mls @ 100 mls/hr 03/15/19 16:10 03/15/19 16:20 Sod 3.375 gm/ Sodium Chloride IV 03/15/19 16:39 100 mls/hr ONETIME ONE Administration Morphine Sulfate 2 mg 03/15/19 15:24 03/15/19 15:51 Morphine IVPUSH 03/15/19 15:25 2 mg ONETIME ONE Administration Departure - Departure Time of Disposition: 17:33 Disposition: Admitted As Inpatient 65 Condition: Poor Clinical Impression: Pneumonia - Discharge Information Referrals: Ramu Miles MD [Primary Care Provider] - - My Orders Last 24 Hours: My Active Orders 03/15/19 14:35 EKG Documentation Completion [RC] STAT 03/15/19 14:45 Sodium Chloride 0.9% [Normal Saline] 1,000 ml IV ASDIRECTED 03/15/19 14:48 Blood Culture x2 Reflex Set [OM.PC] Stat 03/15/19 14:50 CULTURE BLOOD [BC] Stat 03/15/19 15:00 CULTURE BLOOD [BC] Stat 03/15/19 16:10 CULTURE SPUTUM + SMEAR [RM] Stat 03/15/19 17:08 UA RFX JACE AND CULT IF INDIC [URIN] Stat - Assessment/Plan Last 24 Hours: My Active Orders 03/15/19 14:35 EKG Documentation Completion [RC] STAT 03/15/19 14:45 Sodium Chloride 0.9% [Normal Saline] 1,000 ml IV ASDIRECTED 03/15/19 14:48 Blood Culture x2 Reflex Set [OM.PC] Stat 03/15/19 14:50 CULTURE BLOOD [BC] Stat 03/15/19 15:00 CULTURE BLOOD [BC] Stat 03/15/19 16:10 CULTURE SPUTUM + SMEAR [RM] Stat 03/15/19 17:08 UA RFX JACE AND CULT IF INDIC [URIN] Stat
[2019-03-15] MEDS ORDERED: Sodium Chloride 0.9% 1,000 ML IV SCH (14:45)
[2019-03-15] MEDS ORDERED: Morphine 2 MG/ML Syringe IVPUSH ONE (15:24)
[2019-03-15 15:35] LABS: BLOOD UREA NITROGEN,BUN 19 mg/dL (7.0-18.0); CARBON DIOXIDE,CO2 32.2 mmol/L (21.0-32.0); CHLORIDE,CL 100 mmol/L (98-107); GLUCOSE RANDOM 103 mg/dL (74-106); LIPASE 162 U/L (73-393); POTASSIUM,K 4.2 mmol/L (3.5-5.1); SODIUM,NA 137 mmol/L (136-148)
--- NOTE | 2019-03-15 15:50 | CR ---
INDICATION: Pain. TECHNIQUE: AP portable chest x-ray. COMPARISON: 03/05/2019. FINDINGS: Moderate dense nodular infiltrates and consolidation in the right lung base is more prominent with persistent right pleural effusion. Findings could be related to a pneumonia but are nonspecific. Followup chest x-ray recommended to ensure complete resolution. Sternotomy. Heart size is stable. Relatively shallow inspiration. Moderate gas distention of bowel loops in the mid and upper abdomen. Platelike atelectasis or scarring left lung base. Chest otherwise unremarkable. Dictated by Dean Copeland MD @ Mar 15 2019 3:44PM Signed by Dr. Dean Copeland @ Mar 15 2019 3:49PM
[2019-03-15] MEDS ORDERED: Piperacillin/Tazobactam 3.375 GM in Sodium Chloride 0.9% 50 ML IV ONE (16:10)
--- NOTE | 2019-03-15 16:47 | CT ---
INDICATION: Abdominal pain TECHNIQUE: CT abdomen and pelvis acquired without IV contrast. COMPARISON: CT abdomen/pelvis 03/03/2019 FINDINGS: Lower chest: Coronary artery calcifications and changes of CABG. Small right pleural effusion. Dense airspace consolidation at the base of the right lower lobe and right middle lobe. Small calcified granuloma in the left lower lobe. Liver: Within normal limits. Spleen: Within normal limits. Pancreas: Within normal limits. Gallbladder and bile ducts: Calcified gallstones. No intra or extrahepatic biliary ductal dilatation. No pericholecystic fluid. Kidneys: No hydronephrosis. Bilateral nonobstructing renal calculi, the largest in the right upper pole, measuring 7 mm. Nonobstructing 5 mm calculus at the left ureteropelvic junction. Adrenal glands: Within normal limits. GI tract: Diverticulosis of the sigmoid colon, without evidence of acute diverticulitis. No bowel obstruction. Vascular structures: Extensive atherosclerotic changes. Lymph nodes: Unremarkable. Miscellaneous: Postsurgical changes of ventral hernia repair. No ascites. No free air. Pelvic Organs: Bladder is minimally distended, limiting evaluation. Postsurgical changes of prostatectomy. Bones: Degenerative changes of the spine. Grade 1 anterolisthesis at L5-S1. IMPRESSION: 1. Dense consolidations at the base of the right lower and middle lobes, consistent with pneumonia. Small right pleural effusion. 2. No acute abnormality in the abdomen and pelvis. 3. Bilateral nonobstructing renal calculi and nonobstructing 5 mm calculus at the left ureteropelvic junction. Dictated by Sandy Willis MD @ 03/15/2019 4:46:01 PM Please note that all CT scans at this facility use dose modulation, iterative reconstruction, and/or weight-based dosing when appropriate to reduce radiation dose to as low as reasonably achievable. Dictated by: Sandy Willis MD @ 03/15/2019 16:46:18 (Electronically Signed)
--- NOTE | 2019-03-15 18:08 | PCM.HP.2 ---
H&P History of Present Illness - General Date of Service: 03/15/19 Admit Problem/Dx: Admission Diagnosis/Problem Admission Diagnosis/Problem Pneumonia, right lower lobe, upper abdominal pain with colon cancer metastases Source of Information: Patient, Family History Limitations: Reports: No Limitations - History of Present Illness Initial Comments - Free Text/Narative: The patient is an 83-year-old gentleman who had presented to the emergency department with a complaint of shortness of breath as well as upper abdominal pain. 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 The patient has been in somewhat of a decline over the past several months. The patient's daughter is concerned about his ability to remain at home. The patient also had a chest x-ray which showed a dense right lower lobe. The patient's daughter says that his cough has gotten worse. For now the patient is in a full resuscitative CODE STATUS and this will be honored. Onset of Symptoms: Reports: Gradual Duration of Symptoms: Reports: Week(s): Location: Reports: Chest Quality: Reports: Ache Severity: Moderate Improves with: Reports: None Worsens with: Reports: None Associated Symptoms: Reports: cough w sputum Right Abdomen Pain Score (Numeric/FACES): 6 - Related Data Allergies/Adverse Reactions: Allergies Allergy/AdvReac Type Severity Reaction Status Date / Time Iodinated Contrast Media Allergy Hives Verified 03/15/19 14:35 [Iodinated Contrast Media - IV Dye] Home Medications: Home Meds Aspirin [Halfprin] 81 mg PO BRK 03/16/15 [History] Levothyroxine Sodium [Levoxyl] 50 mcg PO ACBREAKFAST 03/16/15 [History] atorvaSTATin [Lipitor] 20 mg PO DAILY 08/11/16 [History] Tolterodine [Detrol] 2 mg PO DAILY 08/23/17 [History] Acetaminophen [Tylenol] 650 mg PO DAILY PRN #30 tablet 03/08/19 [Rx] Docusate Sodium [Colace] 100 mg PO BID #60 cap 03/08/19 [Rx] Polyethylene Glycol 3350 [Gavilax] 17 gm PO DAILY #30 powd.pack 03/08/19 [Rx] levoFLOXacin [Levaquin] 500 mg PO Q24H #5 tablet 03/08/19 [Rx] Past Medical History HEENT History: Reports: Hard of Hearing, Impaired Vision, Other (See Below) Other HEENT History: hearing aids Cardiovascular History: Reports: Bypass, High Cholesterol Other Cardiovascular History: reddness swelling around saphanous graft site L) leg. Respiratory History: Reports: None Gastrointestinal History: Reports: Bowel Obstruction, Chronic Constipation, Other (See Below) (Surgery for colon metastases) Genitourinary History: Reports: Prostate Disorder, Other (See Below) (Prostate cancer) Musculoskeletal History: Reports: Arthritis, Fracture Other Musculoskeletal History: Fracture to right distal clavicle. In [place] likely broke some bones playing football, no known treated Neurological History: Reports: None Psychiatric History: Reports: None Endocrine/Metabolic History: Reports: Hypothyroidism Other Endocrine/Metabolic History: Hypothyroidism Hematologic History: Reports: Other (See Below) Other Hematologic History: blood clots Immunologic History: Reports: None Oncologic (Cancer) History: Reports: Colon Dermatologic History: Reports: None - Infectious Disease History Infectious Disease History: Reports: Chicken Pox, Measles, Mumps - Past Surgical History HEENT Surgical History: Reports: Tonsillectomy Cardiovascular Surgical History: Reports: Coronary Artery Bypass GI Surgical History: Reports: Appendectomy, Colonoscopy, EGD, Hernia, Abdominal , Hernia Repair/Other Other GI Surgeries/Procedures: Colon resection for cancer Male Surgical History: Reports: Prostate Biopsy, Prostatectomy Other Male Surgeries/Procedures: Radical Prostatectomy 1995 Social & Family History - Family History Family Medical History: Noncontributory - Tobacco Use Smoking Status *Q: Former Smoker Used Tobacco, but Quit: Yes Month/Year Tobacco Last Used: 1995 - Caffeine Use Caffeine Use: Reports: Coffee - Recreational Drug Use Recreational Drug Use: No - Living Situation & Occupation Living situation: Reports: , with Spouse Occupation: Retired H&P Review of Systems - Review of Systems: Review Of Systems: See Below General: Reports: Weakness, Fatigue HEENT: Reports: Hearing Changes Pulmonary: Reports: Shortness of Breath, Cough, Sputum Cardiovascular: Reports: No Symptoms Gastrointestinal: Reports: Abdominal Pain, Constipation Genitourinary: Reports: No Symptoms Musculoskeletal: Reports: No Symptoms Skin: Reports: No Symptoms Psychiatric: Reports: No Symptoms Neurological: Reports: No Symptoms Hematologic/Lymphatic: Reports: No Symptoms Immunologic: Reports: No Symptoms Exam - Exam Exam: See Below - Vital Signs Vital Signs: Last Vital Signs Temp 36.5 C 03/15/19 14:36 Pulse 80 03/15/19 17:20 Resp 22 H 03/15/19 17:20 BP 133/63 03/15/19 17:20 Pulse Ox 95 03/15/19 17:20 Weight: 63.503 kg - Exam Quality Assessment: Supplemental Oxygen General: Alert, Oriented, Cooperative, Mild Distress HEENT: Conjunctiva Clear, EACs Clear, EOMI, Pupils Equal, PERRLA. No: Mucosa Moist & Braggs (Dry) Neck: Supple, Trachea Midline Lungs: Decreased Breath Sounds, Crackles, Rales Cardiovascular: Regular Rate, Regular Rhythm GI/Abdominal Exam: Normal Bowel Sounds, Soft, Non-Tender, Mass (Left side) Back Exam: Normal Inspection (Age appropriate), Full Range of Motion ( Appropriate for the patient's age) Extremities: Normal Inspection, Pedal Edema (+1 pitting edema) Skin: Warm, Dry, Intact Neurological: Cranial Nerves Intact Neuro Extensive - Mental Status: Alert, Oriented x3 Psychiatric: Alert, Normal Affect, Normal Mood - Patient Data Lab Results Last 24 hrs: Laboratory Results - last 24 hr 03/15/19 03/15/19 03/15/19 Range/Units 14:50 14:50 17:08 WBC 9.83 (4.0-11.0) K/uL RBC 4.41 L (4.50-5.90) M/uL Hgb 13.8 (13.0-17.0) g/dL Hct 41.0 (38.0-50.0) % MCV 93.0 (80.0-98.0) fL MCH 31.3 (27.0-32.0) pg MCHC 33.7 (31.0-37.0) g/dL RDW Std Deviation 46.1 (28.0-62.0) fl RDW Coeff of Dalia 14 (11.0-15.0) % Plt Count 317 (150-400) K/uL MPV 9.70 (7.40-12.00) fL Neut % (Auto) 84.2 H (48.0-80.0) % Lymph % (Auto) 7.2 L (16.0-40.0) % [place] % (Auto) 8.0 (0.0-15.0) % Eos % (Auto) 0.5 (0.0-7.0) % Baso % (Auto) 0.1 (0.0-1.5) % Neut # (Auto) 8.3 H (1.4-5.7) K/uL Lymph # (Auto) 0.7 (0.6-2.4) K/uL [place] # (Auto) 0.8 (0.0-0.8) K/uL Eos # (Auto) 0.1 (0.0-0.7) K/uL Baso # (Auto) 0.0 (0.0-0.1) K/uL Nucleated RBC % 0.0 /100WBC Nucleated RBCs # 0 K/uL Sodium 137 (136-148) mmol/L Potassium 4.2 (3.5-5.1) mmol/L Chloride 100 (98-107) mmol/L Carbon Dioxide 32.2 H (21.0-32.0) mmol/L BUN 19 H (7.0-18.0) mg/dL Creatinine 1.3 (0.8-1.3) mg/dL Est Cr Clr Drug Dosing 37.99 mL/min Estimated GFR (MDRD) 52.6 ml/min Glucose 103 (74-106) mg/dL Calcium 9.0 (8.5-10.1) mg/dL Total Bilirubin 1.2 H (0.2-1.0) mg/dL AST 19 (15-37) IU/L ALT 19 (14-63) IU/L Alkaline Phosphatase 161 H (46-116) U/L Troponin I < 0.050 (0.000-0.056) ng/mL Total Protein 7.4 (6.4-8.2) g/dL Albumin 2.7 L (3.4-5.0) g/dL Globulin 4.7 H (2.6-4.0) g/dL Albumin/Globulin Ratio 0.6 L (0.9-1.6) Lipase 162 (73-393) U/L Urine Color YELLOW Urine Appearance CLEAR Urine pH 6.5 (5.0-8.0) Ur Specific [place] 1.020 (1.001-1.035) Urine Protein NEGATIVE (NEGATIVE) mg/dL Urine Glucose (UA) NEGATIVE (NEGATIVE) mg/dL Urine Ketones NEGATIVE (NEGATIVE) mg/dL Urine Occult Blood SMALL H (NEGATIVE) Urine Nitrite NEGATIVE (NEGATIVE) Urine Bilirubin SMALL H (NEGATIVE) Urine Urobilinogen 1.0 (<2.0) EU/dL Ur Leukocyte Esterase NEGATIVE (NEGATIVE) Urine RBC 3-5 (0-2/HPF) Urine WBC 0-2 (0-5/HPF) Ur Epithelial Cells RARE (NONE-FEW) Urine Bacteria RARE (NEGATIVE) Urine Mucus LIGHT (NONE-MOD) Result Diagrams: 03/15/19 14:50 03/15/19 14:50 Vick Results Last 24 hrs: Microbiology 03/15/19 16:10 Gram Stain - Preliminary Sputum - Expectorated - Problem List (1) Acute pneumonia SNOMED Code(s): 246948336, 400955216 ICD Code: J18.9 - PNEUMONIA, UNSPECIFIED ORGANISM Status: Acute Priority : High Current Visit: Yes (2) Colon distention SNOMED Code(s): 489834848 ICD Code: K63.89 - OTHER SPECIFIED DISEASES OF INTESTINE Status: Chronic Priority: Medium Current Visit: No (3) Constipation SNOMED Code(s): 73040663 ICD Code: K59.00 - CONSTIPATION, UNSPECIFIED Status: Chronic Priority: Medium Current Visit: No Qualifiers: Constipation type: slow transit constipation Qualified Code(s): K59.01 - Slow transit constipation (4) Dehydration SNOMED Code(s): 93932132 ICD Code: E86.0 - DEHYDRATION Status: Acute Priority: High Current Visit: Yes (5) 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 SNOMED Code(s): 81803233 ICD Code: C61 - MALIGNANT NEOPLASM OF PROSTATE; C78.5 - SECONDARY MALIGNANT NEOPLASM OF LARGE INTESTINE AND RECTUM Status: Chronic Priority: High Current Visit: Yes Problem List Initiated/Reviewed/Updated: Yes Orders Last 24hrs: Active Orders 24 hr Category Date Time Status Admission Status [Patient Status] [ADT] Stat ADT 03/15/19 17:34 Active Regular Diet [DIET] Diet 03/15/19 Dinner Active CULTURE BLOOD [BC] Stat Lab 03/15/19 14:50 Received CULTURE BLOOD [BC] Stat Lab 03/15/19 15:00 Received CULTURE SPUTUM + SMEAR [RM] Stat Lab 03/15/19 16:10 Results Sodium Chloride 0.9% [Normal Saline] 1,000 ml Med 03/15/19 14:45 Active IV ASDIRECTED Blood Culture x2 Reflex Set [OM.PC] Stat Oth 03/15/19 14:48 Ordered Medication Orders Sodium Chloride (Normal Saline) 1,000 mls @ 125 mls/hr IV ASDIRECTED FREDDY Last Admin: 03/15/19 15:51 Dose: 125 mls/hr Assessment/Plan Comment:: The patient is an 83-year-old gentleman who has a rather complex history of notable medical problems. The patient at this time as what appears to be right lower lobe pneumonia. The patient will be treated with meropenem 1 g IV every 8 hours as he previously had been on Levaquin. Repeat laboratory studies been ordered. The patient will also be anticoagulated with the use of heparin. SCDs are contraindicated due to the patient's fall risk. The patient has been admitted as an inpatient secondary to the possibility of needing to have placement in [facility]. PT OT has been ordered for the patient. The patient will also be monitored closely with vital signs every 4 hours. He'll also be hydrated with the use of normal saline at 125 mL per hour. He'll be monitored very closely with his fluid status. The patient will be continued on his other medications for now. The patient should be considered appropriate for [facility] transfer 3 days. His prognosis for for now will be considered poor. - Mortality Measure Prognosis:: Poor
[2019-03-15] MEDS: Heparin Sodium 5,000 Units/ML Vial SUBCUT SCH (18:32)
[2019-03-15] MEDS ORDERED: Meropenem 2 GM in Sodium Chloride 0.9% 100 ML IV SCH ×2 (21:00→23:00)
[2019-03-15] MEDS: Docusate Sodium 100 MG Cap PO SCH (21:19)
[2019-03-15] MEDS: Sodium Chloride 0.9% 1,000 ML IV SCH (22:11)
[2019-03-15] MEDS ORDERED: Furosemide 20 MG/2 ML VIAL IV ONE (22:15)
[2019-03-15] MEDS: Acetaminophen 325 MG Tab PO PRN (23:09)
[2019-03-16] MEDS: Heparin Sodium 5,000 Units/ML Vial SUBCUT SCH ×3 (02:10→17:50)
[2019-03-16] MEDS ORDERED: Morphine 2 MG/ML Syringe IVPUSH ONE (04:05)
[2019-03-16 06:49] LABS: CARBON DIOXIDE,CO2 31.1 mmol/L (21.0-32.0)
[2019-03-16] MEDS: Levothyroxine 50 MCG Tab PO SCH (07:18)
--- NOTE | 2019-03-16 08:06 | PCM.PN ---
- General Info Date of Service: 03/16/19 Admission Dx/Problem (Free Text): Admission Diagnosis/Problem Admission Diagnosis/Problem Pneumonia, right lower lobe, upper abdominal pain with colon cancer metastases Subjective Update: The patient is an 83-year-old gentleman who had presented to the emergency department and was subsequently admitted secondary to shortness of breath as well as chronic upper abdominal pain. 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 The patient today says that he is still been having pain in his right upper quadrant. He has not been able to have a bowel movement in 3-4 days. Patient has been tolerating his diet. The patient has no other complaints today. The patient's is with him today. Functional Status: Reports: Pain Controlled - Review of Systems General: Reports: Weakness, Fatigue HEENT: Reports: No Symptoms Pulmonary: Reports: Shortness of Breath, Cough Cardiovascular: Reports: No Symptoms Gastrointestinal: Reports: Abdominal Pain, Constipation Genitourinary: Reports: No Symptoms Musculoskeletal: Reports: No Symptoms Skin: Reports: No Symptoms Neurological: Reports: No Symptoms Psychiatric: Reports: No Symptoms - Patient Data Vitals - Most Recent: Last Vital Signs Temp 36.6 C 03/16/19 08:02 Pulse 60 03/16/19 08:02 Resp 18 03/16/19 08:02 BP 130/70 03/16/19 08:02 Pulse Ox 95 03/16/19 08:02 Weight - Most Recent: 63.639 kg I&O - Last 24 Hours: Intake & Output 03/15/19 03/16/19 03/16/19 22:59 06:59 14:59 Intake Total 1400 Output Total 1000 Balance 400 Lab Results Last 24 Hours: Laboratory Results - last 24 hr 03/15/19 03/15/19 03/15/19 Range/Units 14:50 14:50 17:08 WBC 9.83 (4.0-11.0) K/uL RBC 4.41 L (4.50-5.90) M/uL Hgb 13.8 (13.0-17.0) g/dL Hct 41.0 (38.0-50.0) % MCV 93.0 (80.0-98.0) fL MCH 31.3 (27.0-32.0) pg MCHC 33.7 (31.0-37.0) g/dL RDW Std Deviation 46.1 (28.0-62.0) fl RDW Coeff of Dalia 14 (11.0-15.0) % Plt Count 317 (150-400) K/uL MPV 9.70 (7.40-12.00) fL Neut % (Auto) 84.2 H (48.0-80.0) % Lymph % (Auto) 7.2 L (16.0-40.0) % [place] % (Auto) 8.0 (0.0-15.0) % Eos % (Auto) 0.5 (0.0-7.0) % Baso % (Auto) 0.1 (0.0-1.5) % Neut # (Auto) 8.3 H (1.4-5.7) K/uL Lymph # (Auto) 0.7 (0.6-2.4) K/uL [place] # (Auto) 0.8 (0.0-0.8) K/uL Eos # (Auto) 0.1 (0.0-0.7) K/uL Baso # (Auto) 0.0 (0.0-0.1) K/uL Nucleated RBC % 0.0 /100WBC Nucleated RBCs # 0 K/uL Sodium 137 (136-148) mmol/L Potassium 4.2 (3.5-5.1) mmol/L Chloride 100 (98-107) mmol/L Carbon Dioxide 32.2 H (21.0-32.0) mmol/L BUN 19 H (7.0-18.0) mg/dL Creatinine 1.3 (0.8-1.3) mg/dL Est Cr Clr Drug Dosing 37.99 mL/min Estimated GFR (MDRD) 52.6 ml/min Glucose 103 (74-106) mg/dL Calcium 9.0 (8.5-10.1) mg/dL Total Bilirubin 1.2 H (0.2-1.0) mg/dL AST 19 (15-37) IU/L ALT 19 (14-63) IU/L Alkaline Phosphatase 161 H (46-116) U/L Troponin I < 0.050 (0.000-0.056) ng/mL Total Protein 7.4 (6.4-8.2) g/dL Albumin 2.7 L (3.4-5.0) g/dL Globulin 4.7 H (2.6-4.0) g/dL Albumin/Globulin Ratio 0.6 L (0.9-1.6) Lipase 162 (73-393) U/L Urine Color YELLOW Urine Appearance CLEAR Urine pH 6.5 (5.0-8.0) Ur Specific [place] 1.020 (1.001-1.035) Urine Protein NEGATIVE (NEGATIVE) mg/dL Urine Glucose (UA) NEGATIVE (NEGATIVE) mg/dL Urine Ketones NEGATIVE (NEGATIVE) mg/dL Urine Occult Blood SMALL H (NEGATIVE) Urine Nitrite NEGATIVE (NEGATIVE) Urine Bilirubin SMALL H (NEGATIVE) Urine Urobilinogen 1.0 (<2.0) EU/dL Ur Leukocyte Esterase NEGATIVE (NEGATIVE) Urine RBC 3-5 (0-2/HPF) Urine WBC 0-2 (0-5/HPF) Ur Epithelial Cells RARE (NONE-FEW) Urine Bacteria RARE (NEGATIVE) Urine Mucus LIGHT (NONE-MOD) 03/16/19 03/16/19 Range/Units 06:00 06:00 WBC 9.44 (4.0-11.0) K/uL RBC 4.17 L (4.50-5.90) M/uL Hgb 12.7 L (13.0-17.0) g/dL Hct 38.6 (38.0-50.0) % MCV 92.6 (80.0-98.0) fL MCH 30.5 (27.0-32.0) pg MCHC 32.9 (31.0-37.0) g/dL RDW Std Deviation 46.4 (28.0-62.0) fl RDW Coeff of Dalia 14 (11.0-15.0) % Plt Count 257 (150-400) K/uL MPV 10.10 (7.40-12.00) fL Neut % (Auto) 78.7 (48.0-80.0) % Lymph % (Auto) 9.7 L (16.0-40.0) % [place] % (Auto) 9.1 (0.0-15.0) % Eos % (Auto) 2.3 (0.0-7.0) % Baso % (Auto) 0.2 (0.0-1.5) % Neut # (Auto) 7.4 H (1.4-5.7) K/uL Lymph # (Auto) 0.9 (0.6-2.4) K/uL [place] # (Auto) 0.9 H (0.0-0.8) K/uL Eos # (Auto) 0.2 (0.0-0.7) K/uL Baso # (Auto) 0.0 (0.0-0.1) K/uL Nucleated RBC % 0.0 /100WBC Nucleated RBCs # 0 K/uL Sodium 137 (136-148) mmol/L Potassium 5.0 (3.5-5.1) mmol/L Chloride 102 (98-107) mmol/L Carbon Dioxide 31.1 (21.0-32.0) mmol/L BUN 17 (7.0-18.0) mg/dL Creatinine 1.2 (0.8-1.3) mg/dL Est Cr Clr Drug Dosing 41.25 mL/min Estimated GFR (MDRD) 57.7 ml/min Glucose 78 (74-106) mg/dL Calcium 8.3 L (8.5-10.1) mg/dL Total Bilirubin 0.9 (0.2-1.0) mg/dL AST 21 (15-37) IU/L ALT 14 (14-63) IU/L Alkaline Phosphatase 140 H (46-116) U/L Troponin I (0.000-0.056) ng/mL Total Protein 6.5 (6.4-8.2) g/dL Albumin 2.2 L (3.4-5.0) g/dL Globulin 4.3 H (2.6-4.0) g/dL Albumin/Globulin Ratio 0.5 L (0.9-1.6) Lipase (73-393) U/L Urine Color Urine Appearance Urine pH (5.0-8.0) Ur Specific [place] (1.001-1.035) Urine Protein (NEGATIVE) mg/dL Urine Glucose (UA) (NEGATIVE) mg/dL Urine Ketones (NEGATIVE) mg/dL Urine Occult Blood (NEGATIVE) Urine Nitrite (NEGATIVE) Urine Bilirubin (NEGATIVE) Urine Urobilinogen (<2.0) EU/dL Ur Leukocyte Esterase (NEGATIVE) Urine RBC (0-2/HPF) Urine WBC (0-5/HPF) Ur Epithelial Cells (NONE-FEW) Urine Bacteria (NEGATIVE) Urine Mucus (NONE-MOD) Vick Results Last 24 Hours: Microbiology 03/15/19 16:10 Gram Stain - Preliminary Sputum - Expectorated Med Orders - Current: Current Medications Acetaminophen (Tylenol) 650 mg PO DAILY PRN PRN Reason: Pain Last Admin: 03/15/19 23:09 Dose: 650 mg Aspirin (Halfprin) 81 mg PO BRK FREDDY Atorvastatin Calcium (Lipitor) 20 mg PO DAILY [facility] Docusate Sodium (Colace) 100 mg PO BID [facility] Last Admin: 03/15/19 21:19 Dose: 100 mg Furosemide (Lasix) 40 mg PO DAILY [facility] Heparin Sodium (Porcine) (Heparin Sodium) 5,000 units SUBCUT Q8H [facility] Last Admin: 03/16/19 02:10 Dose: 5,000 units Meropenem 2 gm/ Sodium (Chloride) 100 mls @ 100 mls/hr IV Q12H [facility] Last Admin: 03/15/19 22:01 Dose: 100 mls/hr Sodium Chloride (Normal Saline) 1,000 mls @ 50 mls/hr IV ASDIRECTED [facility] Last Admin: 03/15/19 22:11 Dose: 50 mls/hr Levothyroxine Sodium (Synthroid) 50 mcg PO ACBREAKFAST [facility] Last Admin: 03/16/19 07:18 Dose: 50 mcg Polyethylene Glycol (Miralax) 17 gm PO DAILY [facility] Discontinued Medications Furosemide (Lasix) 20 mg IV NOW ONE Stop: 03/15/19 22:16 Last Admin: 03/15/19 22:11 Dose: 20 mg Sodium Chloride (Normal Saline) 1,000 mls @ 125 mls/hr IV ASDIRECTED [facility] Last Admin: 03/15/19 15:51 Dose: 125 mls/hr Piperacillin Sod/Tazobactam (Sod 3.375 gm/ Sodium Chloride) 50 mls @ 100 mls/ hr IV ONETIME ONE Stop: 03/15/19 16:39 Last Admin: 03/15/19 16:20 Dose: 100 mls/hr Meropenem 2 gm/ Sodium (Chloride) 100 mls @ 100 mls/hr IV Q8H [facility] Morphine Sulfate (Morphine) 2 mg IVPUSH ONETIME ONE Stop: 03/15/19 15:25 Last Admin: 03/15/19 15:51 Dose: 2 mg Morphine Sulfate (Morphine) 1 mg IVPUSH ONETIME ONE Stop: 03/16/19 04:06 Last Admin: 03/16/19 05:52 Dose: 1 mg Non-Formulary Medication (Tolterodine) 2 mg PO DAILY FREDDY - Exam Quality Assessment: Supplemental Oxygen General: Alert, Oriented, Cooperative, Mild Distress HEENT: Pupils Equal, Pupils Reactive, EOMI. No: Mucous Membr. Moist/[place] (Dry) Neck: Supple, Trachea Midline Lungs: Decreased Breath Sounds, Crackles, Rales Cardiovascular: Regular Rate, Regular Rhythm GI/Abdominal Exam: Normal Bowel Sounds, No Distention, Tender (Right side), Mass Back Exam: Normal Inspection (Appropriate for his age), Full Range of Motion ( Appropriate for his age) Extremities: Normal Inspection, Pedal Edema (+2 pedal edema) Skin: Warm, Dry, Intact Neurological: No New Focal Deficit Psy/Mental Status: Alert, Normal Affect, Normal Mood - Problem List & Annotations (1) Acute pneumonia SNOMED Code(s): 932834437, 426080454 Code(s): J18.9 - PNEUMONIA, UNSPECIFIED ORGANISM Status: Acute Priority: High Current Visit: Yes (2) Colon distention SNOMED Code(s): 717999040 Code(s): K63.89 - OTHER SPECIFIED DISEASES OF INTESTINE Status: Chronic Priority: Medium Current Visit: No (3) Constipation SNOMED Code(s): 01096097 Code(s): K59.00 - CONSTIPATION, UNSPECIFIED Status: Chronic Priority: Medium Current Visit: No Qualifiers: Constipation type: slow transit constipation Qualified Code(s): K59.01 - Slow transit constipation (4) Dehydration SNOMED Code(s): 03845253 Code(s): E86.0 - DEHYDRATION Status: Acute Priority: High Current Visit : Yes (5) 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 SNOMED Code(s): 37456798 Code(s): C61 - MALIGNANT NEOPLASM OF PROSTATE; C78.5 - SECONDARY MALIGNANT NEOPLASM OF LARGE INTESTINE AND RECTUM Status: Chronic Priority: High Current Visit: Yes - Problem List Review Problem List Initiated/Reviewed/Updated: Yes - My Orders Last 24 Hours: My Active Orders 03/15/19 18:08 Acetaminophen [Tylenol] 650 mg PO DAILY PRN 03/15/19 18:10 Oxygen Therapy [RC] PRN Up With Assistance [RC] ASDIRECTED VTE/DVT Education [RC] PER UNIT ROUTINE Vital Signs [RC] Q4H OT Evaluation and Treatment [CONS] Routine PT Evaluation and Treatment [CONS] Routine VTE Mechanical Contraindications [AST] Per Unit Routine 03/15/19 18:15 Heparin Sodium 5,000 units SUBCUT Q8H 03/15/19 18:25 Resuscitation Status Routine 03/15/19 21:00 Docusate Sodium [Colace] 100 mg PO BID Meropenem [Merrem] 2 gm Sodium Chloride 0.9% [Normal Saline] 100 ml IV Q12H 03/15/19 22:15 Sodium Chloride 0.9% [Normal Saline] 1,000 ml IV ASDIRECTED 03/15/19 Dinner Regular Diet [DIET] 03/16/19 07:30 Levothyroxine [Synthroid] 50 mcg PO ACBREAKFAST 03/16/19 08:00 Aspirin [Halfprin] 81 mg PO BRK 03/16/19 09:00 Furosemide [Lasix] 40 mg PO DAILY Polyethylene Glycol 3350 [MiraLAX] 17 gm PO DAILY atorvaSTATin [Lipitor] 20 mg PO DAILY - Plan Plan:: The patient is an 83-year-old gentleman who has a complex medical history. The patient does have prostate cancer that has metastasized to his colon He does have continuous abdominal pain. The patient has been placed on meropenem 1 g IV every 12 hours renally dosed. The patient had been admitted as an inpatient secondary to the concern for possibility of [facility]. I had a discussion with the patient's today and she said "absolutely not going to [facility]." She is insistent on the patient going home. The patient will be kept on heparin for DVT prophylaxis. Repeat laboratory studies have been ordered. The patient's family was concerned about pedal edema and the patient does have +1 pedal edema today and his fluids have been decreased to 50 mL per hour. The patient also has been continued on his home dose of Lasix. The patient will be continued on his other medications for now. Repeat laboratory studies and chest x-ray been ordered.
[2019-03-16] MEDS: atorvaSTATin 20 MG Tab PO SCH (08:32)
[2019-03-16] MEDS: Aspirin 81 MG Tab.EC PO SCH (08:32)
[2019-03-16] MEDS: Polyethylene Glycol 3350 Powder 17 GM Packet PO SCH (08:33)
[2019-03-16] MEDS: Docusate Sodium 100 MG Cap PO SCH ×2 (08:33→21:05)
[2019-03-16] MEDS ORDERED: MEROPENEM IV SCH (08:39)
[2019-03-16] MEDS: Acetaminophen 325 MG Tab PO PRN ×2 (08:41→22:20)
[2019-03-16] MEDS ORDERED: TOLTERODINE 2 MG PO SCH (09:00)
[2019-03-16] MEDS: MEROPENEM IV SCH ×2 (09:33→21:06)
[2019-03-16] MEDS: Furosemide 40 MG Tab PO SCH (10:07)
[2019-03-16] MEDS: oxyCODONE 5 MG Tab PO PRN (17:52)
[2019-03-16] MEDS: Sodium Chloride 0.9% 1,000 ML IV SCH (21:12)
[2019-03-17] MEDS: Heparin Sodium 5,000 Units/ML Vial SUBCUT SCH ×3 (02:02→17:48)
[2019-03-17] MEDS: oxyCODONE 5 MG Tab PO PRN ×3 (02:05→23:18)
[2019-03-17 06:08] LABS: BLOOD UREA NITROGEN,BUN 14 mg/dL (7.0-18.0); CARBON DIOXIDE,CO2 31.3 mmol/L (21.0-32.0); CHLORIDE,CL 100 mmol/L (98-107); GLUCOSE RANDOM 95 mg/dL (74-106); POTASSIUM,K 4.8 mmol/L (3.5-5.1); SODIUM,NA 137 mmol/L (136-148)
[2019-03-17] MEDS: Levothyroxine 50 MCG Tab PO SCH (07:04)
[2019-03-17] MEDS: Furosemide 40 MG Tab PO SCH (08:21)
[2019-03-17] MEDS: Aspirin 81 MG Tab.EC PO SCH (08:21)
[2019-03-17] MEDS: atorvaSTATin 20 MG Tab PO SCH (08:22)
[2019-03-17] MEDS: Polyethylene Glycol 3350 Powder 17 GM Packet PO SCH (08:22)
[2019-03-17] MEDS: Docusate Sodium 100 MG Cap PO SCH ×2 (08:22→21:25)
--- NOTE | 2019-03-17 08:25 | PCM.PN ---
- General Info Date of Service: 03/17/19 Admission Dx/Problem (Free Text): Admission Diagnosis/Problem Admission Diagnosis/Problem Pneumonia, right lower lobe, upper abdominal pain with colon cancer metastases Subjective Update: Sitting up in chair, visiting with family awaiting breakfast. No chest pain or SOB. No abdominal pain currently. Concerns regarding swallowing and physical therapy. Functional Status: Reports: Pain Controlled, Tolerating Diet, Urinating - Review of Systems General: Reports: No Symptoms, Weakness (generalized) HEENT: Reports: No Symptoms Pulmonary: Reports: No Symptoms. Denies: Shortness of Breath Cardiovascular: Reports: No Symptoms. Denies: Chest Pain Gastrointestinal: Reports: No Symptoms. Denies: Abdominal Pain, Nausea, Vomiting Musculoskeletal: Reports: No Symptoms Skin: Reports: No Symptoms Neurological: Reports: No Symptoms Psychiatric: Reports: No Symptoms - Patient Data Vitals - Most Recent: Last Vital Signs Temp 97.3 F 03/17/19 07:10 Pulse 69 03/17/19 07:10 Resp 18 03/17/19 07:10 BP 139/79 03/17/19 07:10 Pulse Ox 98 03/17/19 07:10 Weight - Most Recent: 62.794 kg I&O - Last 24 Hours: Intake & Output 03/16/19 03/17/19 03/17/19 22:59 06:59 14:59 Intake Total 1325 1000 Output Total 850 100 Balance 475 900 Lab Results Last 24 Hours: Laboratory Results - last 24 hr 03/17/19 03/17/19 Range/Units 05:45 05:45 WBC 8.04 (4.0-11.0) K/uL RBC 4.33 L (4.50-5.90) M/uL Hgb 13.1 (13.0-17.0) g/dL Hct 40.0 (38.0-50.0) % MCV 92.4 (80.0-98.0) fL MCH 30.3 (27.0-32.0) pg MCHC 32.8 (31.0-37.0) g/dL RDW Std Deviation 46.1 (28.0-62.0) fl RDW Coeff of Dalia 14 (11.0-15.0) % Plt Count 305 (150-400) K/uL MPV 10.10 (7.40-12.00) fL Neut % (Auto) 74.1 (48.0-80.0) % Lymph % (Auto) 14.2 L (16.0-40.0) % [place] % (Auto) 8.7 (0.0-15.0) % Eos % (Auto) 2.9 (0.0-7.0) % Baso % (Auto) 0.1 (0.0-1.5) % Neut # (Auto) 6.0 H (1.4-5.7) K/uL Lymph # (Auto) 1.1 (0.6-2.4) K/uL [place] # (Auto) 0.7 (0.0-0.8) K/uL Eos # (Auto) 0.2 (0.0-0.7) K/uL Baso # (Auto) 0.0 (0.0-0.1) K/uL Nucleated RBC % 0.0 /100WBC Nucleated RBCs # 0 K/uL Sodium 137 (136-148) mmol/L Potassium 4.8 (3.5-5.1) mmol/L Chloride 100 (98-107) mmol/L Carbon Dioxide 31.3 (21.0-32.0) mmol/L BUN 14 (7.0-18.0) mg/dL Creatinine 1.1 (0.8-1.3) mg/dL Est Cr Clr Drug Dosing 44.40 mL/min Estimated GFR (MDRD) > 60.0 ml/min Glucose 95 (74-106) mg/dL Calcium 8.5 (8.5-10.1) mg/dL Vick Results Last 24 Hours: Microbiology 03/15/19 15:00 Aerobic Blood Culture - Preliminary Blood - Venous - Lab Draw NO GROWTH AFTER 1 DAY Anaerobic Blood Culture - Preliminary NO GROWTH AFTER 1 DAY 03/15/19 14:50 Aerobic Blood Culture - Preliminary Blood - Venous NO GROWTH AFTER 1 DAY Anaerobic Blood Culture - Preliminary NO GROWTH AFTER 1 DAY 03/15/19 16:10 Gram Stain - Preliminary Sputum - Expectorated Med Orders - Current: Current Medications Acetaminophen (Tylenol) 650 mg PO Q6H PRN PRN Reason: Pain Last Admin: 03/16/19 22:20 Dose: 650 mg Aspirin (Halfprin) 81 mg PO BRK [facility]EDDY Last Admin: 03/17/19 08:21 Dose: 81 mg Atorvastatin Calcium (Lipitor) 20 mg PO DAILY [facility] Last Admin: 03/17/19 08:22 Dose: 20 mg Docusate Sodium (Colace) 100 mg PO BID [facility] Last Admin: 03/17/19 08:22 Dose: 100 mg Furosemide (Lasix) 40 mg PO DAILY [facility] Last Admin: 03/17/19 08:21 Dose: 40 mg Heparin Sodium (Porcine) (Heparin Sodium) 5,000 units SUBCUT Q8H [facility] Last Admin: 03/17/19 02:02 Dose: 5,000 units Sodium Chloride (Normal Saline) 1,000 mls @ 50 mls/hr IV ASDIRECTED [facility] Last Admin: 03/16/19 21:12 Dose: 50 mls/hr Meropenem/Sodium Chloride 2 gm (/ Premix) 100 mls @ 100 mls/hr IV Q12H [facility] Last Admin: 03/16/19 21:06 Dose: 100 mls/hr Levothyroxine Sodium (Synthroid) 50 mcg PO ACBREAKFAST [facility] Last Admin: 03/17/19 07:04 Dose: 50 mcg Oxycodone HCl (Oxycodone) 5 mg PO Q8H PRN PRN Reason: Pain (moderate 4-6) Last Admin: 03/17/19 02:05 Dose: 5 mg Polyethylene Glycol (Miralax) 17 gm PO DAILY [facility] Last Admin: 03/17/19 08:22 Dose: 17 gm Discontinued Medications Acetaminophen (Tylenol) 650 mg PO DAILY PRN PRN Reason: Pain Last Admin: 03/16/19 08:41 Dose: 650 mg Furosemide (Lasix) 20 mg IV NOW ONE Stop: 03/15/19 22:16 Last Admin: 03/15/19 22:11 Dose: 20 mg Sodium Chloride (Normal Saline) 1,000 mls @ 125 mls/hr IV ASDIRECTED [facility] Last Admin: 03/15/19 15:51 Dose: 125 mls/hr Piperacillin Sod/Tazobactam (Sod 3.375 gm/ Sodium Chloride) 50 mls @ 100 mls/ hr IV ONETIME ONE Stop: 03/15/19 16:39 Last Admin: 03/15/19 16:20 Dose: 100 mls/hr Meropenem 2 gm/ Sodium (Chloride) 100 mls @ 100 mls/hr IV Q8H [facility] Meropenem 2 gm/ Sodium (Chloride) 100 mls @ 100 mls/hr IV Q12H [facility] Last Admin: 03/15/19 22:01 Dose: 100 mls/hr Meropenem/Sodium Chloride 2 gm (/ Premix) 100 mls @ 100 mls/hr IV Q12H [facility] Last Admin: 03/16/19 09:55 Dose: Not Given Morphine Sulfate (Morphine) 2 mg IVPUSH ONETIME ONE Stop: 03/15/19 15:25 Last Admin: 03/15/19 15:51 Dose: 2 mg Morphine Sulfate (Morphine) 1 mg IVPUSH ONETIME ONE Stop: 03/16/19 04:06 Last Admin: 03/16/19 05:52 Dose: 1 mg Non-Formulary Medication (Tolterodine) 2 mg PO DAILY [facility]EDDY - Exam General: Alert, Oriented, Cooperative, No Acute Distress Lungs: Normal Respiratory Effort, Crackles (R lung base) Cardiovascular: Regular Rate, Regular Rhythm GI/Abdominal Exam: Normal Bowel Sounds, Soft, Non-Tender Extremities: Normal Inspection, Normal Range of Motion, Non-Tender, Pedal Edema (+2 pitting edema, reports at baseline) Neurological: No New Focal Deficit Psy/Mental Status: Alert, Normal Affect, Normal Mood - Problem List & Annotations (1) Aspiration pneumonia SNOMED Code(s): 134737928 Code(s): J69.0 - PNEUMONITIS DUE TO INHALATION OF FOOD AND VOMIT Status: Acute Current Visit: Yes Qualifiers: Aspiration pneumonia type: unspecified Lung location: unspecified part of lung (2) Peripheral edema SNOMED Code(s): 879949057 Code(s): R60.9 - EDEMA, UNSPECIFIED Status: Chronic Priority: High Current Visit: Yes (3) 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 SNOMED Code(s): 12884395 Code(s): C61 - MALIGNANT NEOPLASM OF PROSTATE; C78.5 - SECONDARY MALIGNANT NEOPLASM OF LARGE INTESTINE AND RECTUM Status: Chronic Priority: High Current Visit: Yes (4) CAD (coronary artery disease) SNOMED Code(s): 44473644 Code(s): I25.10 - ATHSCL HEART DISEASE OF [place] CORONARY ARTERY W/O ANG PCTRS Status: Chronic Current Visit: No (5) Hx of deep venous thrombosis SNOMED Code(s): 929795889 Code(s): Z86.718 - PERSONAL HISTORY OF OTHER VENOUS THROMBOSIS AND EMBOLISM Status: Chronic Current Visit: No (6) Hyperlipidemia SNOMED Code(s): 70035977 Code(s): E78.5 - HYPERLIPIDEMIA, UNSPECIFIED Status: Chronic Current Visit: No (7) Hypothyroidism SNOMED Code(s): 30218190 Code(s): E03.9 - HYPOTHYROIDISM, UNSPECIFIED Status: Chronic Current Visit: No (8) PVD (peripheral vascular disease) SNOMED Code(s): 684458571 Code(s): I73.9 - PERIPHERAL VASCULAR DISEASE, UNSPECIFIED Status: Chronic Current Visit: No - Problem List Review Problem List Initiated/Reviewed/Updated: Yes - My Orders Last 24 Hours: My Active Orders 03/17/19 08:19 Consult to Speech Language Pathology [AGRICULTURE PROFESSOR Evaluation and Treatment] [CONS] Routine - Plan Plan:: This 83 year old male admitted with pneumonia, suspect aspiration 1. Aspiration PNA: Continue Meropenem will Add Levaquin as well. BC pending. Consult to ST for evaluation. Will stop IVFs. 2. Generlaized weakness: Consult PT/OT to evaluate and treat. Discused at length with family and Lyel regarding short term rehab for strengthening. They agreed. 3. Prostate ca with mets to colon: Pain is ok today. Monitor 4. CAD/PAD: No chest pain. Continue statin, ASA and Lasix. VTE prophylaxis: Heparin Dispo: 2-3 days pending improvement and placement.
[2019-03-17] MEDS: MEROPENEM IV SCH ×2 (11:16→21:37)
[2019-03-17] MEDS ORDERED: Levofloxacin/Dextrose 5%-Water 750 MG in Premix Bag 1 BAG IV SCH (12:00)
[2019-03-17] MEDS ORDERED: Morphine 2 MG/ML Syringe IVPUSH ONE (13:27)
[2019-03-17] MEDS: Acetaminophen 325 MG Tab PO PRN (21:25)
[2019-03-18] MEDS: Heparin Sodium 5,000 Units/ML Vial SUBCUT SCH ×3 (03:06→18:08)
[2019-03-18 06:27] LABS: CARBON DIOXIDE,CO2 35.2 mmol/L (21.0-32.0); POTASSIUM,K 3.9 mmol/L (3.5-5.1)
[2019-03-18] MEDS: Levothyroxine 50 MCG Tab PO SCH (07:38)
--- NOTE | 2019-03-18 08:22 | CR ---
INDICATION: Pneumonia. TECHNIQUE: Chest 1 view COMPARISON: Chest radiograph 03/15/2019. FINDINGS: Slight increase in size of the small right pleural effusion. Right basilar atelectasis or infiltrate. The left lung is clear. No pneumothorax. Sternotomy. Heart size upper limits of normal. Normal pulmonary vascularity. Calcified aorta. IMPRESSION: 1. Slight increase in size of the small right pleural effusion. 2. Right basilar atelectasis or infiltrate. Dictated by Erica Patel MD @ Mar 18 2019 8:18AM Signed by Dr. Erica Patel @ Mar 18 2019 8:21AM
[2019-03-18] MEDS: Docusate Sodium 100 MG Cap PO SCH ×2 (08:32→21:41)
[2019-03-18] MEDS: Polyethylene Glycol 3350 Powder 17 GM Packet PO SCH (08:32)
[2019-03-18] MEDS: atorvaSTATin 20 MG Tab PO SCH (08:32)
[2019-03-18] MEDS: Furosemide 40 MG Tab PO SCH (08:32)
[2019-03-18] MEDS: Aspirin 81 MG Tab.EC PO SCH (08:32)
--- NOTE | 2019-03-18 09:52 | PCM.PN ---
- General Info Date of Service: 03/18/19 Admission Dx/Problem (Free Text): Admission Diagnosis/Problem Admission Diagnosis/Problem Pneumonia, right lower lobe, upper abdominal pain with colon cancer metastases Subjective Update: Had large BM this morning, feeling tired because he was awoken a lot with nursing cares overnight. he denies chest pain, reports abdominal pain currently , but it is tolerable with Oxycodone. No other complaints. asking to speak with ST regarding evaluation. Functional Status: Reports: Pain Controlled, Tolerating Diet, Ambulating, Urinating - Review of Systems General: Reports: Weakness, Fatigue Pulmonary: Reports: No Symptoms. Denies: Shortness of Breath Cardiovascular: Reports: No Symptoms. Denies: Chest Pain Gastrointestinal: Reports: Abdominal Pain (reports as a stomach ache). Denies: Nausea, Vomiting Genitourinary: Reports: No Symptoms. Denies: Dysuria, Frequency, Burning Musculoskeletal: Reports: No Symptoms Skin: Reports: No Symptoms Neurological: Reports: No Symptoms Psychiatric: Reports: No Symptoms - Patient Data Vitals - Most Recent: Last Vital Signs Temp 98.4 F 03/18/19 07:20 Pulse 83 03/18/19 07:20 Resp 18 03/18/19 07:20 BP 116/74 03/18/19 07:20 Pulse Ox 93 L 03/18/19 07:20 Weight - Most Recent: 62.794 kg I&O - Last 24 Hours: Intake & Output 03/17/19 03/18/19 03/18/19 22:59 06:59 14:59 Intake Total 585 240 Output Total 260 210 Balance 325 30 Lab Results Last 24 Hours: Laboratory Results - last 24 hr 03/17/19 03/17/19 03/18/19 Range/Units 13:50 20:35 01:56 WBC (4.0-11.0) K/uL RBC (4.50-5.90) M/uL Hgb (13.0-17.0) g/dL Hct (38.0-50.0) % MCV (80.0-98.0) fL MCH (27.0-32.0) pg MCHC (31.0-37.0) g/dL RDW Std Deviation (28.0-62.0) fl RDW Coeff of Dalia (11.0-15.0) % Plt Count (150-400) K/uL MPV (7.40-12.00) fL Neut % (Auto) (48.0-80.0) % Lymph % (Auto) (16.0-40.0) % [place] % (Auto) (0.0-15.0) % Eos % (Auto) (0.0-7.0) % Baso % (Auto) (0.0-1.5) % Neut # (Auto) (1.4-5.7) K/uL Lymph # (Auto) (0.6-2.4) K/uL [place] # (Auto) (0.0-0.8) K/uL Eos # (Auto) (0.0-0.7) K/uL Baso # (Auto) (0.0-0.1) K/uL Nucleated RBC % /100WBC Nucleated RBCs # K/uL Sodium (136-148) mmol/L Potassium (3.5-5.1) mmol/L Chloride (98-107) mmol/L Carbon Dioxide (21.0-32.0) mmol/L BUN (7.0-18.0) mg/dL Creatinine (0.8-1.3) mg/dL Est Cr Clr Drug Dosing mL/min Estimated GFR (MDRD) ml/min Glucose (74-106) mg/dL Calcium (8.5-10.1) mg/dL Troponin I < 0.050 < 0.050 < 0.050 (0.000-0.056) ng/mL 03/18/19 03/18/19 Range/Units 05:42 05:42 WBC 4.95 (4.0-11.0) K/uL RBC 3.84 L (4.50-5.90) M/uL Hgb 11.7 L (13.0-17.0) g/dL Hct 35.3 L (38.0-50.0) % MCV 91.9 (80.0-98.0) fL MCH 30.5 (27.0-32.0) pg MCHC 33.1 (31.0-37.0) g/dL RDW Std Deviation 45.6 (28.0-62.0) fl RDW Coeff of Dalia 14 (11.0-15.0) % Plt Count 301 (150-400) K/uL MPV 9.60 (7.40-12.00) fL Neut % (Auto) 59.4 (48.0-80.0) % Lymph % (Auto) 20.0 (16.0-40.0) % [place] % (Auto) 13.3 (0.0-15.0) % Eos % (Auto) 7.1 H (0.0-7.0) % Baso % (Auto) 0.2 (0.0-1.5) % Neut # (Auto) 2.9 (1.4-5.7) K/uL Lymph # (Auto) 1.0 (0.6-2.4) K/uL [place] # (Auto) 0.7 (0.0-0.8) K/uL Eos # (Auto) 0.4 (0.0-0.7) K/uL Baso # (Auto) 0.0 (0.0-0.1) K/uL Nucleated RBC % 0.0 /100WBC Nucleated RBCs # 0 K/uL Sodium 139 (136-148) mmol/L Potassium 3.9 (3.5-5.1) mmol/L Chloride 100 (98-107) mmol/L Carbon Dioxide 35.2 H (21.0-32.0) mmol/L BUN 16 (7.0-18.0) mg/dL Creatinine 1.3 (0.8-1.3) mg/dL Est Cr Clr Drug Dosing 37.57 mL/min Estimated GFR (MDRD) 52.6 ml/min Glucose 86 (74-106) mg/dL Calcium 8.4 L (8.5-10.1) mg/dL Troponin I (0.000-0.056) ng/mL Vick Results Last 24 Hours: Microbiology 03/15/19 15:00 Aerobic Blood Culture - Preliminary Blood - Venous - Lab Draw NO GROWTH AFTER 2 DAYS Anaerobic Blood Culture - Preliminary NO GROWTH AFTER 2 DAYS 03/15/19 14:50 Aerobic Blood Culture - Preliminary Blood - Venous NO GROWTH AFTER 2 DAYS Anaerobic Blood Culture - Preliminary NO GROWTH AFTER 2 DAYS Med Orders - Current: Current Medications Acetaminophen (Tylenol) 650 mg PO Q6H PRN PRN Reason: Pain Last Admin: 03/17/19 21:25 Dose: 650 mg Aspirin (Halfprin) 81 mg PO BRK [facility] Last Admin: 03/18/19 08:32 Dose: 81 mg Atorvastatin Calcium (Lipitor) 20 mg PO DAILY [facility] Last Admin: 03/18/19 08:32 Dose: 20 mg Docusate Sodium (Colace) 100 mg PO BID [facility] Last Admin: 03/18/19 08:32 Dose: 100 mg Furosemide (Lasix) 40 mg PO DAILY [facility] Last Admin: 03/18/19 08:32 Dose: 40 mg Heparin Sodium (Porcine) (Heparin Sodium) 5,000 units SUBCUT Q8H [facility] Last Admin: 03/18/19 03:06 Dose: 5,000 units Meropenem/Sodium Chloride 2 gm (/ Premix) 100 mls @ 100 mls/hr IV Q12H [facility] Last Admin: 03/17/19 21:37 Dose: 100 mls/hr Levofloxacin/Dextrose 750 mg/ (Premix) 150 mls @ 100 mls/hr IV Q48H [facility] Last Admin: 03/17/19 13:06 Dose: 100 mls/hr Levothyroxine Sodium (Synthroid) 50 mcg PO ACBREAKFAST [facility] Last Admin: 03/18/19 07:38 Dose: 50 mcg Oxycodone HCl (Oxycodone) 5 mg PO Q8H PRN PRN Reason: Pain (moderate 4-6) Last Admin: 03/17/19 23:18 Dose: 5 mg Polyethylene Glycol (Miralax) 17 gm PO DAILY [facility] Last Admin: 03/18/19 08:32 Dose: 17 gm Discontinued Medications Acetaminophen (Tylenol) 650 mg PO DAILY PRN PRN Reason: Pain Last Admin: 03/16/19 08:41 Dose: 650 mg Furosemide (Lasix) 20 mg IV NOW ONE Stop: 03/15/19 22:16 Last Admin: 03/15/19 22:11 Dose: 20 mg Sodium Chloride (Normal Saline) 1,000 mls @ 125 mls/hr IV ASDIRECTED [facility] Last Admin: 03/15/19 15:51 Dose: 125 mls/hr Piperacillin Sod/Tazobactam (Sod 3.375 gm/ Sodium Chloride) 50 mls @ 100 mls/ hr IV ONETIME ONE Stop: 03/15/19 16:39 Last Admin: 03/15/19 16:20 Dose: 100 mls/hr Meropenem 2 gm/ Sodium (Chloride) 100 mls @ 100 mls/hr IV Q8H [facility] Meropenem 2 gm/ Sodium (Chloride) 100 mls @ 100 mls/hr IV Q12H [facility] Last Admin: 03/15/19 22:01 Dose: 100 mls/hr Sodium Chloride (Normal Saline) 1,000 mls @ 50 mls/hr IV ASDIRECTED [facility] Last Admin: 03/16/19 21:12 Dose: 50 mls/hr Meropenem/Sodium Chloride 2 gm (/ Premix) 100 mls @ 100 mls/hr IV Q12H [facility] Last Admin: 03/16/19 09:55 Dose: Not Given Morphine Sulfate (Morphine) 2 mg IVPUSH ONETIME ONE Stop: 03/15/19 15:25 Last Admin: 03/15/19 15:51 Dose: 2 mg Morphine Sulfate (Morphine) 1 mg IVPUSH ONETIME ONE Stop: 03/16/19 04:06 Last Admin: 03/16/19 05:52 Dose: 1 mg Morphine Sulfate (Morphine) 2 mg IVPUSH STAT ONE Stop: 03/17/19 13:28 Last Admin: 03/17/19 13:48 Dose: 2 mg Non-Formulary Medication (Tolterodine) 2 mg PO DAILY [facility] - Exam General: Alert, Oriented, Cooperative Lungs: Normal Respiratory Effort, Crackles (bibasilar) Cardiovascular: Regular Rate, Regular Rhythm GI/Abdominal Exam: Normal Bowel Sounds, Soft, Tender (throughout, near baseline. 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 SNOMED Code(s): 24513387 Code(s): C61 - MALIGNANT NEOPLASM OF PROSTATE; C78.5 - SECONDARY MALIGNANT NEOPLASM OF LARGE INTESTINE AND RECTUM Status: Chronic Priority: High Current Visit: Yes (4) CAD (coronary artery disease) SNOMED Code(s): 35091036 Code(s): I25.10 - ATHSCL HEART DISEASE OF [place] CORONARY ARTERY W/O ANG PCTRS Status: Chronic Current Visit: No (5) Hx of deep venous thrombosis SNOMED Code(s): 461454641 Code(s): Z86.718 - PERSONAL HISTORY OF OTHER VENOUS THROMBOSIS AND EMBOLISM Status: Chronic Current Visit: No (6) Hyperlipidemia SNOMED Code(s): 48661212 Code(s): E78.5 - HYPERLIPIDEMIA, UNSPECIFIED Status: Chronic Current Visit: No (7) Hypothyroidism SNOMED Code(s): 08849464 Code(s): E03.9 - HYPOTHYROIDISM, UNSPECIFIED Status: Chronic Current Visit: No (8) PVD (peripheral vascular disease) SNOMED Code(s): 346564600 Code(s): I73.9 - PERIPHERAL VASCULAR DISEASE, UNSPECIFIED Status: Chronic Current Visit: No - Problem List Review Problem List Initiated/Reviewed/Updated: Yes - My Orders Last 24 Hours: My Active Orders 03/17/19 12:00 Levofloxacin/Dextrose 5%-Water [Levaquin in D5W 750 MG/150 ML] 750 mg Premix Bag 1 bag IV Q48H 03/17/19 13:39 Telemetry Monitoring [Cardiac Monitoring] [RC] Q8H 03/19/19 05:11 BMP [BASIC METABOLIC PANEL,BMP] [CHEM] AM CBC WITH AUTO DIFF [HEME] AM 03/20/19 05:11 BMP [BASIC METABOLIC PANEL,BMP] [CHEM] AM CBC WITH AUTO DIFF [HEME] AM - Plan Plan:: This 83 year old male admitted with pneumonia, suspect aspiration 1. Aspiration PNA: Continue Meropenem and Levaquin as well. BC pending. Consult to ST for evaluation. 2. Generalized weakness: Consult PT/OT to evaluate and treat. Discussed at length with family and [facility] regarding short term rehab for strengthening. They agreed. 3. Prostate ca with mets to colon: Pain is ok today. Monitor, continue Oxycodone 4. CAD/PAD: No chest pain. Continue statin, ASA and Lasix. VTE prophylaxis: Heparin Dispo: Likely [place] in am.
[2019-03-18] MEDS: MEROPENEM IV SCH ×2 (10:32→21:41)
[2019-03-18] MEDS ORDERED: Pantoprazole 40 MG in Sodium Chloride 0.9% 10 ML IV ONE (10:57)
[2019-03-18] MEDS: oxyCODONE 5 MG Tab PO PRN ×2 (12:27→21:40)
[2019-03-19] MEDS: Heparin Sodium 5,000 Units/ML Vial SUBCUT SCH ×2 (02:54→10:19)
[2019-03-19 06:42] LABS: CARBON DIOXIDE,CO2 34.2 mmol/L (21.0-32.0); POTASSIUM,K 4.2 mmol/L (3.5-5.1)
[2019-03-19] MEDS: Levothyroxine 50 MCG Tab PO SCH (07:37)
[2019-03-19] MEDS ORDERED: Pantoprazole 40 MG Tab.CR PO SCH (09:00)
[2019-03-19] MEDS: Aspirin 81 MG Tab.EC PO SCH (09:32)
[2019-03-19] MEDS: Furosemide 40 MG Tab PO SCH (09:33)
[2019-03-19] MEDS: Docusate Sodium 100 MG Cap PO SCH (09:33)
[2019-03-19] MEDS: atorvaSTATin 20 MG Tab PO SCH (09:35)
[2019-03-19] MEDS: MEROPENEM IV SCH (09:40)
--- NOTE | 2019-03-19 09:45 | PCM.DCSUM1 ---
Discharge Summary - Hospital Course Brief History: The patient is an 83-year-old gentleman who had presented to the emergency department with a complaint of shortness of breath as well as upper abdominal pain. 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 The patient has been in somewhat of a decline over the past several months. The patient's daughter is concerned about his ability to remain at home. The patient also had a chest x-ray which showed a dense right lower lobe. The patient's daughter says that his cough has gotten worse. For now the patient is in a full resuscitative CODE STATUS and this will be honored. 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 SNOMED Code(s): 65135518 ICD Code: C61 - MALIGNANT NEOPLASM OF PROSTATE; C78.5 - SECONDARY MALIGNANT NEOPLASM OF LARGE INTESTINE AND RECTUM Status: Chronic Priority: High (4) CAD (coronary artery disease) SNOMED Code(s): 81115320 ICD Code: I25.10 - ATHSCL HEART DISEASE OF [place] CORONARY ARTERY W/O ANG PCTRS Status: Chronic (5) Hx of deep venous thrombosis SNOMED Code(s): 383232663 ICD Code: Z86.718 - PERSONAL HISTORY OF OTHER VENOUS THROMBOSIS AND EMBOLISM Status: Chronic (6) Hyperlipidemia SNOMED Code(s): 93686218 ICD Code: E78.5 - HYPERLIPIDEMIA, UNSPECIFIED Status: Chronic (7) Hypothyroidism SNOMED Code(s): 33981422 ICD Code: E03.9 - HYPOTHYROIDISM, UNSPECIFIED Status: Chronic (8) PVD (peripheral vascular disease) SNOMED Code(s): 557334123 ICD Code: I73.9 - PERIPHERAL VASCULAR DISEASE, UNSPECIFIED Status: Chronic - Patient Summary/Data Consults: Consultations 03/15/19 18:10 OT Evaluation and Treatment [CONS] Routine PT Evaluation and Treatment [CONS] Routine 03/17/19 08:19 Consult to Speech Language Pathology [EARLY CHILDHOOD EDUCATOR AIDE Evaluation and Treatment] [CONS] Routine - Patient Instructions Diet: Heart Healthy Diet Activity: As Tolerated Driving: Do Not Drive Showering/Bathing: May Shower Notify Provider of: Fever, Increased Pain, Swelling and Redness, Drainage, Nausea and/or Vomiting Other/Special Instructions: PT/OT/ST to evaluate and treat. Oxygen therapy 2 L NC to keep sats greater than 90% - Discharge Plan *PRESCRIPTION DRUG MONITORING PROGRAM REVIEWED*: Not Applicable *COPY OF PRESCRIPTION DRUG MONITORING REPORT IN PATIENT ADDI: Not Applicable Prescriptions/Med Rec: levoFLOXacin [Levaquin] 750 mg PO Q48H #2 tab oxyCODONE 5 mg PO Q8H PRN #20 tab PRN Reason: Pain Pantoprazole [ProTONIX] 40 mg PO ACBREAKFAST #30 tab.cr Home Medications: Home Meds Aspirin [Halfprin] 81 mg PO BRK 03/16/15 [History] Levothyroxine Sodium [Levoxyl] 50 mcg PO ACBREAKFAST 03/16/15 [History] atorvaSTATin [Lipitor] 20 mg PO DAILY 08/11/16 [History] Acetaminophen [Tylenol] 650 mg PO DAILY PRN #30 tablet 03/08/19 [Rx] Docusate Sodium [Colace] 100 mg PO BID #60 cap 03/08/19 [Rx] Polyethylene Glycol 3350 [Gavilax] 17 gm PO DAILY #30 powd.pack 03/08/19 [Rx] Pantoprazole [ProTONIX] 40 mg PO ACBREAKFAST #30 tab.cr 03/19/19 [Rx] levoFLOXacin [Levaquin] 750 mg PO Q48H #2 tab 03/19/19 [Rx] oxyCODONE 5 mg PO Q8H PRN #20 tab 03/19/19 [Rx] oxyCODONE 5 mg PO Q8H PRN #20 tablet 03/19/19 [Rx] Oxygen Therapy Mode: Room Air Patient Handouts: Community-Acquired Pneumonia, Adult, [id number] Referrals: Nils Mao MD [Physician] - - Discharge Summary/Plan Comment DC Time >30 min.: No Discharge Summary/Plan Comment: Admitting Diagnoses: RLL Pneumonia Dyspnea Dehydration Generalized weakness Discharge Diagnoses: Suspected aspiration pneumonia Generalized weakness Other PMH: CABG Dyslipidemia Colon ca prostate ca Horace was admitted and treated for suspected aspiration pneumonia with Levaquin and Meropenem. He improved with treatment. BC negative and sputum cultures normal respiratory omar. He continues to need 1-2 L NC, which he needed prior to admission as well. ST was consulted and evaluated Horace due to suspected aspiration. She was unable to find evidence of this but highly suspected silent aspiration. We are unable to obtain MBS here, offered for outpatient in [place] but family felt this was not feasible. Due to generalized weakness and inability for Horace to return to home with at current state, family and Horace decided it would be best to get PT/OT/ST at [place] for short term with hopes of returning home. He will be discharged to [facility] with Levaquin for 5 more days. He is feeling well today, eating and drinking. He does have chronic abdominal pain, which Oxycodone has helped with. he is having bowel movements as well. He is to return to ED or clnic if concerns should arise. Spoke with Dr Mao regarding transfer to [place]. - Patient Data Vitals - Most Recent: Last Vital Signs Temp 97.7 F 03/19/19 07:45 Pulse 64 03/19/19 07:45 Resp 15 03/19/19 07:45 BP 106/58 L 03/19/19 07:45 Pulse Ox 95 03/19/19 07:45 Weight - Most Recent: 60.645 kg I&O - Last 24 hours: Intake & Output 03/18/19 03/19/19 03/19/19 22:59 06:59 14:59 Intake Total 630 800 Output Total 650 Balance -20 800 Lab Results - Last 24 hrs: Laboratory Results - last 24 hr 03/19/19 03/19/19 Range/Units 05:43 05:43 WBC 6.04 (4.0-11.0) K/uL RBC 4.03 L (4.50-5.90) M/uL Hgb 12.2 L (13.0-17.0) g/dL Hct 37.2 L (38.0-50.0) % MCV 92.3 (80.0-98.0) fL MCH 30.3 (27.0-32.0) pg MCHC 32.8 (31.0-37.0) g/dL RDW Std Deviation 46.4 (28.0-62.0) fl RDW Coeff of Dalia 14 (11.0-15.0) % Plt Count 318 (150-400) K/uL MPV 9.80 (7.40-12.00) fL Neut % (Auto) 59.1 (48.0-80.0) % Lymph % (Auto) 19.5 (16.0-40.0) % [place] % (Auto) 12.9 (0.0-15.0) % Eos % (Auto) 8.3 H (0.0-7.0) % Baso % (Auto) 0.2 (0.0-1.5) % Neut # (Auto) 3.6 (1.4-5.7) K/uL Lymph # (Auto) 1.2 (0.6-2.4) K/uL [place] # (Auto) 0.8 (0.0-0.8) K/uL Eos # (Auto) 0.5 (0.0-0.7) K/uL Baso # (Auto) 0.0 (0.0-0.1) K/uL Nucleated RBC % 0.0 /100WBC Nucleated RBCs # 0 K/uL Sodium 139 (136-148) mmol/L Potassium 4.2 (3.5-5.1) mmol/L Chloride 100 (98-107) mmol/L Carbon Dioxide 34.2 H (21.0-32.0) mmol/L BUN 14 (7.0-18.0) mg/dL Creatinine 1.4 H (0.8-1.3) mg/dL Est Cr Clr Drug Dosing 34.89 mL/min Estimated GFR (MDRD) 48.3 ml/min Glucose 84 (74-106) mg/dL Calcium 8.7 (8.5-10.1) mg/dL JACE Results - Last 24 hrs: Microbiology 03/15/19 15:00 Aerobic Blood Culture - Preliminary Blood - Venous - Lab Draw NO GROWTH AFTER 3 DAYS Anaerobic Blood Culture - Preliminary NO GROWTH AFTER 3 DAYS 03/15/19 14:50 Aerobic Blood Culture - Preliminary Blood - Venous NO GROWTH AFTER 3 DAYS Anaerobic Blood Culture - Preliminary NO GROWTH AFTER 3 DAYS 03/15/19 16:10 Gram Stain - Final Sputum - Expectorated Sputum Culture - Final Normal Respiratory Omar YEAST Med Orders - Current: Current Medications Acetaminophen (Tylenol) 650 mg PO Q6H PRN PRN Reason: Pain Last Admin: 03/17/19 21:25 Dose: 650 mg Aspirin (Halfprin) 81 mg PO BRK [facility] Last Admin: 03/19/19 09:32 Dose: 81 mg Atorvastatin Calcium (Lipitor) 20 mg PO DAILY [facility] Last Admin: 03/19/19 09:35 Dose: 20 mg Docusate Sodium (Colace) 100 mg PO BID [facility] Last Admin: 03/19/19 09:33 Dose: 100 mg Furosemide (Lasix) 40 mg PO DAILY [facility] Last Admin: 03/19/19 09:33 Dose: 40 mg Heparin Sodium (Porcine) (Heparin Sodium) 5,000 units SUBCUT Q8H [facility] Last Admin: 03/19/19 02:54 Dose: 5,000 units Meropenem/Sodium Chloride 2 gm (/ Premix) 100 mls @ 100 mls/hr IV Q12H [facility] Last Admin: 03/19/19 09:40 Dose: 100 mls/hr Levofloxacin/Dextrose 750 mg/ (Premix) 150 mls @ 100 mls/hr IV Q48H [facility] Last Admin: 03/17/19 13:06 Dose: 100 mls/hr Levothyroxine Sodium (Synthroid) 50 mcg PO ACBREAKFAST [facility] Last Admin: 03/19/19 07:37 Dose: 50 mcg Oxycodone HCl (Oxycodone) 5 mg PO Q8H PRN PRN Reason: Pain (moderate 4-6) Last Admin: 03/18/19 21:40 Dose: 5 mg Pantoprazole Sodium (Protonix) 40 mg PO ACBREAKFAST [facility] Last Admin: 03/19/19 09:35 Dose: 40 mg Polyethylene Glycol (Miralax) 17 gm PO DAILY [facility] Last Admin: 03/18/19 08:32 Dose: 17 gm Discontinued Medications Acetaminophen (Tylenol) 650 mg PO DAILY PRN PRN Reason: Pain Last Admin: 03/16/19 08:41 Dose: 650 mg Furosemide (Lasix) 20 mg IV NOW ONE Stop: 03/15/19 22:16 Last Admin: 03/15/19 22:11 Dose: 20 mg Sodium Chloride (Normal Saline) 1,000 mls @ 125 mls/hr IV ASDIRECTED [facility] Last Admin: 03/15/19 15:51 Dose: 125 mls/hr Piperacillin Sod/Tazobactam (Sod 3.375 gm/ Sodium Chloride) 50 mls @ 100 mls/ hr IV ONETIME ONE Stop: 03/15/19 16:39 Last Admin: 03/15/19 16:20 Dose: 100 mls/hr Meropenem 2 gm/ Sodium (Chloride) 100 mls @ 100 mls/hr IV Q8H [facility] Meropenem 2 gm/ Sodium (Chloride) 100 mls @ 100 mls/hr IV Q12H [facility] Last Admin: 03/15/19 22:01 Dose: 100 mls/hr Sodium Chloride (Normal Saline) 1,000 mls @ 50 mls/hr IV ASDIRECTED [facility] Last Admin: 03/16/19 21:12 Dose: 50 mls/hr Meropenem/Sodium Chloride 2 gm (/ Premix) 100 mls @ 100 mls/hr IV Q12H [facility] Last Admin: 03/16/19 09:55 Dose: Not Given Pantoprazole Sodium 40 mg/ (Sodium Chloride) 10 mls @ 300 mls/hr IV NOW ONE Stop: 03/18/19 10:58 Last Admin: 03/18/19 12:20 Dose: 300 mls/hr Morphine Sulfate (Morphine) 2 mg IVPUSH ONETIME ONE Stop: 03/15/19 15:25 Last Admin: 03/15/19 15:51 Dose: 2 mg Morphine Sulfate (Morphine) 1 mg IVPUSH ONETIME ONE Stop: 03/16/19 04:06 Last Admin: 03/16/19 05:52 Dose: 1 mg Morphine Sulfate (Morphine) 2 mg IVPUSH STAT ONE Stop: 03/17/19 13:28 Last Admin: 03/17/19 13:48 Dose: 2 mg Non-Formulary Medication (Tolterodine) 2 mg PO DAILY [facility] - Exam Quality Assessment: Reports: Supplemental Oxygen General: Reports: Alert, Oriented, Cooperative, No Acute Distress Lungs: Reports: Crackles (bilateral, but clears with cough, likely more bronchial ) Cardiovascular: Reports: Regular Rate, Regular Rhythm GI/Abdominal Exam: Normal Bowel Sounds, Soft, Non-Tender Extremities: Normal Inspection, Pedal Edema (+1-2 pitting at baseline.) Neurological: Reports: No New Focal Deficit Psy/Mental Status: Reports: Alert, Normal Affect, Normal Mood *Q Meaningful Use (DIS) - VTE *Q VTE Mechanical Contraindications *Q: At Risk for Falls
[2019-03-19] MEDS: Polyethylene Glycol 3350 Powder 17 GM Packet PO SCH (09:47)
[2019-03-19] MEDS ORDERED: Levofloxacin 500 MG Tab PO ONE (13:00)
[2019-03-19 13:02] VITALS: BP 136/61; PULSE 65
== END 2019-03-19 13:45 | DRG 178 ==
LOC: MW.ED 14:29 → MW.MS 17:57
PROVIDERS: ADMIT Internal Medicine; ATTEND Internal Medicine
DX: J18.9 Pneumonia, unspecified organism (principal); R10.10 Upper abdominal pain, unspecified; R06.02 Shortness of breath; J69.0 Pneumonitis due to inhalation of food and vomit; C78.5 Secondary malignant neoplasm of large intestine and rectum; K59.09 Other constipation; I25.10 Atherosclerotic heart disease of native coronary artery without angina pectoris; E78.5 Hyperlipidemia, unspecified; Z85.038 Personal history of other malignant neoplasm of large intestine; E03.9 Hypothyroidism, unspecified; R60.0 Localized edema; Z90.79 Acquired absence of other genital organ(s); I73.9 Peripheral vascular disease, unspecified; K59.01 Slow transit constipation; E86.0 Dehydration; E78.00 Pure hypercholesterolemia, unspecified; M19.90 Unspecified osteoarthritis, unspecified site; Z95.1 Presence of aortocoronary bypass graft; Z86.718 Personal history of other venous thrombosis and embolism; Z79.82 Long term (current) use of aspirin; Z79.890 Hormone replacement therapy; Z79.899 Other long term (current) drug therapy; Z91.041 Radiographic dye allergy status; Z90.89 Acquired absence of other organs; Z90.49 Acquired absence of other specified parts of digestive tract; Z85.46 Personal history of malignant neoplasm of prostate; Z87.891 Personal history of nicotine dependence
CPT/HCPCS: 36415; 71045; 74176; 80053; 81001; 83690; 84484; 85025; 87040 ×2; 87070; 87205; 96361; 96365; 96375; 99285; J2270; J2543; J7040; J7050; 80048; 92610-GN; 93005; 97161-GP; A9270-GY; C9113; J1644; J1956; J2185; J7030

== ENCOUNTER 2019-04-24 12:44 | Inpatient (IN) | payer MEDICARE, BC ==
--- NOTE | 2019-04-24 13:01 | EDM.PDOC ---
ED HPI GENERAL MEDICAL PROBLEM - General Stated Complaint: FALL COMING IN BY AMBULANCE Time Seen by Provider: 04/24/19 12:56 - History of Present Illness INITIAL COMMENTS - FREE TEXT/NARRATIVE: HISTORY AND PHYSICAL: History of present illness: Patient is an 83-year-old white male who presents status post mechanical fall as getting out of a car injuring his left hip he presents by EMS with this hit semiflexed seemingly shortened without significant rotation was no reported had her neck pain or trauma no chest pain dizziness shortness of breath this was witnessed and is reported to be strictly mechanical Review of systems: As per history of present illness and below otherwise all systems reviewed and negative. Past medical history: As per history of present illness and as reviewed below otherwise noncontributory. Surgical history: As per history of present illness and as reviewed below otherwise noncontributory. Social history: No reported history of drug or alcohol abuse. Family history: As per history of present illness and as reviewed below otherwise noncontributory. Physical exam: HEENT: Atraumatic, normocephalic, pupils reactive, negative for conjunctival pallor or scleral icterus, mucous membranes moist, throat clear, neck supple, nontender, trachea midline. Lungs: Clear to auscultation, breath sounds equal bilaterally, chest nontender. Heart: S1S2, regular, negative for clicks, rubs, or JVD. Abdomen: Soft, nondistended, nontender. Negative for masses or hepatosplenomegaly. Negative for costovertebral tenderness. Pelvis: Stable nontender. Genitourinary: Deferred. Rectal: Deferred. Extremities: Left hip has tenderness to palpation he is semiflexed it is seemingly shortened is limited range of motion secondary to pain neurovascular exam is unremarkable Neuro: Awake, alert, oriented. Follows commands moves all extremities limited grossly nonfocal exam Diagnostics: CBC CMP troponin PT/INR chest x-ray EKG x-ray left hip and pelvis Therapeutics: IV O2 monitor morphine sulfate 2 mg IV Zofran 4 mg IV Impression: #1 observation status post fall #2 acute left hip injury Definitive disposition and diagnosis as appropriate pending reevaluation and review of above. - Related Data Allergies Allergy/AdvReac Type Severity Reaction Status Date / Time Iodinated Contrast Media Allergy Hives Verified 04/24/19 13:11 [Iodinated Contrast Media - IV Dye] Home Meds: Home Meds Aspirin [Halfprin] 81 mg PO BRK 03/16/15 [History] Levothyroxine Sodium [Levoxyl] 50 mcg PO ACBREAKFAST 03/16/15 [History] atorvaSTATin [Lipitor] 20 mg PO DAILY 08/11/16 [History] Acetaminophen [Tylenol] 650 mg PO DAILY PRN #30 tablet 03/08/19 [Rx] Docusate Sodium [Colace] 100 mg PO BID #60 cap 03/08/19 [Rx] Polyethylene Glycol 3350 [Gavilax] 17 gm PO DAILY #30 powd.pack 03/08/19 [Rx] Pantoprazole [ProTONIX] 40 mg PO ACBREAKFAST #30 tab.cr 03/19/19 [Rx] levoFLOXacin [Levaquin] 750 mg PO Q48H #2 tab 03/19/19 [Rx] oxyCODONE 5 mg PO Q8H PRN #20 tab 03/19/19 [Rx] oxyCODONE 5 mg PO Q8H PRN #20 tablet 03/19/19 [Rx] traMADol [Ultram] 1 tab ASDIRECTED 04/24/19 [History] Past Medical History HEENT History: Reports: Hard of Hearing, Impaired Vision, Other (See Below) Other HEENT History: hearing aids Cardiovascular History: Reports: Bypass, High Cholesterol Other Cardiovascular History: reddness swelling around saphanous graft site L) leg. Respiratory History: Reports: None Gastrointestinal History: Reports: Bowel Obstruction, Chronic Constipation, Other (See Below) Genitourinary History: Reports: Prostate Disorder, Other (See Below) Musculoskeletal History: Reports: Arthritis, Fracture Other Musculoskeletal History: Fracture to right distal clavicle. [place] likely broke some bones playing [place], no known treated Neurological History: Reports: None Psychiatric History: Reports: None Endocrine/Metabolic History: Reports: Hypothyroidism Other Endocrine/Metabolic History: Hypothyroidism Hematologic History: Reports: Other (See Below) Other Hematologic History: blood clots Immunologic History: Reports: None Oncologic (Cancer) History: Reports: Colon Dermatologic History: Reports: None - Infectious Disease History Infectious Disease History: Reports: Chicken Pox, Measles, Mumps - Past Surgical History HEENT Surgical History: Reports: Tonsillectomy Cardiovascular Surgical History: Reports: Coronary Artery Bypass GI Surgical History: Reports: Appendectomy, Colonoscopy, EGD, Hernia, Abdominal , Hernia Repair/Other Other GI Surgeries/Procedures: Colon resection for cancer Male Surgical History: Reports: Prostate Biopsy, Prostatectomy Other Male Surgeries/Procedures: Radical Prostatectomy 1995 Social & Family History - Family History Family Medical History: Noncontributory - Caffeine Use Caffeine Use: Reports: Coffee - Living Situation & Occupation Living situation: Reports: , with Spouse Occupation: Retired ED ROS GENERAL - Review of Systems Review Of Systems: Comprehensive ROS is negative, except as noted in HPI. ED EXAM, GENERAL - Physical Exam Exam: See Below (See dictation) Course - Vital Signs Last Recorded V/S: Last Vital Signs Temp 36.1 C 04/24/19 13:09 Pulse 68 04/24/19 14:15 Resp 16 04/24/19 14:15 BP 113/55 L 04/24/19 14:15 Pulse Ox 86 L 04/24/19 14:15 - Orders/Labs/Meds Orders: Active Orders 24 hr Category Date Time Status Cardiac Monitoring [RC] . DIRECTED Care 04/24/19 13:01 Active EKG Documentation Completion [RC] STAT Care 04/24/19 13:01 Active Oxygen Therapy, ED [RC] ASDIRECTED Care 04/24/19 13:01 Active UA RFX JACE AND CULT IF INDIC [URIN] Stat Lab 04/24/19 13:01 Ordered Sodium Chloride 0.9% [Normal Saline] 1,000 ml Med 04/24/19 13:15 Active IV STAT Sodium Chloride 0.9% [Saline Flush] Med 04/24/19 13:02 Active 10 ml FLUSH ASDIRECTED PRN Sodium Chloride 0.9% [Saline Flush] Med 04/24/19 13:02 Active 2.5 ml FLUSH ASDIRECTED PRN Saline Lock Insert [OM.PC] Stat Oth 04/24/19 13:01 Ordered Medication Orders Sodium Chloride (Normal Saline) 1,000 mls @ 125 mls/hr IV STAT FREDDY Last Admin: 04/24/19 13:39 Dose: 125 mls/hr Sodium Chloride (Saline Flush) 10 ml FLUSH ASDIRECTED PRN PRN Reason: Keep Vein Open Last Admin: 04/24/19 13:39 Dose: 10 ml Sodium Chloride (Saline Flush) 2.5 ml FLUSH ASDIRECTED PRN PRN Reason: Keep Vein Open Last Admin: 04/24/19 13:39 Dose: 2.5 ml Labs: Laboratory Tests 04/24/19 04/24/19 04/24/19 Range/Units 13:25 13:25 13:25 WBC 4.99 (4.0-11.0) K/uL RBC 4.50 (4.50-5.90) M/uL Hgb 13.7 (13.0-17.0) g/dL Hct 41.6 (38.0-50.0) % MCV 92.4 (80.0-98.0) fL MCH 30.4 (27.0-32.0) pg MCHC 32.9 (31.0-37.0) g/dL RDW Std Deviation 51.8 (28.0-62.0) fl RDW Coeff of Dalia 15 (11.0-15.0) % Plt Count 198 (150-400) K/uL MPV 10.40 (7.40-12.00) fL Neut % (Auto) 62.8 (48.0-80.0) % Lymph % (Auto) 22.0 (16.0-40.0) % [place] % (Auto) 10.6 (0.0-15.0) % Eos % (Auto) 4.0 (0.0-7.0) % Baso % (Auto) 0.6 (0.0-1.5) % Neut # (Auto) 3.1 (1.4-5.7) K/uL Lymph # (Auto) 1.1 (0.6-2.4) K/uL [place] # (Auto) 0.5 (0.0-0.8) K/uL Eos # (Auto) 0.2 (0.0-0.7) K/uL Baso # (Auto) 0.0 (0.0-0.1) K/uL Nucleated RBC % 0.0 /100WBC Nucleated RBCs # 0 K/uL INR 1.10 Sodium 142 (136-148) mmol/L Potassium 4.8 (3.5-5.1) mmol/L Chloride 103 (98-107) mmol/L Carbon Dioxide 33.8 H (21.0-32.0) mmol/L BUN 13 (7.0-18.0) mg/dL Creatinine 1.2 (0.8-1.3) mg/dL Est Cr Clr Drug Dosing 36.16 mL/min Estimated GFR (MDRD) 57.7 ml/min Glucose 89 (74-106) mg/dL Calcium 9.1 (8.5-10.1) mg/dL Total Bilirubin 0.6 (0.2-1.0) mg/dL AST 23 (15-37) IU/L ALT 19 (14-63) IU/L Alkaline Phosphatase 122 H (46-116) U/L Troponin I < 0.050 (0.000-0.056) ng/mL Total Protein 7.3 (6.4-8.2) g/dL Albumin 3.4 (3.4-5.0) g/dL Globulin 3.9 (2.6-4.0) g/dL Albumin/Globulin Ratio 0.9 (0.9-1.6) Meds: Medications Generic Name Dose Route Start Last Admin Trade Name Freq PRN Reason Stop Dose Admin Sodium Chloride 1,000 mls @ 125 mls/hr 04/24/19 13:15 04/24/19 13:39 Normal Saline IV 125 mls/hr STAT FREDDY Administration Sodium Chloride 10 ml 04/24/19 13:02 04/24/19 13:39 Saline Flush FLUSH 10 ml ASDIRECTED PRN Administration Keep Vein Open Sodium Chloride 2.5 ml 04/24/19 13:02 04/24/19 13:39 Saline Flush FLUSH 2.5 ml ASDIRECTED PRN Administration Keep Vein Open Discontinued Medications Generic Name Dose Route Start Last Admin Trade Name Freq PRN Reason Stop Dose Admin Morphine Sulfate 2 mg 04/24/19 13:02 04/24/19 13:38 Morphine IVPUSH 04/24/19 13:03 2 mg ONETIME ONE Administration Ondansetron HCl 4 mg 04/24/19 13:02 04/24/19 13:39 Zofran IVPUSH 04/24/19 13:03 4 mg ONETIME ONE Administration Departure - Departure Time of Disposition: 14:42 Disposition: Admitted As Inpatient 65 Condition: Good Clinical Impression: Hip fracture - Discharge Information - My Orders Last 24 Hours: My Active Orders 04/24/19 13:01 Cardiac Monitoring [RC] . DIRECTED EKG Documentation Completion [RC] STAT Oxygen Therapy, ED [RC] ASDIRECTED UA RFX JACE AND CULT IF INDIC [URIN] Stat Saline Lock Insert [OM.PC] Stat 04/24/19 13:02 Sodium Chloride 0.9% [Saline Flush] 10 ml FLUSH ASDIRECTED PRN Sodium Chloride 0.9% [Saline Flush] 2.5 ml FLUSH ASDIRECTED PRN 04/24/19 13:15 Sodium Chloride 0.9% [Normal Saline] 1,000 ml IV STAT - Assessment/Plan Last 24 Hours: My Active Orders 04/24/19 13:01 Cardiac Monitoring [RC] . DIRECTED EKG Documentation Completion [RC] STAT Oxygen Therapy, ED [RC] ASDIRECTED UA RFX JACE AND CULT IF INDIC [URIN] Stat Saline Lock Insert [OM.PC] Stat 04/24/19 13:02 Sodium Chloride 0.9% [Saline Flush] 10 ml FLUSH ASDIRECTED PRN Sodium Chloride 0.9% [Saline Flush] 2.5 ml FLUSH ASDIRECTED PRN 04/24/19 13:15 Sodium Chloride 0.9% [Normal Saline] 1,000 ml IV STAT
[2019-04-24] MEDS ORDERED: Sodium Chloride 0.9% 10 ML Syringe FLUSH PRN (13:02)
[2019-04-24] MEDS ORDERED: Morphine 2 MG/ML Syringe IVPUSH ONE (13:02)
[2019-04-24] MEDS ORDERED: Sodium Chloride 0.9% 2.5 ML Syringe FLUSH PRN (13:02)
[2019-04-24] MEDS ORDERED: Ondansetron 4 MG/2 ML SDV IVPUSH ONE (13:02)
[2019-04-24] MEDS ORDERED: Sodium Chloride 0.9% 1,000 ML IV SCH (13:15)
--- NOTE | 2019-04-24 13:50 | CR ---
HISTORY: Trauma. TECHNIQUE: AP pelvis and 2 views of the left hip. COMPARISON: Radiograph 03/05/2019. FINDINGS: There is an acute impacted left femoral neck fracture. There is mild to moderate hip joint space narrowing superolaterally on the left. On the right, there is mild to moderate hip joint space narrowing superolaterally. Degenerative changes of the spine. Pelvic surgical clips. Vascular calcifications. IMPRESSION: Acute impacted left femoral neck fracture. Dictated by Abimael Berger MD @ 04/24/2019 1:48:16 PM Dictated by: Abimael Berger MD @ 04/24/2019 13:48:23 (Electronically Signed)
--- NOTE | 2019-04-24 13:53 | CR ---
HISTORY: Shortness of breath. TECHNIQUE: One view of the chest. COMPARISON: 03/18/2019. FINDINGS: Prior sternotomy. Small area of linear atelectasis or scaring in the right lateral costophrenic angle. There is no lung consolidation or pulmonary edema. No pneumothorax. No moderate or large pleural effusion. Degenerative changes of the spine. IMPRESSION: 1. Small area of linear atelectasis or scarring in the right lateral costophrenic angle. 2. No lung consolidation or pulmonary edema. Dictated by Abimael Berger MD @ 04/24/2019 1:50:21 PM Dictated by: Abimael Berger MD @ 04/24/2019 13:50:28 (Electronically Signed)
[2019-04-24 14:20] LABS: BLOOD UREA NITROGEN,BUN 13 mg/dL (7.0-18.0); CARBON DIOXIDE,CO2 33.8 mmol/L (21.0-32.0); CHLORIDE,CL 103 mmol/L (98-107); GLUCOSE RANDOM 89 mg/dL (74-106); POTASSIUM,K 4.8 mmol/L (3.5-5.1); SODIUM,NA 142 mmol/L (136-148)
--- NOTE | 2019-04-24 14:21 | CT ---
INDICATION: Fall. TECHNIQUE: CT head without IV contrast. COMPARISON: CT head 09/26/2017. FINDINGS: Small amounts of fluid and mucosal thickening in the ethmoidal sinuses. No acute intracranial hemorrhage. Moderate cerebral atrophy diffusely fairly stable. Moderate cerebellar atrophy stable. Moderate vascular calcifications. Remainder negative. IMPRESSION: Moderate chronic intracranial disease without acute intracranial disease. Please note that all CT scans at this facility use dose modulation, iterative reconstruction, and/or weight-based dosing when appropriate to reduce radiation dose to as low as reasonably achievable. Dictated by Dean Copeland MD @ Apr 24 2019 2:16PM Signed by Dr. Dean Copeland @ Apr 24 2019 2:19PM
--- NOTE | 2019-04-24 14:30 | CT ---
INDICATION: Fall. Left hip pain. TECHNIQUE: Noncontrast CT scan of the pelvis with re-formatted images obtained. FINDINGS: Left sided transcervical femoral neck fracture which is mildly impacted. No other evidence of acute fracture or dislocation. Osteopenia. Degenerative changes of the lower lumbar spine. Atherosclerotic vascular calcifications. No other bony or soft tissue abnormalities identified. IMPRESSION: Left femoral neck fracture. Dictated by Jean Mclean MD @ 04/24/2019 2:28:14 PM Please note that all CT scans at this facility use dose modulation, iterative reconstruction, and/or weight-based dosing when appropriate to reduce radiation dose to as low as reasonably achievable. Dictated by: Jean Mclean MD @ 04/24/2019 14:28:22 (Electronically Signed)
--- NOTE | 2019-04-24 16:36 | PCM.HP.2 ---
<Erich Lopez M - Last Filed: 04/24/19 16:38> H&P History of Present Illness - General Date of Service: 04/24/19 Admit Problem/Dx: Admission Diagnosis/Problem Admission Diagnosis/Problem Hip fracture requiring operative repair Source of Information: Patient, Family History Limitations: Reports: No Limitations - History of Present Illness Initial Comments - Free Text/Narative: 83-year-old male presented to ER after earlier this afternoon while walking to his car. He has a PMH of hypothyroidism, blood clots and CABG surgery. He was walking to his car with his son when he lost his footing and fell. The fall was witness by his . Patient did not lose consciousness, have any witnessed seizure activity or bowel/bladder incontinence. Patient walks with a cane. Patient recalls the event completely and denies hitting his head. Patient denies any fevers, headaches, blurry vision, sore throat, cough, shortness of breath, chest pain, nausea, diarrhea, blood in stool or blood in urine. In the ER CT hip showed left femoral neck fracture. CXR showed minimal atelectasis. CT head was negative. CBC, CMP and PT/INR was unremarkable. Orthopedic surgery was contacted by ER provider who will be taken patient for surgery tomorrow. left hip Pain Score (Numeric/FACES): 10 - Related Data Allergies/Adverse Reactions: Allergies Allergy/AdvReac Type Severity Reaction Status Date / Time Iodinated Contrast Media Allergy Hives Verified 04/24/19 17:01 [Iodinated Contrast Media - IV Dye] Home Medications: Home Meds Aspirin [Halfprin] 81 mg PO DAILY 03/16/15 [History] Levothyroxine Sodium [Levoxyl] 50 mcg PO ACBREAKFAST 03/16/15 [History] atorvaSTATin [Lipitor] 20 mg PO DAILY 08/11/16 [History] oxyCODONE 5 mg PO Q8H PRN #20 tab 03/19/19 [Rx] Docusate Sodium [Colace] 100 mg PO DAILY PRN 04/24/19 [History] traMADol [Ultram] 1 tab ASDIRECTED 04/24/19 [History] Past Medical History HEENT History: Reports: Hard of Hearing, Impaired Vision, Other (See Below) Other HEENT History: hearing aids Cardiovascular History: Reports: Bypass, High Cholesterol Other Cardiovascular History: reddness swelling around saphanous graft site L) leg. Respiratory History: Reports: None Gastrointestinal History: Reports: Bowel Obstruction, Chronic Constipation, Other (See Below) Genitourinary History: Reports: Prostate Disorder, Other (See Below) Musculoskeletal History: Reports: Arthritis, Fracture Other Musculoskeletal History: Fracture to right distal clavicle. [place] bones playing [place], no known treated Neurological History: Reports: None Psychiatric History: Reports: None Endocrine/Metabolic History: Reports: Hypothyroidism Other Endocrine/Metabolic History: Hypothyroidism Hematologic History: Reports: Other (See Below) Other Hematologic History: blood clots Immunologic History: Reports: None Oncologic (Cancer) History: Reports: Colon Dermatologic History: Reports: None - Infectious Disease History Infectious Disease History: Reports: Chicken Pox, Measles, Mumps - Past Surgical History HEENT Surgical History: Reports: Tonsillectomy Cardiovascular Surgical History: Reports: Coronary Artery Bypass GI Surgical History: Reports: Appendectomy, Colonoscopy, EGD, Hernia, Abdominal , Hernia Repair/Other Other GI Surgeries/Procedures: Colon resection for cancer Male Surgical History: Reports: Prostate Biopsy, Prostatectomy Other Male Surgeries/Procedures: Radical Prostatectomy 1995 Social & Family History - Family History Family Medical History: Noncontributory - Tobacco Use Smoking Status *Q: Never Smoker Second Hand Smoke Exposure: No - Caffeine Use Caffeine Use: Reports: Coffee - Recreational Drug Use Recreational Drug Use: No - Living Situation & Occupation Living situation: Reports: , with Spouse Occupation: Retired H&P Review of Systems - Review of Systems: Review Of Systems: Comprehensive ROS is negative, except as noted in HPI. Exam - Exam Exam: See Below - Vital Signs Vital Signs: Last Vital Signs Temp 96.9 F 04/24/19 13:09 Pulse 68 04/24/19 14:15 Resp 16 04/24/19 14:15 BP 113/55 L 04/24/19 14:15 Pulse Ox 86 L 04/24/19 14:15 Weight: 55.792 kg - Exam General: Alert, Oriented, Cooperative, Mild Distress HEENT: Conjunctiva Clear, EOMI, Hearing Intact, Mucosa Moist & [place], Posterior Pharynx Clear Neck: Supple, Trachea Midline Lungs: Clear to Auscultation, Normal Respiratory Effort Cardiovascular: Regular Rate, Regular Rhythm GI/Abdominal Exam: Normal Bowel Sounds, Soft, Non-Tender, No Distention Extremities: Other (Left hip: tenderness to palpation. No lower extremity edema bilaterally.) - Patient Data Lab Results Last 24 hrs: Laboratory Results - last 24 hr 04/24/19 04/24/19 04/24/19 Range/Units 13:25 13:25 13:25 WBC 4.99 (4.0-11.0) K/uL RBC 4.50 (4.50-5.90) M/uL Hgb 13.7 (13.0-17.0) g/dL Hct 41.6 (38.0-50.0) % MCV 92.4 (80.0-98.0) fL MCH 30.4 (27.0-32.0) pg MCHC 32.9 (31.0-37.0) g/dL RDW Std Deviation 51.8 (28.0-62.0) fl RDW Coeff of Dalia 15 (11.0-15.0) % Plt Count 198 (150-400) K/uL MPV 10.40 (7.40-12.00) fL Neut % (Auto) 62.8 (48.0-80.0) % Lymph % (Auto) 22.0 (16.0-40.0) % [place] % (Auto) 10.6 (0.0-15.0) % Eos % (Auto) 4.0 (0.0-7.0) % Baso % (Auto) 0.6 (0.0-1.5) % Neut # (Auto) 3.1 (1.4-5.7) K/uL Lymph # (Auto) 1.1 (0.6-2.4) K/uL [place] # (Auto) 0.5 (0.0-0.8) K/uL Eos # (Auto) 0.2 (0.0-0.7) K/uL Baso # (Auto) 0.0 (0.0-0.1) K/uL Nucleated RBC % 0.0 /100WBC Nucleated RBCs # 0 K/uL INR 1.10 Sodium 142 (136-148) mmol/L Potassium 4.8 (3.5-5.1) mmol/L Chloride 103 (98-107) mmol/L Carbon Dioxide 33.8 H (21.0-32.0) mmol/L BUN 13 (7.0-18.0) mg/dL Creatinine 1.2 (0.8-1.3) mg/dL Est Cr Clr Drug Dosing 36.16 mL/min Estimated GFR (MDRD) 57.7 ml/min Glucose 89 (74-106) mg/dL Calcium 9.1 (8.5-10.1) mg/dL Total Bilirubin 0.6 (0.2-1.0) mg/dL AST 23 (15-37) IU/L ALT 19 (14-63) IU/L Alkaline Phosphatase 122 H (46-116) U/L Troponin I < 0.050 (0.000-0.056) ng/mL Total Protein 7.3 (6.4-8.2) g/dL Albumin 3.4 (3.4-5.0) g/dL Globulin 3.9 (2.6-4.0) g/dL Albumin/Globulin Ratio 0.9 (0.9-1.6) Result Diagrams: 04/24/19 13:25 04/24/19 13:25 Problem List Initiated/Reviewed/Updated: Yes Orders Last 24hrs: Active Orders 24 hr Category Date Time Status Patient Status [ADT] Stat ADT 04/24/19 14:43 Active Antiembolic Devices [RC] PER UNIT ROUTINE Care 04/24/19 15:35 Active Bedrest Bedside Commode [RC] ASDIRECTED Care 04/24/19 15:26 Active Cardiac Monitoring [RC] . DIRECTED Care 04/24/19 13:01 Active EKG Documentation Completion [RC] STAT Care 04/24/19 13:01 Active Oxygen Therapy [RC] PRN Care 04/24/19 15:26 Active Oxygen Therapy, ED [RC] ASDIRECTED Care 04/24/19 13:01 Active VTE/DVT Education [RC] PER UNIT ROUTINE Care 04/24/19 15:26 Active Vital Signs [RC] Q4H Care 04/24/19 15:26 Active NPO After Midnight [Nothing per Oral After Midnight Diet 04/24/19 Dinner Active Diet] [DIET] Pureed Diet [DIET] Diet 04/24/19 Dinner Active CBC WITH AUTO DIFF [HEME] AM Lab 04/25/19 05:11 Ordered COMPREHENSIVE METABOLIC PN,CMP [CHEM] AM Lab 04/25/19 05:11 Ordered INR,PT,PROTHROMBIN TIME [COAG] AM Lab 04/25/19 05:11 Ordered UA RFX JACE AND CULT IF INDIC [URIN] Stat Lab 04/24/19 13:01 Ordered Sodium Chloride 0.9% [Normal Saline] 1,000 ml Med 04/24/19 13:15 Active IV STAT Sodium Chloride 0.9% [Saline Flush] Med 04/24/19 13:02 Active 10 ml FLUSH ASDIRECTED PRN Sodium Chloride 0.9% [Saline Flush] Med 04/24/19 13:02 Active 2.5 ml FLUSH ASDIRECTED PRN Saline Lock Insert [OM.PC] Stat Oth 04/24/19 13:01 Ordered Sequential Compression Device [OM.PC] Per Unit Routine Oth 04/24/19 15:27 Ordered Code Status [Resuscitation Status] Routine Resus Stat 04/24/19 15:38 Ordered Medication Orders Sodium Chloride (Normal Saline) 1,000 mls @ 125 mls/hr IV STAT FREDDY Last Admin: 04/24/19 13:39 Dose: 125 mls/hr Sodium Chloride (Saline Flush) 10 ml FLUSH ASDIRECTED PRN PRN Reason: Keep Vein Open Last Admin: 04/24/19 13:39 Dose: 10 ml Sodium Chloride (Saline Flush) 2.5 ml FLUSH ASDIRECTED PRN PRN Reason: Keep Vein Open Last Admin: 04/24/19 13:39 Dose: 2.5 ml Assessment/Plan Comment:: Assessment: 1. Left femoral neck fracture. 2. Past medical history of hypothyroidism, blood clots and CABG. Plan: 1. For left femoral neck fracture, orthopedic surgery consulted and will be taking patient to OR tomorrow. NPO at midnight. LR's after midnight. Will hold aspirin. SCD's for DVT prophylaxis. 2. For past medical history, will continue with home medications with the exception of aspirin. <Sharon Rivero - Last Filed: 04/24/19 20:11> H&P History of Present Illness - General Admit Problem/Dx: Admission Diagnosis/Problem Admission Diagnosis/Problem Hip fracture requiring operative repair Exam - Vital Signs Vital Signs: Last Vital Signs Temp 36.6 C 04/24/19 15:26 Pulse 96 04/24/19 15:26 Resp 18 11/28/19 15:26 BP 134/80 04/24/19 15:26 Pulse Ox 96 04/24/19 15:30 - Patient Data Lab Results Last 24 hrs: Laboratory Results - last 24 hr 04/24/19 04/24/19 04/24/19 Range/Units 13:25 13:25 13:25 WBC 4.99 (4.0-11.0) K/uL RBC 4.50 (4.50-5.90) M/uL Hgb 13.7 (13.0-17.0) g/dL Hct 41.6 (38.0-50.0) % MCV 92.4 (80.0-98.0) fL MCH 30.4 (27.0-32.0) pg MCHC 32.9 (31.0-37.0) g/dL RDW Std Deviation 51.8 (28.0-62.0) fl RDW Coeff of Dalia 15 (11.0-15.0) % Plt Count 198 (150-400) K/uL MPV 10.40 (7.40-12.00) fL Neut % (Auto) 62.8 (48.0-80.0) % Lymph % (Auto) 22.0 (16.0-40.0) % [place] % (Auto) 10.6 (0.0-15.0) % Eos % (Auto) 4.0 (0.0-7.0) % Baso % (Auto) 0.6 (0.0-1.5) % Neut # (Auto) 3.1 (1.4-5.7) K/uL Lymph # (Auto) 1.1 (0.6-2.4) K/uL [place] # (Auto) 0.5 (0.0-0.8) K/uL Eos # (Auto) 0.2 (0.0-0.7) K/uL Baso # (Auto) 0.0 (0.0-0.1) K/uL Nucleated RBC % 0.0 /100WBC Nucleated RBCs # 0 K/uL INR 1.10 Sodium 142 (136-148) mmol/L Potassium 4.8 (3.5-5.1) mmol/L Chloride 103 (98-107) mmol/L Carbon Dioxide 33.8 H (21.0-32.0) mmol/L BUN 13 (7.0-18.0) mg/dL Creatinine 1.2 (0.8-1.3) mg/dL Est Cr Clr Drug Dosing 36.16 mL/min Estimated GFR (MDRD) 57.7 ml/min Glucose 89 (74-106) mg/dL Calcium 9.1 (8.5-10.1) mg/dL Total Bilirubin 0.6 (0.2-1.0) mg/dL AST 23 (15-37) IU/L ALT 19 (14-63) IU/L Alkaline Phosphatase 122 H (46-116) U/L Troponin I < 0.050 (0.000-0.056) ng/mL Total Protein 7.3 (6.4-8.2) g/dL Albumin 3.4 (3.4-5.0) g/dL Globulin 3.9 (2.6-4.0) g/dL Albumin/Globulin Ratio 0.9 (0.9-1.6) Urine Color Urine Appearance Urine pH (5.0-8.0) Ur Specific [place] (1.001-1.035) Urine Protein (NEGATIVE) mg/dL Urine Glucose (UA) (NEGATIVE) mg/dL Urine Ketones (NEGATIVE) mg/dL Urine Occult Blood (NEGATIVE) Urine Nitrite (NEGATIVE) Urine Bilirubin (NEGATIVE) Urine Urobilinogen (<2.0) EU/dL Ur Leukocyte Esterase (NEGATIVE) 04/24/19 Range/Units 17:48 WBC (4.0-11.0) K/uL RBC (4.50-5.90) M/uL Hgb (13.0-17.0) g/dL Hct (38.0-50.0) % MCV (80.0-98.0) fL MCH (27.0-32.0) pg MCHC (31.0-37.0) g/dL RDW Std Deviation (28.0-62.0) fl RDW Coeff of Dalia (11.0-15.0) % Plt Count (150-400) K/uL MPV (7.40-12.00) fL Neut % (Auto) (48.0-80.0) % Lymph % (Auto) (16.0-40.0) % [place] % (Auto) (0.0-15.0) % Eos % (Auto) (0.0-7.0) % Baso % (Auto) (0.0-1.5) % Neut # (Auto) (1.4-5.7) K/uL Lymph # (Auto) (0.6-2.4) K/uL [place] # (Auto) (0.0-0.8) K/uL Eos # (Auto) (0.0-0.7) K/uL Baso # (Auto) (0.0-0.1) K/uL Nucleated RBC % /100WBC Nucleated RBCs # K/uL INR Sodium (136-148) mmol/L Potassium (3.5-5.1) mmol/L Chloride (98-107) mmol/L Carbon Dioxide (21.0-32.0) mmol/L BUN (7.0-18.0) mg/dL Creatinine (0.8-1.3) mg/dL Est Cr Clr Drug Dosing mL/min Estimated GFR (MDRD) ml/min Glucose (74-106) mg/dL Calcium (8.5-10.1) mg/dL Total Bilirubin (0.2-1.0) mg/dL AST (15-37) IU/L ALT (14-63) IU/L Alkaline Phosphatase (46-116) U/L Troponin I (0.000-0.056) ng/mL Total Protein (6.4-8.2) g/dL Albumin (3.4-5.0) g/dL Globulin (2.6-4.0) g/dL Albumin/Globulin Ratio (0.9-1.6) Urine Color YELLOW Urine Appearance SLT CLOUDY Urine pH 7.0 (5.0-8.0) Ur Specific [place] 1.010 (1.001-1.035) Urine Protein NEGATIVE (NEGATIVE) mg/dL Urine Glucose (UA) NEGATIVE (NEGATIVE) mg/dL Urine Ketones NEGATIVE (NEGATIVE) mg/dL Urine Occult Blood NEGATIVE (NEGATIVE) Urine Nitrite NEGATIVE (NEGATIVE) Urine Bilirubin NEGATIVE (NEGATIVE) Urine Urobilinogen 0.2 (<2.0) EU/dL Ur Leukocyte Esterase NEGATIVE (NEGATIVE) Result Diagrams: 04/24/19 13:25 04/24/19 13:25 Orders Last 24hrs: Active Orders 24 hr Category Date Time Status Patient Status [ADT] Stat ADT 04/24/19 14:43 Active Antiembolic Devices [RC] PER UNIT ROUTINE Care 04/24/19 15:35 Active Bedrest Bedside Commode [RC] ASDIRECTED Care 04/24/19 15:26 Active Cardiac Monitoring [RC] . DIRECTED Care 04/24/19 13:01 Active EKG Documentation Completion [RC] STAT Care 04/24/19 13:01 Active Notify Provider Consults [RC] ASDIRECTED Care 04/24/19 16:40 Active Oxygen Therapy [RC] PRN Care 04/24/19 15:26 Active Oxygen Therapy, ED [RC] ASDIRECTED Care 04/24/19 13:01 Active VTE/DVT Education [RC] PER UNIT ROUTINE Care 04/24/19 15:26 Active Vital Signs [RC] Q4H Care 04/24/19 15:26 Active Consult to Physician [CONS] Urgent Cons 04/24/19 16:40 Active NPO After Midnight [Nothing per Oral After Midnight Diet 04/24/19 Dinner Active Diet] [DIET] Pureed Diet [DIET] Diet 04/24/19 Dinner Active CBC WITH AUTO DIFF [HEME] AM Lab 04/25/19 05:11 Ordered COMPREHENSIVE METABOLIC PN,CMP [CHEM] AM Lab 04/25/19 05:11 Ordered INR,PT,PROTHROMBIN TIME [COAG] AM Lab 04/25/19 05:11 Ordered Acetaminophen [Tylenol] Med 04/24/19 16:40 Active 650 mg PO DAILY PRN Docusate Sodium [Colace] Med 04/24/19 21:00 Active 100 mg PO BID Levothyroxine [Synthroid] Med 04/25/19 07:30 Active 50 mcg PO ACBREAKFAST Morphine Med 04/24/19 17:23 Active 2 mg IVPUSH Q4H PRN Pantoprazole [ProTONIX] Med 04/25/19 07:30 Active 40 mg PO ACBREAKFAST Sodium Chloride 0.9% [Saline Flush] Med 04/24/19 13:02 Active 10 ml FLUSH ASDIRECTED PRN Sodium Chloride 0.9% [Saline Flush] Med 04/24/19 13:02 Active 2.5 ml FLUSH ASDIRECTED PRN atorvaSTATin [Lipitor] Med 04/25/19 09:00 Active 20 mg PO DAILY Saline Lock Insert [OM.PC] Stat Oth 11/28/19 13:01 Ordered Sequential Compression Device [OM.PC] Per Unit Routine Oth 04/24/19 15:27 Ordered Code Status [Resuscitation Status] Routine Resus Stat 04/24/19 15:38 Ordered Medication Orders Acetaminophen (Tylenol) 650 mg PO DAILY PRN PRN Reason: Pain Last Admin: 04/24/19 17:20 Dose: 650 mg Atorvastatin Calcium (Lipitor) 20 mg PO DAILY FREDDY Docusate Sodium (Colace) 100 mg PO BID FREDDY Levothyroxine Sodium (Synthroid) 50 mcg PO ACBREAKFAST FREDDY Morphine Sulfate (Morphine) 2 mg IVPUSH Q4H PRN PRN Reason: Pain Last Admin: 04/24/19 17:43 Dose: 2 mg Pantoprazole Sodium (Protonix) 40 mg PO ACBREAKFAST FREDDY Sodium Chloride (Saline Flush) 10 ml FLUSH ASDIRECTED PRN PRN Reason: Keep Vein Open Last Admin: 04/24/19 13:39 Dose: 10 ml Sodium Chloride (Saline Flush) 2.5 ml FLUSH ASDIRECTED PRN PRN Reason: Keep Vein Open Last Admin: 04/24/19 13:39 Dose: 2.5 ml Assessment/Plan Comment:: I performed a history and physical exam of the patient and discussed management with resident. I have reviewed the residents note and agree with documented findings and plan unless otherwise specified in my note.
[2019-04-24] MEDS ORDERED: Lactated Ringers 1,000 ML IV SCH (16:45)
[2019-04-24] MEDS: Acetaminophen 325 MG Tab PO PRN (17:20)
[2019-04-24] MEDS: Morphine 2 MG/ML Syringe IVPUSH PRN ×2 (17:43→22:00)
[2019-04-24] MEDS: Docusate Sodium 100 MG Cap PO SCH (22:00)
[2019-04-25] MEDS: Morphine 2 MG/ML Syringe IVPUSH PRN ×3 (02:00→23:41)
[2019-04-25] MEDS ORDERED: Lactated Ringers 1,000 ML IV SCH ×2 (04:00→20:00)
[2019-04-25 05:59] LABS: BLOOD UREA NITROGEN,BUN 12 mg/dL (7.0-18.0); CARBON DIOXIDE,CO2 32.8 mmol/L (21.0-32.0); CHLORIDE,CL 104 mmol/L (98-107); GLUCOSE RANDOM 85 mg/dL (74-106); POTASSIUM,K 4.5 mmol/L (3.5-5.1); SODIUM,NA 140 mmol/L (136-148)
[2019-04-25] MEDS ORDERED: Tranexamic Acid 2,000 MG in Sodium Chloride 0.9% 100 ML IV ONE (07:24)
[2019-04-25] MEDS: Levothyroxine 50 MCG Tab PO SCH (07:30)
[2019-04-25] MEDS: Pantoprazole 40 MG Tab.CR PO SCH (07:30)
[2019-04-25] MEDS ORDERED: Ropivacaine 49.25 ML, Ketorolac 30 MG, EPINEPHrine 0.5 MG in Sodium Chloride 0.9% 23.45 ML INJECT SCH (07:30)
[2019-04-25] MEDS ORDERED: Bisacodyl 10 MG Supp RECTAL PRN ×2 (07:37→13:41)
--- NOTE | 2019-04-25 07:38 | PCM.PN ---
- General Info Date of Service: 04/25/19 Admission Dx/Problem (Free Text): Admission Diagnosis/Problem Admission Diagnosis/Problem Hip fracture requiring operative repair Subjective Update: Doing ok this morning, having some tailbone pain. No chest pain, reports epigastric pain which comes and goes. Protonix helped with this. No shortness of breath. No abdominal pain. To OR this morning. at bedside. Functional Status: Reports: Pain Controlled - Review of Systems HEENT: Reports: No Symptoms. Denies: Headaches, Sore Throat, Visual Changes Pulmonary: Reports: No Symptoms. Denies: Shortness of Breath Cardiovascular: Reports: No Symptoms. Denies: Chest Pain Gastrointestinal: Reports: Abdominal Pain (mild peigastric pain, on second rounds it was gone.) Genitourinary: Reports: No Symptoms Musculoskeletal: Reports: Joint Pain (hip pain, L) Neurological: Reports: No Symptoms Psychiatric: Reports: No Symptoms - Patient Data Vitals - Most Recent: Last Vital Signs Temp 97.7 F 04/25/19 04:00 Pulse 60 04/25/19 04:00 Resp 20 04/25/19 04:00 BP 110/58 L 04/25/19 04:00 Pulse Ox 97 04/25/19 04:00 Weight - Most Recent: 55.792 kg I&O - Last 24 Hours: Intake & Output 04/24/19 04/25/19 04/25/19 22:59 06:59 14:59 Intake Total 150 1071 Output Total 75 250 Balance 75 821 Lab Results Last 24 Hours: Laboratory Results - last 24 hr 04/24/19 04/24/19 04/24/19 Range/Units 13:25 13:25 13:25 WBC 4.99 (4.0-11.0) K/uL RBC 4.50 (4.50-5.90) M/uL Hgb 13.7 (13.0-17.0) g/dL Hct 41.6 (38.0-50.0) % MCV 92.4 (80.0-98.0) fL MCH 30.4 (27.0-32.0) pg MCHC 32.9 (31.0-37.0) g/dL RDW Std Deviation 51.8 (28.0-62.0) fl RDW Coeff of Dalia 15 (11.0-15.0) % Plt Count 198 (150-400) K/uL MPV 10.40 (7.40-12.00) fL Neut % (Auto) 62.8 (48.0-80.0) % Lymph % (Auto) 22.0 (16.0-40.0) % [place] % (Auto) 10.6 (0.0-15.0) % Eos % (Auto) 4.0 (0.0-7.0) % Baso % (Auto) 0.6 (0.0-1.5) % Neut # (Auto) 3.1 (1.4-5.7) K/uL Lymph # (Auto) 1.1 (0.6-2.4) K/uL [place] # (Auto) 0.5 (0.0-0.8) K/uL Eos # (Auto) 0.2 (0.0-0.7) K/uL Baso # (Auto) 0.0 (0.0-0.1) K/uL Nucleated RBC % 0.0 /100WBC Nucleated RBCs # 0 K/uL INR 1.10 Sodium 142 (136-148) mmol/L Potassium 4.8 (3.5-5.1) mmol/L Chloride 103 (98-107) mmol/L Carbon Dioxide 33.8 H (21.0-32.0) mmol/L BUN 13 (7.0-18.0) mg/dL Creatinine 1.2 (0.8-1.3) mg/dL Est Cr Clr Drug Dosing 36.16 mL/min Estimated GFR (MDRD) 57.7 ml/min Glucose 89 (74-106) mg/dL Calcium 9.1 (8.5-10.1) mg/dL Total Bilirubin 0.6 (0.2-1.0) mg/dL AST 23 (15-37) IU/L ALT 19 (14-63) IU/L Alkaline Phosphatase 122 H (46-116) U/L Troponin I < 0.050 (0.000-0.056) ng/mL Total Protein 7.3 (6.4-8.2) g/dL Albumin 3.4 (3.4-5.0) g/dL Globulin 3.9 (2.6-4.0) g/dL Albumin/Globulin Ratio 0.9 (0.9-1.6) Urine Color Urine Appearance Urine pH (5.0-8.0) Ur Specific [place] (1.001-1.035) Urine Protein (NEGATIVE) mg/dL Urine Glucose (UA) (NEGATIVE) mg/dL Urine Ketones (NEGATIVE) mg/dL Urine Occult Blood (NEGATIVE) Urine Nitrite (NEGATIVE) Urine Bilirubin (NEGATIVE) Urine Urobilinogen (<2.0) EU/dL Ur Leukocyte Esterase (NEGATIVE) 04/24/19 04/25/19 04/25/19 Range/Units 17:48 05:25 05:25 WBC 5.80 (4.0-11.0) K/uL RBC 3.95 L (4.50-5.90) M/uL Hgb 11.9 L (13.0-17.0) g/dL Hct 36.0 L (38.0-50.0) % MCV 91.1 (80.0-98.0) fL MCH 30.1 (27.0-32.0) pg MCHC 33.1 (31.0-37.0) g/dL RDW Std Deviation 51.0 (28.0-62.0) fl RDW Coeff of Dalia 15 (11.0-15.0) % Plt Count 160 (150-400) K/uL MPV 10.40 (7.40-12.00) fL Neut % (Auto) 67.0 (48.0-80.0) % Lymph % (Auto) 16.6 (16.0-40.0) % [place] % (Auto) 13.6 (0.0-15.0) % Eos % (Auto) 2.6 (0.0-7.0) % Baso % (Auto) 0.2 (0.0-1.5) % Neut # (Auto) 3.9 (1.4-5.7) K/uL Lymph # (Auto) 1.0 (0.6-2.4) K/uL [place] # (Auto) 0.8 (0.0-0.8) K/uL Eos # (Auto) 0.2 (0.0-0.7) K/uL Baso # (Auto) 0.0 (0.0-0.1) K/uL Nucleated RBC % 0.0 /100WBC Nucleated RBCs # 0 K/uL INR 1.16 Sodium (136-148) mmol/L Potassium (3.5-5.1) mmol/L Chloride (98-107) mmol/L Carbon Dioxide (21.0-32.0) mmol/L BUN (7.0-18.0) mg/dL Creatinine (0.8-1.3) mg/dL Est Cr Clr Drug Dosing mL/min Estimated GFR (MDRD) ml/min Glucose (74-106) mg/dL Calcium (8.5-10.1) mg/dL Total Bilirubin (0.2-1.0) mg/dL AST (15-37) IU/L ALT (14-63) IU/L Alkaline Phosphatase (46-116) U/L Troponin I (0.000-0.056) ng/mL Total Protein (6.4-8.2) g/dL Albumin (3.4-5.0) g/dL Globulin (2.6-4.0) g/dL Albumin/Globulin Ratio (0.9-1.6) Urine Color YELLOW Urine Appearance SLT CLOUDY Urine pH 7.0 (5.0-8.0) Ur Specific [place] 1.010 (1.001-1.035) Urine Protein NEGATIVE (NEGATIVE) mg/dL Urine Glucose (UA) NEGATIVE (NEGATIVE) mg/dL Urine Ketones NEGATIVE (NEGATIVE) mg/dL Urine Occult Blood NEGATIVE (NEGATIVE) Urine Nitrite NEGATIVE (NEGATIVE) Urine Bilirubin NEGATIVE (NEGATIVE) Urine Urobilinogen 0.2 (<2.0) EU/dL Ur Leukocyte Esterase NEGATIVE (NEGATIVE) 04/25/19 Range/Units 05:25 WBC (4.0-11.0) K/uL RBC (4.50-5.90) M/uL Hgb (13.0-17.0) g/dL Hct (38.0-50.0) % MCV (80.0-98.0) fL MCH (27.0-32.0) pg MCHC (31.0-37.0) g/dL RDW Std Deviation (28.0-62.0) fl RDW Coeff of Dalia (11.0-15.0) % Plt Count (150-400) K/uL MPV (7.40-12.00) fL Neut % (Auto) (48.0-80.0) % Lymph % (Auto) (16.0-40.0) % [place] % (Auto) (0.0-15.0) % Eos % (Auto) (0.0-7.0) % Baso % (Auto) (0.0-1.5) % Neut # (Auto) (1.4-5.7) K/uL Lymph # (Auto) (0.6-2.4) K/uL [place] # (Auto) (0.0-0.8) K/uL Eos # (Auto) (0.0-0.7) K/uL Baso # (Auto) (0.0-0.1) K/uL Nucleated RBC % /100WBC Nucleated RBCs # K/uL INR Sodium 140 (136-148) mmol/L Potassium 4.5 (3.5-5.1) mmol/L Chloride 104 (98-107) mmol/L Carbon Dioxide 32.8 H (21.0-32.0) mmol/L BUN 12 (7.0-18.0) mg/dL Creatinine 1.0 (0.8-1.3) mg/dL Est Cr Clr Drug Dosing 43.39 mL/min Estimated GFR (MDRD) > 60.0 ml/min Glucose 85 (74-106) mg/dL Calcium 8.1 L (8.5-10.1) mg/dL Total Bilirubin 1.1 H (0.2-1.0) mg/dL AST 15 (15-37) IU/L ALT 14 (14-63) IU/L Alkaline Phosphatase 104 (46-116) U/L Troponin I (0.000-0.056) ng/mL Total Protein 5.9 L (6.4-8.2) g/dL Albumin 2.6 L (3.4-5.0) g/dL Globulin 3.3 (2.6-4.0) g/dL Albumin/Globulin Ratio 0.8 L (0.9-1.6) Urine Color Urine Appearance Urine pH (5.0-8.0) Ur Specific [place] (1.001-1.035) Urine Protein (NEGATIVE) mg/dL Urine Glucose (UA) (NEGATIVE) mg/dL Urine Ketones (NEGATIVE) mg/dL Urine Occult Blood (NEGATIVE) Urine Nitrite (NEGATIVE) Urine Bilirubin (NEGATIVE) Urine Urobilinogen (<2.0) EU/dL Ur Leukocyte Esterase (NEGATIVE) Med Orders - Current: Current Medications Acetaminophen (Tylenol) 650 mg PO DAILY PRN PRN Reason: Pain Last Admin: 04/24/19 17:20 Dose: 650 mg Atorvastatin Calcium (Lipitor) 20 mg PO DAILY [facility] Bisacodyl (Dulcolax) 10 mg RECTAL DAILY PRN PRN Reason: Constipation/NOBM for 3 days Docusate Sodium (Colace) 100 mg PO BID [facility] Last Admin: 04/24/19 22:00 Dose: 100 mg Lactated Ringer's (Ringers, Lactated) 1,000 mls @ 75 mls/hr IV ASDIRECTED [facility] Last Admin: 04/25/19 07:33 Dose: 75 mls/hr Cefazolin Sodium/Dextrose 1 gm (/ Premix) 50 mls @ 100 mls/hr IV ONCALL [facility] Ropivacaine 49.25 ml/Ketorolac Tromethamine 30 mg/Epinephrine HCl 0.5 mg/ Sodium Chloride 74.2 mls @ 50 mls/sec INJECT ASDIRECTED [facility] Tranexamic Acid 2,000 mg/ (Sodium Chloride) 120 mls @ 600 mls/hr IV ASDIRECTED ONE Stop: 04/25/19 07:35 Levothyroxine Sodium (Synthroid) 50 mcg PO ACBREAKFAST [facility] Last Admin: 04/25/19 07:30 Dose: 50 mcg Morphine Sulfate (Morphine) 2 mg IVPUSH Q4H PRN PRN Reason: Pain Last Admin: 04/25/19 02:00 Dose: 2 mg Pantoprazole Sodium (Protonix) 40 mg PO ACBREAKFAST [facility] Last Admin: 04/25/19 07:30 Dose: 40 mg Sodium Chloride (Saline Flush) 10 ml FLUSH ASDIRECTED PRN PRN Reason: Keep Vein Open Last Admin: 04/24/19 13:39 Dose: 10 ml Sodium Chloride (Saline Flush) 2.5 ml FLUSH ASDIRECTED PRN PRN Reason: Keep Vein Open Last Admin: 04/24/19 13:39 Dose: 2.5 ml Discontinued Medications Sodium Chloride (Normal Saline) 1,000 mls @ 125 mls/hr IV STAT [facility] Last Admin: 04/24/19 13:39 Dose: 125 mls/hr Lactated Ringer's (Ringers, Lactated) 1,000 mls @ 75 mls/hr IV ASDIRECTED [facility] Last Admin: 04/24/19 18:18 Dose: 75 mls/hr Morphine Sulfate (Morphine) 2 mg IVPUSH ONETIME ONE Stop: 04/24/19 13:03 Last Admin: 04/24/19 13:38 Dose: 2 mg Ondansetron HCl (Zofran) 4 mg IVPUSH ONETIME ONE Stop: 04/24/19 13:03 Last Admin: 04/24/19 13:39 Dose: 4 mg - Exam General: Alert, Oriented, Cooperative, No Acute Distress Lungs: Clear to Auscultation, Normal Respiratory Effort Cardiovascular: Regular Rate, Regular Rhythm GI/Abdominal Exam: Normal Bowel Sounds, Soft, Non-Tender Back Exam: Normal Inspection, Full Range of Motion Extremities: Normal Inspection, Normal Range of Motion, Non-Tender, Pedal Edema (mild pedal edema, +1 pitting edema. at baseline) Neurological: No New Focal Deficit Psy/Mental Status: Alert, Normal Affect, Normal Mood - Problem List & Annotations (1) Hip fracture SNOMED Code(s): 000160329 Code(s): S72.009A - FRACTURE OF UNSP PART OF NECK OF UNSP FEMUR, INIT Status: Acute Current Visit: Yes Qualifiers: Encounter type: initial encounter Fracture type: closed Laterality: left Qualified Code(s): S72.002A - Fracture of unspecified part of neck of left femur, initial encounter for closed fracture (2) CAD (coronary artery disease) SNOMED Code(s): 35641538 Code(s): I25.10 - ATHSCL HEART DISEASE OF [place] CORONARY ARTERY W/O ANG PCTRS Status: Chronic Current Visit: No (3) Hx of deep venous thrombosis SNOMED Code(s): 259752152 Code(s): Z86.718 - PERSONAL HISTORY OF OTHER VENOUS THROMBOSIS AND EMBOLISM Status: Chronic Current Visit: No (4) Hyperlipidemia SNOMED Code(s): 55351464 Code(s): E78.5 - HYPERLIPIDEMIA, UNSPECIFIED Status: Chronic Current Visit: No (5) Hypothyroidism SNOMED Code(s): 41808000 Code(s): E03.9 - HYPOTHYROIDISM, UNSPECIFIED Status: Chronic Current Visit: No (6) PVD (peripheral vascular disease) SNOMED Code(s): 279944384 Code(s): I73.9 - PERIPHERAL VASCULAR DISEASE, UNSPECIFIED Status: Chronic Current Visit: No (7) Peripheral edema SNOMED Code(s): 976551150 Code(s): R60.9 - EDEMA, UNSPECIFIED Status: Chronic Priority: High Current Visit: No (8) 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 SNOMED Code(s): 47123897 Code(s): C61 - MALIGNANT NEOPLASM OF PROSTATE; C78.5 - SECONDARY MALIGNANT NEOPLASM OF LARGE INTESTINE AND RECTUM Status: Chronic Priority: High Current Visit: No (9) Sigmoid diverticulosis SNOMED Code(s): 995176480 Code(s): K57.30 - DVRTCLOS OF LG INT W/O PERFORATION OR ABSCESS W/O BLEEDING Status: Chronic Priority: Medium Current Visit: No (10) Hx of CABG SNOMED Code(s): 392410109, 448735109 Code(s): Z95.1 - PRESENCE OF AORTOCORONARY BYPASS GRAFT Status: Chronic Current Visit: Yes - Problem List Review Problem List Initiated/Reviewed/Updated: Yes - My Orders Last 24 Hours: My Active Orders 04/25/19 07:37 Bisacodyl [Dulcolax] 10 mg RECTAL DAILY PRN - Plan Plan:: This 83 year old male admitted with L femoral neck fracture, Orthopedics consulted. 1. Left femoral neck fracture: To OR today. Will need anticoagulation post- operatively due to hx DVT. Will discuss with Orthopedics. Hx of bowel obstruction, maintain good bowel regimen. 2. Hx CABG/CAD: Stable, no chest pain. Continue Statin. Monitor. 3. Hypothyroidism: Continue Levothyroxine. VTE prophylaxis: Hold until 24 post operatively. Dispo: Will likely need SNF for rehabilitation.
[2019-04-25] MEDS ORDERED: fentaNYL 100 MCG/2 ML SDV ONE (07:52)
[2019-04-25] MEDS ORDERED: Midazolam 1 MG/ML 2 ML SDV ONE (07:52)
[2019-04-25] MEDS ORDERED: Phenylephrine/Normal Saline 100 MCG/ML 10 ML Syringe ONE (07:55)
[2019-04-25] MEDS ORDERED: Sodium Chloride 0.9% 20 ML ONE (07:55)
[2019-04-25] MEDS ORDERED: Glycopyrrolate 0.2 MG/ML SDV ONE (07:55)
[2019-04-25] MEDS ORDERED: ePHEDrine 50 MG/ML SDV ONE (07:55)
[2019-04-25] MEDS ORDERED: Ketamine 500 mg/10 ML MDV ONE (07:56)
--- NOTE | 2019-04-25 08:55 | PCM.PREANE ---
Preanesthetic Assessment - Anesthesia/Transfusion/Family Hx Anesthesia History: Prior Anesthesia Without Reaction Other Type of Anesthesia Reaction Comment: Denies any known problem in past Family History of Anesthesia Reaction: No Transfusion History: No Prior Transfusion(s) Intubation History: Unknown - Review of Systems General: No Symptoms Pulmonary: No Symptoms Cardiovascular: No Symptoms Gastrointestinal: No Symptoms, Other (lost a lot of weight due inability to swallow (low esophageal motility)) Neurological: No Symptoms Other: Reports: None - Physical Assessment Vital Signs: Last Vital Signs Temp 36.6 C 04/25/19 07:30 Pulse 65 04/25/19 07:30 Resp 16 04/25/19 07:30 BP 120/54 L 04/25/19 07:30 Pulse Ox 95 04/25/19 07:30 Height: 5 ft 8 in Weight: 55.792 kg ASA Class: 3 Mental Status: Alert & Oriented x3 Airway Class: Mallampati = 1 Dentition: Reports: Dentures (upper and lower) Thyro-Mental Finger Breadths: 3 Mouth Opening Finger Breadths: 3 ROM/Head Extension: Limited/Partial Lungs: Clear to Auscultation, Normal Respiratory Effort, Decreased Breath Sounds Cardiovascular: Regular Rate, Regular Rhythm - Lab Values: Laboratory Last Values WBC 5.80 K/uL (4.0-11.0) 04/25/19 05:25 RBC 3.95 M/uL (4.50-5.90) L 04/25/19 05:25 Hgb 11.9 g/dL (13.0-17.0) L 04/25/19 05:25 Hct 36.0 % (38.0-50.0) L 04/25/19 05:25 MCV 91.1 fL (80.0-98.0) 04/25/19 05:25 MCH 30.1 pg (27.0-32.0) 04/25/19 05:25 MCHC 33.1 g/dL (31.0-37.0) 04/25/19 05:25 RDW Std Deviation 51.0 fl (28.0-62.0) 04/25/19 05:25 RDW Coeff of Dalia 15 % (11.0-15.0) 04/25/19 05:25 Plt Count 160 K/uL (150-400) 04/25/19 05:25 MPV 10.40 fL (7.40-12.00) 04/25/19 05:25 Neut % (Auto) 67.0 % (48.0-80.0) 04/25/19 05:25 Lymph % (Auto) 16.6 % (16.0-40.0) 04/25/19 05:25 [place] % (Auto) 13.6 % (0.0-15.0) 04/25/19 05:25 Eos % (Auto) 2.6 % (0.0-7.0) 04/25/19 05:25 Baso % (Auto) 0.2 % (0.0-1.5) 04/25/19 05:25 Neut # (Auto) 3.9 K/uL (1.4-5.7) 04/25/19 05:25 Lymph # (Auto) 1.0 K/uL (0.6-2.4) 04/25/19 05:25 [place] # (Auto) 0.8 K/uL (0.0-0.8) 04/25/19 05:25 Eos # (Auto) 0.2 K/uL (0.0-0.7) 04/25/19 05:25 Baso # (Auto) 0.0 K/uL (0.0-0.1) 04/25/19 05:25 Nucleated RBC % 0.0 /100WBC 04/25/19 05:25 Nucleated RBCs # 0 K/uL 04/25/19 05:25 INR 1.16 04/25/19 05:25 Sodium 140 mmol/L (136-148) 04/25/19 05:25 Potassium 4.5 mmol/L (3.5-5.1) 04/25/19 05:25 Chloride 104 mmol/L (98-107) 04/25/19 05:25 Carbon Dioxide 32.8 mmol/L (21.0-32.0) H 04/25/19 05:25 BUN 12 mg/dL (7.0-18.0) 04/25/19 05:25 Creatinine 1.0 mg/dL (0.8-1.3) 04/25/19 05:25 Est Cr Clr Drug Dosing 43.39 mL/min 04/25/19 05:25 Estimated GFR (MDRD) > 60.0 ml/min 04/25/19 05:25 Glucose 85 mg/dL (74-106) 04/25/19 05:25 Calcium 8.1 mg/dL (8.5-10.1) L 04/25/19 05:25 Total Bilirubin 1.1 mg/dL (0.2-1.0) H 04/25/19 05:25 AST 15 IU/L (15-37) 04/25/19 05:25 ALT 14 IU/L (14-63) 04/25/19 05:25 Alkaline Phosphatase 104 U/L (46-116) 04/25/19 05:25 Troponin I < 0.050 ng/mL (0.000-0.056) 04/24/19 13:25 Total Protein 5.9 g/dL (6.4-8.2) L 04/25/19 05:25 Albumin 2.6 g/dL (3.4-5.0) L 04/25/19 05:25 Globulin 3.3 g/dL (2.6-4.0) 04/25/19 05:25 Albumin/Globulin Ratio 0.8 (0.9-1.6) L 04/25/19 05:25 Urine Color YELLOW 04/24/19 17:48 Urine Appearance SLT CLOUDY 04/24/19 17:48 Urine pH 7.0 (5.0-8.0) 04/24/19 17:48 Ur Specific [place] 1.010 (1.001-1.035) 04/24/19 17:48 Urine Protein NEGATIVE mg/dL (NEGATIVE) 04/24/19 17:48 Urine Glucose (UA) NEGATIVE mg/dL (NEGATIVE) 04/24/19 17:48 Urine Ketones NEGATIVE mg/dL (NEGATIVE) 04/24/19 17:48 Urine Occult Blood NEGATIVE (NEGATIVE) 04/24/19 17:48 Urine Nitrite NEGATIVE (NEGATIVE) 04/24/19 17:48 Urine Bilirubin NEGATIVE (NEGATIVE) 04/24/19 17:48 Urine Urobilinogen 0.2 EU/dL (<2.0) 04/24/19 17:48 Ur Leukocyte Esterase NEGATIVE (NEGATIVE) 04/24/19 17:48 - Allergies Allergies/Adverse Reactions: Allergies Allergy/AdvReac Type Severity Reaction Status Date / Time Iodinated Contrast Media Allergy Hives Verified 04/24/19 17:01 [Iodinated Contrast Media - IV Dye] - Blood Blood Available: No - Anesthesia Plan Pre-Op Medication Ordered: None - Acknowledgements Anesthesia Type Planned: Spinal Pt an Appropriate Candidate for the Planned Anesthesia: Yes Alternatives and Risks of Anesthesia Discussed w Pt/Guardian: Yes Pt/Guardian Understands and Agrees with Anesthesia Plan: Yes PreAnesthesia Questionnaire HEENT History: Reports: Hard of Hearing, Impaired Vision, Other (See Below) Other HEENT History: hearing aids Cardiovascular History: Reports: Bypass (CABG x4 ), High Cholesterol Other Cardiovascular History: reddness swelling around saphanous graft site L) leg. Respiratory History: Reports: Other (See Below) (recent aspiration pneumonia (4- 5 weeks ago), spent 3 weeks in rehab) Gastrointestinal History: Reports: Bowel Obstruction, Chronic Constipation, Other (See Below) Genitourinary History: Reports: Prostate Disorder, Other (See Below) Musculoskeletal History: Reports: Arthritis, Fracture (hip) Other Musculoskeletal History: Fracture to right distal clavicle. [place] broke [place] bones playing [place], no known treated Neurological History: Reports: None Psychiatric History: Reports: None Endocrine/Metabolic History: Reports: Hypothyroidism Other Endocrine/Metabolic History: Hypothyroidism Hematologic History: Reports: Other (See Below) Other Hematologic History: blood clots Immunologic History: Reports: None Oncologic (Cancer) History: Reports: Colon (), Prostate (') Dermatologic History: Reports: None - Infectious Disease History Infectious Disease History: Reports: Chicken Pox, Measles, Mumps - Past Surgical History HEENT Surgical History: Reports: Tonsillectomy Cardiovascular Surgical History: Reports: Coronary Artery Bypass GI Surgical History: Reports: Appendectomy, Colonoscopy, EGD, Hernia, Abdominal , Hernia Repair/Other Other GI Surgeries/Procedures: Colon resection for cancer Male Surgical History: Reports: Prostate Biopsy, Prostatectomy Other Male Surgeries/Procedures: Radical Prostatectomy 1995 - SUBSTANCE USE Smoking Status *Q: Never Smoker Tobacco Use Within Last Twelve Months: No Second Hand Smoke Exposure: No Recreational Drug Use History: No - HOME MEDS Home Medications: Home Meds Aspirin [Halfprin] 81 mg PO DAILY 03/16/15 [History] Levothyroxine Sodium [Levoxyl] 50 mcg PO ACBREAKFAST 03/16/15 [History] atorvaSTATin [Lipitor] 20 mg PO DAILY 08/11/16 [History] oxyCODONE 5 mg PO Q8H PRN #20 tab 03/19/19 [Rx] Docusate Sodium [Colace] 100 mg PO DAILY PRN 04/24/19 [History] traMADol [Ultram] 1 tab ASDIRECTED 04/24/19 [History] - CURRENT (IN HOUSE) MEDS Current Meds: Current Medications Acetaminophen (Tylenol) 650 mg PO DAILY PRN PRN Reason: Pain Last Admin: 04/24/19 17:20 Dose: 650 mg Atorvastatin Calcium (Lipitor) 20 mg PO DAILY [facility] Bisacodyl (Dulcolax) 10 mg RECTAL DAILY PRN PRN Reason: Constipation/NOBM for 3 days Docusate Sodium (Colace) 100 mg PO BID [facility] Last Admin: 04/24/19 22:00 Dose: 100 mg Lactated Ringer's (Ringers, Lactated) 1,000 mls @ 75 mls/hr IV ASDIRECTED [facility] Last Admin: 04/25/19 07:33 Dose: 75 mls/hr Cefazolin Sodium/Dextrose 1 gm (/ Premix) 50 mls @ 100 mls/hr IV ONCALL [facility] Ropivacaine 49.25 ml/Ketorolac Tromethamine 30 mg/Epinephrine HCl 0.5 mg/ Sodium Chloride 74.2 mls @ 50 mls/sec INJECT ASDIRECTED [facility] Levothyroxine Sodium (Synthroid) 50 mcg PO ACBREAKFAST [facility] Last Admin: 04/25/19 07:30 Dose: 50 mcg Morphine Sulfate (Morphine) 2 mg IVPUSH Q4H PRN PRN Reason: Pain Last Admin: 04/25/19 08:28 Dose: 2 mg Pantoprazole Sodium (Protonix) 40 mg PO ACBREAKFAST [facility] Last Admin: 04/25/19 07:30 Dose: 40 mg Sodium Chloride (Saline Flush) 10 ml FLUSH ASDIRECTED PRN PRN Reason: Keep Vein Open Last Admin: 04/24/19 13:39 Dose: 10 ml Sodium Chloride (Saline Flush) 2.5 ml FLUSH ASDIRECTED PRN PRN Reason: Keep Vein Open Last Admin: 04/24/19 13:39 Dose: 2.5 ml Discontinued Medications Ephedrine Sulfate (Ephedrine Sulfate) Confirm Administered Dose 50 mg .ROUTE .STK-MED ONE Stop: 04/25/19 07:56 Fentanyl (Sublimaze) Confirm Administered Dose 100 mcg .ROUTE .STK-MED ONE Stop: 04/25/19 07:53 Glycopyrrolate (Robinul) Confirm Administered Dose 0.6 mg .ROUTE .STK-MED ONE Stop: 04/25/19 07:56 Sodium Chloride (Normal Saline) 1,000 mls @ 125 mls/hr IV STAT [facility] Last Admin: 04/24/19 13:39 Dose: 125 mls/hr Lactated Ringer's (Ringers, Lactated) 1,000 mls @ 75 mls/hr IV ASDIRECTED [facility] Last Admin: 04/24/19 18:18 Dose: 75 mls/hr Tranexamic Acid 2,000 mg/ (Sodium Chloride) 120 mls @ 360 mls/hr IV ASDIRECTED ONE Stop: 04/25/19 07:43 Sodium Chloride (Normal Saline) Confirm Administered Dose 20 mls @ as directed .ROUTE .[facility]-MED ONE Stop: 04/25/19 07:56 Ketamine HCl (Ketalar) Confirm Administered Dose 500 mg .ROUTE .STK-MED ONE Stop: 04/25/19 07:57 Midazolam HCl (Versed 1 Mg/Ml) Confirm Administered Dose 2 mg .ROUTE .STK-MED ONE Stop: 04/25/19 07:53 Morphine Sulfate (Morphine) 2 mg IVPUSH ONETIME ONE Stop: 04/24/19 13:03 Last Admin: 04/24/19 13:38 Dose: 2 mg Ondansetron HCl (Zofran) 4 mg IVPUSH ONETIME ONE Stop: 04/24/19 13:03 Last Admin: 04/24/19 13:39 Dose: 4 mg Phenylephrine HCl (Phenylephrine In Ns 100 Mcg/Ml) Confirm Administered Dose 1 mg .ROUTE .STK-MED ONE Stop: 04/25/19 07:56
[2019-04-25] MEDS: atorvaSTATin 20 MG Tab PO SCH (09:28)
[2019-04-25] MEDS: Docusate Sodium 100 MG Cap PO SCH ×2 (09:33→21:21)
[2019-04-25] MEDS ORDERED: Pantoprazole 40 MG in Sodium Chloride 0.9% 10 ML IV ONE (09:35)
[2019-04-25] MEDS ORDERED: Propofol 200 MG/20 ML SDV ONE (10:38)
[2019-04-25] MEDS ORDERED: Rocuronium 100 MG/10 ML Syringe ONE (10:39)
[2019-04-25] MEDS ORDERED: Neostigmine Methylsulfate 1 MG/ML 5 ML Syringe ONE (10:42)
[2019-04-25] MEDS ORDERED: Famotidine 20 MG/2 ML SDV IVPUSH ONE (10:48)
[2019-04-25] MEDS ORDERED: ceFAZolin 1 GM in Premix Bag 1 BAG IV SCH (11:30)
[2019-04-25] MEDS ORDERED: Bupivacaine 25%/EPINEPHrine/PF 30 ML ONE (13:01)
[2019-04-25] MEDS ORDERED: fentaNYL 100 MCG/2 ML SDV IVPUSH PRN (13:10)
[2019-04-25] MEDS ORDERED: HYDROmorphone 1 MG/ML Syringe IVPUSH ONE (13:10)
[2019-04-25] MEDS ORDERED: Sodium Chloride 0.9% 10 ML Syringe FLUSH PRN (13:41)
[2019-04-25] MEDS ORDERED: diphenhydrAMINE 25 MG Cap PO PRN (13:41)
[2019-04-25] MEDS ORDERED: Aluminum Hydroxide/Magnesium Hydroxide/Simethicone Susp 30 ML Cup PO PRN (13:41)
[2019-04-25] MEDS ORDERED: Docusate Sodium 100 MG Cap PO PRN (13:41)
[2019-04-25] MEDS ORDERED: Sodium Chloride 0.9% 2.5 ML Syringe FLUSH PRN (13:41)
--- NOTE | 2019-04-25 14:02 | PCM.POSTAN ---
POST ANESTHESIA ASSESSMENT - MENTAL STATUS Mental Status: Alert - VITAL SIGNS Vital Signs: Last Vital Signs Temp 36.9 C 04/25/19 13:16 Pulse 84 04/25/19 13:52 Resp 14 04/25/19 13:52 BP 117/72 04/25/19 13:52 Pulse Ox 94 L 04/25/19 13:52 - RESPIRATORY Respiratory Status: Respiratory Rate WNL - CARDIOVASCULAR CV Status: Pulse Rate WNL - GASTROINTESTINAL GI Status: No Symptoms - POST OP HYDRATION Hydration Status: Adequate & Stable
--- NOTE | 2019-04-25 14:58 | CR ---
Pelvis: AP view of the pelvis was obtained. Comparison: No prior pelvis exam. Left hip prosthesis is seen. Components are aligned. Soft tissue air is noted around the hip compatible with recent surgery. Skin katelyn are also present. Severe joint space narrowing is seen within the right hip. Osteopenia is present. Surgical clips are noted along the pelvic sidewalls. Vascular calcification is seen. Impression: 1. Recently placed left hip prosthesis. 2. Severe joint space narrowing with the right hip. 3. Osteopenia. Diagnostic code #2 This report was dictated in [place] Standard Time MTDD
--- NOTE | 2019-04-25 16:22 | PCM.OPNOTE ---
- General Post-Op/Procedure Note Date of Surgery/Procedure: 04/25/19 Operative Procedure(s): left hip hemiarthroplasty Pre Op Diagnosis: left hip subcapital fracture Post-Op Diagnosis: Same Anesthesia Technique: General ET Tube Primary Surgeon: Kalin Veronica EBL in mLs: 175 Complications: None Condition: Fair Free Text/Narrative:: Intake & Output 04/25/19 04/25/19 04/25/19 06:59 14:59 22:59 Intake Total 1071 1300 Output Total 250 425 Balance 821 875
--- NOTE | 2019-04-25 17:31 | OR ---
SURGEON: Kalin Veronica DATE OF PROCEDURE: 04/25/2019 PREOPERATIVE DIAGNOSIS: Left hip subcapital fracture, closed. POSTOPERATIVE DIAGNOSIS: Left hip subcapital fracture, closed. PROCEDURE: Left hip hemiarthroplasty. PRIMARY SURGEON: Kalin Veronica DO. ANESTHESIA: General endotracheal intubation. FLUID: Lactated Ringer's solution, 3000 mL. COMPLICATIONS: None. SPECIMEN: None. ESTIMATED BLOOD LOSS: 175 mL. DISCHARGE DISPOSITION: Stable to PACU. INSTRUMENTATION: Kim size 11 femur with 53 mm outside diameter cup. HISTORY AND INDICATIONS FOR THE PROCEDURE: The patient was seen yesterday at the emergency department where he was admitted to the Hospitalist Service. He was found to have the above-mentioned fracture on plain films. Risks and benefits of the procedure were explained to the patient and his family and informed consent was obtained. DETAILS OF PROCEDURE: The patient was seen preoperatively in his hospital room where the operative site was marked. He was brought to the operative suite by Anesthesia staff for general anesthetic. General anesthesia was administered. He was placed into a right lateral recumbent position with an axillary roll. All extremities were found to be well padded. He was positioned with a pegboard. The right lower extremity was then prepped and draped in sterile manner. Time-out was called identifying the correct patient, the correct procedure, the correct site, and that antibiotics had been given within appropriate time. An incision was made 5 cm proximal to the greater trochanter and about 10 cm distally. This was carried down to the iliotibial band. Bleeding was controlled with Bovie electrocautery. Gelpi's and Weitlaner's were used for retraction initially. The iliotibial band was incised and a Charnley retractor was then used for retraction and then I used the Bovie electrocautery to go down on the medial aspect of the femur from about the lesser trochanter all the way to the greater trochanter, leaving a periarticular cuff for the gluteus medius and gluteus minimus. The capsule was then incised with Bovie electrocautery. Homans were used for retraction around the femoral neck and the femoral head was exposed. The hip was then externally rotated and a cut was made 1 cm proximal to the lesser trochanter with a saw protected with Homans. I then used a corkscrew to remove the femoral head and neck. This measured between 53 and 54, so I settled on a 53 trial. I then examined the acetabulum and saw no other fragments. I did remove some fragments of bone with saw and rongeurs around the greater trochanter. I did my entry reamer, lateral reamer, and then reamed from an 8 to a 12 and then broached from 8 to an 11. With the [address], I then placed a minus 3 neck with a 53 head and then relocated. This provided excellent stability with near equal leg lengths. We then removed all our components, copiously irrigated with saline, and then implanted our final implants, then relocated the hip. I ranged this and it was very stable with no shuck. I then irrigated again, applied half a gram of vancomycin deep within the joint and then closed my capsule, the gluteus medius, and gluteus minimus with running #5 Ethibond. I then irrigated again and then closed the iliotibial band with 0 Stratafix, irrigated again, applied the other half gram of vancomycin and then closed with #1 Stratafix and then closed with skin katelyn followed by sponges and Medipore tape. The patient was then transferred to his hospital bed in supine position, allowed to awaken from general anesthesia, and taken to the PACU in stable condition. [id number] / MODL /[id number]
[2019-04-25] MEDS ORDERED: Heparin Sodium 5,000 Units/ML Vial SUBCUT SCH (18:00)
[2019-04-25] MEDS: ceFAZolin 1 GM in Premix Bag 1 BAG IV SCH (21:05)
[2019-04-25] MEDS: Heparin Sodium 5,000 Units/ML Vial SUBCUT SCH (21:20)
[2019-04-26] MEDS: ceFAZolin 1 GM in Premix Bag 1 BAG IV SCH (03:38)
[2019-04-26] MEDS: Heparin Sodium 5,000 Units/ML Vial SUBCUT SCH ×3 (05:38→21:30)
[2019-04-26 06:51] LABS: CARBON DIOXIDE,CO2 31.5 mmol/L (21.0-32.0); POTASSIUM,K 5.5 mmol/L (3.5-5.1)
[2019-04-26] MEDS ORDERED: Magnesium Sulfate/Water 2 GM in Premix Bag 1 BAG IV ONE (07:23)
[2019-04-26] MEDS: Acetaminophen/HYDROcodone 325-5 MG Tab PO PRN ×2 (08:15→14:19)
[2019-04-26] MEDS: Pantoprazole 40 MG Tab.CR PO SCH (08:28)
[2019-04-26] MEDS: Levothyroxine 50 MCG Tab PO SCH (08:28)
--- NOTE | 2019-04-26 08:51 | PCM48HPAN ---
Post Anesthesia Note - EVALUATION WITHIN 48HRS OF ANESTHETIC Vital Signs in Normal Range: Yes Patient Participated in Evaluation: Yes Respiratory Function Stable: Yes Airway Patent: Yes Cardiovascular Function Stable: Yes Hydration Status Stable: Yes Pain Control Satisfactory: Yes Nausea and Vomiting Control Satisfactory: Yes Mental Status Recovered: Yes Vital Signs: Last Vital Signs Temp 37.6 C 04/26/19 07:30 Pulse 99 04/26/19 07:30 Resp 18 04/26/19 07:30 BP 120/67 04/26/19 07:30 Pulse Ox 99 04/26/19 07:30
[2019-04-26] MEDS ORDERED: Heparin Sodium 5,000 Units/ML Vial SUBCUT SCH (09:00)
[2019-04-26] MEDS ORDERED: Aspirin 325 MG Tab PO SCH (09:00)
--- NOTE | 2019-04-26 09:14 | PCM.PN ---
<Erich Lopez M - Last Filed: 04/26/19 12:11> - General Info Date of Service: 04/26/19 Subjective Update: reports patient was confused overnight. This morning patient appears restless and complains of pain to left hip. He was AOx3. - Patient Data Vitals - Most Recent: Last Vital Signs Temp 99.6 F 04/26/19 07:30 Pulse 99 04/26/19 07:30 Resp 18 04/26/19 07:30 BP 120/67 04/26/19 07:30 Pulse Ox 99 04/26/19 07:30 Weight - Most Recent: 55.792 kg I&O - Last 24 Hours: Intake & Output 04/25/19 04/26/19 04/26/19 22:59 06:59 14:59 Intake Total 850 50 Output Total 200 400 400 Balance 650 -350 -400 Lab Results Last 24 Hours: Laboratory Results - last 24 hr 04/25/19 04/26/19 04/26/19 Range/Units 07:40 06:15 06:15 WBC 9.77 (4.0-11.0) K/uL RBC 4.05 L (4.50-5.90) M/uL Hgb 12.1 L (13.0-17.0) g/dL Hct 37.0 L (38.0-50.0) % MCV 91.4 (80.0-98.0) fL MCH 29.9 (27.0-32.0) pg MCHC 32.7 (31.0-37.0) g/dL RDW Std Deviation 50.0 (28.0-62.0) fl RDW Coeff of Dalia 15 (11.0-15.0) % Plt Count 183 (150-400) K/uL MPV 10.70 (7.40-12.00) fL Neut % (Auto) 85.0 H (48.0-80.0) % Lymph % (Auto) 4.7 L (16.0-40.0) % Esmeralda % (Auto) 10.3 (0.0-15.0) % Eos % (Auto) 0.0 (0.0-7.0) % Baso % (Auto) 0.0 (0.0-1.5) % Neut # (Auto) 8.3 H (1.4-5.7) K/uL Lymph # (Auto) 0.5 L (0.6-2.4) K/uL Esmeralda # (Auto) 1.0 H (0.0-0.8) K/uL Eos # (Auto) 0.0 (0.0-0.7) K/uL Baso # (Auto) 0.0 (0.0-0.1) K/uL Nucleated RBC % 0.0 /100WBC Nucleated RBCs # 0 K/uL Sodium 139 (136-148) mmol/L Potassium 5.5 H (3.5-5.1) mmol/L Chloride 101 (98-107) mmol/L Carbon Dioxide 31.5 (21.0-32.0) mmol/L BUN 12 (7.0-18.0) mg/dL Creatinine 1.3 (0.8-1.3) mg/dL Est Cr Clr Drug Dosing 33.38 mL/min Estimated GFR (MDRD) 52.6 ml/min Glucose 107 H (74-106) mg/dL Calcium 8.4 L (8.5-10.1) mg/dL Magnesium 1.3 L (1.8-2.4) mg/dL Blood Type B NEGATIVE Antibody Screen NEGATIVE Crossmatch See Detail Med Orders - Current: Current Medications Acetaminophen (Tylenol) 650 mg PO DAILY PRN PRN Reason: Pain Last Admin: 04/24/19 17:20 Dose: 650 mg Hydrocodone Bitart/Acetaminophen ([place] 325-5 Mg) 1 - 2 tab PO Q4H PRN PRN Reason: Pain Last Admin: 04/26/19 08:15 Dose: 2 tab Al Hydroxide/Mg Hydroxide (Mag-Al Plus) 30 ml PO Q4H PRN PRN Reason: Indigestion Atorvastatin Calcium (Lipitor) 20 mg PO DAILY [facility] Last Admin: 04/25/19 09:28 Dose: 20 mg Bisacodyl (Dulcolax) 10 mg RECTAL DAILY PRN PRN Reason: Constipation/NOBM for 3 days Bisacodyl (Dulcolax) 10 mg RECTAL DAILY PRN PRN Reason: Constipation Diphenhydramine HCl (Benadryl) 25 - 50 mg PO Q6H PRN PRN Reason: Itching Docusate Sodium (Colace) 100 mg PO BID [facility] Last Admin: 04/25/19 21:21 Dose: 100 mg Docusate Sodium (Colace) 100 mg PO BID PRN PRN Reason: Constipation Fentanyl (Sublimaze) 50 - 100 mcg IVPUSH Q5M PRN PRN Reason: Pain (severe 7-10) Heparin Sodium (Porcine) (Heparin Sodium) 5,000 units SUBCUT Q8H [facility] Last Admin: 04/26/19 05:38 Dose: 5,000 units Cefazolin Sodium/Dextrose 1 gm (/ Premix) 50 mls @ 100 mls/hr IV ONCALL [facility] Last Admin: 04/25/19 18:51 Dose: 100 mls/hr Ropivacaine 49.25 ml/Ketorolac Tromethamine 30 mg/Epinephrine HCl 0.5 mg/ Sodium Chloride 74.2 mls @ 50 mls/sec INJECT ASDIRECTED [facility] Lactated Ringer's (Ringers, Lactated) 1,000 mls @ 75 mls/hr IV ASDIRECTED [facility] Last Admin: 04/26/19 03:56 Dose: 75 mls/hr Magnesium Sulfate 2 gm/ Premix 50 mls @ 25 mls/hr IV ONETIME ONE Stop: 04/26/19 09:22 Last Admin: 04/26/19 08:43 Dose: 25 mls/hr Levothyroxine Sodium (Synthroid) 50 mcg PO ACBREAKFAST [facility] Last Admin: 04/26/19 08:28 Dose: 50 mcg Morphine Sulfate (Morphine) 2 mg IVPUSH Q4H PRN PRN Reason: Pain Last Admin: 04/25/19 23:41 Dose: 2 mg Pantoprazole Sodium (Protonix) 40 mg PO ACBREAKFAST [facility] Last Admin: 04/26/19 08:28 Dose: 40 mg Polyethylene Glycol (Miralax) 17 gm PO DAILY [facility] Sodium Chloride (Saline Flush) 10 ml FLUSH ASDIRECTED PRN PRN Reason: Keep Vein Open Last Admin: 04/24/19 13:39 Dose: 10 ml Sodium Chloride (Saline Flush) 2.5 ml FLUSH ASDIRECTED PRN PRN Reason: Keep Vein Open Last Admin: 04/24/19 13:39 Dose: 2.5 ml Sodium Chloride (Saline Flush) 10 ml FLUSH ASDIRECTED PRN PRN Reason: Keep Vein Open Sodium Chloride (Saline Flush) 2.5 ml FLUSH ASDIRECTED PRN PRN Reason: Keep Vein Open Discontinued Medications Ephedrine Sulfate (Ephedrine Sulfate) Confirm Administered Dose 50 mg .ROUTE .STK-MED ONE Stop: 04/25/19 07:56 Famotidine (Pepcid) 20 mg IVPUSH ONETIME ONE Stop: 04/25/19 10:49 Last Admin: 04/25/19 14:51 Dose: Not Given Fentanyl (Sublimaze) Confirm Administered Dose 100 mcg .ROUTE .STK-MED ONE Stop: 04/25/19 07:53 Glycopyrrolate (Robinul) Confirm Administered Dose 0.6 mg .ROUTE .STK-MED ONE Stop: 04/25/19 07:56 Heparin Sodium (Porcine) (Heparin Sodium) 5,000 units SUBCUT Q8H [facility] Last Admin: 04/25/19 21:03 Dose: Not Given Heparin Sodium (Porcine) (Heparin Sodium) 5,000 units SUBCUT Q8H [facility] Hydromorphone HCl (Dilaudid) 1 mg IVPUSH ONETIME ONE Stop: 04/25/19 13:11 Last Admin: 04/25/19 15:07 Dose: 1 mg Sodium Chloride (Normal Saline) 1,000 mls @ 125 mls/hr IV STAT [facility] Last Admin: 04/24/19 13:39 Dose: 125 mls/hr Lactated Ringer's (Ringers, Lactated) 1,000 mls @ 75 mls/hr IV ASDIRECTED [facility] Last Admin: 04/24/19 18:18 Dose: 75 mls/hr Lactated Ringer's (Ringers, Lactated) 1,000 mls @ 75 mls/hr IV ASDIRECTED [facility] Last Admin: 04/25/19 07:33 Dose: 75 mls/hr Tranexamic Acid 2,000 mg/ (Sodium Chloride) 120 mls @ 360 mls/hr IV ASDIRECTED ONE Stop: 04/25/19 07:43 Last Admin: 04/25/19 14:51 Dose: Not Given Sodium Chloride (Normal Saline) Confirm Administered Dose 20 mls @ as directed .ROUTE .STK-MED ONE Stop: 04/25/19 07:56 Pantoprazole Sodium 40 mg/ (Sodium Chloride) 10 mls @ 300 mls/hr IV NOW ONE Stop: 04/25/19 09:36 Last Admin: 04/25/19 11:26 Dose: Not Given Bupivacaine HCl/Epinephrine Bitart (Sensorc Mpf 0.25%-Epi 1:[id number]) Confirm Administered Dose 30 mls @ as directed .ROUTE .STK-MED ONE Stop: 04/25/19 13:02 Cefazolin Sodium/Dextrose 1 gm (/ Premix) 50 mls @ 100 mls/hr IV Q8H [facility] Stop: 04/26/19 03:29 Last Admin: 04/26/19 03:38 Dose: 100 mls/hr Ketamine HCl (Ketalar) Confirm Administered Dose 500 mg .ROUTE .STK-MED ONE Stop: 04/25/19 07:57 Midazolam HCl (Versed 1 Mg/Ml) Confirm Administered Dose 2 mg .ROUTE .STK-MED ONE Stop: 04/25/19 07:53 Morphine Sulfate (Morphine) 2 mg IVPUSH ONETIME ONE Stop: 04/24/19 13:03 Last Admin: 04/24/19 13:38 Dose: 2 mg Neostigmine Methylsulfate (Neostigmine) Confirm Administered Dose 5 mg .ROUTE .STK-MED ONE Stop: 04/25/19 10:43 Ondansetron HCl (Zofran) 4 mg IVPUSH ONETIME ONE Stop: 04/24/19 13:03 Last Admin: 04/24/19 13:39 Dose: 4 mg Phenylephrine HCl (Phenylephrine In Ns 100 Mcg/Ml) Confirm Administered Dose 1 mg .ROUTE .STK-MED ONE Stop: 04/25/19 07:56 Propofol (Diprivan 20 Ml) Confirm Administered Dose 200 mg .ROUTE .STK-MED ONE Stop: 04/25/19 10:39 Rocuronium [place] (Zemuron) Confirm Administered Dose 100 mg .ROUTE .STK-MED ONE Stop: 04/25/19 10:40 Succinylcholine Chloride (Succinylcholine Chloride) Confirm Administered Dose 200 mg .ROUTE .STK-MED ONE Stop: 04/25/19 10:40 - Exam General: Alert, Oriented, Cooperative, Mild Distress Lungs: Clear to Auscultation, Normal Respiratory Effort Cardiovascular: Regular Rate, Regular Rhythm GI/Abdominal Exam: Normal Bowel Sounds, Soft, Non-Tender, No Distention Extremities: No Pedal Edema - Problem List Review Problem List Initiated/Reviewed/Updated: Yes - My Orders Last 24 Hours: My Active Orders 04/25/19 09:00 atorvaSTATin [Lipitor] 20 mg PO DAILY 04/25/19 21:00 Heparin Sodium 5,000 units SUBCUT Q8H 04/26/19 07:23 Magnesium Sulfate/Water [Magnesium Sulfate in Water Premix] 2 gm Premix Bag 1 bag IV ONETIME - Plan Plan:: Assessment and Plan: 1. Left femoral neck fracture s/p left hip arthroplasty POD#1: Will need anticoagulation post-operatively due to hx DVT. Patient started on heparin currently and will plan for anti-coagulation after discharge. Hx of bowel obstruction, maintain good bowel regimen. 2. Hx CABG/CAD: Continue statin. 3. Hypothyroidism: Continue Levothyroxine. Dispo: Will likely need SNF for rehabilitation. <Sharon Rivero - Last Filed: 04/27/19 13:23> - Patient Data Vitals - Most Recent: Last Vital Signs Temp 36.8 C 04/27/19 12:00 Pulse 93 04/27/19 12:00 Resp 18 04/27/19 12:00 BP 109/61 04/27/19 12:00 Pulse Ox 91 L 04/27/19 12:00 I&O - Last 24 Hours: Intake & Output 04/26/19 04/27/19 04/27/19 22:59 06:59 14:59 Intake Total 1050 550 Output Total 500 300 Balance 550 250 Lab Results Last 24 Hours: Laboratory Results - last 24 hr 04/26/19 04/27/19 04/27/19 Range/Units 21:10 05:55 05:55 WBC 12.11 H (4.0-11.0) K/uL RBC 3.62 L (4.50-5.90) M/uL Hgb 11.0 L (13.0-17.0) g/dL Hct 32.3 L (38.0-50.0) % MCV 89.2 (80.0-98.0) fL MCH 30.4 (27.0-32.0) pg MCHC 34.1 (31.0-37.0) g/dL RDW Std Deviation 48.9 (28.0-62.0) fl RDW Coeff of Dalia 15 (11.0-15.0) % Plt Count 174 (150-400) K/uL MPV 10.70 (7.40-12.00) fL Neut % (Auto) 83.1 H (48.0-80.0) % Lymph % (Auto) 7.0 L (16.0-40.0) % Esmeralda % (Auto) 9.9 (0.0-15.0) % Eos % (Auto) 0.0 (0.0-7.0) % Baso % (Auto) 0.0 (0.0-1.5) % Neut # (Auto) 10.1 H (1.4-5.7) K/uL Lymph # (Auto) 0.9 (0.6-2.4) K/uL Esmeralda # (Auto) 1.2 H (0.0-0.8) K/uL Eos # (Auto) 0.0 (0.0-0.7) K/uL Baso # (Auto) 0.0 (0.0-0.1) K/uL Nucleated RBC % 0.0 /100WBC Nucleated RBCs # 0 K/uL Lactate (0.20-2.00) mmol/L Sodium 137 (136-148) mmol/L Potassium 4.0 (3.5-5.1) mmol/L Chloride 97 L (98-107) mmol/L Carbon Dioxide 33.4 H (21.0-32.0) mmol/L BUN 18 (7.0-18.0) mg/dL Creatinine 1.4 H (0.8-1.3) mg/dL Est Cr Clr Drug Dosing 31.00 mL/min Estimated GFR (MDRD) 48.3 ml/min Glucose 113 H (74-106) mg/dL Calcium 8.5 (8.5-10.1) mg/dL Magnesium 1.7 L (1.8-2.4) mg/dL Urine Color YELLOW Urine Appearance CLEAR Urine pH 5.5 (5.0-8.0) Ur Specific Globe <= 1.005 (1.001-1.035) Urine Protein NEGATIVE (NEGATIVE) mg/dL Urine Glucose (UA) NEGATIVE (NEGATIVE) mg/dL Urine Ketones NEGATIVE (NEGATIVE) mg/dL Urine Occult Blood MODERATE H (NEGATIVE) Urine Nitrite NEGATIVE (NEGATIVE) Urine Bilirubin NEGATIVE (NEGATIVE) Urine Urobilinogen 0.2 (<2.0) EU/dL Ur Leukocyte Esterase NEGATIVE (NEGATIVE) Urine RBC 1-4 (0-2/HPF) Urine WBC 0-1 (0-5/HPF) Ur Epithelial Cells RARE (NONE-FEW) Urine Bacteria RARE (NEGATIVE) 04/27/19 Range/Units 09:59 WBC (4.0-11.0) K/uL RBC (4.50-5.90) M/uL Hgb (13.0-17.0) g/dL Hct (38.0-50.0) % MCV (80.0-98.0) fL MCH (27.0-32.0) pg MCHC (31.0-37.0) g/dL RDW Std Deviation (28.0-62.0) fl RDW Coeff of Dalia (11.0-15.0) % Plt Count (150-400) K/uL MPV (7.40-12.00) fL Neut % (Auto) (48.0-80.0) % Lymph % (Auto) (16.0-40.0) % Esmeralda % (Auto) (0.0-15.0) % Eos % (Auto) (0.0-7.0) % Baso % (Auto) (0.0-1.5) % Neut # (Auto) (1.4-5.7) K/uL Lymph # (Auto) (0.6-2.4) K/uL Esmeralda # (Auto) (0.0-0.8) K/uL Eos # (Auto) (0.0-0.7) K/uL Baso # (Auto) (0.0-0.1) K/uL Nucleated RBC % /100WBC Nucleated RBCs # K/uL Lactate 1.2 (0.20-2.00) mmol/L Sodium (136-148) mmol/L Potassium (3.5-5.1) mmol/L Chloride (98-107) mmol/L Carbon Dioxide (21.0-32.0) mmol/L BUN (7.0-18.0) mg/dL Creatinine (0.8-1.3) mg/dL Est Cr Clr Drug Dosing mL/min Estimated GFR (MDRD) ml/min Glucose (74-106) mg/dL Calcium (8.5-10.1) mg/dL Magnesium (1.8-2.4) mg/dL Urine Color Urine Appearance Urine pH (5.0-8.0) Ur Specific [place] (1.001-1.035) Urine Protein (NEGATIVE) mg/dL Urine Glucose (UA) (NEGATIVE) mg/dL Urine Ketones (NEGATIVE) mg/dL Urine Occult Blood (NEGATIVE) Urine Nitrite (NEGATIVE) Urine Bilirubin (NEGATIVE) Urine Urobilinogen (<2.0) EU/dL Ur Leukocyte Esterase (NEGATIVE) Urine RBC (0-2/HPF) Urine WBC (0-5/HPF) Ur Epithelial Cells (NONE-FEW) Urine Bacteria (NEGATIVE) Med Orders - Current: Current Medications Acetaminophen (Tylenol) 650 mg PO DAILY PRN PRN Reason: Pain Last Admin: 04/24/19 17:20 Dose: 650 mg Hydrocodone Bitart/Acetaminophen ([place] 325-5 Mg) 1 - 2 tab PO Q4H PRN PRN Reason: Pain Last Admin: 04/27/19 02:23 Dose: 2 tab Al Hydroxide/Mg Hydroxide (Mag-Al Plus) 30 ml PO Q4H PRN PRN Reason: Indigestion Atorvastatin Calcium (Lipitor) 20 mg PO DAILY [facility] Last Admin: 04/27/19 09:56 Dose: 20 mg Bisacodyl (Dulcolax) 10 mg RECTAL DAILY PRN PRN Reason: Constipation/NOBM for 3 days Bisacodyl (Dulcolax) 10 mg RECTAL DAILY PRN PRN Reason: Constipation Diphenhydramine HCl (Benadryl) 25 - 50 mg PO Q6H PRN PRN Reason: Itching Docusate Sodium (Colace) 100 mg PO BID [facility] Last Admin: 04/27/19 09:56 Dose: Not Given Docusate Sodium (Colace) 100 mg PO BID PRN PRN Reason: Constipation Fentanyl (Sublimaze) 50 - 100 mcg IVPUSH Q5M PRN PRN Reason: Pain (severe 7-10) Furosemide (Lasix) 40 mg IVPUSH DAILY [facility] Last Admin: 04/27/19 09:56 Dose: 40 mg Heparin Sodium (Porcine) (Heparin Sodium) 5,000 units SUBCUT Q8H [facility] Last Admin: 04/27/19 13:03 Dose: 5,000 units Ropivacaine 49.25 ml/Ketorolac Tromethamine 30 mg/Epinephrine HCl 0.5 mg/ Sodium Chloride 74.2 mls @ 50 mls/sec INJECT ASDIRECTED [facility] Piperacillin Sod/Tazobactam (Sod 3.375 gm/ Sodium Chloride) 50 mls @ 100 mls/ hr IV Q8H [facility] Last Admin: 04/27/19 13:03 Dose: 100 mls/hr Vancomycin HCl 1 gm/ Sodium (Chloride) 250 mls @ 166 mls/hr IV Q24H [facility] Last Admin: 04/26/19 22:59 Dose: 166 mls/hr Pantoprazole Sodium 40 mg/ (Sodium Chloride) 10 mls @ 300 mls/hr IV Q24H [facility] Last Admin: 04/27/19 10:44 Dose: 300 mls/hr Levothyroxine Sodium (Synthroid) 50 mcg PO ACBREAKFAST [facility] Last Admin: 04/27/19 06:50 Dose: 50 mcg Morphine Sulfate (Morphine) 2 mg IVPUSH Q4H PRN PRN Reason: Pain Last Admin: 04/25/19 23:41 Dose: 2 mg Polyethylene Glycol (Miralax) 17 gm PO DAILY [facility] Last Admin: 04/27/19 09:57 Dose: 17 gm Sodium Chloride (Saline Flush) 10 ml FLUSH ASDIRECTED PRN PRN Reason: Keep Vein Open Last Admin: 04/24/19 13:39 Dose: 10 ml Sodium Chloride (Saline Flush) 2.5 ml FLUSH ASDIRECTED PRN PRN Reason: Keep Vein Open Last Admin: 04/24/19 13:39 Dose: 2.5 ml Sodium Chloride (Saline Flush) 10 ml FLUSH ASDIRECTED PRN PRN Reason: Keep Vein Open Sodium Chloride (Saline Flush) 2.5 ml FLUSH ASDIRECTED PRN PRN Reason: Keep Vein Open Tramadol HCl (Ultram) 50 mg PO Q6H PRN PRN Reason: Pain Last Admin: 04/26/19 12:04 Dose: 50 mg Vancomycin HCl (Pharmacy To Dose - Vancomycin) 1 dose .XX ASDIRECTED [facility] Discontinued Medications Ephedrine Sulfate (Ephedrine Sulfate) Confirm Administered Dose 50 mg .ROUTE .STK-MED ONE Stop: 04/25/19 07:56 Famotidine (Pepcid) 20 mg IVPUSH ONETIME ONE Stop: 04/25/19 10:49 Last Admin: 04/25/19 14:51 Dose: Not Given Fentanyl (Sublimaze) Confirm Administered Dose 100 mcg .ROUTE .STK-MED ONE Stop: 04/25/19 07:53 Furosemide (Lasix) 40 mg IVPUSH NOW ONE Stop: 04/26/19 19:50 Last Admin: 04/26/19 20:18 Dose: 40 mg Glycopyrrolate (Robinul) Confirm Administered Dose 0.6 mg .ROUTE .STK-MED ONE Stop: 04/25/19 07:56 Heparin Sodium (Porcine) (Heparin Sodium) 5,000 units SUBCUT Q8H [facility] Last Admin: 04/25/19 21:03 Dose: Not Given Heparin Sodium (Porcine) (Heparin Sodium) 5,000 units SUBCUT Q8H [facility] Hydromorphone HCl (Dilaudid) 1 mg IVPUSH ONETIME ONE Stop: 04/25/19 13:11 Last Admin: 04/25/19 15:07 Dose: 1 mg Sodium Chloride (Normal Saline) 1,000 mls @ 125 mls/hr IV STAT [facility] Last Admin: 04/24/19 13:39 Dose: 125 mls/hr Lactated Ringer's (Ringers, Lactated) 1,000 mls @ 75 mls/hr IV ASDIRECTED [facility] Last Admin: 04/24/19 18:18 Dose: 75 mls/hr Lactated Ringer's (Ringers, Lactated) 1,000 mls @ 75 mls/hr IV ASDIRECTED [facility] Last Admin: 04/25/19 07:33 Dose: 75 mls/hr Cefazolin Sodium/Dextrose 1 gm (/ Premix) 50 mls @ 100 mls/hr IV ONCALL [facility] Last Admin: 04/25/19 18:51 Dose: 100 mls/hr Tranexamic Acid 2,000 mg/ (Sodium Chloride) 120 mls @ 360 mls/hr IV ASDIRECTED ONE Stop: 04/25/19 07:43 Last Admin: 04/25/19 14:51 Dose: Not Given Sodium Chloride (Normal Saline) Confirm Administered Dose 20 mls @ as directed .ROUTE .STK-MED ONE Stop: 04/25/19 07:56 Pantoprazole Sodium 40 mg/ (Sodium Chloride) 10 mls @ 300 mls/hr IV NOW ONE Stop: 04/25/19 09:36 Last Admin: 04/25/19 11:26 Dose: Not Given Bupivacaine HCl/Epinephrine Bitart (Sensorc Mpf 0.25%-Epi [id number]) Confirm Administered Dose 30 mls @ as directed .ROUTE .STK-MED ONE Stop: 04/25/19 13:02 Cefazolin Sodium/Dextrose 1 gm (/ Premix) 50 mls @ 100 mls/hr IV Q8H [facility] Stop: 04/26/19 03:29 Last Admin: 04/26/19 03:38 Dose: 100 mls/hr Lactated Ringer's (Ringers, Lactated) 1,000 mls @ 75 mls/hr IV ASDIRECTED [facility] Last Admin: 04/26/19 03:56 Dose: 75 mls/hr Magnesium Sulfate 2 gm/ Premix 50 mls @ 25 mls/hr IV ONETIME ONE Stop: 04/26/19 09:22 Last Admin: 04/26/19 08:43 Dose: 25 mls/hr Vancomycin HCl 1 gm/ Sodium (Chloride) 250 mls @ 166.667 mls/hr IV Q24H [facility] Last Admin: 04/26/19 23:14 Dose: Not Given Sodium Chloride (Normal Saline (Advbag)) Confirm Administered Dose 250 mls @ as directed .ROUTE .STK-MED ONE Stop: 04/26/19 22:46 Last Admin: 04/26/19 22:59 Dose: Not Given Ketamine HCl (Ketalar) Confirm Administered Dose 500 mg .ROUTE .STK-MED ONE Stop: 04/25/19 07:57 Magnesium Oxide (Magnesium Oxide) 800 mg PO ONETIME ONE Stop: 04/27/19 09:31 Last Admin: 04/27/19 10:44 Dose: 800 mg Midazolam HCl (Versed 1 Mg/Ml) Confirm Administered Dose 2 mg .ROUTE .STK-MED ONE Stop: 04/25/19 07:53 Morphine Sulfate (Morphine) 2 mg IVPUSH ONETIME ONE Stop: 04/24/19 13:03 Last Admin: 04/24/19 13:38 Dose: 2 mg Neostigmine Methylsulfate (Neostigmine) Confirm Administered Dose 5 mg .ROUTE .STK-MED ONE Stop: 04/25/19 10:43 Ondansetron HCl (Zofran) 4 mg IVPUSH ONETIME ONE Stop: 04/24/19 13:03 Last Admin: 04/24/19 13:39 Dose: 4 mg Pantoprazole Sodium (Protonix) 40 mg PO ACBREAKFAST FREDDY Last Admin: 04/27/19 06:50 Dose: 40 mg Phenylephrine HCl (Phenylephrine In Ns 100 Mcg/Ml) Confirm Administered Dose 1 mg .ROUTE .STK-MED ONE Stop: 04/25/19 07:56 Propofol (Diprivan 20 Ml) Confirm Administered Dose 200 mg .ROUTE .STK-MED ONE Stop: 04/25/19 10:39 Rocuronium [place] (Zemuron) Confirm Administered Dose 100 mg .ROUTE .STK-MED ONE Stop: 04/25/19 10:40 Succinylcholine Chloride (Succinylcholine Chloride) Confirm Administered Dose 200 mg .ROUTE .STK-MED ONE Stop: 04/25/19 10:40 Vancomycin HCl (Vancocin) Confirm Administered Dose 1 gm .ROUTE .STK-MED ONE Stop: 04/26/19 22:44 Last Admin: 04/26/19 22:59 Dose: Not Given - My Orders Last 24 Hours: My Active Orders 04/26/19 21:00 Pharmacy to Dose - Vancomycin 1 dose .XX ASDIRECTED Piperacillin/Tazobactam [Piperacil-Tazobact] 3.375 gm Sodium Chloride 0.9% [ Normal Saline] 50 ml IV Q8H 04/26/19 22:00 Vancomycin [Vancocin] 1 gm Sodium Chloride 0.9% [Normal Saline (AdvBag)] 250 ml IV Q24H 04/27/19 09:00 Furosemide [Lasix] 40 mg IVPUSH DAILY 04/27/19 10:30 Pantoprazole [ProTONIX IV] 40 mg Sodium Chloride 0.9% [Normal Saline] 10 ml IV Q24H - Plan Plan:: I have seen and evaluated the patient and agree with the residents note unless specified in my note
--- NOTE | 2019-04-26 09:44 | PCM.PN ---
- General Info Date of Service: 04/26/19 Admission Dx/Problem (Free Text): Admission Diagnosis/Problem Admission Diagnosis/Problem Hip fracture requiring operative repair Functional Status: Reports: Tolerating Diet - Review of Systems General: Reports: No Symptoms HEENT: Reports: No Symptoms Pulmonary: Reports: No Symptoms Cardiovascular: Reports: No Symptoms Gastrointestinal: Reports: No Symptoms Genitourinary: Reports: No Symptoms Musculoskeletal: Reports: Leg Pain, Joint Pain, Joint Swelling Skin: Reports: No Symptoms Neurological: Reports: No Symptoms Psychiatric: Reports: No Symptoms - Patient Data Vitals - Most Recent: Last Vital Signs Temp 37.6 C 04/26/19 07:30 Pulse 99 04/26/19 07:30 Resp 18 04/26/19 07:30 BP 120/67 04/26/19 07:30 Pulse Ox 99 04/26/19 07:30 Weight - Most Recent: 55.792 kg I&O - Last 24 Hours: Intake & Output 04/25/19 04/26/19 04/26/19 22:59 06:59 14:59 Intake Total 850 50 Output Total 200 400 400 Balance 650 -350 -400 Lab Results Last 24 Hours: Laboratory Results - last 24 hr 04/25/19 04/26/19 04/26/19 Range/Units 07:40 06:15 06:15 WBC 9.77 (4.0-11.0) K/uL RBC 4.05 L (4.50-5.90) M/uL Hgb 12.1 L (13.0-17.0) g/dL Hct 37.0 L (38.0-50.0) % MCV 91.4 (80.0-98.0) fL MCH 29.9 (27.0-32.0) pg MCHC 32.7 (31.0-37.0) g/dL RDW Std Deviation 50.0 (28.0-62.0) fl RDW Coeff of Dalia 15 (11.0-15.0) % Plt Count 183 (150-400) K/uL MPV 10.70 (7.40-12.00) fL Neut % (Auto) 85.0 H (48.0-80.0) % Lymph % (Auto) 4.7 L (16.0-40.0) % [place] % (Auto) 10.3 (0.0-15.0) % Eos % (Auto) 0.0 (0.0-7.0) % Baso % (Auto) 0.0 (0.0-1.5) % Neut # (Auto) 8.3 H (1.4-5.7) K/uL Lymph # (Auto) 0.5 L (0.6-2.4) K/uL [place] # (Auto) 1.0 H (0.0-0.8) K/uL Eos # (Auto) 0.0 (0.0-0.7) K/uL Baso # (Auto) 0.0 (0.0-0.1) K/uL Nucleated RBC % 0.0 /100WBC Nucleated RBCs # 0 K/uL Sodium 139 (136-148) mmol/L Potassium 5.5 H (3.5-5.1) mmol/L Chloride 101 (98-107) mmol/L Carbon Dioxide 31.5 (21.0-32.0) mmol/L BUN 12 (7.0-18.0) mg/dL Creatinine 1.3 (0.8-1.3) mg/dL Est Cr Clr Drug Dosing 33.38 mL/min Estimated GFR (MDRD) 52.6 ml/min Glucose 107 H (74-106) mg/dL Calcium 8.4 L (8.5-10.1) mg/dL Magnesium 1.3 L (1.8-2.4) mg/dL Blood Type B NEGATIVE Antibody Screen NEGATIVE Crossmatch See Detail Med Orders - Current: Current Medications Acetaminophen (Tylenol) 650 mg PO DAILY PRN PRN Reason: Pain Last Admin: 04/24/19 17:20 Dose: 650 mg Hydrocodone Bitart/Acetaminophen ([place] 325-5 Mg) 1 - 2 tab PO Q4H PRN PRN Reason: Pain Last Admin: 04/26/19 08:15 Dose: 2 tab Al Hydroxide/Mg Hydroxide (Mag-Al Plus) 30 ml PO Q4H PRN PRN Reason: Indigestion Atorvastatin Calcium (Lipitor) 20 mg PO DAILY [facility] Last Admin: 04/25/19 09:28 Dose: 20 mg Bisacodyl (Dulcolax) 10 mg RECTAL DAILY PRN PRN Reason: Constipation/NOBM for 3 days Bisacodyl (Dulcolax) 10 mg RECTAL DAILY PRN PRN Reason: Constipation Diphenhydramine HCl (Benadryl) 25 - 50 mg PO Q6H PRN PRN Reason: Itching Docusate Sodium (Colace) 100 mg PO BID [facility] Last Admin: 04/25/19 21:21 Dose: 100 mg Docusate Sodium (Colace) 100 mg PO BID PRN PRN Reason: Constipation Fentanyl (Sublimaze) 50 - 100 mcg IVPUSH Q5M PRN PRN Reason: Pain (severe 7-10) Heparin Sodium (Porcine) (Heparin Sodium) 5,000 units SUBCUT Q8H [facility] Last Admin: 04/26/19 05:38 Dose: 5,000 units Cefazolin Sodium/Dextrose 1 gm (/ Premix) 50 mls @ 100 mls/hr IV ONCALL [facility] Last Admin: 04/25/19 18:51 Dose: 100 mls/hr Ropivacaine 49.25 ml/Ketorolac Tromethamine 30 mg/Epinephrine HCl 0.5 mg/ Sodium Chloride 74.2 mls @ 50 mls/sec INJECT ASDIRECTED [facility] Lactated Ringer's (Ringers, Lactated) 1,000 mls @ 75 mls/hr IV ASDIRECTED [facility] Last Admin: 04/26/19 03:56 Dose: 75 mls/hr Levothyroxine Sodium (Synthroid) 50 mcg PO ACBREAKFAST [facility] Last Admin: 04/26/19 08:28 Dose: 50 mcg Morphine Sulfate (Morphine) 2 mg IVPUSH Q4H PRN PRN Reason: Pain Last Admin: 04/25/19 23:41 Dose: 2 mg Pantoprazole Sodium (Protonix) 40 mg PO ACBREAKFAST [facility] Last Admin: 04/26/19 08:28 Dose: 40 mg Polyethylene Glycol (Miralax) 17 gm PO DAILY [facility] Sodium Chloride (Saline Flush) 10 ml FLUSH ASDIRECTED PRN PRN Reason: Keep Vein Open Last Admin: 04/24/19 13:39 Dose: 10 ml Sodium Chloride (Saline Flush) 2.5 ml FLUSH ASDIRECTED PRN PRN Reason: Keep Vein Open Last Admin: 04/24/19 13:39 Dose: 2.5 ml Sodium Chloride (Saline Flush) 10 ml FLUSH ASDIRECTED PRN PRN Reason: Keep Vein Open Sodium Chloride (Saline Flush) 2.5 ml FLUSH ASDIRECTED PRN PRN Reason: Keep Vein Open Tramadol HCl (Ultram) 50 mg PO Q6H PRN PRN Reason: Pain Discontinued Medications Ephedrine Sulfate (Ephedrine Sulfate) Confirm Administered Dose 50 mg .ROUTE .STK-MED ONE Stop: 04/25/19 07:56 Famotidine (Pepcid) 20 mg IVPUSH ONETIME ONE Stop: 04/25/19 10:49 Last Admin: 04/25/19 14:51 Dose: Not Given Fentanyl (Sublimaze) Confirm Administered Dose 100 mcg .ROUTE .STK-MED ONE Stop: 04/25/19 07:53 Glycopyrrolate (Robinul) Confirm Administered Dose 0.6 mg .ROUTE .STK-MED ONE Stop: 04/25/19 07:56 Heparin Sodium (Porcine) (Heparin Sodium) 5,000 units SUBCUT Q8H [facility] Last Admin: 04/25/19 21:03 Dose: Not Given Heparin Sodium (Porcine) (Heparin Sodium) 5,000 units SUBCUT Q8H [facility] Hydromorphone HCl (Dilaudid) 1 mg IVPUSH ONETIME ONE Stop: 04/25/19 13:11 Last Admin: 04/25/19 15:07 Dose: 1 mg Sodium Chloride (Normal Saline) 1,000 mls @ 125 mls/hr IV STAT [facility] Last Admin: 04/24/19 13:39 Dose: 125 mls/hr Lactated Ringer's (Ringers, Lactated) 1,000 mls @ 75 mls/hr IV ASDIRECTED [facility] Last Admin: 04/24/19 18:18 Dose: 75 mls/hr Lactated Ringer's (Ringers, Lactated) 1,000 mls @ 75 mls/hr IV ASDIRECTED [facility] Last Admin: 04/25/19 07:33 Dose: 75 mls/hr Tranexamic Acid 2,000 mg/ (Sodium Chloride) 120 mls @ 360 mls/hr IV ASDIRECTED ONE Stop: 04/25/19 07:43 Last Admin: 04/25/19 14:51 Dose: Not Given Sodium Chloride (Normal Saline) Confirm Administered Dose 20 mls @ as directed .ROUTE .STK-MED ONE Stop: 04/25/19 07:56 Pantoprazole Sodium 40 mg/ (Sodium Chloride) 10 mls @ 300 mls/hr IV NOW ONE Stop: 04/25/19 09:36 Last Admin: 04/25/19 11:26 Dose: Not Given Bupivacaine HCl/Epinephrine Bitart (Sensorc Mpf 0.25%-Epi 1:[id number]) Confirm Administered Dose 30 mls @ as directed .ROUTE .STK-MED ONE Stop: 04/25/19 13:02 Cefazolin Sodium/Dextrose 1 gm (/ Premix) 50 mls @ 100 mls/hr IV Q8H [facility] Stop: 04/26/19 03:29 Last Admin: 04/26/19 03:38 Dose: 100 mls/hr Magnesium Sulfate 2 gm/ Premix 50 mls @ 25 mls/hr IV ONETIME ONE Stop: 04/26/19 09:22 Last Admin: 04/26/19 08:43 Dose: 25 mls/hr Ketamine HCl (Ketalar) Confirm Administered Dose 500 mg .ROUTE .STK-MED ONE Stop: 04/25/19 07:57 Midazolam HCl (Versed 1 Mg/Ml) Confirm Administered Dose 2 mg .ROUTE .STK-MED ONE Stop: 04/25/19 07:53 Morphine Sulfate (Morphine) 2 mg IVPUSH ONETIME ONE Stop: 04/24/19 13:03 Last Admin: 04/24/19 13:38 Dose: 2 mg Neostigmine Methylsulfate (Neostigmine) Confirm Administered Dose 5 mg .ROUTE .STK-MED ONE Stop: 04/25/19 10:43 Ondansetron HCl (Zofran) 4 mg IVPUSH ONETIME ONE Stop: 04/24/19 13:03 Last Admin: 04/24/19 13:39 Dose: 4 mg Phenylephrine HCl (Phenylephrine In Ns 100 Mcg/Ml) Confirm Administered Dose 1 mg .ROUTE .STK-MED ONE Stop: 04/25/19 07:56 Propofol (Diprivan 20 Ml) Confirm Administered Dose 200 mg .ROUTE .STK-MED ONE Stop: 04/25/19 10:39 Rocuronium [place] (Zemuron) Confirm Administered Dose 100 mg .ROUTE .STK-MED ONE Stop: 04/25/19 10:40 Succinylcholine Chloride (Succinylcholine Chloride) Confirm Administered Dose 200 mg .ROUTE .STK-MED ONE Stop: 04/25/19 10:40 - Exam General: Alert, Oriented, Cooperative, Moderate Distress HEENT: Pupils Equal, Pupils Reactive, EOMI, Mucous Membr. Moist/[place] Neck: Supple, Trachea Midline Lungs: Normal Respiratory Effort Peripheral Pulses: 2+: Dorsalis Pedis (L) Skin: Warm, Dry, Intact Wound/Incisions: Healing Well, Dressing Dry and Intact, No Drainage Psy/Mental Status: Alert, Normal Affect, Normal Mood - Problem List Review Problem List Initiated/Reviewed/Updated: Yes - My Orders Last 24 Hours: My Active Orders 04/25/19 11:30 Insert Urinary Catheter [OM.PC] Q24H ceFAZolin [Ancef] 1 gm Premix Bag 1 bag IV ONCALL 04/25/19 13:41 Communication Order [RC] PRN Neurovascular Check [RC] Q4HR RT Incentive Spirometry [RC] Q1HWA Wound Care [RC] DAILY PT Evaluation and Treatment [CONS] Routine Alum Hydrox/Mag Hydrox/Simeth [Mag-Al Plus] 30 ml PO Q4H PRN Bisacodyl [Dulcolax] 10 mg RECTAL DAILY PRN Docusate Sodium [Colace] 100 mg PO BID PRN Sodium Chloride 0.9% [Saline Flush] 10 ml FLUSH ASDIRECTED PRN Sodium Chloride 0.9% [Saline Flush] 2.5 ml FLUSH ASDIRECTED PRN diphenhydrAMINE [Benadryl] 25 - 50 mg PO Q6H PRN Ice Therapy [OM.PC] Routine 04/25/19 13:45 Convert IV to Saline Lock [OM.PC] PRN 04/26/19 09:00 Polyethylene Glycol 3350 [MiraLAX] 17 gm PO DAILY 04/26/19 09:41 traMADol [Ultram] 50 mg PO Q6H PRN 04/26/19 13:41 Urinary Catheter Removal [RC] ASDIRECTED 04/26/19 13:45 Convert IV to Saline Lock [OM.PC] PRN 04/27/19 06:00 HEMOGLOBIN/HEMATOCRIT,HH [HEME] DAILY - Plan Plan:: Assessment and Plan: 1. Left femoral neck fracture s/p left hip arthroplasty POD#1: 2. switched to heparin due to vte risk. will hand off dvt prophylaxis to medicine service 3. pt/ot today, up to chair, wbat lle 4. plan to dc to [facility] 5. added tramadol 50mg qid
[2019-04-26] MEDS: atorvaSTATin 20 MG Tab PO SCH (09:58)
[2019-04-26] MEDS: Docusate Sodium 100 MG Cap PO SCH ×2 (09:58→21:29)
[2019-04-26] MEDS: Polyethylene Glycol 3350 Powder 17 GM Packet PO SCH (09:58)
[2019-04-26] MEDS: traMADol 50 MG Tab PO PRN (12:04)
[2019-04-26] MEDS ORDERED: Furosemide 40 MG/4 ML VIAL IVPUSH ONE (19:49)
--- NOTE | 2019-04-26 20:09 | CR ---
INDICATION: Hypoxia. COMPARISON: 04/24/2019. FINDINGS/IMPRESSION: New blunting of the right costophrenic angle consistent with a small right pleural effusion. New bibasilar lung stranding favored to represent atelectasis although infiltrate/pneumonia is not excluded, particularly on the left. Stable cardiac configuration. Status post sternotomy, as before. No acute osseous findings. Dictated by Raman Arroyo MD @ 04/26/2019 8:08:26 PM Dictated by: Raman Arroyo MD @ 04/26/2019 20:08:57 (Electronically Signed)
[2019-04-26] MEDS: Piperacillin/Tazobactam 3.375 GM in Sodium Chloride 0.9% 50 ML IV SCH (21:31)
[2019-04-26] MEDS ORDERED: Vancomycin 1 GM AdvVial ONE (22:43)
[2019-04-26] MEDS ORDERED: Sodium Chloride 0.9% 0 ML ONE (22:45)
[2019-04-27] MEDS: Acetaminophen/HYDROcodone 325-5 MG Tab PO PRN (02:23)
[2019-04-27] MEDS: Piperacillin/Tazobactam 3.375 GM in Sodium Chloride 0.9% 50 ML IV SCH ×3 (05:26→21:14)
[2019-04-27] MEDS: Heparin Sodium 5,000 Units/ML Vial SUBCUT SCH ×3 (05:32→21:16)
[2019-04-27 06:39] LABS: CARBON DIOXIDE,CO2 33.4 mmol/L (21.0-32.0)
[2019-04-27] MEDS: Pantoprazole 40 MG Tab.CR PO SCH (06:50)
[2019-04-27] MEDS: Levothyroxine 50 MCG Tab PO SCH (06:50)
[2019-04-27] MEDS ORDERED: Furosemide 40 MG/4 ML VIAL IVPUSH SCH (09:00)
[2019-04-27] MEDS ORDERED: Magnesium Oxide 400 MG Tab PO ONE (09:30)
--- NOTE | 2019-04-27 09:48 | PCM.PN ---
- General Info Date of Service: 04/27/19 Admission Dx/Problem (Free Text): Admission Diagnosis/Problem Admission Diagnosis/Problem Hip fracture requiring operative repair Functional Status: Reports: Pain Controlled, Tolerating Diet, Ambulating, Urinating - Review of Systems General: Reports: Other HEENT: Reports: No Symptoms Pulmonary: Reports: Other Cardiovascular: Reports: No Symptoms Gastrointestinal: Reports: No Symptoms Genitourinary: Reports: No Symptoms Musculoskeletal: Reports: Leg Pain, Joint Pain, Joint Swelling Skin: Reports: No Symptoms Neurological: Reports: Confusion Psychiatric: Reports: Confusion - Patient Data Vitals - Most Recent: Last Vital Signs Temp 36.6 C 04/27/19 08:00 Pulse 109 H 04/27/19 08:00 Resp 20 04/27/19 08:00 BP 118/57 L 04/27/19 08:00 Pulse Ox 93 L 04/27/19 08:00 Weight - Most Recent: 55.792 kg I&O - Last 24 Hours: Intake & Output 04/26/19 04/27/19 04/27/19 22:59 06:59 14:59 Intake Total 1050 550 Output Total 500 300 Balance 550 250 Lab Results Last 24 Hours: Laboratory Results - last 24 hr 04/26/19 04/27/19 04/27/19 Range/Units 21:10 05:55 05:55 WBC 12.11 H (4.0-11.0) K/uL RBC 3.62 L (4.50-5.90) M/uL Hgb 11.0 L (13.0-17.0) g/dL Hct 32.3 L (38.0-50.0) % MCV 89.2 (80.0-98.0) fL MCH 30.4 (27.0-32.0) pg MCHC 34.1 (31.0-37.0) g/dL RDW Std Deviation 48.9 (28.0-62.0) fl RDW Coeff of Dalia 15 (11.0-15.0) % Plt Count 174 (150-400) K/uL MPV 10.70 (7.40-12.00) fL Neut % (Auto) 83.1 H (48.0-80.0) % Lymph % (Auto) 7.0 L (16.0-40.0) % [place] % (Auto) 9.9 (0.0-15.0) % Eos % (Auto) 0.0 (0.0-7.0) % Baso % (Auto) 0.0 (0.0-1.5) % Neut # (Auto) 10.1 H (1.4-5.7) K/uL Lymph # (Auto) 0.9 (0.6-2.4) K/uL [place] # (Auto) 1.2 H (0.0-0.8) K/uL Eos # (Auto) 0.0 (0.0-0.7) K/uL Baso # (Auto) 0.0 (0.0-0.1) K/uL Nucleated RBC % 0.0 /100WBC Nucleated RBCs # 0 K/uL Sodium 137 (136-148) mmol/L Potassium 4.0 (3.5-5.1) mmol/L Chloride 97 L (98-107) mmol/L Carbon Dioxide 33.4 H (21.0-32.0) mmol/L BUN 18 (7.0-18.0) mg/dL Creatinine 1.4 H (0.8-1.3) mg/dL Est Cr Clr Drug Dosing 31.00 mL/min Estimated GFR (MDRD) 48.3 ml/min Glucose 113 H (74-106) mg/dL Calcium 8.5 (8.5-10.1) mg/dL Magnesium 1.7 L (1.8-2.4) mg/dL Urine Color YELLOW Urine Appearance CLEAR Urine pH 5.5 (5.0-8.0) Ur Specific [place] <= 1.005 (1.001-1.035) Urine Protein NEGATIVE (NEGATIVE) mg/dL Urine Glucose (UA) NEGATIVE (NEGATIVE) mg/dL Urine Ketones NEGATIVE (NEGATIVE) mg/dL Urine Occult Blood MODERATE H (NEGATIVE) Urine Nitrite NEGATIVE (NEGATIVE) Urine Bilirubin NEGATIVE (NEGATIVE) Urine Urobilinogen 0.2 (<2.0) EU/dL Ur Leukocyte Esterase NEGATIVE (NEGATIVE) Urine RBC 1-4 (0-2/HPF) Urine WBC 0-1 (0-5/HPF) Ur Epithelial Cells RARE (NONE-FEW) Urine Bacteria RARE (NEGATIVE) Med Orders - Current: Current Medications Acetaminophen (Tylenol) 650 mg PO DAILY PRN PRN Reason: Pain Last Admin: 04/24/19 17:20 Dose: 650 mg Hydrocodone Bitart/Acetaminophen ([place] 325-5 Mg) 1 - 2 tab PO Q4H PRN PRN Reason: Pain Last Admin: 04/27/19 02:23 Dose: 2 tab Al Hydroxide/Mg Hydroxide (Mag-Al Plus) 30 ml PO Q4H PRN PRN Reason: Indigestion Atorvastatin Calcium (Lipitor) 20 mg PO DAILY [facility] Last Admin: 04/26/19 09:58 Dose: 20 mg Bisacodyl (Dulcolax) 10 mg RECTAL DAILY PRN PRN Reason: Constipation/NOBM for 3 days Bisacodyl (Dulcolax) 10 mg RECTAL DAILY PRN PRN Reason: Constipation Diphenhydramine HCl (Benadryl) 25 - 50 mg PO Q6H PRN PRN Reason: Itching Docusate Sodium (Colace) 100 mg PO BID [facility] Last Admin: 04/26/19 21:29 Dose: 100 mg Docusate Sodium (Colace) 100 mg PO BID PRN PRN Reason: Constipation Fentanyl (Sublimaze) 50 - 100 mcg IVPUSH Q5M PRN PRN Reason: Pain (severe 7-10) Furosemide (Lasix) 40 mg IVPUSH DAILY [facility] Heparin Sodium (Porcine) (Heparin Sodium) 5,000 units SUBCUT Q8H [facility] Last Admin: 04/27/19 05:32 Dose: 5,000 units Ropivacaine 49.25 ml/Ketorolac Tromethamine 30 mg/Epinephrine HCl 0.5 mg/ Sodium Chloride 74.2 mls @ 50 mls/sec INJECT ASDIRECTED [facility] Piperacillin Sod/Tazobactam (Sod 3.375 gm/ Sodium Chloride) 50 mls @ 100 mls/ hr IV Q8H [facility] Last Admin: 04/27/19 05:26 Dose: 100 mls/hr Vancomycin HCl 1 gm/ Sodium (Chloride) 250 mls @ 166 mls/hr IV Q24H [facility] Last Admin: 04/26/19 22:59 Dose: 166 mls/hr Levothyroxine Sodium (Synthroid) 50 mcg PO ACBREAKFAST [facility] Last Admin: 04/27/19 06:50 Dose: 50 mcg Magnesium Oxide (Magnesium Oxide) 800 mg PO ONETIME ONE Stop: 04/27/19 09:31 Morphine Sulfate (Morphine) 2 mg IVPUSH Q4H PRN PRN Reason: Pain Last Admin: 04/25/19 23:41 Dose: 2 mg Pantoprazole Sodium (Protonix) 40 mg PO ACBREAKFAST [facility] Last Admin: 04/27/19 06:50 Dose: 40 mg Polyethylene Glycol (Miralax) 17 gm PO DAILY [facility] Last Admin: 04/26/19 09:58 Dose: 17 gm Sodium Chloride (Saline Flush) 10 ml FLUSH ASDIRECTED PRN PRN Reason: Keep Vein Open Last Admin: 04/24/19 13:39 Dose: 10 ml Sodium Chloride (Saline Flush) 2.5 ml FLUSH ASDIRECTED PRN PRN Reason: Keep Vein Open Last Admin: 04/24/19 13:39 Dose: 2.5 ml Sodium Chloride (Saline Flush) 10 ml FLUSH ASDIRECTED PRN PRN Reason: Keep Vein Open Sodium Chloride (Saline Flush) 2.5 ml FLUSH ASDIRECTED PRN PRN Reason: Keep Vein Open Tramadol HCl (Ultram) 50 mg PO Q6H PRN PRN Reason: Pain Last Admin: 04/26/19 12:04 Dose: 50 mg Vancomycin HCl (Pharmacy To Dose - Vancomycin) 1 dose .XX ASDIRECTED [facility] Discontinued Medications Ephedrine Sulfate (Ephedrine Sulfate) Confirm Administered Dose 50 mg .ROUTE .STK-MED ONE Stop: 04/25/19 07:56 Famotidine (Pepcid) 20 mg IVPUSH ONETIME ONE Stop: 04/25/19 10:49 Last Admin: 04/25/19 14:51 Dose: Not Given Fentanyl (Sublimaze) Confirm Administered Dose 100 mcg .ROUTE .STK-MED ONE Stop: 04/25/19 07:53 Furosemide (Lasix) 40 mg IVPUSH NOW ONE Stop: 04/26/19 19:50 Last Admin: 04/26/19 20:18 Dose: 40 mg Glycopyrrolate (Robinul) Confirm Administered Dose 0.6 mg .ROUTE .STK-MED ONE Stop: 04/25/19 07:56 Heparin Sodium (Porcine) (Heparin Sodium) 5,000 units SUBCUT Q8H [facility] Last Admin: 04/25/19 21:03 Dose: Not Given Heparin Sodium (Porcine) (Heparin Sodium) 5,000 units SUBCUT Q8H [facility] Hydromorphone HCl (Dilaudid) 1 mg IVPUSH ONETIME ONE Stop: 04/25/19 13:11 Last Admin: 04/25/19 15:07 Dose: 1 mg Sodium Chloride (Normal Saline) 1,000 mls @ 125 mls/hr IV STAT [facility] Last Admin: 04/24/19 13:39 Dose: 125 mls/hr Lactated Ringer's (Ringers, Lactated) 1,000 mls @ 75 mls/hr IV ASDIRECTED [facility] Last Admin: 04/24/19 18:18 Dose: 75 mls/hr Lactated Ringer's (Ringers, Lactated) 1,000 mls @ 75 mls/hr IV ASDIRECTED [facility] Last Admin: 04/25/19 07:33 Dose: 75 mls/hr Cefazolin Sodium/Dextrose 1 gm (/ Premix) 50 mls @ 100 mls/hr IV ONCALL [facility] Last Admin: 04/25/19 18:51 Dose: 100 mls/hr Tranexamic Acid 2,000 mg/ (Sodium Chloride) 120 mls @ 360 mls/hr IV ASDIRECTED ONE Stop: 04/25/19 07:43 Last Admin: 04/25/19 14:51 Dose: Not Given Sodium Chloride (Normal Saline) Confirm Administered Dose 20 mls @ as directed .ROUTE .STK-MED ONE Stop: 04/25/19 07:56 Pantoprazole Sodium 40 mg/ (Sodium Chloride) 10 mls @ 300 mls/hr IV NOW ONE Stop: 04/25/19 09:36 Last Admin: 04/25/19 11:26 Dose: Not Given Bupivacaine HCl/Epinephrine Bitart (Sensorc Mpf 0.25%-Epi 1:[id number]) Confirm Administered Dose 30 mls @ as directed .ROUTE .STK-MED ONE Stop: 04/25/19 13:02 Cefazolin Sodium/Dextrose 1 gm (/ Premix) 50 mls @ 100 mls/hr IV Q8H [facility] Stop: 04/26/19 03:29 Last Admin: 04/26/19 03:38 Dose: 100 mls/hr Lactated Ringer's (Ringers, Lactated) 1,000 mls @ 75 mls/hr IV ASDIRECTED [facility] Last Admin: 04/26/19 03:56 Dose: 75 mls/hr Magnesium Sulfate 2 gm/ Premix 50 mls @ 25 mls/hr IV ONETIME ONE Stop: 04/26/19 09:22 Last Admin: 04/26/19 08:43 Dose: 25 mls/hr Vancomycin HCl 1 gm/ Sodium (Chloride) 250 mls @ 166.667 mls/hr IV Q24H [facility] Last Admin: 04/26/19 23:14 Dose: Not Given Sodium Chloride (Normal Saline (Advbag)) Confirm Administered Dose 250 mls @ as directed .ROUTE .STK-MED ONE Stop: 04/26/19 22:46 Last Admin: 04/26/19 22:59 Dose: Not Given Ketamine HCl (Ketalar) Confirm Administered Dose 500 mg .ROUTE .STK-MED ONE Stop: 04/25/19 07:57 Midazolam HCl (Versed 1 Mg/Ml) Confirm Administered Dose 2 mg .ROUTE .STK-MED ONE Stop: 04/25/19 07:53 Morphine Sulfate (Morphine) 2 mg IVPUSH ONETIME ONE Stop: 04/24/19 13:03 Last Admin: 04/24/19 13:38 Dose: 2 mg Neostigmine Methylsulfate (Neostigmine) Confirm Administered Dose 5 mg .ROUTE .STK-MED ONE Stop: 04/25/19 10:43 Ondansetron HCl (Zofran) 4 mg IVPUSH ONETIME ONE Stop: 04/24/19 13:03 Last Admin: 04/24/19 13:39 Dose: 4 mg Phenylephrine HCl (Phenylephrine In Ns 100 Mcg/Ml) Confirm Administered Dose 1 mg .ROUTE .STK-MED ONE Stop: 04/25/19 07:56 Propofol (Diprivan 20 Ml) Confirm Administered Dose 200 mg .ROUTE .STK-MED ONE Stop: 04/25/19 10:39 Rocuronium [place] (Zemuron) Confirm Administered Dose 100 mg .ROUTE .STK-MED ONE Stop: 04/25/19 10:40 Succinylcholine Chloride (Succinylcholine Chloride) Confirm Administered Dose 200 mg .ROUTE .STK-MED ONE Stop: 04/25/19 10:40 Vancomycin HCl (Vancocin) Confirm Administered Dose 1 gm .ROUTE .STK-MED ONE Stop: 04/26/19 22:44 Last Admin: 04/26/19 22:59 Dose: Not Given - Exam Quality Assessment: DVT Prophylaxis General: Alert, Oriented, Cooperative, No Acute Distress HEENT: Pupils Equal, Pupils Reactive, EOMI, Mucous Membr. Moist/[place] Neck: Supple, Trachea Midline GI/Abdominal Exam: No Distention Peripheral Pulses: 2+: Dorsalis Pedis (L) Skin: Warm, Dry, Intact Wound/Incisions: Healing Well, Dressing Dry and Intact, No Drainage Neurological: No New Focal Deficit Psy/Mental Status: Alert, Hallucinations, Other - Problem List & Annotations (1) Hip fracture SNOMED Code(s): 477988119 Code(s): S72.009A - FRACTURE OF UNSP PART OF NECK OF UNSP FEMUR, INIT Status: Acute Current Visit: Yes Qualifiers: Encounter type: initial encounter Fracture type: closed Laterality: left Qualified Code(s): S72.002A - Fracture of unspecified part of neck of left femur, initial encounter for closed fracture - Problem List Review Problem List Initiated/Reviewed/Updated: Yes - My Orders Last 24 Hours: My Active Orders 04/26/19 09:00 Polyethylene Glycol 3350 [MiraLAX] 17 gm PO DAILY 04/26/19 09:41 traMADol [Ultram] 50 mg PO Q6H PRN 04/26/19 13:45 Convert IV to Saline Lock [OM.PC] PRN - Plan Plan:: Assessment and Plan: 83 yo male POD 2 left hip hemiarthroplasty DVT prophylaxis per ;medicine pt/ot change dressing eod signing off ortho. f/u 3wk post op in clinic
[2019-04-27] MEDS: atorvaSTATin 20 MG Tab PO SCH (09:56)
[2019-04-27] MEDS: Docusate Sodium 100 MG Cap PO SCH ×2 (09:56→21:27)
[2019-04-27] MEDS: Polyethylene Glycol 3350 Powder 17 GM Packet PO SCH (09:57)
[2019-04-27] MEDS: Pantoprazole 40 MG in Sodium Chloride 0.9% 10 ML IV SCH (10:44)
--- NOTE | 2019-04-27 14:00 | PCM.PN ---
- General Info Date of Service: 04/27/19 Admission Dx/Problem (Free Text): Admission Diagnosis/Problem Admission Diagnosis/Problem Hip fracture requiring operative repair Subjective Update: patient appears restless and slightly confused and complains of pain to left hip. He was AOx3. - Review of Systems General: Reports: Fatigue. Denies: Fever, Weakness Pulmonary: Reports: Shortness of Breath, Cough, Sputum Cardiovascular: Denies: Chest Pain, Palpitations Gastrointestinal: Denies: Abdominal Pain, Constipation Genitourinary: Denies: Dysuria, Frequency Musculoskeletal: Reports: Leg Pain, Joint Pain. Denies: Neck Pain, Shoulder Pain Neurological: Reports: Confusion. Denies: Dizziness, Headache, Numbness, Paresthesia Psychiatric: Reports: Confusion. Denies: Depression, Mood Lability, Anxiety - Patient Data Vitals - Most Recent: Last Vital Signs Temp 36.8 C 04/27/19 12:00 Pulse 93 04/27/19 12:00 Resp 18 04/27/19 12:00 BP 109/61 04/27/19 12:00 Pulse Ox 91 L 04/27/19 12:00 Weight - Most Recent: 55.792 kg I&O - Last 24 Hours: Intake & Output 04/26/19 04/27/19 04/27/19 22:59 06:59 14:59 Intake Total 1050 550 Output Total 500 300 Balance 550 250 Lab Results Last 24 Hours: Laboratory Results - last 24 hr 04/26/19 04/27/19 04/27/19 Range/Units 21:10 05:55 05:55 WBC 12.11 H (4.0-11.0) K/uL RBC 3.62 L (4.50-5.90) M/uL Hgb 11.0 L (13.0-17.0) g/dL Hct 32.3 L (38.0-50.0) % MCV 89.2 (80.0-98.0) fL MCH 30.4 (27.0-32.0) pg MCHC 34.1 (31.0-37.0) g/dL RDW Std Deviation 48.9 (28.0-62.0) fl RDW Coeff of Dalia 15 (11.0-15.0) % Plt Count 174 (150-400) K/uL MPV 10.70 (7.40-12.00) fL Neut % (Auto) 83.1 H (48.0-80.0) % Lymph % (Auto) 7.0 L (16.0-40.0) % Cobb % (Auto) 9.9 (0.0-15.0) % Eos % (Auto) 0.0 (0.0-7.0) % Baso % (Auto) 0.0 (0.0-1.5) % Neut # (Auto) 10.1 H (1.4-5.7) K/uL Lymph # (Auto) 0.9 (0.6-2.4) K/uL Cobb # (Auto) 1.2 H (0.0-0.8) K/uL Eos # (Auto) 0.0 (0.0-0.7) K/uL Baso # (Auto) 0.0 (0.0-0.1) K/uL Nucleated RBC % 0.0 /100WBC Nucleated RBCs # 0 K/uL Lactate (0.20-2.00) mmol/L Sodium 137 (136-148) mmol/L Potassium 4.0 (3.5-5.1) mmol/L Chloride 97 L (98-107) mmol/L Carbon Dioxide 33.4 H (21.0-32.0) mmol/L BUN 18 (7.0-18.0) mg/dL Creatinine 1.4 H (0.8-1.3) mg/dL Est Cr Clr Drug Dosing 31.00 mL/min Estimated GFR (MDRD) 48.3 ml/min Glucose 113 H (74-106) mg/dL Calcium 8.5 (8.5-10.1) mg/dL Magnesium 1.7 L (1.8-2.4) mg/dL Urine Color YELLOW Urine Appearance CLEAR Urine pH 5.5 (5.0-8.0) Ur Specific Admire <= 1.005 (1.001-1.035) Urine Protein NEGATIVE (NEGATIVE) mg/dL Urine Glucose (UA) NEGATIVE (NEGATIVE) mg/dL Urine Ketones NEGATIVE (NEGATIVE) mg/dL Urine Occult Blood MODERATE H (NEGATIVE) Urine Nitrite NEGATIVE (NEGATIVE) Urine Bilirubin NEGATIVE (NEGATIVE) Urine Urobilinogen 0.2 (<2.0) EU/dL Ur Leukocyte Esterase NEGATIVE (NEGATIVE) Urine RBC 1-4 (0-2/HPF) Urine WBC 0-1 (0-5/HPF) Ur Epithelial Cells RARE (NONE-FEW) Urine Bacteria RARE (NEGATIVE) 04/27/19 Range/Units 09:59 WBC (4.0-11.0) K/uL RBC (4.50-5.90) M/uL Hgb (13.0-17.0) g/dL Hct (38.0-50.0) % MCV (80.0-98.0) fL MCH (27.0-32.0) pg MCHC (31.0-37.0) g/dL RDW Std Deviation (28.0-62.0) fl RDW Coeff of Dalia (11.0-15.0) % Plt Count (150-400) K/uL MPV (7.40-12.00) fL Neut % (Auto) (48.0-80.0) % Lymph % (Auto) (16.0-40.0) % Cobb % (Auto) (0.0-15.0) % Eos % (Auto) (0.0-7.0) % Baso % (Auto) (0.0-1.5) % Neut # (Auto) (1.4-5.7) K/uL Lymph # (Auto) (0.6-2.4) K/uL Cobb # (Auto) (0.0-0.8) K/uL Eos # (Auto) (0.0-0.7) K/uL Baso # (Auto) (0.0-0.1) K/uL Nucleated RBC % /100WBC Nucleated RBCs # K/uL Lactate 1.2 (0.20-2.00) mmol/L Sodium (136-148) mmol/L Potassium (3.5-5.1) mmol/L Chloride (98-107) mmol/L Carbon Dioxide (21.0-32.0) mmol/L BUN (7.0-18.0) mg/dL Creatinine (0.8-1.3) mg/dL Est Cr Clr Drug Dosing mL/min Estimated GFR (MDRD) ml/min Glucose (74-106) mg/dL Calcium (8.5-10.1) mg/dL Magnesium (1.8-2.4) mg/dL Urine Color Urine Appearance Urine pH (5.0-8.0) Ur Specific Admire (1.001-1.035) Urine Protein (NEGATIVE) mg/dL Urine Glucose (UA) (NEGATIVE) mg/dL Urine Ketones (NEGATIVE) mg/dL Urine Occult Blood (NEGATIVE) Urine Nitrite (NEGATIVE) Urine Bilirubin (NEGATIVE) Urine Urobilinogen (<2.0) EU/dL Ur Leukocyte Esterase (NEGATIVE) Urine RBC (0-2/HPF) Urine WBC (0-5/HPF) Ur Epithelial Cells (NONE-FEW) Urine Bacteria (NEGATIVE) Med Orders - Current: Current Medications Acetaminophen (Tylenol) 650 mg PO DAILY PRN PRN Reason: Pain Last Admin: 04/24/19 17:20 Dose: 650 mg Hydrocodone Bitart/Acetaminophen ([place] 325-5 Mg) 1 - 2 tab PO Q4H PRN PRN Reason: Pain Last Admin: 04/27/19 02:23 Dose: 2 tab Al Hydroxide/Mg Hydroxide (Mag-Al Plus) 30 ml PO Q4H PRN PRN Reason: Indigestion Atorvastatin Calcium (Lipitor) 20 mg PO DAILY [facility] Last Admin: 04/27/19 09:56 Dose: 20 mg Bisacodyl (Dulcolax) 10 mg RECTAL DAILY PRN PRN Reason: Constipation/NOBM for 3 days Bisacodyl (Dulcolax) 10 mg RECTAL DAILY PRN PRN Reason: Constipation Diphenhydramine HCl (Benadryl) 25 - 50 mg PO Q6H PRN PRN Reason: Itching Docusate Sodium (Colace) 100 mg PO BID [facility] Last Admin: 04/27/19 09:56 Dose: Not Given Docusate Sodium (Colace) 100 mg PO BID PRN PRN Reason: Constipation Fentanyl (Sublimaze) 50 - 100 mcg IVPUSH Q5M PRN PRN Reason: Pain (severe 7-10) Furosemide (Lasix) 40 mg IVPUSH DAILY [facility] Last Admin: 04/27/19 09:56 Dose: 40 mg Heparin Sodium (Porcine) (Heparin Sodium) 5,000 units SUBCUT Q8H [facility] Last Admin: 04/27/19 13:03 Dose: 5,000 units Ropivacaine 49.25 ml/Ketorolac Tromethamine 30 mg/Epinephrine HCl 0.5 mg/ Sodium Chloride 74.2 mls @ 50 mls/sec INJECT ASDIRECTED [facility] Piperacillin Sod/Tazobactam (Sod 3.375 gm/ Sodium Chloride) 50 mls @ 100 mls/ hr IV Q8H [facility] Last Admin: 04/27/19 13:03 Dose: 100 mls/hr Vancomycin HCl 1 gm/ Sodium (Chloride) 250 mls @ 166 mls/hr IV Q24H [facility] Last Admin: 04/26/19 22:59 Dose: 166 mls/hr Pantoprazole Sodium 40 mg/ (Sodium Chloride) 10 mls @ 300 mls/hr IV Q24H [facility] Last Admin: 04/27/19 10:44 Dose: 300 mls/hr Levothyroxine Sodium (Synthroid) 50 mcg PO ACBREAKFAST [facility] Last Admin: 04/27/19 06:50 Dose: 50 mcg Morphine Sulfate (Morphine) 2 mg IVPUSH Q4H PRN PRN Reason: Pain Last Admin: 04/25/19 23:41 Dose: 2 mg Polyethylene Glycol (Miralax) 17 gm PO DAILY [facility] Last Admin: 04/27/19 09:57 Dose: 17 gm Sodium Chloride (Saline Flush) 10 ml FLUSH ASDIRECTED PRN PRN Reason: Keep Vein Open Last Admin: 04/24/19 13:39 Dose: 10 ml Sodium Chloride (Saline Flush) 2.5 ml FLUSH ASDIRECTED PRN PRN Reason: Keep Vein Open Last Admin: 04/24/19 13:39 Dose: 2.5 ml Sodium Chloride (Saline Flush) 10 ml FLUSH ASDIRECTED PRN PRN Reason: Keep Vein Open Sodium Chloride (Saline Flush) 2.5 ml FLUSH ASDIRECTED PRN PRN Reason: Keep Vein Open Tramadol HCl (Ultram) 50 mg PO Q6H PRN PRN Reason: Pain Last Admin: 04/26/19 12:04 Dose: 50 mg Vancomycin HCl (Pharmacy To Dose - Vancomycin) 1 dose .XX ASDIRECTED [facility] Discontinued Medications Ephedrine Sulfate (Ephedrine Sulfate) Confirm Administered Dose 50 mg .ROUTE .STK-MED ONE Stop: 04/25/19 07:56 Famotidine (Pepcid) 20 mg IVPUSH ONETIME ONE Stop: 04/25/19 10:49 Last Admin: 04/25/19 14:51 Dose: Not Given Fentanyl (Sublimaze) Confirm Administered Dose 100 mcg .ROUTE .STK-MED ONE Stop: 04/25/19 07:53 Furosemide (Lasix) 40 mg IVPUSH NOW ONE Stop: 04/26/19 19:50 Last Admin: 04/26/19 20:18 Dose: 40 mg Glycopyrrolate (Robinul) Confirm Administered Dose 0.6 mg .ROUTE .STK-MED ONE Stop: 04/25/19 07:56 Heparin Sodium (Porcine) (Heparin Sodium) 5,000 units SUBCUT Q8H [facility] Last Admin: 04/25/19 21:03 Dose: Not Given Heparin Sodium (Porcine) (Heparin Sodium) 5,000 units SUBCUT Q8H [facility] Hydromorphone HCl (Dilaudid) 1 mg IVPUSH ONETIME ONE Stop: 04/25/19 13:11 Last Admin: 04/25/19 15:07 Dose: 1 mg Sodium Chloride (Normal Saline) 1,000 mls @ 125 mls/hr IV STAT [facility] Last Admin: 04/24/19 13:39 Dose: 125 mls/hr Lactated Ringer's (Ringers, Lactated) 1,000 mls @ 75 mls/hr IV ASDIRECTED [facility] Last Admin: 04/24/19 18:18 Dose: 75 mls/hr Lactated Ringer's (Ringers, Lactated) 1,000 mls @ 75 mls/hr IV ASDIRECTED [facility] Last Admin: 04/25/19 07:33 Dose: 75 mls/hr Cefazolin Sodium/Dextrose 1 gm (/ Premix) 50 mls @ 100 mls/hr IV ONCALL [facility] Last Admin: 04/25/19 18:51 Dose: 100 mls/hr Tranexamic Acid 2,000 mg/ (Sodium Chloride) 120 mls @ 360 mls/hr IV ASDIRECTED ONE Stop: 04/25/19 07:43 Last Admin: 04/25/19 14:51 Dose: Not Given Sodium Chloride (Normal Saline) Confirm Administered Dose 20 mls @ as directed .ROUTE .K-MED ONE Stop: 04/25/19 07:56 Pantoprazole Sodium 40 mg/ (Sodium Chloride) 10 mls @ 300 mls/hr IV NOW ONE Stop: 04/25/19 09:36 Last Admin: 04/25/19 11:26 Dose: Not Given Bupivacaine HCl/Epinephrine Bitart (Sensorc Mpf 0.25%-Epi [id number]) Confirm Administered Dose 30 mls @ as directed .ROUTE .STK-MED ONE Stop: 04/25/19 13:02 Cefazolin Sodium/Dextrose 1 gm (/ Premix) 50 mls @ 100 mls/hr IV Q8H [facility] Stop: 04/26/19 03:29 Last Admin: 04/26/19 03:38 Dose: 100 mls/hr Lactated Ringer's (Ringers, Lactated) 1,000 mls @ 75 mls/hr IV ASDIRECTED [facility] Last Admin: 04/26/19 03:56 Dose: 75 mls/hr Magnesium Sulfate 2 gm/ Premix 50 mls @ 25 mls/hr IV ONETIME ONE Stop: 04/26/19 09:22 Last Admin: 04/26/19 08:43 Dose: 25 mls/hr Vancomycin HCl 1 gm/ Sodium (Chloride) 250 mls @ 166.667 mls/hr IV Q24H [facility] Last Admin: 04/26/19 23:14 Dose: Not Given Sodium Chloride (Normal Saline (Advbag)) Confirm Administered Dose 250 mls @ as directed .ROUTE .STK-MED ONE Stop: 04/26/19 22:46 Last Admin: 04/26/19 22:59 Dose: Not Given Ketamine HCl (Ketalar) Confirm Administered Dose 500 mg .ROUTE .STK-MED ONE Stop: 04/25/19 07:57 Magnesium Oxide (Magnesium Oxide) 800 mg PO ONETIME ONE Stop: 04/27/19 09:31 Last Admin: 04/27/19 10:44 Dose: 800 mg Midazolam HCl (Versed 1 Mg/Ml) Confirm Administered Dose 2 mg .ROUTE .STK-MED ONE Stop: 04/25/19 07:53 Morphine Sulfate (Morphine) 2 mg IVPUSH ONETIME ONE Stop: 04/24/19 13:03 Last Admin: 04/24/19 13:38 Dose: 2 mg Neostigmine Methylsulfate (Neostigmine) Confirm Administered Dose 5 mg .ROUTE .STK-MED ONE Stop: 04/25/19 10:43 Ondansetron HCl (Zofran) 4 mg IVPUSH ONETIME ONE Stop: 04/24/19 13:03 Last Admin: 04/24/19 13:39 Dose: 4 mg Pantoprazole Sodium (Protonix) 40 mg PO ACBREAKFAST [facility] Last Admin: 04/27/19 06:50 Dose: 40 mg Phenylephrine HCl (Phenylephrine In Ns 100 Mcg/Ml) Confirm Administered Dose 1 mg .ROUTE .STK-MED ONE Stop: 04/25/19 07:56 Propofol (Diprivan 20 Ml) Confirm Administered Dose 200 mg .ROUTE .STK-MED ONE Stop: 04/25/19 10:39 Rocuronium Icard (Zemuron) Confirm Administered Dose 100 mg .ROUTE .STK-MED ONE Stop: 04/25/19 10:40 Succinylcholine Chloride (Succinylcholine Chloride) Confirm Administered Dose 200 mg .ROUTE .STK-MED ONE Stop: 04/25/19 10:40 Vancomycin HCl (Vancocin) Confirm Administered Dose 1 gm .ROUTE .STK-MED ONE Stop: 04/26/19 22:44 Last Admin: 04/26/19 22:59 Dose: Not Given - Exam General: Mild Distress. No: Oriented Neck: Supple Lungs: Decreased Breath Sounds, Rales. No: Clear to Auscultation Cardiovascular: Regular Rate. No: Bradycardia, Tachycardia GI/Abdominal Exam: Normal Bowel Sounds, Soft, Non-Tender Extremities: Normal Inspection, Normal Range of Motion, Leg Pain Peripheral Pulses: 3+: Dorsalis Pedis (L), Dorsalis Pedis (R) Skin: Warm Wound/Incisions: Healing Well - Problem List & Annotations (1) Acute respiratory failure with hypoxia SNOMED Code(s): 92356498, 767897564 Code(s): J96.01 - ACUTE RESPIRATORY FAILURE WITH HYPOXIA Status: Acute Current Visit: Yes (2) Hip fracture SNOMED Code(s): 703844495 Code(s): S72.009A - FRACTURE OF UNSP PART OF NECK OF UNSP FEMUR, INIT Status: Acute Current Visit: Yes Qualifiers: Encounter type: initial encounter Fracture type: closed Laterality: left Qualified Code(s): S72.002A - Fracture of unspecified part of neck of left femur, initial encounter for closed fracture (3) Hx of CABG SNOMED Code(s): 493360337, 307442241 Code(s): Z95.1 - PRESENCE OF AORTOCORONARY BYPASS GRAFT Status: Chronic Current Visit: Yes (4) HCAP (healthcare-associated pneumonia) SNOMED Code(s): 476523614, 096245159 Code(s): J18.9 - PNEUMONIA, UNSPECIFIED ORGANISM Status: Acute Current Visit: Yes - Problem List Review Problem List Initiated/Reviewed/Updated: Yes - My Orders Last 24 Hours: My Active Orders 04/26/19 21:00 Pharmacy to Dose - Vancomycin 1 dose .XX ASDIRECTED Piperacillin/Tazobactam [Piperacil-Tazobact] 3.375 gm Sodium Chloride 0.9% [ Normal Saline] 50 ml IV Q8H 04/26/19 22:00 Vancomycin [Vancocin] 1 gm Sodium Chloride 0.9% [Normal Saline (AdvBag)] 250 ml IV Q24H 04/27/19 09:00 Furosemide [Lasix] 40 mg IVPUSH DAILY 04/27/19 10:30 Pantoprazole [ProTONIX IV] 40 mg Sodium Chloride 0.9% [Normal Saline] 10 ml IV Q24H - Plan Plan:: 1: Patient had episode of hypoxia last night, CXR showed possible Atelectasis vs PNA, WBC count jumped up today Patient started in IV Antibiotics, received 1 dose of Lasix 40 mg cont oxygenation with NC Left femoral neck fracture s/p left hip arthroplasty POD#1, cont heparin currently and will plan for anti-coagulation after discharge. Hx of bowel obstruction, maintain good bowel regimen. Hx CABG/CAD: hold statin as patient unable to take the pill as of now due to swallowing dysfunction. Hypothyroidism: Continue Levothyroxine. Dispo: Will likely need SNF for rehabilitation.
[2019-04-27] MEDS: traMADol 50 MG Tab PO PRN (20:00)
[2019-04-28] MEDS: Acetaminophen/HYDROcodone 325-5 MG Tab PO PRN ×2 (00:29→08:10)
[2019-04-28] MEDS: Piperacillin/Tazobactam 3.375 GM in Sodium Chloride 0.9% 50 ML IV SCH ×3 (04:40→21:48)
[2019-04-28] MEDS: Heparin Sodium 5,000 Units/ML Vial SUBCUT SCH ×3 (04:41→22:11)
[2019-04-28 06:59] LABS: CARBON DIOXIDE,CO2 37.6 mmol/L (21.0-32.0); POTASSIUM,K 3.9 mmol/L (3.5-5.1)
[2019-04-28] MEDS: Levothyroxine 50 MCG Tab PO SCH (07:04)
--- NOTE | 2019-04-28 07:57 | PCM.PN ---
- General Info Date of Service: 04/28/19 Admission Dx/Problem (Free Text): Admission Diagnosis/Problem Admission Diagnosis/Problem Hip fracture requiring operative repair Subjective Update: Alert this morning, but disoriented x 2. He reports pain was ok. Denied chest pain or SOB. Reports passing gas, but no recent BM. Functional Status: Reports: Pain Controlled, Urinating. Denies: Ambulating - Review of Systems General: Reports: Weakness Pulmonary: Reports: No Symptoms. Denies: Shortness of Breath Cardiovascular: Reports: No Symptoms. Denies: Chest Pain Gastrointestinal: Reports: Constipation, Flatus. Denies: Abdominal Pain, Nausea , Vomiting Genitourinary: Reports: No Symptoms. Denies: Dysuria, Frequency, Burning Musculoskeletal: Reports: Joint Pain (L hip) Skin: Reports: No Symptoms Neurological: Reports: No Symptoms Psychiatric: Reports: No Symptoms - Patient Data Vitals - Most Recent: Last Vital Signs Temp 97.9 F 04/28/19 07:15 Pulse 85 04/28/19 07:15 Resp 20 04/28/19 07:15 BP 120/57 L 04/28/19 07:15 Pulse Ox 97 04/28/19 07:15 Weight - Most Recent: 55.792 kg I&O - Last 24 Hours: Intake & Output 04/27/19 04/28/19 04/28/19 22:59 06:59 14:59 Intake Total 680 500 Output Total 250 0 Balance 430 500 Lab Results Last 24 Hours: Laboratory Results - last 24 hr 04/27/19 04/28/19 04/28/19 Range/Units 09:59 05:50 05:50 WBC 8.59 (4.0-11.0) K/uL RBC 3.39 L (4.50-5.90) M/uL Hgb 10.0 L (13.0-17.0) g/dL Hct 30.2 L (38.0-50.0) % MCV 89.1 (80.0-98.0) fL MCH 29.5 (27.0-32.0) pg MCHC 33.1 (31.0-37.0) g/dL RDW Std Deviation 49.7 (28.0-62.0) fl RDW Coeff of Dalia 15 (11.0-15.0) % Plt Count 165 (150-400) K/uL MPV 10.80 (7.40-12.00) fL Neut % (Auto) 83.5 H (48.0-80.0) % Lymph % (Auto) 7.9 L (16.0-40.0) % [place] % (Auto) 8.5 (0.0-15.0) % Eos % (Auto) 0.0 (0.0-7.0) % Baso % (Auto) 0.1 (0.0-1.5) % Neut # (Auto) 7.2 H (1.4-5.7) K/uL Lymph # (Auto) 0.7 (0.6-2.4) K/uL [place] # (Auto) 0.7 (0.0-0.8) K/uL Eos # (Auto) 0.0 (0.0-0.7) K/uL Baso # (Auto) 0.0 (0.0-0.1) K/uL Nucleated RBC % 0.0 /100WBC Nucleated RBCs # 0 K/uL Lactate 1.2 (0.20-2.00) mmol/L Sodium 141 (136-148) mmol/L Potassium 3.9 (3.5-5.1) mmol/L Chloride 99 (98-107) mmol/L Carbon Dioxide 37.6 H (21.0-32.0) mmol/L BUN 21 H (7.0-18.0) mg/dL Creatinine 1.2 (0.8-1.3) mg/dL Est Cr Clr Drug Dosing 36.16 mL/min Estimated GFR (MDRD) 57.7 ml/min Glucose 89 (74-106) mg/dL Calcium 8.2 L (8.5-10.1) mg/dL Phosphorus 3.0 (2.6-4.7) mg/dL Magnesium 1.8 (1.8-2.4) mg/dL Med Orders - Current: Current Medications Acetaminophen (Tylenol) 650 mg PO DAILY PRN PRN Reason: Pain Last Admin: 04/24/19 17:20 Dose: 650 mg Hydrocodone Bitart/Acetaminophen (Benedict 325-5 Mg) 1 - 2 tab PO Q4H PRN PRN Reason: Pain Last Admin: 04/28/19 00:29 Dose: 1 tab Al Hydroxide/Mg Hydroxide (Mag-Al Plus) 30 ml PO Q4H PRN PRN Reason: Indigestion Atorvastatin Calcium (Lipitor) 20 mg PO DAILY [facility] Last Admin: 04/27/19 09:56 Dose: 20 mg Bisacodyl (Dulcolax) 10 mg RECTAL DAILY PRN PRN Reason: Constipation/NOBM for 3 days Docusate Sodium (Colace) 100 mg PO BID [facility] Last Admin: 04/27/19 21:27 Dose: 100 mg Furosemide (Lasix) 40 mg IVPUSH DAILY [facility] Last Admin: 04/27/19 09:56 Dose: 40 mg Heparin Sodium (Porcine) (Heparin Sodium) 5,000 units SUBCUT Q8H [facility] Last Admin: 04/28/19 04:41 Dose: 5,000 units Ropivacaine 49.25 ml/Ketorolac Tromethamine 30 mg/Epinephrine HCl 0.5 mg/ Sodium Chloride 74.2 mls @ 50 mls/sec INJECT ASDIRECTED [facility] Piperacillin Sod/Tazobactam (Sod 3.375 gm/ Sodium Chloride) 50 mls @ 100 mls/ hr IV Q8H [facility] Last Admin: 04/28/19 04:40 Dose: 100 mls/hr Vancomycin HCl 1 gm/ Sodium (Chloride) 250 mls @ 166 mls/hr IV Q24H [facility] Last Admin: 04/27/19 22:03 Dose: 166 mls/hr Pantoprazole Sodium 40 mg/ (Sodium Chloride) 10 mls @ 300 mls/hr IV Q24H [facility] Last Admin: 04/27/19 10:44 Dose: 300 mls/hr Levothyroxine Sodium (Synthroid) 50 mcg PO ACBREAKFAST [facility] Last Admin: 04/28/19 07:04 Dose: 50 mcg Morphine Sulfate (Morphine) 2 mg IVPUSH Q4H PRN PRN Reason: Pain Last Admin: 04/25/19 23:41 Dose: 2 mg Polyethylene Glycol (Miralax) 17 gm PO DAILY [facility] Last Admin: 04/27/19 09:57 Dose: 17 gm Sodium Chloride (Saline Flush) 10 ml FLUSH ASDIRECTED PRN PRN Reason: Keep Vein Open Last Admin: 04/24/19 13:39 Dose: 10 ml Sodium Chloride (Saline Flush) 2.5 ml FLUSH ASDIRECTED PRN PRN Reason: Keep Vein Open Last Admin: 04/24/19 13:39 Dose: 2.5 ml Sodium Chloride (Saline Flush) 10 ml FLUSH ASDIRECTED PRN PRN Reason: Keep Vein Open Sodium Chloride (Saline Flush) 2.5 ml FLUSH ASDIRECTED PRN PRN Reason: Keep Vein Open Tramadol HCl (Ultram) 50 mg PO Q6H PRN PRN Reason: Pain Last Admin: 04/27/19 20:00 Dose: 50 mg Vancomycin HCl (Pharmacy To Dose - Vancomycin) 1 dose .XX ASDIRECTED [facility] Discontinued Medications Bisacodyl (Dulcolax) 10 mg RECTAL DAILY PRN PRN Reason: Constipation Diphenhydramine HCl (Benadryl) 25 - 50 mg PO Q6H PRN PRN Reason: Itching Docusate Sodium (Colace) 100 mg PO BID PRN PRN Reason: Constipation Ephedrine Sulfate (Ephedrine Sulfate) Confirm Administered Dose 50 mg .ROUTE .STK-MED ONE Stop: 04/25/19 07:56 Famotidine (Pepcid) 20 mg IVPUSH ONETIME ONE Stop: 04/25/19 10:49 Last Admin: 04/25/19 14:51 Dose: Not Given Fentanyl (Sublimaze) Confirm Administered Dose 100 mcg .ROUTE .STK-MED ONE Stop: 04/25/19 07:53 Fentanyl (Sublimaze) 50 - 100 mcg IVPUSH Q5M PRN PRN Reason: Pain (severe 7-10) Furosemide (Lasix) 40 mg IVPUSH NOW ONE Stop: 04/26/19 19:50 Last Admin: 04/26/19 20:18 Dose: 40 mg Glycopyrrolate (Robinul) Confirm Administered Dose 0.6 mg .ROUTE .STK-MED ONE Stop: 04/25/19 07:56 Heparin Sodium (Porcine) (Heparin Sodium) 5,000 units SUBCUT Q8H [facility] Last Admin: 04/25/19 21:03 Dose: Not Given Heparin Sodium (Porcine) (Heparin Sodium) 5,000 units SUBCUT Q8H [facility] Hydromorphone HCl (Dilaudid) 1 mg IVPUSH ONETIME ONE Stop: 04/25/19 13:11 Last Admin: 04/25/19 15:07 Dose: 1 mg Sodium Chloride (Normal Saline) 1,000 mls @ 125 mls/hr IV STAT [facility] Last Admin: 04/24/19 13:39 Dose: 125 mls/hr Lactated Ringer's (Ringers, Lactated) 1,000 mls @ 75 mls/hr IV ASDIRECTED [facility] Last Admin: 04/24/19 18:18 Dose: 75 mls/hr Lactated Ringer's (Ringers, Lactated) 1,000 mls @ 75 mls/hr IV ASDIRECTED [facility] Last Admin: 04/25/19 07:33 Dose: 75 mls/hr Cefazolin Sodium/Dextrose 1 gm (/ Premix) 50 mls @ 100 mls/hr IV ONCALL [facility] Last Admin: 04/25/19 18:51 Dose: 100 mls/hr Tranexamic Acid 2,000 mg/ (Sodium Chloride) 120 mls @ 360 mls/hr IV ASDIRECTED ONE Stop: 04/25/19 07:43 Last Admin: 04/25/19 14:51 Dose: Not Given Sodium Chloride (Normal Saline) Confirm Administered Dose 20 mls @ as directed .ROUTE .STK-MED ONE Stop: 04/25/19 07:56 Pantoprazole Sodium 40 mg/ (Sodium Chloride) 10 mls @ 300 mls/hr IV NOW ONE Stop: 04/25/19 09:36 Last Admin: 04/25/19 11:26 Dose: Not Given Bupivacaine HCl/Epinephrine Bitart (Sensorc Mpf 0.25%-Epi [id number]) Confirm Administered Dose 30 mls @ as directed .ROUTE .STK-MED ONE Stop: 04/25/19 13:02 Cefazolin Sodium/Dextrose 1 gm (/ Premix) 50 mls @ 100 mls/hr IV Q8H [facility] Stop: 04/26/19 03:29 Last Admin: 04/26/19 03:38 Dose: 100 mls/hr Lactated Ringer's (Ringers, Lactated) 1,000 mls @ 75 mls/hr IV ASDIRECTED [facility] Last Admin: 04/26/19 03:56 Dose: 75 mls/hr Magnesium Sulfate 2 gm/ Premix 50 mls @ 25 mls/hr IV ONETIME ONE Stop: 04/26/19 09:22 Last Admin: 04/26/19 08:43 Dose: 25 mls/hr Vancomycin HCl 1 gm/ Sodium (Chloride) 250 mls @ 166.667 mls/hr IV Q24H [facility] Last Admin: 04/26/19 23:14 Dose: Not Given Sodium Chloride (Normal Saline (Advbag)) Confirm Administered Dose 250 mls @ as directed .ROUTE .STK-MED ONE Stop: 04/26/19 22:46 Last Admin: 04/26/19 22:59 Dose: Not Given Ketamine HCl (Ketalar) Confirm Administered Dose 500 mg .ROUTE .STK-MED ONE Stop: 04/25/19 07:57 Magnesium Oxide (Magnesium Oxide) 800 mg PO ONETIME ONE Stop: 04/27/19 09:31 Last Admin: 04/27/19 10:44 Dose: 800 mg Midazolam HCl (Versed 1 Mg/Ml) Confirm Administered Dose 2 mg .ROUTE .STK-MED ONE Stop: 04/25/19 07:53 Morphine Sulfate (Morphine) 2 mg IVPUSH ONETIME ONE Stop: 04/24/19 13:03 Last Admin: 04/24/19 13:38 Dose: 2 mg Neostigmine Methylsulfate (Neostigmine) Confirm Administered Dose 5 mg .ROUTE .STK-MED ONE Stop: 04/25/19 10:43 Ondansetron HCl (Zofran) 4 mg IVPUSH ONETIME ONE Stop: 04/24/19 13:03 Last Admin: 04/24/19 13:39 Dose: 4 mg Pantoprazole Sodium (Protonix) 40 mg PO ACBREAKFAST [facility] Last Admin: 04/27/19 06:50 Dose: 40 mg Phenylephrine HCl (Phenylephrine In Ns 100 Mcg/Ml) Confirm Administered Dose 1 mg .ROUTE .STK-MED ONE Stop: 04/25/19 07:56 Propofol (Diprivan 20 Ml) Confirm Administered Dose 200 mg .ROUTE .STK-MED ONE Stop: 04/25/19 10:39 Rocuronium [place] (Zemuron) Confirm Administered Dose 100 mg .ROUTE .STK-MED ONE Stop: 04/25/19 10:40 Succinylcholine Chloride (Succinylcholine Chloride) Confirm Administered Dose 200 mg .ROUTE .STK-MED ONE Stop: 04/25/19 10:40 Vancomycin HCl (Vancocin) Confirm Administered Dose 1 gm .ROUTE .STK-MED ONE Stop: 04/26/19 22:44 Last Admin: 04/26/19 22:59 Dose: Not Given - Exam General: Alert. No: Oriented Lungs: Normal Respiratory Effort, Decreased Breath Sounds (bibasilar) Cardiovascular: Regular Rate, Regular Rhythm GI/Abdominal Exam: Normal Bowel Sounds, Soft, Non-Tender Extremities: Normal Inspection, Normal Range of Motion, Non-Tender, No Pedal Edema Wound/Incisions: Dressing Dry and Intact, No Drainage. No: Erythema Psy/Mental Status: Alert - Problem List & Annotations (1) HCAP (healthcare-associated pneumonia) SNOMED Code(s): 733006239, 608050024 Code(s): J18.9 - PNEUMONIA, UNSPECIFIED ORGANISM Status: Acute Current Visit: Yes (2) Acute respiratory failure with hypoxia SNOMED Code(s): 17702927, 931481852 Code(s): J96.01 - ACUTE RESPIRATORY FAILURE WITH HYPOXIA Status: Acute Current Visit: Yes (3) Hip fracture SNOMED Code(s): 111311321 Code(s): S72.009A - FRACTURE OF UNSP PART OF NECK OF UNSP FEMUR, INIT Status: Acute Current Visit: Yes Qualifiers: Encounter type: initial encounter Fracture type: closed Laterality: left Qualified Code(s): S72.002A - Fracture of unspecified part of neck of left femur, initial encounter for closed fracture (4) CAD (coronary artery disease) SNOMED Code(s): 67233288 Code(s): I25.10 - ATHSCL HEART DISEASE OF [place] CORONARY ARTERY W/O ANG PCTRS Status: Chronic Current Visit: No (5) Hx of deep venous thrombosis SNOMED Code(s): 330054933 Code(s): Z86.718 - PERSONAL HISTORY OF OTHER VENOUS THROMBOSIS AND EMBOLISM Status: Chronic Current Visit: No (6) Hyperlipidemia SNOMED Code(s): 25849738 Code(s): E78.5 - HYPERLIPIDEMIA, UNSPECIFIED Status: Chronic Current Visit: No (7) Hypothyroidism SNOMED Code(s): 99654023 Code(s): E03.9 - HYPOTHYROIDISM, UNSPECIFIED Status: Chronic Current Visit: No (8) PVD (peripheral vascular disease) SNOMED Code(s): 568258365 Code(s): I73.9 - PERIPHERAL VASCULAR DISEASE, UNSPECIFIED Status: Chronic Current Visit: No (9) Peripheral edema SNOMED Code(s): 257438177 Code(s): R60.9 - EDEMA, UNSPECIFIED Status: Chronic Priority: High Current Visit: No (10) 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 SNOMED Code(s): 28754716 Code(s): C61 - MALIGNANT NEOPLASM OF PROSTATE; C78.5 - SECONDARY MALIGNANT NEOPLASM OF LARGE INTESTINE AND RECTUM Status: Chronic Priority: High Current Visit: No (11) Sigmoid diverticulosis SNOMED Code(s): 972606882 Code(s): K57.30 - DVRTCLOS OF LG INT W/O PERFORATION OR ABSCESS W/O BLEEDING Status: Chronic Priority: Medium Current Visit: No (12) Hx of CABG SNOMED Code(s): 927924006, 289882090 Code(s): Z95.1 - PRESENCE OF AORTOCORONARY BYPASS GRAFT Status: Chronic Current Visit: Yes - Problem List Review Problem List Initiated/Reviewed/Updated: Yes - Plan Plan:: This 83 year old male admitted with L femoral neck fracture, Orthopedics consulted. 1. Acute hypoxic respiratory failure and HCAP: Continue oxygen use, improving slowly. Continue Vancomycin and Zosyn. Leukocytosis improved. 2. Left femoral neck fracture: Weakness noted with delirium. Discussed at length with family regarding prognosis post-operatively due to delirium, HCAP. Code status changed to DNR/DNI. maintain good bowel regimen. Give Dulocolax supp today due to history of bowel obstructions. 2. Hx CABG/CAD: Stable, no chest pain. 3. Hypothyroidism: Continue Levothyroxine. VTE prophylaxis: Heparin Dispo: Will likely need SNF for rehabilitation.
[2019-04-28] MEDS: atorvaSTATin 20 MG Tab PO SCH (08:09)
[2019-04-28] MEDS: Docusate Sodium 100 MG Cap PO SCH ×2 (08:09→22:13)
[2019-04-28] MEDS: Polyethylene Glycol 3350 Powder 17 GM Packet PO SCH (08:10)
[2019-04-28] MEDS: Pantoprazole 40 MG in Sodium Chloride 0.9% 10 ML IV SCH (10:14)
[2019-04-28] MEDS ORDERED: Sodium Chloride 0.9% 250 ML IV SCH (10:15)
[2019-04-29] MEDS: Morphine 2 MG/ML Syringe IVPUSH PRN (03:35)
[2019-04-29] MEDS: Piperacillin/Tazobactam 3.375 GM in Sodium Chloride 0.9% 50 ML IV SCH ×3 (05:09→16:32)
[2019-04-29] MEDS: Heparin Sodium 5,000 Units/ML Vial SUBCUT SCH ×3 (05:10→22:14)
[2019-04-29 06:35] LABS: BLOOD UREA NITROGEN,BUN 23 mg/dL (7.0-18.0); CARBON DIOXIDE,CO2 31.2 mmol/L (21.0-32.0); CHLORIDE,CL 101 mmol/L (98-107); GLUCOSE RANDOM 71 mg/dL (74-106); POTASSIUM,K 3.2 mmol/L (3.5-5.1); SODIUM,NA 142 mmol/L (136-148)
[2019-04-29] MEDS: Levothyroxine 50 MCG Tab PO SCH (07:12)
[2019-04-29] MEDS ORDERED: Potassium Chloride 20 MEQ Tab.ER PO ONE ×2 (07:55→17:00)
--- NOTE | 2019-04-29 08:05 | PCM.PN ---
- General Info Date of Service: 04/29/19 Admission Dx/Problem (Free Text): Admission Diagnosis/Problem Admission Diagnosis/Problem Hip fracture requiring operative repair Subjective Update: Feeling well today. No chest pain. Reports SOB this morning. Eager to get up to the chair and eat breakfast. - Review of Systems General: Reports: No Symptoms. Denies: Weakness, Fatigue Pulmonary: Reports: No Symptoms. Denies: Shortness of Breath Cardiovascular: Reports: No Symptoms. Denies: Chest Pain Gastrointestinal: Reports: No Symptoms. Denies: Abdominal Pain, Nausea, Vomiting Genitourinary: Reports: No Symptoms Musculoskeletal: Reports: No Symptoms Skin: Reports: No Symptoms Neurological: Reports: No Symptoms Psychiatric: Reports: No Symptoms - Patient Data Vitals - Most Recent: Last Vital Signs Temp 98.6 F 04/29/19 03:30 Pulse 96 04/29/19 03:30 Resp 20 04/29/19 03:30 BP 124/71 04/29/19 03:30 Pulse Ox 93 L 04/29/19 03:30 Weight - Most Recent: 55.792 kg I&O - Last 24 Hours: Intake & Output 04/28/19 04/29/19 04/29/19 22:59 06:59 14:59 Intake Total 450 200 Output Total 200 Balance 250 200 Lab Results Last 24 Hours: Laboratory Results - last 24 hr 04/25/19 04/29/19 04/29/19 Range/Units 07:40 05:48 05:48 WBC 9.46 (4.0-11.0) K/uL RBC 3.35 L (4.50-5.90) M/uL Hgb 10.2 L (13.0-17.0) g/dL Hct 30.1 L (38.0-50.0) % MCV 89.9 (80.0-98.0) fL MCH 30.4 (27.0-32.0) pg MCHC 33.9 (31.0-37.0) g/dL RDW Std Deviation 48.4 (28.0-62.0) fl RDW Coeff of Dalia 15 (11.0-15.0) % Plt Count 173 (150-400) K/uL MPV 11.00 (7.40-12.00) fL Neut % (Auto) 85.8 H (48.0-80.0) % Lymph % (Auto) 5.4 L (16.0-40.0) % [place] % (Auto) 8.7 (0.0-15.0) % Eos % (Auto) 0.0 (0.0-7.0) % Baso % (Auto) 0.1 (0.0-1.5) % Neut # (Auto) 8.1 H (1.4-5.7) K/uL Lymph # (Auto) 0.5 L (0.6-2.4) K/uL [place] # (Auto) 0.8 (0.0-0.8) K/uL Eos # (Auto) 0.0 (0.0-0.7) K/uL Baso # (Auto) 0.0 (0.0-0.1) K/uL Sodium 142 (136-148) mmol/L Potassium 3.2 L (3.5-5.1) mmol/L Chloride 101 (98-107) mmol/L Carbon Dioxide 31.2 (21.0-32.0) mmol/L BUN 23 H (7.0-18.0) mg/dL Creatinine 1.1 (0.8-1.3) mg/dL Est Cr Clr Drug Dosing 39.45 mL/min Estimated GFR (MDRD) > 60.0 ml/min Glucose 71 L (74-106) mg/dL Calcium 8.4 L (8.5-10.1) mg/dL Magnesium 1.9 (1.8-2.4) mg/dL Crossmatch See Detail Med Orders - Current: Current Medications Acetaminophen (Tylenol) 650 mg PO DAILY PRN PRN Reason: Pain Last Admin: 04/24/19 17:20 Dose: 650 mg Hydrocodone Bitart/Acetaminophen ([place] 325-5 Mg) 1 - 2 tab PO Q4H PRN PRN Reason: Pain Last Admin: 04/28/19 08:10 Dose: 1 tab Al Hydroxide/Mg Hydroxide (Mag-Al Plus) 30 ml PO Q4H PRN PRN Reason: Indigestion Atorvastatin Calcium (Lipitor) 20 mg PO DAILY FREDDY Last Admin: 04/28/19 08:09 Dose: 20 mg Bisacodyl (Dulcolax) 10 mg RECTAL DAILY PRN PRN Reason: Constipation/NOBM for 3 days Last Admin: 04/28/19 22:13 Dose: 10 mg Docusate Sodium (Colace) 100 mg PO BID [facility] Last Admin: 04/28/19 22:13 Dose: 100 mg Heparin Sodium (Porcine) (Heparin Sodium) 5,000 units SUBCUT Q8H [facility] Last Admin: 04/29/19 05:10 Dose: 5,000 units Vancomycin HCl 1 gm/ Sodium (Chloride) 250 mls @ 166 mls/hr IV Q24H [facility] Last Admin: 04/28/19 22:38 Dose: 166 mls/hr Pantoprazole Sodium 40 mg/ (Sodium Chloride) 10 mls @ 300 mls/hr IV Q24H [facility] Last Admin: 04/28/19 10:14 Dose: 300 mls/hr Piperacillin Sod/Tazobactam (Sod 3.375 gm/ Sodium Chloride) 50 mls @ 100 mls/ hr IV Q6H [facility] Levothyroxine Sodium (Synthroid) 50 mcg PO ACBREAKFAST [facility] Last Admin: 04/29/19 07:12 Dose: 50 mcg Morphine Sulfate (Morphine) 2 mg IVPUSH Q4H PRN PRN Reason: Pain Last Admin: 04/29/19 03:35 Dose: 2 mg Polyethylene Glycol (Miralax) 17 gm PO DAILY [facility] Last Admin: 04/28/19 08:10 Dose: 17 gm Sodium Chloride (Saline Flush) 10 ml FLUSH ASDIRECTED PRN PRN Reason: Keep Vein Open Last Admin: 04/24/19 13:39 Dose: 10 ml Sodium Chloride (Saline Flush) 2.5 ml FLUSH ASDIRECTED PRN PRN Reason: Keep Vein Open Last Admin: 04/24/19 13:39 Dose: 2.5 ml Sodium Chloride (Saline Flush) 10 ml FLUSH ASDIRECTED PRN PRN Reason: Keep Vein Open Sodium Chloride (Saline Flush) 2.5 ml FLUSH ASDIRECTED PRN PRN Reason: Keep Vein Open Tramadol HCl (Ultram) 50 mg PO Q6H PRN PRN Reason: Pain Last Admin: 04/27/19 20:00 Dose: 50 mg Vancomycin HCl (Pharmacy To Dose - Vancomycin) 1 dose .XX ASDIRECTED [facility] Discontinued Medications Bisacodyl (Dulcolax) 10 mg RECTAL DAILY PRN PRN Reason: Constipation Diphenhydramine HCl (Benadryl) 25 - 50 mg PO Q6H PRN PRN Reason: Itching Docusate Sodium (Colace) 100 mg PO BID PRN PRN Reason: Constipation Ephedrine Sulfate (Ephedrine Sulfate) Confirm Administered Dose 50 mg .ROUTE .STK-MED ONE Stop: 04/25/19 07:56 Famotidine (Pepcid) 20 mg IVPUSH ONETIME ONE Stop: 04/25/19 10:49 Last Admin: 04/25/19 14:51 Dose: Not Given Fentanyl (Sublimaze) Confirm Administered Dose 100 mcg .ROUTE .STK-MED ONE Stop: 04/25/19 07:53 Fentanyl (Sublimaze) 50 - 100 mcg IVPUSH Q5M PRN PRN Reason: Pain (severe 7-10) Furosemide (Lasix) 40 mg IVPUSH NOW ONE Stop: 04/26/19 19:50 Last Admin: 04/26/19 20:18 Dose: 40 mg Furosemide (Lasix) 40 mg IVPUSH DAILY [facility] Last Admin: 04/27/19 09:56 Dose: 40 mg Glycopyrrolate (Robinul) Confirm Administered Dose 0.6 mg .ROUTE .STK-MED ONE Stop: 04/25/19 07:56 Heparin Sodium (Porcine) (Heparin Sodium) 5,000 units SUBCUT Q8H [facility] Last Admin: 04/25/19 21:03 Dose: Not Given Heparin Sodium (Porcine) (Heparin Sodium) 5,000 units SUBCUT Q8H [facility] Hydromorphone HCl (Dilaudid) 1 mg IVPUSH ONETIME ONE Stop: 04/25/19 13:11 Last Admin: 04/25/19 15:07 Dose: 1 mg Sodium Chloride (Normal Saline) 1,000 mls @ 125 mls/hr IV STAT [facility] Last Admin: 04/24/19 13:39 Dose: 125 mls/hr Lactated Ringer's (Ringers, Lactated) 1,000 mls @ 75 mls/hr IV ASDIRECTED [facility] Last Admin: 04/24/19 18:18 Dose: 75 mls/hr Lactated Ringer's (Ringers, Lactated) 1,000 mls @ 75 mls/hr IV ASDIRECTED [facility] Last Admin: 04/25/19 07:33 Dose: 75 mls/hr Cefazolin Sodium/Dextrose 1 gm (/ Premix) 50 mls @ 100 mls/hr IV ONCALL [facility] Last Admin: 04/25/19 18:51 Dose: 100 mls/hr Ropivacaine 49.25 ml/Ketorolac Tromethamine 30 mg/Epinephrine HCl 0.5 mg/ Sodium Chloride 74.2 mls @ 50 mls/sec INJECT ASDIRECTED [facility] Tranexamic Acid 2,000 mg/ (Sodium Chloride) 120 mls @ 360 mls/hr IV ASDIRECTED ONE Stop: 04/25/19 07:43 Last Admin: 04/25/19 14:51 Dose: Not Given Sodium Chloride (Normal Saline) Confirm Administered Dose 20 mls @ as directed .ROUTE .STK-MED ONE Stop: 04/25/19 07:56 Pantoprazole Sodium 40 mg/ (Sodium Chloride) 10 mls @ 300 mls/hr IV NOW ONE Stop: 04/25/19 09:36 Last Admin: 04/25/19 11:26 Dose: Not Given Bupivacaine HCl/Epinephrine Bitart (Sensorc Mpf 0.25%-Epi 1:[id number]) Confirm Administered Dose 30 mls @ as directed .ROUTE .STK-MED ONE Stop: 04/25/19 13:02 Cefazolin Sodium/Dextrose 1 gm (/ Premix) 50 mls @ 100 mls/hr IV Q8H [facility] Stop: 04/26/19 03:29 Last Admin: 04/26/19 03:38 Dose: 100 mls/hr Lactated Ringer's (Ringers, Lactated) 1,000 mls @ 75 mls/hr IV ASDIRECTED [facility] Last Admin: 04/26/19 03:56 Dose: 75 mls/hr Magnesium Sulfate 2 gm/ Premix 50 mls @ 25 mls/hr IV ONETIME ONE Stop: 04/26/19 09:22 Last Admin: 04/26/19 08:43 Dose: 25 mls/hr Piperacillin Sod/Tazobactam (Sod 3.375 gm/ Sodium Chloride) 50 mls @ 100 mls/ hr IV Q8H [facility] Last Admin: 04/29/19 05:09 Dose: 100 mls/hr Vancomycin HCl 1 gm/ Sodium (Chloride) 250 mls @ 166.667 mls/hr IV Q24H [facility] Last Admin: 04/26/19 23:14 Dose: Not Given Sodium Chloride (Normal Saline (Advbag)) Confirm Administered Dose 250 mls @ as directed .ROUTE .STK-MED ONE Stop: 04/26/19 22:46 Last Admin: 04/26/19 22:59 Dose: Not Given Sodium Chloride (Normal Saline) 250 mls @ 100 mls/hr IV ASDIRECTED [facility] Stop: 04/28/19 12:44 Last Admin: 04/28/19 11:21 Dose: 100 mls/hr Ketamine HCl (Ketalar) Confirm Administered Dose 500 mg .ROUTE .STK-MED ONE Stop: 04/25/19 07:57 Magnesium Oxide (Magnesium Oxide) 800 mg PO ONETIME ONE Stop: 04/27/19 09:31 Last Admin: 04/27/19 10:44 Dose: 800 mg Midazolam HCl (Versed 1 Mg/Ml) Confirm Administered Dose 2 mg .ROUTE .STK-MED ONE Stop: 04/25/19 07:53 Morphine Sulfate (Morphine) 2 mg IVPUSH ONETIME ONE Stop: 04/24/19 13:03 Last Admin: 04/24/19 13:38 Dose: 2 mg Neostigmine Methylsulfate (Neostigmine) Confirm Administered Dose 5 mg .ROUTE .STK-MED ONE Stop: 04/25/19 10:43 Ondansetron HCl (Zofran) 4 mg IVPUSH ONETIME ONE Stop: 04/24/19 13:03 Last Admin: 04/24/19 13:39 Dose: 4 mg Pantoprazole Sodium (Protonix) 40 mg PO ACBREAKFAST [facility] Last Admin: 04/27/19 06:50 Dose: 40 mg Phenylephrine HCl (Phenylephrine In Ns 100 Mcg/Ml) Confirm Administered Dose 1 mg .ROUTE .STK-MED ONE Stop: 04/25/19 07:56 Potassium Chloride (Klor-Con M20) 40 meq PO ONETIME ONE Stop: 04/29/19 07:56 Propofol (Diprivan 20 Ml) Confirm Administered Dose 200 mg .ROUTE .STK-MED ONE Stop: 04/25/19 10:39 Rocuronium [place] (Zemuron) Confirm Administered Dose 100 mg .ROUTE .STK-MED ONE Stop: 04/25/19 10:40 Succinylcholine Chloride (Succinylcholine Chloride) Confirm Administered Dose 200 mg .ROUTE .STK-MED ONE Stop: 04/25/19 10:40 Vancomycin HCl (Vancocin) Confirm Administered Dose 1 gm .ROUTE .STK-MED ONE Stop: 04/26/19 22:44 Last Admin: 04/26/19 22:59 Dose: Not Given - Exam Quality Assessment: Supplemental Oxygen General: Alert, Oriented, Cooperative, Mild Distress Lungs: Crackles, Rales Cardiovascular: Regular Rate, Regular Rhythm GI/Abdominal Exam: Normal Bowel Sounds, Soft, Non-Tender Extremities: Normal Inspection, Normal Range of Motion, Non-Tender, No Pedal Edema Psy/Mental Status: Alert, Normal Affect, Normal Mood - Problem List & Annotations (1) HCAP (healthcare-associated pneumonia) SNOMED Code(s): 233639476, 327873291 Code(s): J18.9 - PNEUMONIA, UNSPECIFIED ORGANISM Status: Acute Current Visit: Yes (2) Acute respiratory failure with hypoxia SNOMED Code(s): 42792933, 385300340 Code(s): J96.01 - ACUTE RESPIRATORY FAILURE WITH HYPOXIA Status: Acute Current Visit: Yes (3) Hip fracture SNOMED Code(s): 254213973 Code(s): S72.009A - FRACTURE OF UNSP PART OF NECK OF UNSP FEMUR, INIT Status: Acute Current Visit: Yes Qualifiers: Encounter type: initial encounter Fracture type: closed Laterality: left Qualified Code(s): S72.002A - Fracture of unspecified part of neck of left femur, initial encounter for closed fracture (4) CAD (coronary artery disease) SNOMED Code(s): 14965004 Code(s): I25.10 - ATHSCL HEART DISEASE OF [place] CORONARY ARTERY W/O ANG PCTRS Status: Chronic Current Visit: No (5) Hx of deep venous thrombosis SNOMED Code(s): 468801480 Code(s): Z86.718 - PERSONAL HISTORY OF OTHER VENOUS THROMBOSIS AND EMBOLISM Status: Chronic Current Visit: No (6) Hyperlipidemia SNOMED Code(s): 11602774 Code(s): E78.5 - HYPERLIPIDEMIA, UNSPECIFIED Status: Chronic Current Visit: No (7) Hypothyroidism SNOMED Code(s): 80277094 Code(s): E03.9 - HYPOTHYROIDISM, UNSPECIFIED Status: Chronic Current Visit: No (8) PVD (peripheral vascular disease) SNOMED Code(s): 938851996 Code(s): I73.9 - PERIPHERAL VASCULAR DISEASE, UNSPECIFIED Status: Chronic Current Visit: No (9) Peripheral edema SNOMED Code(s): 557343326 Code(s): R60.9 - EDEMA, UNSPECIFIED Status: Chronic Priority: High Current Visit: No (10) 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 SNOMED Code(s): 58100228 Code(s): C61 - MALIGNANT NEOPLASM OF PROSTATE; C78.5 - SECONDARY MALIGNANT NEOPLASM OF LARGE INTESTINE AND RECTUM Status: Chronic Priority: High Current Visit: No (11) Sigmoid diverticulosis SNOMED Code(s): 956806862 Code(s): K57.30 - DVRTCLOS OF LG INT W/O PERFORATION OR ABSCESS W/O BLEEDING Status: Chronic Priority: Medium Current Visit: No (12) Hx of CABG SNOMED Code(s): 489546942, 112573011 Code(s): Z95.1 - PRESENCE OF AORTOCORONARY BYPASS GRAFT Status: Chronic Current Visit: Yes - Problem List Review Problem List Initiated/Reviewed/Updated: Yes - My Orders Last 24 Hours: My Active Orders 04/29/19 08:04 Chest 1V Frontal [CR] Stat 04/30/19 05:11 BASIC METABOLIC PANEL,BMP [CHEM] AM CBC WITH AUTO DIFF [HEME] AM MAGNESIUM [CHEM] AM 05/01/19 05:11 BASIC METABOLIC PANEL,BMP [CHEM] AM CBC WITH AUTO DIFF [HEME] AM MAGNESIUM [CHEM] AM - Plan Plan:: This 83 year old male admitted with L femoral neck fracture, Orthopedics consulted. 1. Acute hypoxic respiratory failure and HCAP: SOB this morning, improved with getting to chair. repeat CXR shows increase in pleural effusion. Restart Lasix IV today and monitor. Continue oxygen use, improving slowly. Continue Vancomycin and Zosyn. 2. Left femoral neck fracture: delirium improved. Continue PT. Discussed with the need for SNF for rehabilitation. She agrees, will arrange for possibly . 2. Hx CABG/CAD: Stable, no chest pain. 3. Hypothyroidism: Continue Levothyroxine. VTE prophylaxis: Heparin Dispo: Will likely need SNF for rehabilitation.
[2019-04-29] MEDS: Polyethylene Glycol 3350 Powder 17 GM Packet PO SCH (08:33)
[2019-04-29] MEDS: Docusate Sodium 100 MG Cap PO SCH ×2 (08:33→22:14)
[2019-04-29] MEDS: atorvaSTATin 20 MG Tab PO SCH (08:33)
--- NOTE | 2019-04-29 09:00 | CR ---
INDICATION: Dyspnea pneumonia portable chest. COMPARISON: Chest x-ray 04/24/2019 Findings : Stable cardiac mediastinal silhouette. Median sternotomy. Elevation of the left hemidiaphragm. Small right effusion. Bibasilar right basilar patchy consolidation which is new. Left basilar atelectasis or infiltrate. No pneumothorax. Impression: 1. Worsening appearance with small right effusion. Right basilar consolidation which is new. Left basilar strandy atelectasis or infiltrate. Dictated by Criss Mclean MD @ Apr 29 2019 8:51AM Signed by Dr. Criss Mclean @ Apr 29 2019 8:57AM
[2019-04-29] MEDS ORDERED: Furosemide 40 MG/4 ML VIAL IVPUSH ONE (09:17)
[2019-04-29] MEDS: Pantoprazole 40 MG in Sodium Chloride 0.9% 10 ML IV SCH (09:49)
[2019-04-29] MEDS: Acetaminophen/HYDROcodone 325-5 MG Tab PO PRN ×2 (11:56→16:20)
[2019-04-30] MEDS: traMADol 50 MG Tab PO PRN ×2 (03:08→15:05)
[2019-04-30] MEDS: Vancomycin 1.5 GM in Sodium Chloride 0.9% 500 ML IV SCH ×2 (04:54→23:56)
[2019-04-30] MEDS: Heparin Sodium 5,000 Units/ML Vial SUBCUT SCH ×2 (04:55→12:23)
[2019-04-30] MEDS: Piperacillin/Tazobactam 3.375 GM in Sodium Chloride 0.9% 50 ML IV SCH ×6 (04:56→22:54)
[2019-04-30 06:48] LABS: CARBON DIOXIDE,CO2 37.5 mmol/L (21.0-32.0); POTASSIUM,K 3.3 mmol/L (3.5-5.1)
[2019-04-30] MEDS: Levothyroxine 50 MCG Tab PO SCH (06:48)
[2019-04-30] MEDS ORDERED: Potassium Chloride 20 MEQ Tab.ER PO ONE (07:54)
[2019-04-30] MEDS: atorvaSTATin 20 MG Tab PO SCH (09:06)
[2019-04-30] MEDS: Docusate Sodium 100 MG Cap PO SCH ×2 (09:06→22:54)
[2019-04-30] MEDS: Acetaminophen 325 MG Tab PO PRN (09:06)
[2019-04-30] MEDS: Polyethylene Glycol 3350 Powder 17 GM Packet PO SCH (09:12)
[2019-04-30] MEDS: Pantoprazole 40 MG in Sodium Chloride 0.9% 10 ML IV SCH (10:13)
--- NOTE | 2019-04-30 11:29 | PCM.PN ---
- General Info Date of Service: 04/30/19 Admission Dx/Problem (Free Text): Admission Diagnosis/Problem Admission Diagnosis/Problem Hip fracture requiring operative repair Subjective Update: Continues to feel well. Pain intermittent to hip. No chest pain. Breathing improved. No other concerns. Functional Status: Reports: Pain Controlled, Tolerating Diet, Ambulating, Urinating - Review of Systems General: Reports: No Symptoms. Denies: Fever, Weakness Pulmonary: Reports: No Symptoms. Denies: Shortness of Breath, Cough Cardiovascular: Reports: No Symptoms. Denies: Chest Pain, Palpitations Gastrointestinal: Reports: No Symptoms. Denies: Abdominal Pain, Nausea, Vomiting Genitourinary: Reports: No Symptoms. Denies: Dysuria, Frequency Musculoskeletal: Reports: Joint Pain (surgical hip pain) Neurological: Reports: No Symptoms. Denies: Confusion Psychiatric: Reports: No Symptoms - Patient Data Vitals - Most Recent: Last Vital Signs Temp 98.1 F 04/30/19 08:00 Pulse 88 04/30/19 08:00 Resp 19 04/30/19 08:00 BP 104/57 L 04/30/19 08:00 Pulse Ox 93 L 04/30/19 08:00 Weight - Most Recent: 55.792 kg I&O - Last 24 Hours: Intake & Output 04/29/19 04/30/19 04/30/19 22:59 06:59 14:59 Intake Total 200 800 Output Total 0 Balance 200 800 Lab Results Last 24 Hours: Laboratory Results - last 24 hr 04/29/19 04/30/19 04/30/19 Range/Units 21:20 05:25 05:25 WBC 6.80 (4.0-11.0) K/uL RBC 3.17 L (4.50-5.90) M/uL Hgb 9.5 L (13.0-17.0) g/dL Hct 28.4 L (38.0-50.0) % MCV 89.6 (80.0-98.0) fL MCH 30.0 (27.0-32.0) pg MCHC 33.5 (31.0-37.0) g/dL RDW Std Deviation 50.9 (28.0-62.0) fl RDW Coeff of Dalia 16 H (11.0-15.0) % Plt Count 187 (150-400) K/uL MPV 10.50 (7.40-12.00) fL Neut % (Auto) 81.9 H (48.0-80.0) % Lymph % (Auto) 7.9 L (16.0-40.0) % [place] % (Auto) 10.0 (0.0-15.0) % Eos % (Auto) 0.1 (0.0-7.0) % Baso % (Auto) 0.1 (0.0-1.5) % Neut # (Auto) 5.6 (1.4-5.7) K/uL Lymph # (Auto) 0.5 L (0.6-2.4) K/uL [place] # (Auto) 0.7 (0.0-0.8) K/uL Eos # (Auto) 0.0 (0.0-0.7) K/uL Baso # (Auto) 0.0 (0.0-0.1) K/uL Nucleated RBC % 0.0 /100WBC Nucleated RBCs # 0 K/uL Sodium 147 (136-148) mmol/L Potassium 3.3 L (3.5-5.1) mmol/L Chloride 106 (98-107) mmol/L Carbon Dioxide 37.5 H (21.0-32.0) mmol/L BUN 29 H (7.0-18.0) mg/dL Creatinine 1.2 (0.8-1.3) mg/dL Est Cr Clr Drug Dosing 36.16 mL/min Estimated GFR (MDRD) 57.7 ml/min Glucose 113 H (74-106) mg/dL Calcium 8.1 L (8.5-10.1) mg/dL Magnesium 1.8 (1.8-2.4) mg/dL Vancomycin Trough 10.3 H (5.0-10.0) ug/mL Med Orders - Current: Current Medications Acetaminophen (Tylenol) 650 mg PO DAILY PRN PRN Reason: Pain Last Admin: 04/30/19 09:06 Dose: 650 mg Hydrocodone Bitart/Acetaminophen ([place] 325-5 Mg) 1 - 2 tab PO Q4H PRN PRN Reason: Pain Last Admin: 04/29/19 16:20 Dose: 1 tab Al Hydroxide/Mg Hydroxide (Mag-Al Plus) 30 ml PO Q4H PRN PRN Reason: Indigestion Atorvastatin Calcium (Lipitor) 20 mg PO DAILY COUNTS INCLUDE 234 BEDS AT THE [facility] Last Admin: 04/30/19 09:06 Dose: 20 mg Bisacodyl (Dulcolax) 10 mg RECTAL DAILY PRN PRN Reason: Constipation/NOBM for 3 days Last Admin: 04/28/19 22:13 Dose: 10 mg Docusate Sodium (Colace) 100 mg PO BID COUNTS INCLUDE 234 BEDS AT THE [facility] Last Admin: 04/30/19 09:06 Dose: 100 mg Heparin Sodium (Porcine) (Heparin Sodium) 5,000 units SUBCUT Q8H COUNTS INCLUDE 234 BEDS AT THE [facility] Last Admin: 04/30/19 04:55 Dose: 5,000 units Pantoprazole Sodium 40 mg/ (Sodium Chloride) 10 mls @ 300 mls/hr IV Q24H COUNTS INCLUDE 234 BEDS AT THE [facility] Last Admin: 04/30/19 10:13 Dose: 300 mls/hr Piperacillin Sod/Tazobactam (Sod 3.375 gm/ Sodium Chloride) 50 mls @ 100 mls/ hr IV Q6H COUNTS INCLUDE 234 BEDS AT THE [facility] Last Admin: 04/30/19 10:25 Dose: 100 mls/hr Vancomycin HCl 1.5 gm/ Sodium (Chloride) 500 mls @ 333.333 mls/hr IV Q24H COUNTS INCLUDE 234 BEDS AT THE [facility] Last Admin: 04/30/19 04:54 Dose: Not Given Levothyroxine Sodium (Synthroid) 50 mcg PO ACBREAKFAST COUNTS INCLUDE 234 BEDS AT THE [facility] Last Admin: 04/30/19 06:48 Dose: 50 mcg Morphine Sulfate (Morphine) 2 mg IVPUSH Q4H PRN PRN Reason: Pain Last Admin: 04/29/19 03:35 Dose: 2 mg Polyethylene Glycol (Miralax) 17 gm PO DAILY COUNTS INCLUDE 234 BEDS AT THE [facility] Last Admin: 04/30/19 09:12 Dose: 17 gm Sodium Chloride (Saline Flush) 10 ml FLUSH ASDIRECTED PRN PRN Reason: Keep Vein Open Last Admin: 04/24/19 13:39 Dose: 10 ml Sodium Chloride (Saline Flush) 2.5 ml FLUSH ASDIRECTED PRN PRN Reason: Keep Vein Open Last Admin: 04/24/19 13:39 Dose: 2.5 ml Sodium Chloride (Saline Flush) 10 ml FLUSH ASDIRECTED PRN PRN Reason: Keep Vein Open Sodium Chloride (Saline Flush) 2.5 ml FLUSH ASDIRECTED PRN PRN Reason: Keep Vein Open Tramadol HCl (Ultram) 50 mg PO Q6H PRN PRN Reason: Pain Last Admin: 04/30/19 03:08 Dose: 50 mg Vancomycin HCl (Pharmacy To Dose - Vancomycin) 1 dose .XX ASDIRECTED COUNTS INCLUDE 234 BEDS AT THE [facility] Discontinued Medications Bisacodyl (Dulcolax) 10 mg RECTAL DAILY PRN PRN Reason: Constipation Diphenhydramine HCl (Benadryl) 25 - 50 mg PO Q6H PRN PRN Reason: Itching Docusate Sodium (Colace) 100 mg PO BID PRN PRN Reason: Constipation Ephedrine Sulfate (Ephedrine Sulfate) Confirm Administered Dose 50 mg .ROUTE .STK-MED ONE Stop: 04/25/19 07:56 Famotidine (Pepcid) 20 mg IVPUSH ONETIME ONE Stop: 04/25/19 10:49 Last Admin: 04/25/19 14:51 Dose: Not Given Fentanyl (Sublimaze) Confirm Administered Dose 100 mcg .ROUTE .STK-MED ONE Stop: 04/25/19 07:53 Fentanyl (Sublimaze) 50 - 100 mcg IVPUSH Q5M PRN PRN Reason: Pain (severe 7-10) Furosemide (Lasix) 40 mg IVPUSH NOW ONE Stop: 04/26/19 19:50 Last Admin: 04/26/19 20:18 Dose: 40 mg Furosemide (Lasix) 40 mg IVPUSH DAILY COUNTS INCLUDE 234 BEDS AT THE [facility] Last Admin: 04/27/19 09:56 Dose: 40 mg Furosemide (Lasix) 40 mg IVPUSH NOW ONE Stop: 04/29/19 09:18 Last Admin: 04/29/19 09:46 Dose: 40 mg Glycopyrrolate (Robinul) Confirm Administered Dose 0.6 mg .ROUTE .STK-MED ONE Stop: 04/25/19 07:56 Heparin Sodium (Porcine) (Heparin Sodium) 5,000 units SUBCUT Q8H COUNTS INCLUDE 234 BEDS AT THE [facility] Last Admin: 04/25/19 21:03 Dose: Not Given Heparin Sodium (Porcine) (Heparin Sodium) 5,000 units SUBCUT Q8H COUNTS INCLUDE 234 BEDS AT THE [facility] Hydromorphone HCl (Dilaudid) 1 mg IVPUSH ONETIME ONE Stop: 04/25/19 13:11 Last Admin: 04/25/19 15:07 Dose: 1 mg Sodium Chloride (Normal Saline) 1,000 mls @ 125 mls/hr IV STAT COUNTS INCLUDE 234 BEDS AT THE [facility] Last Admin: 04/24/19 13:39 Dose: 125 mls/hr Lactated Ringer's (Ringers, Lactated) 1,000 mls @ 75 mls/hr IV ASDIRECTED COUNTS INCLUDE 234 BEDS AT THE [facility] Last Admin: 04/24/19 18:18 Dose: 75 mls/hr Lactated Ringer's (Ringers, Lactated) 1,000 mls @ 75 mls/hr IV ASDIRECTED COUNTS INCLUDE 234 BEDS AT THE [facility] Last Admin: 04/25/19 07:33 Dose: 75 mls/hr Cefazolin Sodium/Dextrose 1 gm (/ Premix) 50 mls @ 100 mls/hr IV ONCALL COUNTS INCLUDE 234 BEDS AT THE [facility] Last Admin: 04/25/19 18:51 Dose: 100 mls/hr Ropivacaine 49.25 ml/Ketorolac Tromethamine 30 mg/Epinephrine HCl 0.5 mg/ Sodium Chloride 74.2 mls @ 50 mls/sec INJECT ASDIRECTED COUNTS INCLUDE 234 BEDS AT THE [facility] Tranexamic Acid 2,000 mg/ (Sodium Chloride) 120 mls @ 360 mls/hr IV ASDIRECTED ONE Stop: 04/25/19 07:43 Last Admin: 04/25/19 14:51 Dose: Not Given Sodium Chloride (Normal Saline) Confirm Administered Dose 20 mls @ as directed .ROUTE .STK-MED ONE Stop: 04/25/19 07:56 Pantoprazole Sodium 40 mg/ (Sodium Chloride) 10 mls @ 300 mls/hr IV NOW ONE Stop: 04/25/19 09:36 Last Admin: 04/25/19 11:26 Dose: Not Given Bupivacaine HCl/Epinephrine Bitart (Sensorc Mpf 0.25%-Epi 1:[id number]) Confirm Administered Dose 30 mls @ as directed .ROUTE .STK-MED ONE Stop: 04/25/19 13:02 Cefazolin Sodium/Dextrose 1 gm (/ Premix) 50 mls @ 100 mls/hr IV Q8H FREDDY Stop: 04/26/19 03:29 Last Admin: 04/26/19 03:38 Dose: 100 mls/hr Lactated Ringer's (Ringers, Lactated) 1,000 mls @ 75 mls/hr IV ASDIRECTED COUNTS INCLUDE 234 BEDS AT THE [facility] Last Admin: 04/26/19 03:56 Dose: 75 mls/hr Magnesium Sulfate 2 gm/ Premix 50 mls @ 25 mls/hr IV ONETIME ONE Stop: 04/26/19 09:22 Last Admin: 04/26/19 08:43 Dose: 25 mls/hr Piperacillin Sod/Tazobactam (Sod 3.375 gm/ Sodium Chloride) 50 mls @ 100 mls/ hr IV Q8H COUNTS INCLUDE 234 BEDS AT THE [facility] Last Admin: 04/29/19 05:09 Dose: 100 mls/hr Vancomycin HCl 1 gm/ Sodium (Chloride) 250 mls @ 166.667 mls/hr IV Q24H COUNTS INCLUDE 234 BEDS AT THE [facility] Last Admin: 04/26/19 23:14 Dose: Not Given Sodium Chloride (Normal Saline (Advbag)) Confirm Administered Dose 250 mls @ as directed .ROUTE .STK-MED ONE Stop: 04/26/19 22:46 Last Admin: 04/26/19 22:59 Dose: Not Given Vancomycin HCl 1 gm/ Sodium (Chloride) 250 mls @ 166 mls/hr IV Q24H COUNTS INCLUDE 234 BEDS AT THE [facility] Last Admin: 04/29/19 22:14 Dose: 166 mls/hr Sodium Chloride (Normal Saline) 250 mls @ 100 mls/hr IV ASDIRECTED COUNTS INCLUDE 234 BEDS AT THE [facility] Stop: 04/28/19 12:44 Last Admin: 04/28/19 11:21 Dose: 100 mls/hr Vancomycin HCl 500 mg/ Sodium (Chloride) 100 mls @ 100 mls/hr IV NOW ONE Stop: 04/30/19 01:14 Last Admin: 04/30/19 01:06 Dose: 100 mls/hr Ketamine HCl (Ketalar) Confirm Administered Dose 500 mg .ROUTE .STK-MED ONE Stop: 04/25/19 07:57 Magnesium Oxide (Magnesium Oxide) 800 mg PO ONETIME ONE Stop: 04/27/19 09:31 Last Admin: 04/27/19 10:44 Dose: 800 mg Midazolam HCl (Versed 1 Mg/Ml) Confirm Administered Dose 2 mg .ROUTE .STK-MED ONE Stop: 04/25/19 07:53 Morphine Sulfate (Morphine) 2 mg IVPUSH ONETIME ONE Stop: 04/24/19 13:03 Last Admin: 04/24/19 13:38 Dose: 2 mg Neostigmine Methylsulfate (Neostigmine) Confirm Administered Dose 5 mg .ROUTE .STK-MED ONE Stop: 04/25/19 10:43 Ondansetron HCl (Zofran) 4 mg IVPUSH ONETIME ONE Stop: 04/24/19 13:03 Last Admin: 04/24/19 13:39 Dose: 4 mg Pantoprazole Sodium (Protonix) 40 mg PO ACBREAKFAST FREDDY Last Admin: 04/27/19 06:50 Dose: 40 mg Phenylephrine HCl (Phenylephrine In Ns 100 Mcg/Ml) Confirm Administered Dose 1 mg .ROUTE .STK-MED ONE Stop: 04/25/19 07:56 Potassium Chloride (Klor-Con M20) 40 meq PO ONETIME ONE Stop: 04/29/19 07:56 Last Admin: 04/29/19 08:33 Dose: 40 meq Potassium Chloride (Klor-Con M20) 40 meq PO ONETIME ONE Stop: 04/29/19 17:01 Last Admin: 04/29/19 16:19 Dose: 40 meq Potassium Chloride (Klor-Con M20) 40 meq PO ONETIME ONE Stop: 04/30/19 07:55 Last Admin: 04/30/19 09:06 Dose: 40 meq Propofol (Diprivan 20 Ml) Confirm Administered Dose 200 mg .ROUTE .STK-MED ONE Stop: 04/25/19 10:39 Rocuronium [place] (Zemuron) Confirm Administered Dose 100 mg .ROUTE .STK-MED ONE Stop: 04/25/19 10:40 Succinylcholine Chloride (Succinylcholine Chloride) Confirm Administered Dose 200 mg .ROUTE .STK-MED ONE Stop: 04/25/19 10:40 Vancomycin HCl (Vancocin) Confirm Administered Dose 1 gm .ROUTE .STK-MED ONE Stop: 04/26/19 22:44 Last Admin: 04/26/19 22:59 Dose: Not Given - Exam General: Alert, Oriented, Cooperative, No Acute Distress Lungs: Normal Respiratory Effort, Rhonchi (some clear with cough) Cardiovascular: Regular Rate, Regular Rhythm GI/Abdominal Exam: Normal Bowel Sounds, Soft, Non-Tender Extremities: Normal Inspection, Normal Range of Motion, Non-Tender Wound/Incisions: Decubitis (redness to sacrum, encouraged to reposition. Mild redness to thoracic spine) Psy/Mental Status: Alert, Normal Affect, Normal Mood - Problem List & Annotations (1) HCAP (healthcare-associated pneumonia) SNOMED Code(s): 704506791, 612158439 Code(s): J18.9 - PNEUMONIA, UNSPECIFIED ORGANISM Status: Acute Current Visit: Yes (2) Acute respiratory failure with hypoxia SNOMED Code(s): 86642376, 959843565 Code(s): J96.01 - ACUTE RESPIRATORY FAILURE WITH HYPOXIA Status: Acute Current Visit: Yes (3) Hip fracture SNOMED Code(s): 113121374 Code(s): S72.009A - FRACTURE OF UNSP PART OF NECK OF UNSP FEMUR, INIT Status: Acute Current Visit: Yes Qualifiers: Encounter type: initial encounter Fracture type: closed Laterality: left Qualified Code(s): S72.002A - Fracture of unspecified part of neck of left femur, initial encounter for closed fracture (4) CAD (coronary artery disease) SNOMED Code(s): 17060598 Code(s): I25.10 - ATHSCL HEART DISEASE OF [place] CORONARY ARTERY W/O ANG PCTRS Status: Chronic Current Visit: No (5) Hx of deep venous thrombosis SNOMED Code(s): 135007082 Code(s): Z86.718 - PERSONAL HISTORY OF OTHER VENOUS THROMBOSIS AND EMBOLISM Status: Chronic Current Visit: No (6) Hyperlipidemia SNOMED Code(s): 57554055 Code(s): E78.5 - HYPERLIPIDEMIA, UNSPECIFIED Status: Chronic Current Visit: No (7) Hypothyroidism SNOMED Code(s): 04887901 Code(s): E03.9 - HYPOTHYROIDISM, UNSPECIFIED Status: Chronic Current Visit: No (8) PVD (peripheral vascular disease) SNOMED Code(s): 399328490 Code(s): I73.9 - PERIPHERAL VASCULAR DISEASE, UNSPECIFIED Status: Chronic Current Visit: No (9) Peripheral edema SNOMED Code(s): 418692988 Code(s): R60.9 - EDEMA, UNSPECIFIED Status: Chronic Priority: High Current Visit: No (10) 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 SNOMED Code(s): 90644167 Code(s): C61 - MALIGNANT NEOPLASM OF PROSTATE; C78.5 - SECONDARY MALIGNANT NEOPLASM OF LARGE INTESTINE AND RECTUM Status: Chronic Priority: High Current Visit: No (11) Sigmoid diverticulosis SNOMED Code(s): 018045092 Code(s): K57.30 - DVRTCLOS OF LG INT W/O PERFORATION OR ABSCESS W/O BLEEDING Status: Chronic Priority: Medium Current Visit: No (12) Hx of CABG SNOMED Code(s): 403889090, 467228470 Code(s): Z95.1 - PRESENCE OF AORTOCORONARY BYPASS GRAFT Status: Chronic Current Visit: Yes - Problem List Review Problem List Initiated/Reviewed/Updated: Yes - My Orders Last 24 Hours: My Active Orders 04/29/19 13:22 RT Flutter Valve Therapy [RT Acapella] [RESPCARE] Routine 04/29/19 14:55 Turn and Reposition [RC] Q2H 04/29/19 14:57 Up to Chair [RC] ASDIRECTED 05/01/19 05:11 BASIC METABOLIC PANEL,BMP [CHEM] AM CBC WITH AUTO DIFF [HEME] AM MAGNESIUM [CHEM] AM - Plan Plan:: This 83 year old male admitted with L femoral neck fracture, Orthopedics consulted. 1. Acute hypoxic respiratory failure and HCAP: Improving. No leukocytosis. Continue oxygen use, improving slowly. Continue Vancomycin and Zosyn. 2. Left femoral neck fracture: Continue PT.SNF for rehab. Will start Eliquis for anticoagulation due to hx DVT. Continue for 10 days. 2. Hx CABG/CAD: Stable, no chest pain. 3. Hypothyroidism: Continue Levothyroxine. VTE prophylaxis: Eliquis Dispo: DC SNF in am
[2019-04-30] MEDS: Apixaban 2.5 MG Tab PO SCH (22:54)
[2019-05-01] MEDS: Acetaminophen/HYDROcodone 325-5 MG Tab PO PRN ×3 (02:03→12:09)
[2019-05-01] MEDS: traMADol 50 MG Tab PO PRN ×2 (02:12→08:56)
[2019-05-01 05:45] LABS: CARBON DIOXIDE,CO2 36.5 mmol/L (21.0-32.0); POTASSIUM,K 3.2 mmol/L (3.5-5.1)
[2019-05-01] MEDS: Piperacillin/Tazobactam 3.375 GM in Sodium Chloride 0.9% 50 ML IV SCH ×2 (05:58→10:31)
[2019-05-01] MEDS: Levothyroxine 50 MCG Tab PO SCH (06:48)
[2019-05-01 08:18] VITALS: PULSE 70
[2019-05-01] MEDS: Polyethylene Glycol 3350 Powder 17 GM Packet PO SCH (08:56)
[2019-05-01] MEDS: Docusate Sodium 100 MG Cap PO SCH (08:56)
[2019-05-01] MEDS: Apixaban 2.5 MG Tab PO SCH (08:57)
[2019-05-01] MEDS: atorvaSTATin 20 MG Tab PO SCH (08:57)
[2019-05-01] MEDS: Pantoprazole 40 MG in Sodium Chloride 0.9% 10 ML IV SCH (10:31)
--- NOTE | 2019-05-01 11:23 | PCM.DCSUM1 ---
Discharge Summary - Hospital Course Brief History: 83-year-old male presented to ER after earlier this afternoon while walking to his car. He has a PMH of hypothyroidism, blood clots and CABG surgery. He was walking to his car with his son when he lost his footing and fell. The fall was witness by his . Patient did not lose consciousness, have any witnessed seizure activity or bowel/bladder incontinence. Patient walks with a cane. Patient recalls the event completely and denies hitting his head. Patient denies any fevers, headaches, blurry vision, sore throat, cough, shortness of breath, chest pain, nausea, diarrhea, blood in stool or blood in urine. In the ER CT hip showed left femoral neck fracture. CXR showed minimal atelectasis. CT head was negative. CBC, CMP and PT/INR was unremarkable. Orthopedic surgery was contacted by ER provider who will be taken patient for surgery tomorrow. Diagnosis: Stroke: No - Discharge Data Discharge Date: 05/01/19 Discharge Disposition: DC/Tfer to SNF 03 Condition: Good - Referral to Home Health Primary Care Physician: Ramu Miles MD - Discharge Diagnosis/Problem(s) (1) HCAP (healthcare-associated pneumonia) SNOMED Code(s): 688466204, 232838125 ICD Code: J18.9 - PNEUMONIA, UNSPECIFIED ORGANISM Status: Acute (2) Acute respiratory failure with hypoxia SNOMED Code(s): 98408461, 686876740 ICD Code: J96.01 - ACUTE RESPIRATORY FAILURE WITH HYPOXIA Status: Acute (3) Hip fracture SNOMED Code(s): 708101124 ICD Code: S72.009A - FRACTURE OF UNSP PART OF NECK OF UNSP FEMUR, INIT Status: Acute Qualifiers: Encounter type: initial encounter Fracture type: closed Laterality: left Qualified Code(s): S72.002A - Fracture of unspecified part of neck of left femur, initial encounter for closed fracture (4) CAD (coronary artery disease) SNOMED Code(s): 01324136 ICD Code: I25.10 - ATHSCL HEART DISEASE OF [place] CORONARY ARTERY W/O ANG PCTRS Status: Chronic (5) Hx of deep venous thrombosis SNOMED Code(s): 080291457 ICD Code: Z86.718 - PERSONAL HISTORY OF OTHER VENOUS THROMBOSIS AND EMBOLISM Status: Chronic (6) Hyperlipidemia SNOMED Code(s): 35319396 ICD Code: E78.5 - HYPERLIPIDEMIA, UNSPECIFIED Status: Chronic (7) Hypothyroidism SNOMED Code(s): 72902891 ICD Code: E03.9 - HYPOTHYROIDISM, UNSPECIFIED Status: Chronic (8) PVD (peripheral vascular disease) SNOMED Code(s): 121740492 ICD Code: I73.9 - PERIPHERAL VASCULAR DISEASE, UNSPECIFIED Status: Chronic (9) Peripheral edema SNOMED Code(s): 228100997 ICD Code: R60.9 - EDEMA, UNSPECIFIED Status: Chronic Priority: High (10) 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 SNOMED Code(s): 11457270 ICD Code: C61 - MALIGNANT NEOPLASM OF PROSTATE; C78.5 - SECONDARY MALIGNANT NEOPLASM OF LARGE INTESTINE AND RECTUM Status: Chronic Priority: High (11) Sigmoid diverticulosis SNOMED Code(s): 614851192 ICD Code: K57.30 - DVRTCLOS OF LG INT W/O PERFORATION OR ABSCESS W/O BLEEDING Status: Chronic Priority: Medium (12) Hx of CABG SNOMED Code(s): 388779780, 295154330 ICD Code: Z95.1 - PRESENCE OF AORTOCORONARY BYPASS GRAFT Status: Chronic - Patient Summary/Data Operative Procedure(s) Performed: left hip hemiarthroplasty Consults: Consultations 04/24/19 16:40 Consult to Physician [CONS] Urgent 04/25/19 13:41 PT Evaluation and Treatment [CONS] Routine 04/29/19 09:36 Consult to Wound Care Services [CONS] Routine - Patient Instructions Diet: Pureed Activity: As Tolerated Driving: Do Not Drive Showering/Bathing: May Shower Notify Provider of: Fever, Increased Pain, Swelling and Redness, Drainage, Nausea and/or Vomiting Other/Special Instructions: PT/OT/ST to evluate and treat. Wound care nurse consult for sacral and thoracic lumbar decubitus sores - Discharge Plan *PRESCRIPTION DRUG MONITORING PROGRAM REVIEWED*: Not Applicable *COPY OF PRESCRIPTION DRUG MONITORING REPORT IN PATIENT ADDI: Not Applicable Prescriptions/Med Rec: Acetaminophen/HYDROcodone [[place] 325-5 MG] 1 tab PO Q4H PRN #20 tablet PRN Reason: Pain Amoxicillin/Clavulanate K [Augmentin 875-125 MG] 1 tab PO BID #5 tablet Apixaban [Eliquis] 2.5 mg PO BID #18 tablet Pantoprazole Sodium [Protonix] 40 mg PO DAILY #30 tablet. traMADol [Ultram] 50 mg PO Q6H PRN #15 tablet PRN Reason: Pain Home Medications: Home Meds Aspirin [Halfprin] 81 mg PO DAILY 03/16/15 [History] Levothyroxine Sodium [Levoxyl] 50 mcg PO ACBREAKFAST 03/16/15 [History] atorvaSTATin [Lipitor] 20 mg PO DAILY 08/11/16 [History] Acetaminophen [Tylenol] 650 mg PO DAILY PRN tablet 05/01/19 [Rx] Acetaminophen/HYDROcodone [[place] 325-5 MG] 1 tab PO Q4H PRN #20 tablet 05/01/19 [Rx] Alum Hydrox/Mag Hydrox/Simeth [Mag-Al Plus] 30 ml PO Q4H PRN cup 05/01/19 [Rx] Amoxicillin/Clavulanate K [Augmentin 875-125 MG] 1 tab PO BID #5 tablet [Rx] Apixaban [Eliquis] 2.5 mg PO BID #18 tablet 05/01/19 [Rx] Bisacodyl [Dulcolax] 10 mg RECTAL DAILY PRN supp 05/01/19 [Rx] Docusate Sodium [Colace] 100 mg PO BID cap 05/01/19 [Rx] Pantoprazole Sodium [Protonix] 40 mg PO DAILY #30 tablet. 05/01/19 [Rx] Polyethylene Glycol 3350 [MiraLAX] 17 gm PO DAILY PRN #0 packet 05/01/19 [Rx] traMADol [Ultram] 50 mg PO Q6H PRN #15 tablet 05/01/19 [Rx] Oxygen Therapy Mode: Nasal Cannula Oxygen Flow Rate (L/min): 2 Maintain SpO2% greater than: 90 Patient Handouts: Open Reduction and Internal Fixation for Hip Fracture, Care After, Hip Fracture Referrals: Carmen Avery NP [Nurse Practitioner] - 05/16/19 9:00 am (For removal of katelyn 3 weeks from surgery.) Nils Mao MD [Physician] - ([facility].) - Discharge Summary/Plan Comment DC Time >30 min.: No Discharge Summary/Plan Comment: Admitting Diagnoses: L femoral neck fracture Discharge Diagnoses: L femoral neck fracture Acute respiratory failure with hypoxia HCAP Other pmh: CAD Hx prostate CA with mets to large intestine Hypothyroidism Hx DVT Hx CABG Diverticulitis Hx bowel obstruction Horace was admitted secondary to mechanical fall resulting in L femoral neck fracture. Orthopedics, consulted and took patient for L hemiarthoplasty. Postoperative course was complicated by 2 days of delirium and devlopement of acute respiratory failure with hypoxia and HCAP. For delirium he was monitored closely and improved slowly back to baseline on post op day 3. He post op day 1 he developed hypoxia and dyspnea. CXR revealed infiltrates, he was started on Vancomycin and Zosyn. He continued to improve, BC negative, no sputum culture available. There is history of aspiration pneumonia with dysphagia concerns, which are known from previous admissions. Leukocytosis improved. Today he is feeling good, up in chair. remains on 2 L NC, but sating mid 90s. He will be continued on Augmentin for 5 more days for HCAP. BM regimen continued during stay due to high risk of bowel obstruction. Due to history of DVTs he was started on Eliquis 2.5 BID. He will be continued on this for 10 days as outpatient. He did well with PT during stay, he was up to chair with assist and walker. He is in need of continued rehabilitation and his is unable to care for him at home. [facility] nursing recommended and family agreed. Follow up with Orthopedics in 2 weeks as scheduled. He will be discharged to [facility] today. I spoke with Dr Mao regarding admission and plan of care on transfer to [facility]. He accepted care of patient upon discharge. He is to return to ED or clinic if concerns should arise. Also during stay, discussion was had with family regarding code status due to delirium and prognosis after hip fractures, it was ultimately decided to transition Horace to DNR/DNI status. - Patient Data Vitals - Most Recent: Last Vital Signs Temp 98.4 F 05/01/19 08:00 Pulse 70 05/01/19 08:00 Resp 13 05/01/19 08:00 BP 108/51 L 05/01/19 08:00 Pulse Ox 95 05/01/19 08:00 Weight - Most Recent: 55.792 kg I&O - Last 24 hours: Intake & Output 12/04/19 12/05/19 12/05/19 22:59 06:59 14:59 Intake Total 490 950 Output Total 100 Balance 490 850 Lab Results - Last 24 hrs: Laboratory Results - last 24 hr 05/01/19 05/01/19 Range/Units 04:35 04:35 WBC 5.92 (4.0-11.0) K/uL RBC 2.86 L (4.50-5.90) M/uL Hgb 8.5 L (13.0-17.0) g/dL Hct 25.7 L (38.0-50.0) % MCV 89.9 (80.0-98.0) fL MCH 29.7 (27.0-32.0) pg MCHC 33.1 (31.0-37.0) g/dL RDW Std Deviation 51.1 (28.0-62.0) fl RDW Coeff of Dalia 16 H (11.0-15.0) % Plt Count 196 (150-400) K/uL MPV 10.70 (7.40-12.00) fL Neut % (Auto) 74.0 (48.0-80.0) % Lymph % (Auto) 13.0 L (16.0-40.0) % [facility] % (Auto) 12.8 (0.0-15.0) % Eos % (Auto) 0.2 (0.0-7.0) % Baso % (Auto) 0.0 (0.0-1.5) % Neut # (Auto) 4.4 (1.4-5.7) K/uL Lymph # (Auto) 0.8 (0.6-2.4) K/uL [facility] # (Auto) 0.8 (0.0-0.8) K/uL Eos # (Auto) 0.0 (0.0-0.7) K/uL Baso # (Auto) 0.0 (0.0-0.1) K/uL Nucleated RBC % 0.0 /100WBC Nucleated RBCs # 0 K/uL Sodium 146 (136-148) mmol/L Potassium 3.2 L (3.5-5.1) mmol/L Chloride 109 H (98-107) mmol/L Carbon Dioxide 36.5 H (21.0-32.0) mmol/L BUN 23 H (7.0-18.0) mg/dL Creatinine 1.2 (0.8-1.3) mg/dL Est Cr Clr Drug Dosing 36.16 mL/min Estimated GFR (MDRD) 57.7 ml/min Glucose 99 (74-106) mg/dL Calcium 8.0 L (8.5-10.1) mg/dL Magnesium 1.8 (1.8-2.4) mg/dL Med Orders - Current: Current Medications Acetaminophen (Tylenol) 650 mg PO DAILY PRN PRN Reason: Pain Last Admin: 04/30/19 09:06 Dose: 650 mg Hydrocodone Bitart/Acetaminophen ([place] 325-5 Mg) 1 - 2 tab PO Q4H PRN PRN Reason: Pain Last Admin: 05/01/19 03:48 Dose: 2 tab Al Hydroxide/Mg Hydroxide (Mag-Al Plus) 30 ml PO Q4H PRN PRN Reason: Indigestion Apixaban (Eliquis) 2.5 mg PO BID [facility] Last Admin: 05/01/19 08:57 Dose: 2.5 mg Atorvastatin Calcium (Lipitor) 20 mg PO DAILY [facility] Last Admin: 05/01/19 08:57 Dose: 20 mg Bisacodyl (Dulcolax) 10 mg RECTAL DAILY PRN PRN Reason: Constipation/NOBM for 3 days Last Admin: 04/28/19 22:13 Dose: 10 mg Docusate Sodium (Colace) 100 mg PO BID [facility] Last Admin: 05/01/19 08:56 Dose: Not Given Pantoprazole Sodium 40 mg/ (Sodium Chloride) 10 mls @ 300 mls/hr IV Q24H [facility] Last Admin: 05/01/19 10:31 Dose: 300 mls/hr Piperacillin Sod/Tazobactam (Sod 3.375 gm/ Sodium Chloride) 50 mls @ 100 mls/ hr IV Q6H [facility] Last Admin: 05/01/19 10:31 Dose: 100 mls/hr Vancomycin HCl 1.5 gm/ Premix 300 mls @ 200 mls/hr IV Q24H [facility] Levothyroxine Sodium (Synthroid) 50 mcg PO ACBREAKFAST [facility] Last Admin: 05/01/19 06:48 Dose: 50 mcg Morphine Sulfate (Morphine) 2 mg IVPUSH Q4H PRN PRN Reason: Pain Last Admin: 04/29/19 03:35 Dose: 2 mg Polyethylene Glycol (Miralax) 17 gm PO DAILY [facility] Last Admin: 05/01/19 08:56 Dose: 17 gm Sodium Chloride (Saline Flush) 10 ml FLUSH ASDIRECTED PRN PRN Reason: Keep Vein Open Last Admin: 04/24/19 13:39 Dose: 10 ml Sodium Chloride (Saline Flush) 2.5 ml FLUSH ASDIRECTED PRN PRN Reason: Keep Vein Open Last Admin: 04/24/19 13:39 Dose: 2.5 ml Sodium Chloride (Saline Flush) 10 ml FLUSH ASDIRECTED PRN PRN Reason: Keep Vein Open Sodium Chloride (Saline Flush) 2.5 ml FLUSH ASDIRECTED PRN PRN Reason: Keep Vein Open Tramadol HCl (Ultram) 50 mg PO Q6H PRN PRN Reason: Pain Last Admin: 05/01/19 08:56 Dose: 50 mg Vancomycin HCl (Pharmacy To Dose - Vancomycin) 1 dose .XX ASDIRECTED FREDDY Discontinued Medications Bisacodyl (Dulcolax) 10 mg RECTAL DAILY PRN PRN Reason: Constipation Diphenhydramine HCl (Benadryl) 25 - 50 mg PO Q6H PRN PRN Reason: Itching Docusate Sodium (Colace) 100 mg PO BID PRN PRN Reason: Constipation Ephedrine Sulfate (Ephedrine Sulfate) Confirm Administered Dose 50 mg .ROUTE .STK-MED ONE Stop: 04/25/19 07:56 Famotidine (Pepcid) 20 mg IVPUSH ONETIME ONE Stop: 04/25/19 10:49 Last Admin: 04/25/19 14:51 Dose: Not Given Fentanyl (Sublimaze) Confirm Administered Dose 100 mcg .ROUTE .STK-MED ONE Stop: 04/25/19 07:53 Fentanyl (Sublimaze) 50 - 100 mcg IVPUSH Q5M PRN PRN Reason: Pain (severe 7-10) Furosemide (Lasix) 40 mg IVPUSH NOW ONE Stop: 04/26/19 19:50 Last Admin: 04/26/19 20:18 Dose: 40 mg Furosemide (Lasix) 40 mg IVPUSH DAILY [facility] Last Admin: 04/27/19 09:56 Dose: 40 mg Furosemide (Lasix) 40 mg IVPUSH NOW ONE Stop: 04/29/19 09:18 Last Admin: 04/29/19 09:46 Dose: 40 mg Glycopyrrolate (Robinul) Confirm Administered Dose 0.6 mg .ROUTE .STK-[facility] ONE Stop: 04/25/19 07:56 Heparin Sodium (Porcine) (Heparin Sodium) 5,000 units SUBCUT Q8H [facility] Last Admin: 04/25/19 21:03 Dose: Not Given Heparin Sodium (Porcine) (Heparin Sodium) 5,000 units SUBCUT Q8H [facility] Heparin Sodium (Porcine) (Heparin Sodium) 5,000 units SUBCUT Q8H [facility] Last Admin: 04/30/19 12:23 Dose: 5,000 units Hydromorphone HCl (Dilaudid) 1 mg IVPUSH ONETIME ONE Stop: 04/25/19 13:11 Last Admin: 04/25/19 15:07 Dose: 1 mg Sodium Chloride (Normal Saline) 1,000 mls @ 125 mls/hr IV STAT [facility] Last Admin: 04/24/19 13:39 Dose: 125 mls/hr Lactated Ringer's (Ringers, Lactated) 1,000 mls @ 75 mls/hr IV ASDIRECTED [facility] Last Admin: 04/24/19 18:18 Dose: 75 mls/hr Lactated Ringer's (Ringers, Lactated) 1,000 mls @ 75 mls/hr IV ASDIRECTED [facility] Last Admin: 04/25/19 07:33 Dose: 75 mls/hr Cefazolin Sodium/Dextrose 1 gm (/ Premix) 50 mls @ 100 mls/hr IV ONCALL [facility] Last Admin: 04/25/19 18:51 Dose: 100 mls/hr Ropivacaine 49.25 ml/Ketorolac Tromethamine 30 mg/Epinephrine HCl 0.5 mg/ Sodium Chloride 74.2 mls @ 50 mls/sec INJECT ASDIRECTED [facility] Tranexamic Acid 2,000 mg/ (Sodium Chloride) 120 mls @ 360 mls/hr IV ASDIRECTED ONE Stop: 04/25/19 07:43 Last Admin: 04/25/19 14:51 Dose: Not Given Sodium Chloride (Normal Saline) Confirm Administered Dose 20 mls @ as directed .ROUTE .STK-MED ONE Stop: 04/25/19 07:56 Pantoprazole Sodium 40 mg/ (Sodium Chloride) 10 mls @ 300 mls/hr IV NOW ONE Stop: 04/25/19 09:36 Last Admin: 04/25/19 11:26 Dose: Not Given Bupivacaine HCl/Epinephrine Bitart (Sensorc Mpf 0.25%-Epi 1:[id number]) Confirm Administered Dose 30 mls @ as directed .ROUTE .STK-MED ONE Stop: 04/25/19 13:02 Cefazolin Sodium/Dextrose 1 gm (/ Premix) 50 mls @ 100 mls/hr IV Q8H [facility] Stop: 04/26/19 03:29 Last Admin: 04/26/19 03:38 Dose: 100 mls/hr Lactated Ringer's (Ringers, Lactated) 1,000 mls @ 75 mls/hr IV ASDIRECTED [facility] Last Admin: 04/26/19 03:56 Dose: 75 mls/hr Magnesium Sulfate 2 gm/ Premix 50 mls @ 25 mls/hr IV ONETIME ONE Stop: 04/26/19 09:22 Last Admin: 04/26/19 08:43 Dose: 25 mls/hr Piperacillin Sod/Tazobactam (Sod 3.375 gm/ Sodium Chloride) 50 mls @ 100 mls/ hr IV Q8H [facility] Last Admin: 04/29/19 05:09 Dose: 100 mls/hr Vancomycin HCl 1 gm/ Sodium (Chloride) 250 mls @ 166.667 mls/hr IV Q24H [facility] Last Admin: 04/26/19 23:14 Dose: Not Given Sodium Chloride (Normal Saline (Advbag)) Confirm Administered Dose 250 mls @ as directed .ROUTE .ST-MED ONE Stop: 04/26/19 22:46 Last Admin: 04/26/19 22:59 Dose: Not Given Vancomycin HCl 1 gm/ Sodium (Chloride) 250 mls @ 166 mls/hr IV Q24H [facility] Last Admin: 04/29/19 22:14 Dose: 166 mls/hr Sodium Chloride (Normal Saline) 250 mls @ 100 mls/hr IV ASDIRECTED [facility] Stop: 04/28/19 12:44 Last Admin: 04/28/19 11:21 Dose: 100 mls/hr Vancomycin HCl 1.5 gm/ Sodium (Chloride) 500 mls @ 333.333 mls/hr IV Q24H [facility] Last Admin: 04/30/19 23:56 Dose: 6 mls/hr Vancomycin HCl 500 mg/ Sodium (Chloride) 100 mls @ 100 mls/hr IV NOW ONE Stop: 04/30/19 01:14 Last Admin: 04/30/19 01:06 Dose: 100 mls/hr Vancomycin HCl 1.5 gm/ Sodium (Chloride) 500 mls @ 333.333 mls/hr IV Q24H [facility] Ketamine HCl (Ketalar) Confirm Administered Dose 500 mg .ROUTE .STK-MED ONE Stop: 04/25/19 07:57 Magnesium Oxide (Magnesium Oxide) 800 mg PO ONETIME ONE Stop: 04/27/19 09:31 Last Admin: 04/27/19 10:44 Dose: 800 mg Midazolam HCl (Versed 1 Mg/Ml) Confirm Administered Dose 2 mg .ROUTE .STK-MED ONE Stop: 04/25/19 07:53 Morphine Sulfate (Morphine) 2 mg IVPUSH ONETIME ONE Stop: 04/24/19 13:03 Last Admin: 04/24/19 13:38 Dose: 2 mg Neostigmine Methylsulfate (Neostigmine) Confirm Administered Dose 5 mg .ROUTE .STK-MED ONE Stop: 04/25/19 10:43 Ondansetron HCl (Zofran) 4 mg IVPUSH ONETIME ONE Stop: 04/24/19 13:03 Last Admin: 04/24/19 13:39 Dose: 4 mg Pantoprazole Sodium (Protonix) 40 mg PO ACBREAKFAST [facility] Last Admin: 04/27/19 06:50 Dose: 40 mg Phenylephrine HCl (Phenylephrine In Ns 100 Mcg/Ml) Confirm Administered Dose 1 mg .ROUTE .STK-MED ONE Stop: 04/25/19 07:56 Potassium Chloride (Klor-Con M20) 40 meq PO ONETIME ONE Stop: 04/29/19 07:56 Last Admin: 04/29/19 08:33 Dose: 40 meq Potassium Chloride (Klor-Con M20) 40 meq PO ONETIME ONE Stop: 04/29/19 17:01 Last Admin: 04/29/19 16:19 Dose: 40 meq Potassium Chloride (Klor-Con M20) 40 meq PO ONETIME ONE Stop: 04/30/19 07:55 Last Admin: 04/30/19 09:06 Dose: 40 meq Propofol (Diprivan 20 Ml) Confirm Administered Dose 200 mg .ROUTE .STK-MED ONE Stop: 04/25/19 10:39 Rocuronium [place] (Zemuron) Confirm Administered Dose 100 mg .ROUTE .STK-MED ONE Stop: 04/25/19 10:40 Succinylcholine Chloride (Succinylcholine Chloride) Confirm Administered Dose 200 mg .ROUTE .STK-MED ONE Stop: 04/25/19 10:40 Vancomycin HCl (Vancocin) Confirm Administered Dose 1 gm .ROUTE .STK-MED ONE Stop: 04/26/19 22:44 Last Admin: 04/26/19 22:59 Dose: Not Given - Exam Quality Assessment: Reports: Supplemental Oxygen General: Reports: Alert, Oriented, Cooperative Lungs: Reports: Normal Respiratory Effort, Crackles (clears with cough), Rhonchi Cardiovascular: Reports: Regular Rate, Regular Rhythm GI/Abdominal Exam: Normal Bowel Sounds, Soft, Non-Tender Skin: Reports: Warm, Dry Wound/Incisions: Reports: Dressing Dry and Intact (L hip, no bleeding or old bleeding noted.), Decubitis (sacrum stage 2 and thoracic spine redness, foam dressings in place.) Neurological: Reports: No New Focal Deficit Psy/Mental Status: Reports: Alert
[2019-05-01] MEDS ORDERED: Potassium Chloride 20 MEQ Tab.ER PO ONE (11:25)
[2019-05-01 11:32] VITALS: BP 112/58
[2019-05-01] MEDS ORDERED: VANCOMYCIN/WATER FOR INJ (PEG) 1.5 GM in Premix Bag 1 BAG IV SCH (23:00)
[2019-05-01] MEDS ORDERED: Vancomycin 1.5 GM in Sodium Chloride 0.9% 500 ML IV SCH (23:00)
== END 2019-05-01 14:00 | DRG 469 ==
LOC: MW.ED 12:44 → MW.MS 14:43
PROVIDERS: ADMIT Student in an Organized Health Care Education/Training Program; ATTEND Student in an Organized Health Care Education/Training Program
PROC: 0SRS0JZ Replacement of Left Hip Joint, Femoral Surface with Synthetic Substitute, Open Approach (ICD-10-PCS; principal; 2019-04-25)
DX: S72.002A Fracture of unspecified part of neck of left femur, initial encounter for closed fracture (principal); S72.012A Unspecified intracapsular fracture of left femur, initial encounter for closed fracture; H54.7 Unspecified visual loss; H91.90 Unspecified hearing loss, unspecified ear; J96.01 Acute respiratory failure with hypoxia; J18.9 Pneumonia, unspecified organism; M19.90 Unspecified osteoarthritis, unspecified site; C78.5 Secondary malignant neoplasm of large intestine and rectum; Z91.041 Radiographic dye allergy status; I25.10 Atherosclerotic heart disease of native coronary artery without angina pectoris; E78.5 Hyperlipidemia, unspecified; Z66 Do not resuscitate; Z85.038 Personal history of other malignant neoplasm of large intestine; E03.9 Hypothyroidism, unspecified; Z90.79 Acquired absence of other genital organ(s); I73.9 Peripheral vascular disease, unspecified; C61 Malignant neoplasm of prostate; K57.30 Diverticulosis of large intestine without perforation or abscess without bleeding; E78.00 Pure hypercholesterolemia, unspecified; K59.09 Other constipation; Z95.1 Presence of aortocoronary bypass graft; Z79.82 Long term (current) use of aspirin; Z79.890 Hormone replacement therapy; Z86.718 Personal history of other venous thrombosis and embolism; Z90.49 Acquired absence of other specified parts of digestive tract; W19.XXXA Unspecified fall, initial encounter
CPT/HCPCS: 36415; 70450; 71045; 72192; 73502; 80053; 84484; 85025; 85610; 93005; 96361; 96374; 96375; 99285; J2270; J2405; J7030; 01230; 72170; 72170-26; 80048; 80202; 81001; 81003; 83605; 83735; 84100; 86850; 86900; 86901; 86920; 86921; 86922; 88305; 88311; 94667; 97110-GP; 97161-GP; 97530-GP; 99284; A9270-GY; C1776; C9113; J0171; J0330; J0690; J1170; J1644; J1885; J1940; J2250; J2370; J2543; J2704; J2795; J3010; J3370; J3475; J3490; J7040; J7050; J7120

== ENCOUNTER 2019-05-15 20:24 | Inpatient (IN) | payer MEDICARE, BC ==
[2019-05-15] MEDS ORDERED: Sodium Chloride 0.9% 10 ML Syringe FLUSH PRN (20:27)
[2019-05-15] MEDS ORDERED: Sodium Chloride 0.9% 2.5 ML Syringe FLUSH PRN (20:27)
[2019-05-15] MEDS ORDERED: Albuterol/Ipratropium 3.0-0.5 MG/3 ML Neb Soln NEB ONE (20:31)
[2019-05-15] MEDS ORDERED: diphenhydrAMINE 50 MG/ML SDV IVPUSH ONE (20:37)
[2019-05-15] MEDS ORDERED: methylPREDNISolone Sodium Succinate 125 MG/2 ML SDV IV STA (20:38)
[2019-05-15 21:06] LABS: BLOOD UREA NITROGEN,BUN 19 mg/dL (7.0-18.0); CARBON DIOXIDE,CO2 31.8 mmol/L (21.0-32.0); CHLORIDE,CL 104 mmol/L (98-107); GLUCOSE RANDOM 111 mg/dL (74-106); POTASSIUM,K 4.8 mmol/L (3.5-5.1); SODIUM,NA 142 mmol/L (136-148)
--- NOTE | 2019-05-15 21:22 | CR ---
Indication: Hypoxia Technique: Chest 1 view Comparison: May 12, 2019 Findings/Impression: The patient is rotated to the right. Stable cardiac size. Status post median sternotomy. New patchy opacity at the left lung base concerning for pneumonia. Stable blunting of the right costophrenic angle on the basis of a small amount of pleural fluid or pleural thickening. No pneumothorax. No acute osseous abnormality. Dictated by Sumi Dumont MD @ May 15 2019 9:21PM Signed by Dr. Sumi Dumont @ May 15 2019 9:22PM
[2019-05-15] MEDS ORDERED: Iopamidol 755 MG/ML 500 ML Multipack Bottle IVPUSH ONE (21:56)
--- NOTE | 2019-05-15 22:50 | CT ---
INDICATION: Shortness of breath, recent hip surgery TECHNIQUE: CT chest pulmonary angiogram acquired with IV contrast. 50 cc Isovue 370 COMPARISON: None FINDINGS: Cardiovascular structures: Normal vascular enhancement of the pulmonary arteries, no sign of pulmonary embolism. Heart size is normal. No sign of aneurysm or dissection in the thoracic aorta. Mediastinum and jovita: No mass or adenopathy. Lungs: Patchy left upper lobe and left lower lobe airspace opacities with areas of consolidation involving the left upper lobe. Findings consistent with pneumonia. Pleura and pericardium: Small to moderate right pleural effusion with adjacent atelectasis. Small left pleural effusion with adjacent atelectasis.. Chest wall and axilla: No mass or adenopathy. Bones: Degenerative changes thoracic spine with probable chronic compression deformity mid thoracic spine. Upper abdomen: Unremarkable. IMPRESSION: No evidence of pulmonary embolus. Patchy opacities left upper left lower lobes and areas of consolidation left upper lobe consistent with pneumonia. This should be followed until full resolution. Moderate right pleural effusion with adjacent atelectasis. Small left pleural effusion with adjacent atelectasis. Dictated by Tyler Elliott MD @ 05/15/2019 10:45:09 PM Please note that all CT scans at this facility use dose modulation, iterative reconstruction, and/or weight-based dosing when appropriate to reduce radiation dose to as low as reasonably achievable. Dictated by: Tyler Elliott MD @ 05/15/2019 22:49:15 (Electronically Signed)
[2019-05-16] MEDS ORDERED: Enoxaparin 60 MG/0.6 ML Syringe SUBCUT ONE (00:12)
[2019-05-16] MEDS ORDERED: cefTRIAXone 1 GM Vial IVPUSH ONE (00:13)
--- NOTE | 2019-05-16 00:19 | EDM.PDOC ---
ED HPI GENERAL MEDICAL PROBLEM - General Chief Complaint: Respiratory Problem Stated Complaint: FEVER Time Seen by Provider: 05/15/19 20:27 Source of Information: Reports: Family History Limitations: Reports: No Limitations, Altered Mental Status, Respiratory Distress - History of Present Illness Onset: Today Duration: Hour(s):, Getting Worse Location: Reports: Chest Severity: Severe Improves with: Reports: None Worsens with: Reports: None Associated Symptoms: Reports: Confusion, Weakness Treatments [employer] SEC[employer]ITY REPRESENTATIVE: Reports: Breathing Treatments, Oxygen - Related Data Allergies Allergy/AdvReac Type Severity Reaction Status Date / Time Iodinated Contrast Media Allergy Hives Verified 04/24/19 17:01 [Iodinated Contrast Media - IV Dye] Home Meds: Home Meds Aspirin [Halfprin] 81 mg PO DAILY 03/16/15 [History] Levothyroxine Sodium [Levoxyl] 50 mcg PO ACBREAKFAST 03/16/15 [History] atorvaSTATin [Lipitor] 20 mg PO DAILY 08/11/16 [History] Acetaminophen/HYDROcodone [[place] 325-5 MG] 1 tab PO Q4H PRN #20 tablet 05/01/19 [Rx] Docusate Sodium [Colace] 100 mg PO BID cap 05/01/19 [Rx] Polyethylene Glycol 3350 [MiraLAX] 17 gm PO DAILY PRN #0 packet 05/01/19 [Rx] bisacodyL [Dulcolax] 10 mg RECTAL DAILY PRN supp 05/01/19 [Rx] Acetaminophen [Tylenol] 650 mg PO TID PRN 05/15/19 [History] Past Medical History HEENT History: Reports: Hard of Hearing, Impaired Vision, Other (See Below) Other HEENT History: hearing aids Cardiovascular History: Reports: Bypass, High Cholesterol Other Cardiovascular History: reddness swelling around saphanous graft site L) leg. Respiratory History: Reports: Other (See Below) Gastrointestinal History: Reports: Bowel Obstruction, Chronic Constipation, Other (See Below) Genitourinary History: Reports: Prostate Disorder, Other (See Below) Musculoskeletal History: Reports: Arthritis, Fracture Other Musculoskeletal History: Fracture to right distal clavicle. [place] likely broke some bones playing [place], no known treated Neurological History: Reports: None Psychiatric History: Reports: None Endocrine/Metabolic History: Reports: Hypothyroidism Other Endocrine/Metabolic History: Hypothyroidism Hematologic History: Reports: Other (See Below) Other Hematologic History: blood clots Immunologic History: Reports: None Oncologic (Cancer) History: Reports: Colon, Prostate Dermatologic History: Reports: None - Infectious Disease History Infectious Disease History: Reports: Chicken Pox, Measles, Mumps - Past Surgical History Head Surgeries/Procedures: Reports: None HEENT Surgical History: Reports: Tonsillectomy Cardiovascular Surgical History: Reports: Coronary Artery Bypass GI Surgical History: Reports: Appendectomy, Colonoscopy, EGD, Hernia, Abdominal , Hernia Repair/Other Other GI Surgeries/Procedures: Colon resection for cancer Male Surgical History: Reports: Prostate Biopsy, Prostatectomy Other Male Surgeries/Procedures: Radical Prostatectomy 1995 Social & Family History - Family History Family Medical History: Noncontributory - Tobacco Use Smoking Status *Q: Former Smoker Used Tobacco, but Quit: Yes Month/Year Tobacco Last Used: 1999 - Caffeine Use Caffeine Use: Reports: Coffee - Recreational Drug Use Recreational Drug Use: No - Living Situation & Occupation Living situation: Reports: , with Spouse Occupation: Retired ED ROS GENERAL - Review of Systems Review Of Systems: See Below Constitutional: Reports: Weakness, Fatigue HEENT: Reports: No Symptoms Respiratory: Reports: Shortness of Breath, Cough Cardiovascular: Reports: Other. Denies: Syncope Endocrine: Reports: No Symptoms GI/Abdominal: Reports: No Symptoms : Reports: No Symptoms Musculoskeletal: Reports: No Symptoms Skin: Reports: No Symptoms Neurological: Reports: No Symptoms Psychiatric: Reports: No Symptoms Hematologic/Lymphatic: Reports: No Symptoms Immunologic: Reports: No Symptoms ED EXAM, GENERAL - Physical Exam Exam: See Below Exam Limited By: No Limitations General Appearance: Alert, Severe Distress, Thin Nose: Normal Inspection, Normal Mucosa, No Blood Throat/Mouth: Normal Inspection, Normal Lips, Normal Teeth, Normal Gums, Normal Oropharynx, Normal Voice Head: Atraumatic, Normocephalic Neck: Normal Inspection, Supple, Non-Tender, Full Range of Motion Respiratory/Chest: Decreased Breath Sounds, Rhonchi, Other (Rhonchi decreased breath sounds.) Cardiovascular: Normal Peripheral Pulses, Regular Rate, Rhythm, No Edema, No Gallop Peripheral Pulses: 3+: Carotid (L), Carotid (R), Brachial (L) GI/Abdominal: Normal Bowel Sounds, Soft, Non-Tender, No Organomegaly, No Abnormal Bruit (Male) Exam: No Hernia, Normal Inspection Rectal (Males) Exam: Deferred Back Exam: Other (He has a decubitus ulcer.) Extremities: Normal Inspection, Normal Range of Motion Neurological: Oriented, CN II-XII Intact, Slow to Respond, Other (. Gait not tested). No: Alert Skin Exam: Warm, Dry, Intact, Normal Color Lymphatic: No Adenopathy Course - Vital Signs Last Recorded V/S: Last Vital Signs Temp 99.7 F 05/15/19 22:04 Pulse 86 05/15/19 22:35 Resp 20 05/15/19 22:35 BP 124/64 05/15/19 22:35 Pulse Ox 100 05/15/19 23:30 - Orders/Labs/Meds Orders: Active Orders 24 hr Category Date Time Status Cardiac Monitoring [RC] . DIRECTED Care 05/15/19 20:27 Active EKG Documentation Completion [RC] STAT Care 05/15/19 20:28 Active Oxygen Therapy [RC] ASDIRECTED Care 05/15/19 20:27 Active Pulse Oximetry [RC] ASDIRECTED Care 05/15/19 20:27 Active RT Aerosol Therapy [RC] ASDIRECTED Care 05/15/19 20:32 Active CULTURE BLOOD [BC] Stat Lab 05/15/19 20:20 Received CULTURE BLOOD [BC] Stat Lab 05/15/19 21:00 Received Enoxaparin [Lovenox] Med 05/16/19 00:12 Once 60 mg SUBCUT ONETIME ONE Sodium Chloride 0.9% [Saline Flush] Med 05/15/19 20:27 Active 10 ml FLUSH ASDIRECTED PRN Sodium Chloride 0.9% [Saline Flush] Med 05/15/19 20:27 Active 2.5 ml FLUSH ASDIRECTED PRN cefTRIAXone [Rocephin] Med 05/16/19 00:13 Once 1 gm IVPUSH ONETIME ONE Blood Culture x2 Reflex Set [OM.PC] Stat Oth 05/15/19 20:31 Ordered Saline Lock Insert [OM.PC] Stat Oth 05/15/19 20:27 Ordered Medication Orders Ceftriaxone Sodium (Rocephin) 1 gm IVPUSH ONETIME ONE Stop: 05/16/19 00:14 Enoxaparin Sodium (Lovenox) 60 mg SUBCUT ONETIME ONE Stop: 05/16/19 00:13 Sodium Chloride (Saline Flush) 10 ml FLUSH ASDIRECTED PRN PRN Reason: Keep Vein Open Sodium Chloride (Saline Flush) 2.5 ml FLUSH ASDIRECTED PRN PRN Reason: Keep Vein Open Labs: Laboratory Tests 05/15/19 05/15/19 05/15/19 Range/Units 20:20 20:20 20:20 WBC 5.67 (4.0-11.0) K/uL RBC 3.55 L (4.50-5.90) M/uL Hgb 10.6 L (13.0-17.0) g/dL Hct 32.9 L (38.0-50.0) % MCV 92.7 (80.0-98.0) fL MCH 29.9 (27.0-32.0) pg MCHC 32.2 (31.0-37.0) g/dL RDW Std Deviation 56.9 (28.0-62.0) fl RDW Coeff of Dalia 17 H (11.0-15.0) % Plt Count 416 H (150-400) K/uL MPV 9.60 (7.40-12.00) fL Neut % (Auto) 94.3 H (48.0-80.0) % Lymph % (Auto) 3.4 L (16.0-40.0) % [place] % (Auto) 2.1 (0.0-15.0) % Eos % (Auto) 0.0 (0.0-7.0) % Baso % (Auto) 0.2 (0.0-1.5) % Neut # (Auto) 5.4 (1.4-5.7) K/uL Lymph # (Auto) 0.2 L (0.6-2.4) K/uL [place] # (Auto) 0.1 (0.0-0.8) K/uL Eos # (Auto) 0.0 (0.0-0.7) K/uL Baso # (Auto) 0.0 (0.0-0.1) K/uL Nucleated RBC % 0.0 /100WBC Nucleated RBCs # 0 K/uL INR 1.16 ABG pH (7.35-7.45) ABG pCO2 (35-45) mmHG ABG pO2 (75-100) mmHG ABG HCO3 (22-26) mEq/L ABG Total CO2 ABG Base Excess (-2.0-2.0) Lactate (0.20-2.00) mmol/L Sodium 142 (136-148) mmol/L Potassium 4.8 (3.5-5.1) mmol/L Chloride 104 (98-107) mmol/L Carbon Dioxide 31.8 (21.0-32.0) mmol/L BUN 19 H (7.0-18.0) mg/dL Creatinine 1.0 (0.8-1.3) mg/dL Est Cr Clr Drug Dosing TNP Estimated GFR (MDRD) > 60.0 ml/min Glucose 111 H (74-106) mg/dL Calcium 9.2 (8.5-10.1) mg/dL Total Bilirubin 0.6 (0.2-1.0) mg/dL AST 16 (15-37) IU/L ALT 20 (14-63) IU/L Alkaline Phosphatase 161 H (46-116) U/L Lactate Dehydrogenase 229 (81-234) U/L Troponin I 0.203 H* (0.000-0.056) ng/mL Total Protein 7.0 (6.4-8.2) g/dL Albumin 2.6 L (3.4-5.0) g/dL Globulin 4.4 H (2.6-4.0) g/dL Albumin/Globulin Ratio 0.6 L (0.9-1.6) Urine Color Urine Appearance Urine pH (5.0-8.0) Ur Specific [place] (1.001-1.035) Urine Protein (NEGATIVE) mg/dL Urine Glucose (UA) (NEGATIVE) mg/dL Urine Ketones (NEGATIVE) mg/dL Urine Occult Blood (NEGATIVE) Urine Nitrite (NEGATIVE) Urine Bilirubin (NEGATIVE) Urine Urobilinogen (<2.0) EU/dL Ur Leukocyte Esterase (NEGATIVE) Urine RBC (0-2/HPF) Urine WBC (0-5/HPF) Ur Epithelial Cells (NONE-FEW) Urine Bacteria (NEGATIVE) 05/15/19 05/15/19 05/15/19 Range/Units 20:20 20:20 23:30 WBC (4.0-11.0) K/uL RBC (4.50-5.90) M/uL Hgb (13.0-17.0) g/dL Hct (38.0-50.0) % MCV (80.0-98.0) fL MCH (27.0-32.0) pg MCHC (31.0-37.0) g/dL RDW Std Deviation (28.0-62.0) fl RDW Coeff of Dalia (11.0-15.0) % Plt Count (150-400) K/uL MPV (7.40-12.00) fL Neut % (Auto) (48.0-80.0) % Lymph % (Auto) (16.0-40.0) % [place] % (Auto) (0.0-15.0) % Eos % (Auto) (0.0-7.0) % Baso % (Auto) (0.0-1.5) % Neut # (Auto) (1.4-5.7) K/uL Lymph # (Auto) (0.6-2.4) K/uL [place] # (Auto) (0.0-0.8) K/uL Eos # (Auto) (0.0-0.7) K/uL Baso # (Auto) (0.0-0.1) K/uL Nucleated RBC % /100WBC Nucleated RBCs # K/uL INR ABG pH 7.466 H (7.35-7.45) ABG pCO2 44 (35-45) mmHG ABG pO2 63 L (75-100) mmHG ABG HCO3 32 H (22-26) mEq/L ABG Total CO2 29.2 ABG Base Excess 7.0 H (-2.0-2.0) Lactate 1.7 (0.20-2.00) mmol/L Sodium (136-148) mmol/L Potassium (3.5-5.1) mmol/L Chloride (98-107) mmol/L Carbon Dioxide (21.0-32.0) mmol/L BUN (7.0-18.0) mg/dL Creatinine (0.8-1.3) mg/dL Est Cr Clr Drug Dosing Estimated GFR (MDRD) ml/min Glucose (74-106) mg/dL Calcium (8.5-10.1) mg/dL Total Bilirubin (0.2-1.0) mg/dL AST (15-37) IU/L ALT (14-63) IU/L Alkaline Phosphatase (46-116) U/L Lactate Dehydrogenase (81-234) U/L Troponin I (0.000-0.056) ng/mL Total Protein (6.4-8.2) g/dL Albumin (3.4-5.0) g/dL Globulin (2.6-4.0) g/dL Albumin/Globulin Ratio (0.9-1.6) Urine Color YELLOW Urine Appearance CLEAR Urine pH 5.5 (5.0-8.0) Ur Specific [place] 1.010 (1.001-1.035) Urine Protein NEGATIVE (NEGATIVE) mg/dL Urine Glucose (UA) NEGATIVE (NEGATIVE) mg/dL Urine Ketones NEGATIVE (NEGATIVE) mg/dL Urine Occult Blood TRACE-INTACT H (NEGATIVE) Urine Nitrite NEGATIVE (NEGATIVE) Urine Bilirubin NEGATIVE (NEGATIVE) Urine Urobilinogen 0.2 (<2.0) EU/dL Ur Leukocyte Esterase NEGATIVE (NEGATIVE) Urine RBC 0-1 (0-2/HPF) Urine WBC 0-1 (0-5/HPF) Ur Epithelial Cells RARE (NONE-FEW) Urine Bacteria RARE (NEGATIVE) Meds: Medications Generic Name Dose Route Start Last Admin Trade Name Freq PRN Reason Stop Dose Admin Ceftriaxone Sodium 1 gm 05/16/19 00:13 Rocephin IVPUSH 05/16/19 00:14 ONETIME ONE Enoxaparin Sodium 60 mg 05/16/19 00:12 Lovenox SUBCUT 05/16/19 00:13 ONETIME ONE Sodium Chloride 10 ml 05/15/19 20:27 Saline Flush FLUSH ASDIRECTED PRN Keep Vein Open Sodium Chloride 2.5 ml 05/15/19 20:27 Saline Flush FLUSH ASDIRECTED PRN Keep Vein Open Discontinued Medications Generic Name Dose Route Start Last Admin Trade Name Freq PRN Reason Stop Dose Admin Albuterol/Ipratropium 3 ml 05/15/19 20:31 05/15/19 20:59 Duoneb 3.0-0.5 Mg/3 Ml NEB 05/15/19 20:32 3 ml ONETIME ONE Administration Diphenhydramine HCl 50 mg 05/15/19 20:37 05/15/19 20:59 Benadryl IVPUSH 05/15/19 20:38 50 mg ONETIME ONE Administration Iopamidol 50 ml 05/15/19 21:56 05/15/19 21:57 Isovue Multipack-370 (76%) IVPUSH 05/15/19 21:57 50 ml ONETIME ONE Administration Methylprednisolone Sodium Succinate 125 mg 05/15/19 20:38 05/15/19 20:59 Solu-Medrol IV 05/15/19 20:39 125 mg NOW STA Administration Departure - Departure Time of Disposition: 00:27 Disposition: Admitted As Inpatient 65 Condition: Fair Clinical Impression: Acute non-ST segment elevation myocardial infarction - Discharge Information Referrals: Ramu Miles MD [Primary Care Provider] - Sepsis Event Note - Evaluation Sepsis Screening Result: Possible Severe Sepsis Risk - Focused Exam Vital Signs: Vital Signs Temp Pulse Resp BP Pulse Ox 05/15/19 23:30 100 05/15/19 22:35 86 20 124/64 99 05/15/19 22:04 99.7 F 92 22 H 120/62 100 05/15/19 21:10 92 24 H 102/61 97 05/15/19 20:24 100.7 F H 113 H 28 H 96/49 L 81 L Date Exam was Performed: 05/16/19 Time Exam was Performed: 00:14 - My Orders Last 24 Hours: My Active Orders 05/15/19 20:20 CULTURE BLOOD [BC] Stat 05/15/19 20:27 Cardiac Monitoring [RC] . DIRECTED Oxygen Therapy [RC] ASDIRECTED Pulse Oximetry [RC] ASDIRECTED Sodium Chloride 0.9% [Saline Flush] 10 ml FLUSH ASDIRECTED PRN Sodium Chloride 0.9% [Saline Flush] 2.5 ml FLUSH ASDIRECTED PRN Saline Lock Insert [OM.PC] Stat 05/15/19 20:28 EKG Documentation Completion [RC] STAT 05/15/19 20:31 Blood Culture x2 Reflex Set [OM.PC] Stat 05/15/19 20:32 RT Aerosol Therapy [RC] ASDIRECTED 05/15/19 21:00 CULTURE BLOOD [BC] Stat 05/16/19 00:12 Enoxaparin [Lovenox] 60 mg SUBCUT ONETIME ONE 05/16/19 00:13 cefTRIAXone [Rocephin] 1 gm IVPUSH ONETIME ONE - Assessment/Plan Last 24 Hours: My Active Orders 05/15/19 20:20 CULTURE BLOOD [BC] Stat 05/15/19 20:27 Cardiac Monitoring [RC] . DIRECTED Oxygen Therapy [RC] ASDIRECTED Pulse Oximetry [RC] ASDIRECTED Sodium Chloride 0.9% [Saline Flush] 10 ml FLUSH ASDIRECTED PRN Sodium Chloride 0.9% [Saline Flush] 2.5 ml FLUSH ASDIRECTED PRN Saline Lock Insert [OM.PC] Stat 05/15/19 20:28 EKG Documentation Completion [RC] STAT 05/15/19 20:31 Blood Culture x2 Reflex Set [OM.PC] Stat 05/15/19 20:32 RT Aerosol Therapy [RC] ASDIRECTED 05/15/19 21:00 CULTURE BLOOD [BC] Stat 05/16/19 00:12 Enoxaparin [Lovenox] 60 mg SUBCUT ONETIME ONE 05/16/19 00:13 cefTRIAXone [Rocephin] 1 gm IVPUSH ONETIME ONE
[2019-05-16] MEDS ORDERED: cefTRIAXone 1 GM in Premix Bag 1 BAG IV ONE (00:44)
[2019-05-16] MEDS ORDERED: Sodium Chloride 0.9% 1,000 ML IV SCH (02:15)
[2019-05-16] MEDS: Piperacillin/Tazobactam 3.375 GM in Sodium Chloride 0.9% 50 ML IV SCH ×3 (02:48→18:34)
--- NOTE | 2019-05-16 03:49 | PCM.SN ---
- Free Text/Narrative Note: patient came in with acute hypoxic respiratory failure and possible NSTEMI. Code status: DNR/DNI, was started on high flow oxygen, tolerating it well so far but unable to wean down as sats drop to 80s. Patient appears to be comfortable but c/o pain in his left hip (recent h/o surgery). Patients cardiac enzymes are bumping up, already received Lovenox in ER. I spoke to in detail about goals of care, DOES NOT WANT ANY cardiac intervention/ transfer to tertiary care facility and requests to make patient comfortable. She would like to transition to comfort care measures. Given on going NSTEMI and Respiratory failure will transition to comfort care.
[2019-05-16] MEDS ORDERED: LORazepam 2 MG/ML SDV IVPUSH PRN ×3 (03:50→22:31)
[2019-05-16] MEDS: Albuterol/Ipratropium 3.0-0.5 MG/3 ML Neb Soln NEB SCH ×5 (06:30→21:18)
[2019-05-16] MEDS ORDERED: Scopolamine 1.5 MG Transdermal Patch TRDERM PRN (10:14)
--- NOTE | 2019-05-16 13:51 | PCM.HP.2 ---
<Twan Pink - Last Filed: 05/16/19 14:14> H&P History of Present Illness - General Date of Service: 05/16/19 Admit Problem/Dx: Admission Diagnosis/Problem Admission Diagnosis/Problem Pneumonia Source of Information: EMS, Family, Old Records - History of Present Illness Initial Comments - Free Text/Narative: Patient is a 83-year-old male resident at [facility] with a past medical history of hypothyroidism, blood clots and CABG surgery presenting to the ED secondary to acute hypoxic respiratory failure; he had recently undergone a left hip repair after sustaining a fracture while falling on April 24, 2019. ED: Patient was diagnosed with acute hypoxic respiratory failure and possible NSTEMI. Patient's only pain at time of arrival was left hip pain secondary to recent hip surgery. After discussing in detail goals of care with and family: would like to transition to comfort care measures only. Following 2 troponins were also elevated but have plateaued; O2 sats continued to drop whenever oxygen was attempted to be weaned. Bedside: Patient is alert and oriented; having some difficulty hearing secondary to not having his hearing aid in his left ear. Otherwise patient did not appear to be in any pain or discomfort except for increasing secretions and productive cough. Cough is most likely secondary to a aspiration type pneumonia ; patient had been on vancomycin and Zosyn. - Related Data Allergies/Adverse Reactions: Allergies Allergy/AdvReac Type Severity Reaction Status Date / Time Iodinated Contrast Media Allergy Hives Verified 04/24/19 17:01 [Iodinated Contrast Media - IV Dye] Home Medications: Home Meds Aspirin [Halfprin] 81 mg PO DAILY 03/16/15 [History] Levothyroxine Sodium [Levoxyl] 50 mcg PO ACBREAKFAST 03/16/15 [History] atorvaSTATin [Lipitor] 20 mg PO DAILY 08/11/16 [History] Acetaminophen/HYDROcodone [[place] 325-5 MG] 1 tab PO Q4H PRN #20 tablet 05/01/19 [Rx] Docusate Sodium [Colace] 100 mg PO BID cap 05/01/19 [Rx] Polyethylene Glycol 3350 [MiraLAX] 17 gm PO DAILY PRN #0 packet 05/01/19 [Rx] bisacodyL [Dulcolax] 10 mg RECTAL DAILY PRN supp 05/01/19 [Rx] Acetaminophen [Tylenol] 650 mg PO TID PRN 05/15/19 [History] Past Medical History HEENT History: Reports: Hard of Hearing, Impaired Vision, Other (See Below) Other HEENT History: hearing aids Cardiovascular History: Reports: Bypass, High Cholesterol Other Cardiovascular History: reddness swelling around saphanous graft site L) leg. Respiratory History: Reports: Other (See Below) Gastrointestinal History: Reports: Bowel Obstruction, Chronic Constipation, Other (See Below) Genitourinary History: Reports: Prostate Disorder, Other (See Below) Musculoskeletal History: Reports: Arthritis, Fracture Other Musculoskeletal History: Fracture to right distal clavicle. [place] likely broke some bones playing football, no known treated Neurological History: Reports: None Psychiatric History: Reports: None Endocrine/Metabolic History: Reports: Hypothyroidism Other Endocrine/Metabolic History: Hypothyroidism Hematologic History: Reports: Other (See Below) Other Hematologic History: blood clots Immunologic History: Reports: None Oncologic (Cancer) History: Reports: Colon, Prostate Dermatologic History: Reports: None - Infectious Disease History Infectious Disease History: Reports: Chicken Pox, Measles, Mumps - Past Surgical History Head Surgeries/Procedures: Reports: None HEENT Surgical History: Reports: Tonsillectomy Cardiovascular Surgical History: Reports: Coronary Artery Bypass GI Surgical History: Reports: Appendectomy, Colonoscopy, EGD, Hernia, Abdominal , Hernia Repair/Other Other GI Surgeries/Procedures: Colon resection for cancer Male Surgical History: Reports: Prostate Biopsy, Prostatectomy Other Male Surgeries/Procedures: Radical Prostatectomy 1995 Social & Family History - Family History Family Medical History: Noncontributory - Tobacco Use Smoking Status *Q: Former Smoker Used Tobacco, but Quit: No Month/Year Tobacco Last Used: 1999 Second Hand Smoke Exposure: No - Caffeine Use Caffeine Use: Reports: Coffee, Other Other Caffeine Use: juice - Recreational Drug Use Recreational Drug Use: No - Living Situation & Occupation Living situation: Reports: , with Spouse Occupation: Retired H&P Review of Systems - Review of Systems: Review Of Systems: See Below General: Reports: Weakness. Denies: Fever, Chills, Fatigue Pulmonary: Reports: Shortness of Breath, Cough, Sputum. Denies: Pleuritic Chest Pain, Hemoptysis Cardiovascular: Reports: Dyspnea on Exertion. Denies: Chest Pain, Palpitations Gastrointestinal: Reports: No Symptoms Exam - Exam Exam: See Below - Vital Signs Vital Signs: Last Vital Signs Temp 98.7 F 05/16/19 08:00 Pulse 93 05/16/19 08:00 Resp 20 05/16/19 08:00 BP 93/47 L 05/16/19 08:00 Pulse Ox 93 L 05/16/19 08:00 Weight: 55 kg - Exam General: Alert, Oriented, Mild Distress HEENT: EOMI Lungs: Decreased Breath Sounds, Crackles, Other (increasing upper airway secretions ) Cardiovascular: Other (mildly tachycardic during this examination) GI/Abdominal Exam: Soft, Non-Tender Skin: Warm, Dry Neuro Extensive - Mental Status: Alert Psychiatric: Alert - Patient Data Lab Results Last 24 hrs: Laboratory Results - last 24 hr 05/15/19 05/15/19 05/15/19 Range/Units 20:20 20:20 20:20 WBC 5.67 (4.0-11.0) K/uL RBC 3.55 L (4.50-5.90) M/uL Hgb 10.6 L (13.0-17.0) g/dL Hct 32.9 L (38.0-50.0) % MCV 92.7 (80.0-98.0) fL MCH 29.9 (27.0-32.0) pg MCHC 32.2 (31.0-37.0) g/dL RDW Std Deviation 56.9 (28.0-62.0) fl RDW Coeff of Dalia 17 H (11.0-15.0) % Plt Count 416 H (150-400) K/uL MPV 9.60 (7.40-12.00) fL Neut % (Auto) 94.3 H (48.0-80.0) % Lymph % (Auto) 3.4 L (16.0-40.0) % [place] % (Auto) 2.1 (0.0-15.0) % Eos % (Auto) 0.0 (0.0-7.0) % Baso % (Auto) 0.2 (0.0-1.5) % Neut # (Auto) 5.4 (1.4-5.7) K/uL Lymph # (Auto) 0.2 L (0.6-2.4) K/uL [place] # (Auto) 0.1 (0.0-0.8) K/uL Eos # (Auto) 0.0 (0.0-0.7) K/uL Baso # (Auto) 0.0 (0.0-0.1) K/uL Nucleated RBC % 0.0 /100WBC Nucleated RBCs # 0 K/uL INR 1.16 ABG pH (7.35-7.45) ABG pCO2 (35-45) mmHG ABG pO2 (75-100) mmHG ABG HCO3 (22-26) mEq/L ABG Total CO2 ABG Base Excess (-2.0-2.0) Lactate (0.20-2.00) mmol/L Sodium 142 (136-148) mmol/L Potassium 4.8 (3.5-5.1) mmol/L Chloride 104 (98-107) mmol/L Carbon Dioxide 31.8 (21.0-32.0) mmol/L BUN 19 H (7.0-18.0) mg/dL Creatinine 1.0 (0.8-1.3) mg/dL Est Cr Clr Drug Dosing TNP Estimated GFR (MDRD) > 60.0 ml/min Glucose 111 H (74-106) mg/dL Calcium 9.2 (8.5-10.1) mg/dL Total Bilirubin 0.6 (0.2-1.0) mg/dL AST 16 (15-37) IU/L ALT 20 (14-63) IU/L Alkaline Phosphatase 161 H (46-116) U/L Lactate Dehydrogenase 229 (81-234) U/L Troponin I 0.203 H* (0.000-0.056) ng/mL Total Protein 7.0 (6.4-8.2) g/dL Albumin 2.6 L (3.4-5.0) g/dL Globulin 4.4 H (2.6-4.0) g/dL Albumin/Globulin Ratio 0.6 L (0.9-1.6) Urine Color Urine Appearance Urine pH (5.0-8.0) Ur Specific [place] (1.001-1.035) Urine Protein (NEGATIVE) mg/dL Urine Glucose (UA) (NEGATIVE) mg/dL Urine Ketones (NEGATIVE) mg/dL Urine Occult Blood (NEGATIVE) Urine Nitrite (NEGATIVE) Urine Bilirubin (NEGATIVE) Urine Urobilinogen (<2.0) EU/dL Ur Leukocyte Esterase (NEGATIVE) Urine RBC (0-2/HPF) Urine WBC (0-5/HPF) Ur Epithelial Cells (NONE-FEW) Urine Bacteria (NEGATIVE) 05/15/19 05/15/19 05/15/19 Range/Units 20:20 20:20 23:30 WBC (4.0-11.0) K/uL RBC (4.50-5.90) M/uL Hgb (13.0-17.0) g/dL Hct (38.0-50.0) % MCV (80.0-98.0) fL MCH (27.0-32.0) pg MCHC (31.0-37.0) g/dL RDW Std Deviation (28.0-62.0) fl RDW Coeff of Dalia (11.0-15.0) % Plt Count (150-400) K/uL MPV (7.40-12.00) fL Neut % (Auto) (48.0-80.0) % Lymph % (Auto) (16.0-40.0) % [place] % (Auto) (0.0-15.0) % Eos % (Auto) (0.0-7.0) % Baso % (Auto) (0.0-1.5) % Neut # (Auto) (1.4-5.7) K/uL Lymph # (Auto) (0.6-2.4) K/uL [place] # (Auto) (0.0-0.8) K/uL Eos # (Auto) (0.0-0.7) K/uL Baso # (Auto) (0.0-0.1) K/uL Nucleated RBC % /100WBC Nucleated RBCs # K/uL INR ABG pH 7.466 H (7.35-7.45) ABG pCO2 44 (35-45) mmHG ABG pO2 63 L (75-100) mmHG ABG HCO3 32 H (22-26) mEq/L ABG Total CO2 29.2 ABG Base Excess 7.0 H (-2.0-2.0) Lactate 1.7 (0.20-2.00) mmol/L Sodium (136-148) mmol/L Potassium (3.5-5.1) mmol/L Chloride (98-107) mmol/L Carbon Dioxide (21.0-32.0) mmol/L BUN (7.0-18.0) mg/dL Creatinine (0.8-1.3) mg/dL Est Cr Clr Drug Dosing Estimated GFR (MDRD) ml/min Glucose (74-106) mg/dL Calcium (8.5-10.1) mg/dL Total Bilirubin (0.2-1.0) mg/dL AST (15-37) IU/L ALT (14-63) IU/L Alkaline Phosphatase (46-116) U/L Lactate Dehydrogenase (81-234) U/L Troponin I (0.000-0.056) ng/mL Total Protein (6.4-8.2) g/dL Albumin (3.4-5.0) g/dL Globulin (2.6-4.0) g/dL Albumin/Globulin Ratio (0.9-1.6) Urine Color YELLOW Urine Appearance CLEAR Urine pH 5.5 (5.0-8.0) Ur Specific [place] 1.010 (1.001-1.035) Urine Protein NEGATIVE (NEGATIVE) mg/dL Urine Glucose (UA) NEGATIVE (NEGATIVE) mg/dL Urine Ketones NEGATIVE (NEGATIVE) mg/dL Urine Occult Blood TRACE-INTACT H (NEGATIVE) Urine Nitrite NEGATIVE (NEGATIVE) Urine Bilirubin NEGATIVE (NEGATIVE) Urine Urobilinogen 0.2 (<2.0) EU/dL Ur Leukocyte Esterase NEGATIVE (NEGATIVE) Urine RBC 0-1 (0-2/HPF) Urine WBC 0-1 (0-5/HPF) Ur Epithelial Cells RARE (NONE-FEW) Urine Bacteria RARE (NEGATIVE) 05/16/19 05/16/19 Range/Units 02:25 08:25 WBC (4.0-11.0) K/uL RBC (4.50-5.90) M/uL Hgb (13.0-17.0) g/dL Hct (38.0-50.0) % MCV (80.0-98.0) fL MCH (27.0-32.0) pg MCHC (31.0-37.0) g/dL RDW Std Deviation (28.0-62.0) fl RDW Coeff of Dalia (11.0-15.0) % Plt Count (150-400) K/uL MPV (7.40-12.00) fL Neut % (Auto) (48.0-80.0) % Lymph % (Auto) (16.0-40.0) % [place] % (Auto) (0.0-15.0) % Eos % (Auto) (0.0-7.0) % Baso % (Auto) (0.0-1.5) % Neut # (Auto) (1.4-5.7) K/uL Lymph # (Auto) (0.6-2.4) K/uL [place] # (Auto) (0.0-0.8) K/uL Eos # (Auto) (0.0-0.7) K/uL Baso # (Auto) (0.0-0.1) K/uL Nucleated RBC % /100WBC Nucleated RBCs # K/uL INR ABG pH (7.35-7.45) ABG pCO2 (35-45) mmHG ABG pO2 (75-100) mmHG ABG HCO3 (22-26) mEq/L ABG Total CO2 ABG Base Excess (-2.0-2.0) Lactate (0.20-2.00) mmol/L Sodium (136-148) mmol/L Potassium (3.5-5.1) mmol/L Chloride (98-107) mmol/L Carbon Dioxide (21.0-32.0) mmol/L BUN (7.0-18.0) mg/dL Creatinine (0.8-1.3) mg/dL Est Cr Clr Drug Dosing Estimated GFR (MDRD) ml/min Glucose (74-106) mg/dL Calcium (8.5-10.1) mg/dL Total Bilirubin (0.2-1.0) mg/dL AST (15-37) IU/L ALT (14-63) IU/L Alkaline Phosphatase (46-116) U/L Lactate Dehydrogenase (81-234) U/L Troponin I 0.617 H* 0.535 H* (0.000-0.056) ng/mL Total Protein (6.4-8.2) g/dL Albumin (3.4-5.0) g/dL Globulin (2.6-4.0) g/dL Albumin/Globulin Ratio (0.9-1.6) Urine Color Urine Appearance Urine pH (5.0-8.0) Ur Specific [place] (1.001-1.035) Urine Protein (NEGATIVE) mg/dL Urine Glucose (UA) (NEGATIVE) mg/dL Urine Ketones (NEGATIVE) mg/dL Urine Occult Blood (NEGATIVE) Urine Nitrite (NEGATIVE) Urine Bilirubin (NEGATIVE) Urine Urobilinogen (<2.0) EU/dL Ur Leukocyte Esterase (NEGATIVE) Urine RBC (0-2/HPF) Urine WBC (0-5/HPF) Ur Epithelial Cells (NONE-FEW) Urine Bacteria (NEGATIVE) Result Diagrams: 05/15/19 20:20 05/15/19 20:20 Sepsis Event Note - Evaluation Sepsis Screening Result: No Definite Risk - Focused Exam Vital Signs: Vital Signs Temp Pulse Resp BP Pulse Ox Pulse Ox 05/16/19 08:00 98.7 F 93 20 93/47 L 93 L 05/16/19 04:00 98.3 F 94 20 108/53 L 92 L 05/16/19 02:09 100 Date Exam was Performed: 05/16/19 Time Exam was Performed: 14:14 Problem List Initiated/Reviewed/Updated: Yes Orders Last 24hrs: Active Orders 24 hr Category Date Time Status Admission Status [Patient Status] [ADT] Stat ADT 05/16/19 00:18 Active Cardiac Monitoring [RC] . DIRECTED Care 05/15/19 20:27 Active Oxygen Therapy [RC] ASDIRECTED Care 05/16/19 02:09 Active Pulse Oximetry [RC] ASDIRECTED Care 05/15/19 20:27 Active RT Aerosol Therapy [RC] ASDIRECTED Care 05/15/19 20:32 Active RT Aerosol Therapy [RC] ASDIRECTED Care 05/16/19 02:09 Active Telemetry Monitoring [Cardiac Monitoring] [RC] Q8H Care 05/16/19 01:08 Active Vital Signs [RC] Q12H Care 05/16/19 04:00 Active Wound Field Marketer Consult [Consult to Wound Care Cons 05/16/19 02:09 Active Services] [CONS] Routine NPO [Nothing Per Oral Diet] [DIET] Diet 05/16/19 Breakfast Active CULTURE BLOOD [BC] Stat Lab 05/15/19 20:20 Received CULTURE BLOOD [BC] Stat Lab 05/15/19 21:00 Received VANCOMYCIN TROUGH [CHEM] Timed Lab 05/20/19 20:30 Ordered Albuterol/Ipratropium [DuoNeb 3.0-0.5 MG/3 ML] Med 05/16/19 06:00 Active 3 ml NEB Q4HRRT Ampicillin/Sulbactam Na [Unasyn] 1.5 gm Med 05/17/19 09:00 Active Sodium Chloride 0.9% [Normal Saline] 50 ml IV BID LORazepam [Ativan] Med 05/16/19 10:26 Active 1 mg IVPUSH Q2H PRN Morphine Med 05/16/19 03:53 Active 1 mg IVPUSH Q2H PRN Piperacillin/Tazobactam [Piperacil-Tazobact] 3.375 gm Med 05/16/19 03:00 Active Sodium Chloride 0.9% [Normal Saline] 50 ml IV Q8H Scopolamine [Transderm-Scop] Med 05/16/19 10:14 Active 1.5 mg TRDERM Q72H PRN Sodium Chloride 0.9% [Saline Flush] Med 05/15/19 20:27 Active 10 ml FLUSH ASDIRECTED PRN Sodium Chloride 0.9% [Saline Flush] Med 05/15/19 20:27 Active 2.5 ml FLUSH ASDIRECTED PRN Air Overlay [Pressure Reduction Mattress] [OM.PC] Oth 05/16/19 02:13 Ordered Routine Blood Culture x2 Reflex Set [OM.PC] Stat Oth 05/15/19 20:31 Ordered Saline Lock Insert [OM.PC] Stat Oth 05/15/19 20:27 Ordered Resuscitation Status Routine Resus Stat 05/16/19 03:39 Ordered Medication Orders Albuterol/Ipratropium (Duoneb 3.0-0.5 Mg/3 Ml) 3 ml NEB Q4HRRT [facility] Last Admin: 05/16/19 13:48 Dose: 3 ml Admin: 05/16/19 09:37 Dose: 3 ml Admin: 05/16/19 06:30 Dose: 3 ml Piperacillin Sod/Tazobactam (Sod 3.375 gm/ Sodium Chloride) 50 mls @ 100 mls/ hr IV Q8H [facility] Last Admin: 05/16/19 10:49 Dose: 100 mls/hr Infusion: 05/16/19 03:18 Dose: 100 mls/hr Admin: 05/16/19 02:48 Dose: 100 mls/hr Ampicillin Sodium/Sulbactam (Sodium 1.5 gm/ Sodium Chloride) 50 mls @ 150 mls/ hr IV BID FREDDY Lorazepam (Ativan) 1 mg IVPUSH Q2H PRN PRN Reason: Anxiety Morphine Sulfate (Morphine) 1 mg IVPUSH Q2H PRN PRN Reason: Pain Scopolamine (Transderm-Scop) 1.5 mg TRDERM Q72H PRN PRN Reason: Other Sodium Chloride (Saline Flush) 10 ml FLUSH ASDIRECTED PRN PRN Reason: Keep Vein Open Sodium Chloride (Saline Flush) 2.5 ml FLUSH ASDIRECTED PRN PRN Reason: Keep Vein Open Assessment/Plan Comment:: Assessment: 1. NSTEMI most likely secondary to acute hypoxic respiratory failure in the setting of aspiration pneumonia. 2. Left hip fracture status post repair. 3. Past medical history:hypothyroidism, DVT, s/p CABG Plan: Alter discussing , in detail , with and family goals of care :comfort care measures will be implemented. would like to continue antibiotics for now; we have discontinued the Vancomycin and Zosyn and will initiate Unasyn for Aspiration Pneumonia. Comfort Care: Morphine for pain and air hunger Ativan for anxiety/air-hunger Scopolamine: for secretions. Vitals once daily. Oxygen PRN. Discontinue fluids for now; can turn back on if patient appears more comfortable with IVF. Continue to monitor. <Sharon Rivero - Last Filed: 05/17/19 11:26> H&P History of Present Illness - General Admit Problem/Dx: Admission Diagnosis/Problem Admission Diagnosis/Problem Pneumonia Exam - Vital Signs Vital Signs: Last Vital Signs Temp 36.6 C 05/17/19 07:54 Pulse 63 05/17/19 07:54 Resp 18 05/17/19 07:54 BP 89/54 L 05/17/19 07:54 Pulse Ox 99 05/17/19 07:54 - Patient Data Result Diagrams: 05/15/19 20:20 05/15/19 20:20 Vick Results Last 24 hrs: Microbiology 05/15/19 21:00 Aerobic Blood Culture - Preliminary Blood - Venous - Lab Draw NO GROWTH AFTER 1 DAY Anaerobic Blood Culture - Preliminary NO GROWTH AFTER 1 DAY 05/15/19 20:20 Aerobic Blood Culture - Preliminary Blood - Venous NO GROWTH AFTER 1 DAY Anaerobic Blood Culture - Preliminary NO GROWTH AFTER 1 DAY Sepsis Event Note - Focused Exam Vital Signs: Vital Signs Temp Pulse Resp BP Pulse Ox 05/17/19 07:54 36.6 C 63 18 89/54 L 99 Date Exam was Performed: 05/17/19 Time Exam was Performed: 11:25 Orders Last 24hrs: Active Orders 24 hr Category Date Time Status Discontinue Telemetry Monitoring [Cardiac Monitoring Care 05/16/19 23:23 Active Discontinue] [RC] Click to Edit Consult to Hospice [CONS] Routine Cons 05/16/19 22:32 Active VANCOMYCIN TROUGH [CHEM] Timed Lab 05/20/19 20:30 Ordered Ampicillin/Sulbactam Na [Unasyn] 1.5 gm Med 05/17/19 09:00 Active Sodium Chloride 0.9% [Normal Saline] 50 ml IV BID Atropine 1% [Atropine 1% Ophth Soln] Med 05/17/19 09:15 Active 1 ml SL Q2H LORazepam [Ativan] Med 05/16/19 23:35 Active 2 mg SL Q2H PRN Morphine [Morphine 10 MG/0.5 ML Oral Syringe] Med 05/17/19 00:23 Active 5 mg SL Q2H PRN Medication Orders Albuterol/Ipratropium (Duoneb 3.0-0.5 Mg/3 Ml) 3 ml NEB Q4HRRT [facility] Last Admin: 05/17/19 09:47 Dose: 3 ml Admin: 05/17/19 06:20 Dose: 3 ml Admin: 05/17/19 02:10 Dose: 3 ml Admin: 05/16/19 21:18 Dose: 3 ml Admin: 05/16/19 17:29 Dose: 3 ml Admin: 05/16/19 13:48 Dose: 3 ml Admin: 05/16/19 09:37 Dose: 3 ml Admin: 05/16/19 06:30 Dose: 3 ml Atropine Sulfate (Atropine 1% Ophth Soln) 1 ml SL Q2H [facility] Last Admin: 05/17/19 10:16 Dose: 1 ml Piperacillin Sod/Tazobactam (Sod 3.375 gm/ Sodium Chloride) 50 mls @ 100 mls/ hr IV Q8H [facility] Last Admin: 05/17/19 02:10 Dose: 100 mls/hr Infusion: 05/16/19 19:04 Dose: 100 mls/hr Admin: 05/16/19 18:34 Dose: 100 mls/hr Infusion: 05/16/19 11:19 Dose: 100 mls/hr Admin: 05/16/19 10:49 Dose: 100 mls/hr Infusion: 05/16/19 03:18 Dose: 100 mls/hr Admin: 05/16/19 02:48 Dose: 100 mls/hr Ampicillin Sodium/Sulbactam (Sodium 1.5 gm/ Sodium Chloride) 50 mls @ 150 mls/ hr IV BID FREDDY Last Admin: 05/17/19 10:16 Dose: 150 mls/hr Lorazepam (Ativan) 2 mg SL Q2H PRN PRN Reason: Anxiety Last Admin: 05/17/19 09:09 Dose: 2 mg Morphine Sulfate (Morphine 10 Mg/0.5 Ml Oral Syringe) 5 mg SL Q2H PRN PRN Reason: Pain Last Admin: 05/17/19 08:57 Dose: 5 mg Admin: 05/17/19 06:07 Dose: 5 mg Admin: 05/17/19 00:28 Dose: 5 mg Scopolamine (Transderm-Scop) 1.5 mg TRDERM Q72H PRN PRN Reason: Other Last Admin: 05/16/19 15:20 Dose: 1.5 mg Sodium Chloride (Saline Flush) 10 ml FLUSH ASDIRECTED PRN PRN Reason: Keep Vein Open Sodium Chloride (Saline Flush) 2.5 ml FLUSH ASDIRECTED PRN PRN Reason: Keep Vein Open Assessment/Plan Comment:: I performed a history and physical exam of the patient and discussed management with resident. I have reviewed the residents note and agree with documented findings and plan unless otherwise specified in my note. Family requesting to continue antibiotics for now, transitioned to comfort care.
[2019-05-16] MEDS: Morphine 2 MG/ML SYRINGE IVPUSH PRN ×3 (14:03→22:19)
[2019-05-16] MEDS ORDERED: Morphine 2 MG/ML SYRINGE IVPUSH PRN (22:31)
[2019-05-16] MEDS ORDERED: LORazepam 2 MG/ML SDV IVPUSH ONE (22:32)
[2019-05-16] MEDS ORDERED: Morphine Oral Concentrate 20 MG/ML 30 ML Bottle SL PRN (22:57)
[2019-05-16] MEDS ORDERED: LORazepam 1 MG Tab PO PRN (22:58)
[2019-05-17] MEDS ORDERED: Morphine ORAL Concentrate 10MG/0.5ML U/D SL PRN (00:19)
[2019-05-17] MEDS: Morphine 10 MG/0.5 ML Oral Syringe SL PRN ×7 (00:28→23:27)
[2019-05-17] MEDS: Piperacillin/Tazobactam 3.375 GM in Sodium Chloride 0.9% 50 ML IV SCH ×3 (02:10→18:34)
[2019-05-17] MEDS: Albuterol/Ipratropium 3.0-0.5 MG/3 ML Neb Soln NEB SCH ×6 (02:10→21:27)
[2019-05-17 08:00] VITALS: BP 89/54; PULSE 63
[2019-05-17] MEDS: LORazepam Conc Solution 2 MG/ML 30 ML Bottle SL PRN ×3 (09:09→22:01)
--- NOTE | 2019-05-17 09:26 | PCM.PN ---
<Twan Pink - Last Filed: 05/17/19 18:59> - General Info Date of Service: 05/17/19 Subjective Update: Seen at bedside: no acute discomfort; having some increasing secretions. - Patient Data Vitals - Most Recent: Last Vital Signs Temp 98 F 05/17/19 07:54 Pulse 63 05/17/19 07:54 Resp 18 05/17/19 07:54 BP 89/54 L 05/17/19 07:54 Pulse Ox 99 05/17/19 07:54 Weight - Most Recent: 55 kg I&O - Last 24 Hours: Intake & Output 05/16/19 05/17/19 05/17/19 22:59 06:59 14:59 Intake Total 120 50 Balance 120 50 Vick Results Last 24 Hours: Microbiology 05/15/19 21:00 Aerobic Blood Culture - Preliminary Blood - Venous - Lab Draw NO GROWTH AFTER 1 DAY Anaerobic Blood Culture - Preliminary NO GROWTH AFTER 1 DAY 05/15/19 20:20 Aerobic Blood Culture - Preliminary Blood - Venous NO GROWTH AFTER 1 DAY Anaerobic Blood Culture - Preliminary NO GROWTH AFTER 1 DAY Med Orders - Current: Current Medications Albuterol/Ipratropium (Duoneb 3.0-0.5 Mg/3 Ml) 3 ml NEB Q4HRRT [facility] Last Admin: 05/17/19 06:20 Dose: 3 ml Atropine Sulfate (Atropine 1% [facility]) 1 ml SL Q2H [facility] Piperacillin Sod/Tazobactam (Sod 3.375 gm/ Sodium Chloride) 50 mls @ 100 mls/ hr IV Q8H [facility] Last Admin: 05/17/19 02:10 Dose: 100 mls/hr Ampicillin Sodium/Sulbactam (Sodium 1.5 gm/ Sodium Chloride) 50 mls @ 150 mls/ hr IV BID [facility] Lorazepam (Ativan) 2 mg SL Q2H PRN PRN Reason: Anxiety Last Admin: 05/17/19 09:09 Dose: 2 mg Morphine Sulfate (Morphine 10 Mg/0.5 Ml Oral Syringe) 5 mg SL Q2H PRN PRN Reason: Pain Last Admin: 05/17/19 08:57 Dose: 5 mg Scopolamine (Transderm-Scop) 1.5 mg TRDERM Q72H PRN PRN Reason: Other Last Admin: 05/16/19 15:20 Dose: 1.5 mg Sodium Chloride (Saline Flush) 10 ml FLUSH ASDIRECTED PRN PRN Reason: Keep Vein Open Sodium Chloride (Saline Flush) 2.5 ml FLUSH ASDIRECTED PRN PRN Reason: Keep Vein Open Discontinued Medications Albuterol/Ipratropium (Duoneb 3.0-0.5 Mg/3 Ml) 3 ml NEB ONETIME ONE Stop: 05/15/19 20:32 Last Admin: 05/15/19 20:59 Dose: 3 ml Ceftriaxone Sodium (Rocephin) 1 gm IVPUSH ONETIME ONE Stop: 05/16/19 00:14 Last Admin: 05/16/19 01:50 Dose: Not Given Diphenhydramine HCl (Benadryl) 50 mg IVPUSH ONETIME ONE Stop: 05/15/19 20:38 Last Admin: 05/15/19 20:59 Dose: 50 mg Enoxaparin Sodium (Lovenox) 60 mg SUBCUT ONETIME ONE Stop: 05/16/19 00:13 Last Admin: 05/16/19 00:54 Dose: 60 mg Ceftriaxone Sodium/Dextrose 1 (gm/ Premix) 50 mls @ 100 mls/hr IV ONETIME ONE Stop: 05/16/19 01:13 Last Admin: 05/16/19 00:53 Dose: 100 mls/hr Ceftriaxone Sodium/Dextrose (Rocephin In Dextrose,Iso-Osm 1 Gm/50 Ml) Confirm Administered Dose 50 mls @ as directed .ROUTE .STK-MED ONE Stop: 05/16/19 00:46 Last Admin: 05/16/19 01:50 Dose: Not Given Sodium Chloride (Normal Saline) 1,000 mls @ 100 mls/hr IV ASDIRECTED [facility] Last Admin: 05/16/19 02:47 Dose: 100 mls/hr Vancomycin HCl 1.25 gm/ Sodium (Chloride) 250 mls @ 166.667 mls/hr IV ONETIME ONE Stop: 05/16/19 05:29 Vancomycin HCl 1 gm/ Sodium (Chloride) 250 mls @ 166 mls/hr IV Q24H [facility] Vancomycin HCl (Vancomycin 1.5 Gm/300 Ml Bag) 300 mls @ 200 mls/hr IV ONETIME ONE Stop: 05/16/19 05:29 Last Admin: 05/16/19 03:58 Dose: 200 mls/hr Iopamidol (Isovue Multipack-370 (76%)) 50 ml IVPUSH ONETIME ONE Stop: 05/15/19 21:57 Last Admin: 05/15/19 21:57 Dose: 50 ml Lorazepam (Ativan) 1 mg IVPUSH Q4H PRN PRN Reason: Anxiety Lorazepam (Ativan) 1 mg IVPUSH Q2H PRN PRN Reason: Anxiety Last Admin: 05/16/19 21:49 Dose: 1 mg Lorazepam (Ativan) 2 mg IVPUSH Q2H PRN PRN Reason: Anxiety Lorazepam (Ativan) 1 mg IVPUSH ONETIME ONE Stop: 05/16/19 22:33 Last Admin: 05/16/19 22:38 Dose: 1 mg Lorazepam (Ativan) 2 mg PO Q2H PRN PRN Reason: Anxiety Methylprednisolone Sodium Succinate (Solu-Medrol) 125 mg IV NOW STA Stop: 05/15/19 20:39 Last Admin: 05/15/19 20:59 Dose: 125 mg Morphine Sulfate (Morphine) 1 mg IVPUSH Q2H PRN PRN Reason: Pain Last Admin: 05/16/19 22:19 Dose: 1 mg Morphine Sulfate (Morphine) 2 mg IVPUSH Q2H PRN PRN Reason: Pain Morphine Sulfate (Morphine 20 Mg/Ml Soln) 5 mg SL Q2H PRN PRN Reason: Pain Morphine Sulfate (Morphine Oral Concentrate 10mg/0.5ml U/D) 5 mg SL Q2H PRN PRN Reason: Pain Vancomycin HCl (Pharmacy To Dose - Vancomycin) 1 dose .XX ASDIRECTED [facility] - Exam Quality Assessment: Supplemental Oxygen General: Alert, No Acute Distress HEENT: EOMI Lungs: Crackles, Other (moving air well; upper airway congestions consistent w/ incresing secretions ) Cardiovascular: Regular Rate GI/Abdominal Exam: Soft, Non-Tender Psy/Mental Status: Alert Sepsis Event Note - Evaluation Sepsis Screening Result: No Definite Risk - Focused Exam Vital Signs: Vital Signs Temp Pulse Resp BP Pulse Ox 05/17/19 07:54 98 F 63 18 89/54 L 99 Date Exam was Performed: 05/17/19 Time Exam was Performed: 18:59 - Problem List Review Problem List Initiated/Reviewed/Updated: Yes - My Orders Last 24 Hours: My Active Orders 05/16/19 10:14 Scopolamine [Transderm-Scop] 1.5 mg TRDERM Q72H PRN 05/17/19 09:00 Ampicillin/Sulbactam Na [Unasyn] 1.5 gm Sodium Chloride 0.9% [Normal Saline] 50 ml IV BID 05/17/19 09:15 Atropine 1% [Atropine 1% Ophth Soln] 1 ml SL Q2H - Plan Plan:: Assessment: 1. NSTEMI most likely secondary to acute hypoxic respiratory failure in the setting of aspiration pneumonia. 2. Left hip fracture status post repair. 3. Past medical history:hypothyroidism, DVT, s/p CABG Plan: Alter discussing , in detail , with and family goals of care :comfort care measures will be continued. would like to continue antibiotics for now; we have discontinued the Vancomycin and Zosyn and will initiate Unasyn for Aspiration Pneumonia. Comfort Care: Morphine increased frequency for pain and air hunger. Added on Atropine SL for increasing secretions. Will discuss utility of using antibiotics moving forward with family with intention of discontinuation. Ativan for anxiety/air-hunger Scopolamine. Atropine: for secretions. Vitals once daily. Oxygen PRN. Discontinue fluids for now; can turn back on if patient appears more comfortable with IVF. Continue to monitor. <Sharon Rivero - Last Filed: 06/03/19 12:42> - Patient Data Vitals - Most Recent: Last Vital Signs Temp 36.6 C 05/17/19 07:54 Pulse 63 05/17/19 07:54 Resp 18 05/17/19 07:54 BP 89/54 L 05/17/19 07:54 Pulse Ox 99 05/17/19 07:54 Med Orders - Current: Current Medications Discontinued Medications Albuterol/Ipratropium (Duoneb 3.0-0.5 Mg/3 Ml) 3 ml NEB ONETIME ONE Stop: 05/15/19 20:32 Last Admin: 05/15/19 20:59 Dose: 3 ml Albuterol/Ipratropium (Duoneb 3.0-0.5 Mg/3 Ml) 3 ml NEB Q4HRRT [facility] Last Admin: 05/17/19 21:27 Dose: Not Given Albuterol/Ipratropium (Duoneb 3.0-0.5 Mg/3 Ml) 3 ml NEB Q4HRRT PRN PRN Reason: Shortness of Breath Atropine Sulfate (Atropine 1% Ophth Soln) 1 ml SL Q2H [facility] Last Admin: 05/17/19 21:54 Dose: 1 ml Atropine Sulfate (Atropine 1% Ophth Soln) 0 ml SL Q2H PRN PRN Reason: Other Last Admin: 05/19/19 13:37 Dose: 1 ml Ceftriaxone Sodium (Rocephin) 1 gm IVPUSH ONETIME ONE Stop: 05/16/19 00:14 Last Admin: 05/16/19 01:50 Dose: Not Given Diphenhydramine HCl (Benadryl) 50 mg IVPUSH ONETIME ONE Stop: 05/15/19 20:38 Last Admin: 05/15/19 20:59 Dose: 50 mg Enoxaparin Sodium (Lovenox) 60 mg SUBCUT ONETIME ONE Stop: 05/16/19 00:13 Last Admin: 05/16/19 00:54 Dose: 60 mg Ceftriaxone Sodium/Dextrose 1 (gm/ Premix) 50 mls @ 100 mls/hr IV ONETIME ONE Stop: 05/16/19 01:13 Last Admin: 05/16/19 00:53 Dose: 100 mls/hr Ceftriaxone Sodium/Dextrose (Rocephin In Dextrose,Iso-Osm 1 Gm/50 Ml) Confirm Administered Dose 50 mls @ as directed .ROUTE .STK-MED ONE Stop: 05/16/19 00:46 Last Admin: 05/16/19 01:50 Dose: Not Given Piperacillin Sod/Tazobactam (Sod 3.375 gm/ Sodium Chloride) 50 mls @ 100 mls/ hr IV Q8H [facility] Last Admin: 05/17/19 18:34 Dose: Not Given Sodium Chloride (Normal Saline) 1,000 mls @ 100 mls/hr IV ASDIRECTED [facility] Last Admin: 05/16/19 02:47 Dose: 100 mls/hr Vancomycin HCl 1.25 gm/ Sodium (Chloride) 250 mls @ 166.667 mls/hr IV ONETIME ONE Stop: 05/16/19 05:29 Vancomycin HCl 1 gm/ Sodium (Chloride) 250 mls @ 166 mls/hr IV Q24H [facility] Vancomycin HCl (Vancomycin 1.5 Gm/300 Ml Bag) 300 mls @ 200 mls/hr IV ONETIME ONE Stop: 05/16/19 05:29 Last Admin: 05/16/19 03:58 Dose: 200 mls/hr Ampicillin Sodium/Sulbactam (Sodium 1.5 gm/ Sodium Chloride) 50 mls @ 150 mls/ hr IV BID [facility] Last Admin: 05/17/19 21:36 Dose: Not Given Iopamidol (Isovue Multipack-370 (76%)) 50 ml IVPUSH ONETIME ONE Stop: 05/15/19 21:57 Last Admin: 05/15/19 21:57 Dose: 50 ml Lorazepam (Ativan) 1 mg IVPUSH Q4H PRN PRN Reason: Anxiety Lorazepam (Ativan) 1 mg IVPUSH Q2H PRN PRN Reason: Anxiety Last Admin: 05/16/19 21:49 Dose: 1 mg Lorazepam (Ativan) 2 mg IVPUSH Q2H PRN PRN Reason: Anxiety Lorazepam (Ativan) 1 mg IVPUSH ONETIME ONE Stop: 05/16/19 22:33 Last Admin: 05/16/19 22:38 Dose: 1 mg Lorazepam (Ativan) 2 mg PO Q2H PRN PRN Reason: Anxiety Lorazepam (Ativan) 2 mg SL Q2H PRN PRN Reason: Anxiety Last Admin: 05/19/19 06:02 Dose: 2 mg Methylprednisolone Sodium Succinate (Solu-Medrol) 125 mg IV NOW STA Stop: 05/15/19 20:39 Last Admin: 05/15/19 20:59 Dose: 125 mg Morphine Sulfate (Morphine) 1 mg IVPUSH Q2H PRN PRN Reason: Pain Last Admin: 05/16/19 22:19 Dose: 1 mg Morphine Sulfate (Morphine) 2 mg IVPUSH Q2H PRN PRN Reason: Pain Morphine Sulfate (Morphine 20 Mg/Ml Soln) 5 mg SL Q2H PRN PRN Reason: Pain Morphine Sulfate (Morphine Oral Concentrate 10mg/0.5ml U/D) 5 mg SL Q2H PRN PRN Reason: Pain Morphine Sulfate (Morphine 10 Mg/0.5 Ml Oral Syringe) 5 mg SL Q2H PRN PRN Reason: Pain Last Admin: 05/17/19 14:56 Dose: 5 mg Morphine Sulfate (Morphine 10 Mg/0.5 Ml Oral Syringe) 5 mg SL Q1H PRN PRN Reason: Pain Last Admin: 05/19/19 16:27 Dose: 5 mg Scopolamine (Transderm-Scop) 1.5 mg TRDERM Q72H PRN PRN Reason: Other Last Admin: 05/16/19 15:20 Dose: 1.5 mg Sodium Chloride (Saline Flush) 10 ml FLUSH ASDIRECTED PRN PRN Reason: Keep Vein Open Sodium Chloride (Saline Flush) 2.5 ml FLUSH ASDIRECTED PRN PRN Reason: Keep Vein Open Vancomycin HCl (Pharmacy To Dose - Vancomycin) 1 dose .XX ASDIRECTED [facility] - Problem List & Annotations (1) Acute non-ST segment elevation myocardial infarction SNOMED Code(s): 596588237 Code(s): I21.4 - NON-ST ELEVATION (NSTEMI) MYOCARDIAL INFARCTION Status: Acute (2) Acute respiratory failure with hypoxia SNOMED Code(s): 60294606, 706812517 Code(s): J96.01 - ACUTE RESPIRATORY FAILURE WITH HYPOXIA Status: Acute (3) Aspiration pneumonia SNOMED Code(s): 566302513 Code(s): J69.0 - PNEUMONITIS DUE TO INHALATION OF FOOD AND VOMIT Status: Acute Qualifiers: Aspiration pneumonia type: unspecified Lung location: unspecified part of lung - Plan Plan:: I have seen and evaluated the patient and agree with the residents note unless specified in my note
[2019-05-17] MEDS: Atropine 1% Ophth Soln 5 ML BOTTLE SL SCH ×8 (10:16→21:54)
[2019-05-17] MEDS: Ampicillin/Sulbactam Na 1.5 GM in Sodium Chloride 0.9% 50 ML IV SCH ×2 (10:16→21:36)
[2019-05-17] MEDS ORDERED: Albuterol/Ipratropium 3.0-0.5 MG/3 ML Neb Soln NEB PRN (22:03)
[2019-05-17] MEDS: Atropine 1% Ophth Soln 5 ML BOTTLE SL PRN (23:28)
[2019-05-18] MEDS: Morphine 10 MG/0.5 ML Oral Syringe SL PRN ×7 (02:01→23:19)
[2019-05-18] MEDS: Atropine 1% Ophth Soln 5 ML BOTTLE SL PRN ×4 (02:02→18:25)
--- NOTE | 2019-05-18 09:32 | PCM.PN ---
- General Info Date of Service: 05/18/19 Admission Dx/Problem (Free Text): Admission Diagnosis/Problem Admission Diagnosis/Problem Pneumonia Subjective Update: Seen at bedside: no acute discomfort; family at bedside - Review of Systems Systems Review Comment:: unable to obtain, patient lethargic - Patient Data Vitals - Most Recent: Last Vital Signs Temp 36.6 C 05/17/19 07:54 Pulse 63 05/17/19 07:54 Resp 18 05/17/19 07:54 BP 89/54 L 05/17/19 07:54 Pulse Ox 99 05/17/19 07:54 Weight - Most Recent: 55 kg I&O - Last 24 Hours: Intake & Output 05/17/19 05/18/19 05/18/19 22:59 06:59 14:59 Intake Total 30 Output Total 250 Balance -220 Vick Results Last 24 Hours: Microbiology 05/15/19 21:00 Aerobic Blood Culture - Preliminary Blood - Venous - Lab Draw NO GROWTH AFTER 2 DAYS Anaerobic Blood Culture - Preliminary NO GROWTH AFTER 2 DAYS 05/15/19 20:20 Aerobic Blood Culture - Preliminary Blood - Venous NO GROWTH AFTER 2 DAYS Anaerobic Blood Culture - Preliminary NO GROWTH AFTER 2 DAYS Med Orders - Current: Current Medications Albuterol/Ipratropium (Duoneb 3.0-0.5 Mg/3 Ml) 3 ml NEB Q4HRRT PRN PRN Reason: Shortness of Breath Atropine Sulfate (Atropine 1% Ophth Soln) 0 ml SL Q2H PRN PRN Reason: Other Last Admin: 05/18/19 07:07 Dose: 5 ml Lorazepam (Ativan) 2 mg SL Q2H PRN PRN Reason: Anxiety Last Admin: 05/17/19 22:01 Dose: 2 mg Morphine Sulfate (Morphine 10 Mg/0.5 Ml Oral Syringe) 5 mg SL Q1H PRN PRN Reason: Pain Last Admin: 05/18/19 08:48 Dose: 5 mg Scopolamine (Transderm-Scop) 1.5 mg TRDERM Q72H PRN PRN Reason: Other Last Admin: 05/16/19 15:20 Dose: 1.5 mg Sodium Chloride (Saline Flush) 10 ml FLUSH ASDIRECTED PRN PRN Reason: Keep Vein Open Sodium Chloride (Saline Flush) 2.5 ml FLUSH ASDIRECTED PRN PRN Reason: Keep Vein Open Discontinued Medications Albuterol/Ipratropium (Duoneb 3.0-0.5 Mg/3 Ml) 3 ml NEB ONETIME ONE Stop: 05/15/19 20:32 Last Admin: 05/15/19 20:59 Dose: 3 ml Albuterol/Ipratropium (Duoneb 3.0-0.5 Mg/3 Ml) 3 ml NEB Q4HRRT [facility] Last Admin: 05/17/19 21:27 Dose: Not Given Atropine Sulfate (Atropine 1% [facility]) 1 ml SL Q2H [facility] Last Admin: 05/17/19 21:54 Dose: 1 ml Ceftriaxone Sodium (Rocephin) 1 gm IVPUSH ONETIME ONE Stop: 05/16/19 00:14 Last Admin: 05/16/19 01:50 Dose: Not Given Diphenhydramine HCl (Benadryl) 50 mg IVPUSH ONETIME ONE Stop: 05/15/19 20:38 Last Admin: 05/15/19 20:59 Dose: 50 mg Enoxaparin Sodium (Lovenox) 60 mg SUBCUT ONETIME ONE Stop: 05/16/19 00:13 Last Admin: 05/16/19 00:54 Dose: 60 mg Ceftriaxone Sodium/Dextrose 1 (gm/ Premix) 50 mls @ 100 mls/hr IV ONETIME ONE Stop: 05/16/19 01:13 Last Admin: 05/16/19 00:53 Dose: 100 mls/hr Ceftriaxone Sodium/Dextrose (Rocephin In Dextrose,Iso-Osm 1 Gm/50 Ml) Confirm Administered Dose 50 mls @ as directed .ROUTE .STK-MED ONE Stop: 05/16/19 00:46 Last Admin: 05/16/19 01:50 Dose: Not Given Piperacillin Sod/Tazobactam (Sod 3.375 gm/ Sodium Chloride) 50 mls @ 100 mls/ hr IV Q8H [facility] Last Admin: 05/17/19 18:34 Dose: Not Given Sodium Chloride (Normal Saline) 1,000 mls @ 100 mls/hr IV ASDIRECTED [facility] Last Admin: 05/16/19 02:47 Dose: 100 mls/hr Vancomycin HCl 1.25 gm/ Sodium (Chloride) 250 mls @ 166.667 mls/hr IV ONETIME ONE Stop: 05/16/19 05:29 Vancomycin HCl 1 gm/ Sodium (Chloride) 250 mls @ 166 mls/hr IV Q24H [facility] Vancomycin HCl (Vancomycin 1.5 Gm/300 Ml Bag) 300 mls @ 200 mls/hr IV ONETIME ONE Stop: 05/16/19 05:29 Last Admin: 05/16/19 03:58 Dose: 200 mls/hr Ampicillin Sodium/Sulbactam (Sodium 1.5 gm/ Sodium Chloride) 50 mls @ 150 mls/ hr IV BID [facility] Last Admin: 05/17/19 21:36 Dose: Not Given Iopamidol (Isovue Multipack-370 (76%)) 50 ml IVPUSH ONETIME ONE Stop: 05/15/19 21:57 Last Admin: 05/15/19 21:57 Dose: 50 ml Lorazepam (Ativan) 1 mg IVPUSH Q4H PRN PRN Reason: Anxiety Lorazepam (Ativan) 1 mg IVPUSH Q2H PRN PRN Reason: Anxiety Last Admin: 05/16/19 21:49 Dose: 1 mg Lorazepam (Ativan) 2 mg IVPUSH Q2H PRN PRN Reason: Anxiety Lorazepam (Ativan) 1 mg IVPUSH ONETIME ONE Stop: 05/16/19 22:33 Last Admin: 05/16/19 22:38 Dose: 1 mg Lorazepam (Ativan) 2 mg PO Q2H PRN PRN Reason: Anxiety Methylprednisolone Sodium Succinate (Solu-Medrol) 125 mg IV NOW STA Stop: 05/15/19 20:39 Last Admin: 05/15/19 20:59 Dose: 125 mg Morphine Sulfate (Morphine) 1 mg IVPUSH Q2H PRN PRN Reason: Pain Last Admin: 05/16/19 22:19 Dose: 1 mg Morphine Sulfate (Morphine) 2 mg IVPUSH Q2H PRN PRN Reason: Pain Morphine Sulfate (Morphine 20 Mg/Ml Soln) 5 mg SL Q2H PRN PRN Reason: Pain Morphine Sulfate (Morphine Oral Concentrate 10mg/0.5ml U/D) 5 mg SL Q2H PRN PRN Reason: Pain Morphine Sulfate (Morphine 10 Mg/0.5 Ml Oral Syringe) 5 mg SL Q2H PRN PRN Reason: Pain Last Admin: 05/17/19 14:56 Dose: 5 mg Vancomycin HCl (Pharmacy To Dose - Vancomycin) 1 dose .XX ASDIRECTED [facility] - Exam General: No Acute Distress. No: Alert, Oriented, Cooperative Neck: Trachea Midline, No JVD Lungs: Decreased Breath Sounds Cardiovascular: Regular Rate, Regular Rhythm GI/Abdominal Exam: Soft, Non-Tender Skin: Warm Sepsis Event Note - Evaluation Sepsis Screening Result: No Definite Risk - Problem List & Annotations (1) Acute non-ST segment elevation myocardial infarction SNOMED Code(s): 623252740 Code(s): I21.4 - NON-ST ELEVATION (NSTEMI) MYOCARDIAL INFARCTION Status: Acute Current Visit: Yes (2) Acute respiratory failure with hypoxia SNOMED Code(s): 34450584, 484794612 Code(s): J96.01 - ACUTE RESPIRATORY FAILURE WITH HYPOXIA Status: Acute Current Visit: No (3) Aspiration pneumonia SNOMED Code(s): 821111294 Code(s): J69.0 - PNEUMONITIS DUE TO INHALATION OF FOOD AND VOMIT Status: Acute Current Visit: No Qualifiers: Aspiration pneumonia type: unspecified Lung location: unspecified part of lung - Problem List Review Problem List Initiated/Reviewed/Updated: Yes - My Orders Last 24 Hours: My Active Orders 05/17/19 22:03 Albuterol/Ipratropium [DuoNeb 3.0-0.5 MG/3 ML] 3 ml NEB Q4HRRT PRN Atropine 1% [Atropine 1% Ophth Soln] 0 ml SL Q2H PRN 05/18/19 05:25 Communication Order [RC] PRN 05/18/19 Breakfast Regular Diet [DIET] - Plan Plan:: Assessment: 1. NSTEMI most likely secondary to acute hypoxic respiratory failure in the setting of aspiration pneumonia. 2. Left hip fracture status post repair. 3. Past medical history:hypothyroidism, DVT, s/p CABG Plan: continue comfort care measures including morphine, Ativan, antibiotics have been discontinued per families wishes Scopolamine. Atropine: for secretions. Vitals once daily. Oxygen PRN, Continue to monitor.
[2019-05-18] MEDS: LORazepam Conc Solution 2 MG/ML 30 ML Bottle SL PRN ×3 (10:39→18:23)
[2019-05-19] MEDS: Morphine 10 MG/0.5 ML Oral Syringe SL PRN ×3 (06:00→16:27)
[2019-05-19] MEDS: LORazepam Conc Solution 2 MG/ML 30 ML Bottle SL PRN (06:02)
[2019-05-19] MEDS: Atropine 1% Ophth Soln 5 ML BOTTLE SL PRN ×2 (06:07→13:37)
--- NOTE | 2019-05-19 11:35 | PCM.PN ---
- General Info Date of Service: 05/19/19 - Review of Systems Systems Review Comment:: patient was sleeping, family reports patient is doing better today. Did awake earlier this morning. - Patient Data Vitals - Most Recent: Last Vital Signs Temp 36.6 C 05/17/19 07:54 Pulse 63 05/17/19 07:54 Resp 18 05/17/19 07:54 BP 89/54 L 05/17/19 07:54 Pulse Ox 99 05/17/19 07:54 Weight - Most Recent: 55 kg I&O - Last 24 Hours: Intake & Output 05/18/19 05/19/19 05/19/19 22:59 06:59 14:59 Intake Total 0 Output Total 0 Balance 0 Vick Results Last 24 Hours: Microbiology 05/15/19 21:00 Aerobic Blood Culture - Preliminary Blood - Venous - Lab Draw NO GROWTH AFTER 3 DAYS Anaerobic Blood Culture - Preliminary NO GROWTH AFTER 3 DAYS 05/15/19 20:20 Aerobic Blood Culture - Preliminary Blood - Venous NO GROWTH AFTER 3 DAYS Anaerobic Blood Culture - Preliminary NO GROWTH AFTER 3 DAYS Med Orders - Current: Current Medications Albuterol/Ipratropium (Duoneb 3.0-0.5 Mg/3 Ml) 3 ml NEB Q4HRRT PRN PRN Reason: Shortness of Breath Atropine Sulfate (Atropine 1% Oph Soln) 0 ml SL Q2H PRN PRN Reason: Other Last Admin: 05/19/19 06:07 Dose: 1 ml Lorazepam (Ativan) 2 mg SL Q2H PRN PRN Reason: Anxiety Last Admin: 05/19/19 06:02 Dose: 2 mg Morphine Sulfate (Morphine 10 Mg/0.5 Ml Oral Syringe) 5 mg SL Q1H PRN PRN Reason: Pain Last Admin: 05/19/19 06:00 Dose: 5 mg Scopolamine (Transderm-Scop) 1.5 mg TRDERM Q72H PRN PRN Reason: Other Last Admin: 05/16/19 15:20 Dose: 1.5 mg Sodium Chloride (Saline Flush) 10 ml FLUSH ASDIRECTED PRN PRN Reason: Keep Vein Open Sodium Chloride (Saline Flush) 2.5 ml FLUSH ASDIRECTED PRN PRN Reason: Keep Vein Open Discontinued Medications Albuterol/Ipratropium (Duoneb 3.0-0.5 Mg/3 Ml) 3 ml NEB ONETIME ONE Stop: 05/15/19 20:32 Last Admin: 05/15/19 20:59 Dose: 3 ml Albuterol/Ipratropium (Duoneb 3.0-0.5 Mg/3 Ml) 3 ml NEB Q4HRRT [facility] Last Admin: 05/17/19 21:27 Dose: Not Given Atropine Sulfate (Atropine 1% Ophth Soln) 1 ml SL Q2H [facility] Last Admin: 05/17/19 21:54 Dose: 1 ml Ceftriaxone Sodium (Rocephin) 1 gm IVPUSH ONETIME ONE Stop: 05/16/19 00:14 Last Admin: 05/16/19 01:50 Dose: Not Given Diphenhydramine HCl (Benadryl) 50 mg IVPUSH ONETIME ONE Stop: 05/15/19 20:38 Last Admin: 05/15/19 20:59 Dose: 50 mg Enoxaparin Sodium (Lovenox) 60 mg SUBCUT ONETIME ONE Stop: 05/16/19 00:13 Last Admin: 05/16/19 00:54 Dose: 60 mg Ceftriaxone Sodium/Dextrose 1 (gm/ Premix) 50 mls @ 100 mls/hr IV ONETIME ONE Stop: 05/16/19 01:13 Last Admin: 05/16/19 00:53 Dose: 100 mls/hr Ceftriaxone Sodium/Dextrose (Rocephin In Dextrose,Iso-Osm 1 Gm/50 Ml) Confirm Administered Dose 50 mls @ as directed .ROUTE .STK-MED ONE Stop: 05/16/19 00:46 Last Admin: 05/16/19 01:50 Dose: Not Given Piperacillin Sod/Tazobactam (Sod 3.375 gm/ Sodium Chloride) 50 mls @ 100 mls/ hr IV Q8H [facility] Last Admin: 05/17/19 18:34 Dose: Not Given Sodium Chloride (Normal Saline) 1,000 mls @ 100 mls/hr IV ASDIRECTED [facility] Last Admin: 05/16/19 02:47 Dose: 100 mls/hr Vancomycin HCl 1.25 gm/ Sodium (Chloride) 250 mls @ 166.667 mls/hr IV ONETIME ONE Stop: 05/16/19 05:29 Vancomycin HCl 1 gm/ Sodium (Chloride) 250 mls @ 166 mls/hr IV Q24H [facility] Vancomycin HCl (Vancomycin 1.5 Gm/300 Ml Bag) 300 mls @ 200 mls/hr IV ONETIME ONE Stop: 05/16/19 05:29 Last Admin: 05/16/19 03:58 Dose: 200 mls/hr Ampicillin Sodium/Sulbactam (Sodium 1.5 gm/ Sodium Chloride) 50 mls @ 150 mls/ hr IV BID [facility] Last Admin: 05/17/19 21:36 Dose: Not Given Iopamidol (Isovue Multipack-370 (76%)) 50 ml IVPUSH ONETIME ONE Stop: 05/15/19 21:57 Last Admin: 05/15/19 21:57 Dose: 50 ml Lorazepam (Ativan) 1 mg IVPUSH Q4H PRN PRN Reason: Anxiety Lorazepam (Ativan) 1 mg IVPUSH Q2H PRN PRN Reason: Anxiety Last Admin: 05/16/19 21:49 Dose: 1 mg Lorazepam (Ativan) 2 mg IVPUSH Q2H PRN PRN Reason: Anxiety Lorazepam (Ativan) 1 mg IVPUSH ONETIME ONE Stop: 05/16/19 22:33 Last Admin: 05/16/19 22:38 Dose: 1 mg Lorazepam (Ativan) 2 mg PO Q2H PRN PRN Reason: Anxiety Methylprednisolone Sodium Succinate (Solu-Medrol) 125 mg IV NOW STA Stop: 05/15/19 20:39 Last Admin: 05/15/19 20:59 Dose: 125 mg Morphine Sulfate (Morphine) 1 mg IVPUSH Q2H PRN PRN Reason: Pain Last Admin: 05/16/19 22:19 Dose: 1 mg Morphine Sulfate (Morphine) 2 mg IVPUSH Q2H PRN PRN Reason: Pain Morphine Sulfate (Morphine 20 Mg/Ml Soln) 5 mg SL Q2H PRN PRN Reason: Pain Morphine Sulfate (Morphine Oral Concentrate 10mg/0.5ml U/D) 5 mg SL Q2H PRN PRN Reason: Pain Morphine Sulfate (Morphine 10 Mg/0.5 Ml Oral Syringe) 5 mg SL Q2H PRN PRN Reason: Pain Last Admin: 05/17/19 14:56 Dose: 5 mg Vancomycin HCl (Pharmacy To Dose - Vancomycin) 1 dose .XX ASDIRECTED FREDDY - Exam General: Lethargic Lungs: Rhonchi Cardiovascular: Regular Rate, Regular Rhythm GI/Abdominal Exam: Soft, Non-Tender Extremities: No Pedal Edema Sepsis Event Note - Evaluation Sepsis Screening Result: No Definite Risk - Problem List Review Problem List Initiated/Reviewed/Updated: Yes - Plan Plan:: 83 yo male with acute hypoxic respiratory failure and NSTEMI. Will continue comfort measures.
--- NOTE | 2019-05-20 08:52 | PCM.DCSUM1 ---
Discharge Summary - Discharge Data Discharge Date: 05/20/19 Discharge Disposition: 20 Condition: - Referral to Home Health Primary Care Physician: Ramu Miles MD - Patient Summary/Data Consults: Consultations 05/16/19 02:09 Wound Lug [employer] Consult [Consult to Wound Care Services] [CONS] Routine 05/16/19 22:32 Consult to Hospice [CONS] Routine Hospital Course: 83 yo male who was admitted for NSTEMI in the setting of acute hypoxic respiratory failure likely from aspiration pneumonia. On admission patient was placed on comfort measures. He was given morphine and ativan as needed. He on 05/20/19. - Discharge Plan Home Medications: Home Meds Aspirin [Halfprin] 81 mg PO DAILY 03/16/15 [History] Levothyroxine Sodium [Levoxyl] 50 mcg PO ACBREAKFAST 03/16/15 [History] atorvaSTATin [Lipitor] 20 mg PO DAILY 08/11/16 [History] Acetaminophen/HYDROcodone [Marine 325-5 MG] 1 tab PO Q4H PRN #20 tablet 05/01/19 [Rx] Docusate Sodium [Colace] 100 mg PO BID cap 05/01/19 [Rx] Polyethylene Glycol 3350 [MiraLAX] 17 gm PO DAILY PRN #0 packet 05/01/19 [Rx] bisacodyL [Dulcolax] 10 mg RECTAL DAILY PRN supp 05/01/19 [Rx] Acetaminophen [Tylenol] 650 mg PO TID PRN 05/15/19 [History] Referrals: Ramu Miles MD [Primary Care Provider] - - Discharge Summary/Plan Comment DC Time >30 min.: No - Patient Data Vitals - Most Recent: Last Vital Signs Temp 36.6 C 05/17/19 07:54 Pulse 63 05/17/19 07:54 Resp 18 05/17/19 07:54 BP 89/54 L 05/17/19 07:54 Pulse Ox 99 05/17/19 07:54 Weight - Most Recent: 55 kg I&O - Last 24 hours: Intake & Output 05/19/19 05/20/19 05/20/19 22:59 06:59 14:59 Intake Total 0 Balance 0 JACE Results - Last 24 hrs: Microbiology 05/15/19 21:00 Aerobic Blood Culture - Preliminary Blood - Venous - Lab Draw NO GROWTH AFTER 4 DAYS Anaerobic Blood Culture - Preliminary NO GROWTH AFTER 4 DAYS 05/15/19 20:20 Aerobic Blood Culture - Preliminary Blood - Venous NO GROWTH AFTER 4 DAYS Anaerobic Blood Culture - Preliminary NO GROWTH AFTER 4 DAYS Med Orders - Current: Current Medications Discontinued Medications Albuterol/Ipratropium (Duoneb 3.0-0.5 Mg/3 Ml) 3 ml NEB ONETIME ONE Stop: 05/15/19 20:32 Last Admin: 05/15/19 20:59 Dose: 3 ml Albuterol/Ipratropium (Duoneb 3.0-0.5 Mg/3 Ml) 3 ml NEB Q4HRRT FREDDY Last Admin: 05/17/19 21:27 Dose: Not Given Albuterol/Ipratropium (Duoneb 3.0-0.5 Mg/3 Ml) 3 ml NEB Q4HRRT PRN PRN Reason: Shortness of Breath Atropine Sulfate (Atropine 1% Ophth Soln) 1 ml SL Q2H FREDDY Last Admin: 05/17/19 21:54 Dose: 1 ml Atropine Sulfate (Atropine 1% Ophth Soln) 0 ml SL Q2H PRN PRN Reason: Other Last Admin: 05/19/19 13:37 Dose: 1 ml Ceftriaxone Sodium (Rocephin) 1 gm IVPUSH ONETIME ONE Stop: 05/16/19 00:14 Last Admin: 05/16/19 01:50 Dose: Not Given Diphenhydramine HCl (Benadryl) 50 mg IVPUSH ONETIME ONE Stop: 05/15/19 20:38 Last Admin: 05/15/19 20:59 Dose: 50 mg Enoxaparin Sodium (Lovenox) 60 mg SUBCUT ONETIME ONE Stop: 05/16/19 00:13 Last Admin: 05/16/19 00:54 Dose: 60 mg Ceftriaxone Sodium/Dextrose 1 (gm/ Premix) 50 mls @ 100 mls/hr IV ONETIME ONE Stop: 05/16/19 01:13 Last Admin: 05/16/19 00:53 Dose: 100 mls/hr Ceftriaxone Sodium/Dextrose (Rocephin In Dextrose,Iso-Osm 1 Gm/50 Ml) Confirm Administered Dose 50 mls @ as directed .ROUTE .STK-MED ONE Stop: 05/16/19 00:46 Last Admin: 05/16/19 01:50 Dose: Not Given Piperacillin Sod/Tazobactam (Sod 3.375 gm/ Sodium Chloride) 50 mls @ 100 mls/ hr IV Q8H ON LICENSE OF [facility] Last Admin: 05/17/19 18:34 Dose: Not Given Sodium Chloride (Normal Saline) 1,000 mls @ 100 mls/hr IV ASDIRECTED ON LICENSE OF [facility] Last Admin: 05/16/19 02:47 Dose: 100 mls/hr Vancomycin HCl 1.25 gm/ Sodium (Chloride) 250 mls @ 166.667 mls/hr IV ONETIME ONE Stop: 05/16/19 05:29 Vancomycin HCl 1 gm/ Sodium (Chloride) 250 mls @ 166 mls/hr IV Q24H FREDDY Vancomycin HCl (Vancomycin 1.5 Gm/300 Ml Bag) 300 mls @ 200 mls/hr IV ONETIME ONE Stop: 05/16/19 05:29 Last Admin: 05/16/19 03:58 Dose: 200 mls/hr Ampicillin Sodium/Sulbactam (Sodium 1.5 gm/ Sodium Chloride) 50 mls @ 150 mls/ hr IV BID ON LICENSE OF [facility] Last Admin: 05/17/19 21:36 Dose: Not Given Iopamidol (Isovue Multipack-370 (76%)) 50 ml IVPUSH ONETIME ONE Stop: 05/15/19 21:57 Last Admin: 05/15/19 21:57 Dose: 50 ml Lorazepam (Ativan) 1 mg IVPUSH Q4H PRN PRN Reason: Anxiety Lorazepam (Ativan) 1 mg IVPUSH Q2H PRN PRN Reason: Anxiety Last Admin: 05/16/19 21:49 Dose: 1 mg Lorazepam (Ativan) 2 mg IVPUSH Q2H PRN PRN Reason: Anxiety Lorazepam (Ativan) 1 mg IVPUSH ONETIME ONE Stop: 05/16/19 22:33 Last Admin: 05/16/19 22:38 Dose: 1 mg Lorazepam (Ativan) 2 mg PO Q2H PRN PRN Reason: Anxiety Lorazepam (Ativan) 2 mg SL Q2H PRN PRN Reason: Anxiety Last Admin: 05/19/19 06:02 Dose: 2 mg Methylprednisolone Sodium Succinate (Solu-Medrol) 125 mg IV NOW STA Stop: 05/15/19 20:39 Last Admin: 05/15/19 20:59 Dose: 125 mg Morphine Sulfate (Morphine) 1 mg IVPUSH Q2H PRN PRN Reason: Pain Last Admin: 05/16/19 22:19 Dose: 1 mg Morphine Sulfate (Morphine) 2 mg IVPUSH Q2H PRN PRN Reason: Pain Morphine Sulfate (Morphine 20 Mg/Ml Soln) 5 mg SL Q2H PRN PRN Reason: Pain Morphine Sulfate (Morphine Oral Concentrate 10mg/0.5ml U/D) 5 mg SL Q2H PRN PRN Reason: Pain Morphine Sulfate (Morphine 10 Mg/0.5 Ml Oral Syringe) 5 mg SL Q2H PRN PRN Reason: Pain Last Admin: 05/17/19 14:56 Dose: 5 mg Morphine Sulfate (Morphine 10 Mg/0.5 Ml Oral Syringe) 5 mg SL Q1H PRN PRN Reason: Pain Last Admin: 05/19/19 16:27 Dose: 5 mg Scopolamine (Transderm-Scop) 1.5 mg TRDERM Q72H PRN PRN Reason: Other Last Admin: 05/16/19 15:20 Dose: 1.5 mg Sodium Chloride (Saline Flush) 10 ml FLUSH ASDIRECTED PRN PRN Reason: Keep Vein Open Sodium Chloride (Saline Flush) 2.5 ml FLUSH ASDIRECTED PRN PRN Reason: Keep Vein Open Vancomycin HCl (Pharmacy To Dose - Vancomycin) 1 dose .XX ASDIRECTED FREDDY
== END 2019-05-20 02:15 | disposition expired | DRG 177 ==
LOC: MW.ED 20:24 → MW.MS 05-16 00:18
PROVIDERS: ADMIT Student in an Organized Health Care Education/Training Program; ATTEND Student in an Organized Health Care Education/Training Program
DX: J69.0 Pneumonitis due to inhalation of food and vomit (principal); J96.01 Acute respiratory failure with hypoxia; I21.4 Non-ST elevation (NSTEMI) myocardial infarction; Z51.5 Encounter for palliative care; E03.9 Hypothyroidism, unspecified; H54.7 Unspecified visual loss; E78.00 Pure hypercholesterolemia, unspecified; Z66 Do not resuscitate; K59.09 Other constipation; M19.90 Unspecified osteoarthritis, unspecified site; H91.90 Unspecified hearing loss, unspecified ear; Z90.49 Acquired absence of other specified parts of digestive tract; S72.002D Fracture of unspecified part of neck of left femur, subsequent encounter for closed fracture with routine healing; Z86.718 Personal history of other venous thrombosis and embolism; Z95.1 Presence of aortocoronary bypass graft; Z95.5 Presence of coronary angioplasty implant and graft; Z79.82 Long term (current) use of aspirin; Z79.890 Hormone replacement therapy; Z79.899 Other long term (current) drug therapy; Z90.89 Acquired absence of other organs; Z87.891 Personal history of nicotine dependence; Z91.041 Radiographic dye allergy status; Z98.890 Other specified postprocedural states; Z90.79 Acquired absence of other genital organ(s); Z85.46 Personal history of malignant neoplasm of prostate; Z85.038 Personal history of other malignant neoplasm of large intestine
CPT/HCPCS: 36415; 36600; 71045; 71275; 80053; 81001; 82803; 83605; 83615; 84484; 85025; 85610; 87040 ×2; 93005; 94640; 96374; 96375; 99285; J1200; J2930; Q9967; 99284; A9270-GY; J0295; J0696; J1650; J2060; J2270; J2543; J3370; J7030; J7050; J7620-GY